=== PATIENT | male | born 1950 | race Caucasian/White ===

== ENCOUNTER 2019-04-13 09:15 | Outpatient (RCR) | payer MEDICARE, OTHER, SELFPAY | END 2019-04-25 00:01 | LOC: WOUND 09:15 | PROVIDERS: Family Provider Physician Assistant Medical; Visit Provider Nurse Practitioner Family | DX: T81.31XA Disruption of external operation (surgical) wound, not elsewhere classified, initial encounter (principal); Y83.8 Other surgical procedures as the cause of abnormal reaction of the patient, or of later complication, without mention of misadventure at the time of the procedure; E11.621 Type 2 diabetes mellitus with foot ulcer; L97.422 Non-pressure chronic ulcer of left heel and midfoot with fat layer exposed ==

== ENCOUNTER 2019-05-18 11:53 | Outpatient (RCR) | payer MEDICARE, OTHER, SELFPAY | END 2019-05-26 23:59 | disposition home or self-care (01) | LOC: WOUND 11:53 | PROVIDERS: Family Provider Physician Assistant Medical; PCP Physician Assistant Medical; Visit Provider Nurse Practitioner Family | DX: E11.621 Type 2 diabetes mellitus with foot ulcer (principal); L97.812 Non-pressure chronic ulcer of other part of right lower leg with fat layer exposed; L97.422 Non-pressure chronic ulcer of left heel and midfoot with fat layer exposed; L97.522 Non-pressure chronic ulcer of other part of left foot with fat layer exposed; Z89.422 Acquired absence of other left toe(s); Z89.511 Acquired absence of right leg below knee | CPT/HCPCS: 11042; 11043; 11045; 11046; 15271; 15272; Q4121 ==

== ENCOUNTER 2019-06-15 10:10 | Outpatient (RCR) | payer MEDICARE, OTHER, SELFPAY | END 2019-06-24 23:59 | disposition home or self-care (01) | LOC: WOUND 10:10 | PROVIDERS: Family Provider Physician Assistant Medical; PCP Physician Assistant Medical; Visit Provider Nurse Practitioner Family | DX: E11.621 Type 2 diabetes mellitus with foot ulcer (principal); L97.422 Non-pressure chronic ulcer of left heel and midfoot with fat layer exposed; L97.522 Non-pressure chronic ulcer of other part of left foot with fat layer exposed; E11.622 Type 2 diabetes mellitus with other skin ulcer; L97.812 Non-pressure chronic ulcer of other part of right lower leg with fat layer exposed; Z89.422 Acquired absence of other left toe(s); Z89.511 Acquired absence of right leg below knee | CPT/HCPCS: 11042; 11045; 15271; 15272; Q4121 ==

== ENCOUNTER 2019-07-20 11:03 | Outpatient (RCR) | payer MEDICARE, OTHER, SELFPAY | END 2019-07-25 23:59 | disposition home or self-care (01) | LOC: WOUND 11:03 | PROVIDERS: Family Provider Physician Assistant Medical; PCP Physician Assistant Medical; Visit Provider Nurse Practitioner Family | DX: E11.621 Type 2 diabetes mellitus with foot ulcer (principal); L97.422 Non-pressure chronic ulcer of left heel and midfoot with fat layer exposed; L97.522 Non-pressure chronic ulcer of other part of left foot with fat layer exposed; E11.622 Type 2 diabetes mellitus with other skin ulcer; L97.812 Non-pressure chronic ulcer of other part of right lower leg with fat layer exposed; Z89.511 Acquired absence of right leg below knee; Z89.422 Acquired absence of other left toe(s) | CPT/HCPCS: 11042; 15271; Q4121 ==

== ENCOUNTER 2019-08-17 09:42 | Outpatient (RCR) | payer MEDICARE, OTHER, SELFPAY | END 2019-08-24 23:59 | disposition home or self-care (01) | LOC: WOUND 09:42 | PROVIDERS: Family Provider Physician Assistant Medical; PCP Physician Assistant Medical; Visit Provider Nurse Practitioner Family | DX: E11.621 Type 2 diabetes mellitus with foot ulcer (principal); L97.422 Non-pressure chronic ulcer of left heel and midfoot with fat layer exposed; L97.522 Non-pressure chronic ulcer of other part of left foot with fat layer exposed; E11.622 Type 2 diabetes mellitus with other skin ulcer; L97.812 Non-pressure chronic ulcer of other part of right lower leg with fat layer exposed; Z89.422 Acquired absence of other left toe(s); Z89.511 Acquired absence of right leg below knee | CPT/HCPCS: 11042; 11045; L8440 ==

== ENCOUNTER 2019-08-31 11:03 | Outpatient (CLI) | payer MEDICARE, OTHER, SELFPAY | END 2019-08-31 11:04 | disposition home or self-care (01) | LOC: WOUND 11:04 | PROVIDERS: Family Provider Physician Assistant Medical; PCP Physician Assistant Medical; Visit Provider Nurse Practitioner Family | DX: E11.621 Type 2 diabetes mellitus with foot ulcer (principal); L97.422 Non-pressure chronic ulcer of left heel and midfoot with fat layer exposed; L97.522 Non-pressure chronic ulcer of other part of left foot with fat layer exposed; Z89.422 Acquired absence of other left toe(s) | CPT/HCPCS: 99214 ==

== ENCOUNTER 2019-09-05 13:24 | Outpatient (CLI) | payer MEDICARE, OTHER, SELFPAY | END 2019-09-05 13:25 | disposition home or self-care (01) | LOC: WOUND 13:25 | PROVIDERS: Family Provider Physician Assistant Medical; PCP Physician Assistant Medical; Visit Provider Thoracic Surgery (Cardiothoracic Vascular Surgery) | DX: E11.621 Type 2 diabetes mellitus with foot ulcer (principal); L97.422 Non-pressure chronic ulcer of left heel and midfoot with fat layer exposed; L97.513 Non-pressure chronic ulcer of other part of right foot with necrosis of muscle; Z89.422 Acquired absence of other left toe(s) | CPT/HCPCS: 99215 ==

== ENCOUNTER 2019-09-13 12:23 | Outpatient (RCR) | payer MEDICARE, OTHER, SELFPAY ==
--- NOTE | 2019-09-13 12:30 | USCV_ITS ---
David Monique Age: 69 Gender: M : 1950 Exam Date: 09/13/2019 12:50 Ordering Phys: Ryan Aldana MD (Andy) ([email or web address] [place]) Technologist: Zuleyma Rivera [place] [facility] [place] [facility] [place]: PVD Risk Factors: Previous Vascular Surgery: RIGHT LEFT BP: 148.0 / 73.00 BP: 124.0/ 58.00 0 0 Waveform Velocity (cm/s) Velocity (cm/s) Waveform Iliac Prox 156.9 Monophasic Iliac Mid 129.0 Monophasic Iliac Distal 101.0 Monophasic INSIDE CHANNEL ACCOUNT MANAGER 116.5 Monophasic SFA Prox 85.4 Monophasic SFA Mid 73.0 Monophasic SFA Dist 82.3 Monophasic POP 88.6 Monophasic FLEXOGRAPHIC PRINTING PRESS OPERATOR 32.5 Monophasic DPA 21.4 Monophasic JUSTINE 0.7 FINDINGS Diminished resting JUSTINE 0.67 Low velocity continuous waveforms in the posterior tibial and dorsalis pedis arteries on the left side CONCLUSIONS 1. Abnormal resting JUSTINE, consistent with a moderate peripheral artery disease on the left side. 2. Abnormal Doppler waveforms, suggestive of collateral filling of the posterior tibial and dorsalis pedis arteries on the left side Dr Maria M Gillette MD FAC (Electronically Signed) Final Date: 13 Sep 2019 19:13 S
== END 2019-09-24 23:59 | disposition home or self-care (01) ==
LOC: RAD 12:23
PROVIDERS: PCP Physician Assistant Medical; Visit Provider Nurse Practitioner Family
DX: I73.9 Peripheral vascular disease, unspecified (principal); M79.605 Pain in left leg
CPT/HCPCS: 93926

== ENCOUNTER 2019-09-20 10:48 | Outpatient (CLI) | payer MEDICARE, OTHER, SELFPAY | END 2019-09-20 10:49 | disposition home or self-care (01) | LOC: WOUND 10:50 | PROVIDERS: PCP Physician Assistant Medical; Visit Provider Thoracic Surgery (Cardiothoracic Vascular Surgery) | DX: E11.621 Type 2 diabetes mellitus with foot ulcer (principal); L97.422 Non-pressure chronic ulcer of left heel and midfoot with fat layer exposed; L97.524 Non-pressure chronic ulcer of other part of left foot with necrosis of bone; Z89.422 Acquired absence of other left toe(s) | CPT/HCPCS: 99214 ==

== ENCOUNTER 2019-09-25 06:08 | Inpatient (IN) | payer MEDICARE, OTHER, SELFPAY ==
[2019-09-22 14:31] VITALS: BMI 31.8
[2019-09-25] VITALS (21 sets, daily range): BP systolic 109–138; BP diastolic 64–78; PULSE 61–88; RESP 16–22; TEMP 36.8–37.2; O2SAT 92–97
--- NOTE | 2019-09-25 06:07 | ANES.PREANE2 ---
Pre-Anesthetic Assessment Pre-Anesthetic Assessment: Height/Weight: Height 1.83 m Weight 106.594 kg Proposed Procedure: Operation Date: 09/25/19 07:00 Proposed Procedures p BKA (Below Knee Amputation)(Left) - Ryan Aldana MD Social: Social History: Tobacco and No alcohol Exam: Pre-Anes Outpt Exam: alert, oriented x 3, clear to auscultation bilaterally (bilat course) and regular rate & rhythm Airway: Submandibular: WNL Cervical ROM: WNL MP: 2 Dentition: Other (very poor dentation) History/ROS: No significant history except as noted Pulmonary: Pulmonary: COPD, HOOKS and SOB CV/HEM: CV/HEM: CAD, HTN, IN and PVD : : None reported Hepatic: Hepatic: None reported GI: GI: GERD Metabolic: Metabolic: DM, Hyperlipidemia and Morbid obesity Musc/skel: Musc/skel: OA/DJD and Weakness Neuropsych: Neuropsych: Neuropathy Anesthetic Plan: ASA status: 4 Anesthesia: Anesthesia Evaluation, General and MAC Risk of > 500 ml blood loss (7ml/kg in children): Yes, adequate IV access and fluids planned PFSH Anesthesia PFSH: Medical History Amputated right leg COPD (chronic obstructive pulmonary disease) Diabetes Heart attack Hyperlipidemia Hypertension Social History Smoking and tobacco status: current every day smoker Data Anesthesia Cardiac Studies: No Data to Display
--- NOTE | 2019-09-25 06:31 | W.PM.OPSUD ---
Surgery/Procedure H&P Update DATE OF PROCEDURE: September 25, 2019 DATE H&P PERFORMED: 09/20/19 H&P UPDATE INFORMATION: I have reviewed H&P completed within last 30 days, I have examined patient prior to procedure and No changes to prior documentation PREOP DIAGNOSIS: severe PVD; planned left bka PLANNED PROCEDURE: Operation Date: 09/25/19 07:00 Proposed Procedures p BKA (Below Knee Amputation)(Left) - Ryan Aldana MD
[2019-09-25 06:45] LABS: Glucose Point of Care 113 mg/dL (70-110)
[2019-09-25] MEDS: sodium chloride 0.9% 1,000 ML 30 ML IV (06:50)
[2019-09-25] MEDS: fentaNYL 50 mcg/mL INJ 2mL 100 MCG IVP (07:06)
[2019-09-25 07:11] LABS: Basophils # 0.1 10^3/uL (0.0-0.1); Basophils % 0.5 %; Eosinophils # 0.4 10^3/uL (0.0-0.8); Eosinophils % 3.1 %; Hematocrit 37.1 % (42.0-52.0); Hemoglobin 11.4 g/dL (11.7-16.6); Lymphocytes # 1.2 10^3/uL (0.8-4.8); Lymphocytes % 8.5 %; Mean Corpuscular HGB Conc 30.7 g/dL (30.0-36.0); Mean Corpuscular Hemoglobin 26.5 pg (28.0-34.0); Mean Corpuscular Volume 86.3 fL (80-94); Mean Platelet Volume 9.5 fL (7.4-10.4); Monocytes # 1.2 10^3/uL (0.2-0.9); Monocytes % 8.4 %; Neutrophils % 78.9 %; Nucleated Red Blood Cells % 0 %; Platelet Count 456 10^3/cmm (130-400); Red Cell Distribution Width 16.3 % (12.1-15.1)
[2019-09-25 07:22] LABS: Alanine Aminotransferase 13 U/L (0-41); Albumin Level 3.4 g/dL (3.5-5.2); Alkaline Phosphatase 97 IU/L (40-130); Anion Gap 14.3 (5-19); Aspartate Amino Transferase 13 U/L (0-40); Blood Urea Nitrogen 49 mg/dL (8-23); Calcium 9.8 mg/dL (8.5-10.5); Carbon Dioxide 39 mmol/L (22-29); Chloride 81 mmol/L (98-107); Globulin 4.3 g/dL (1.3-4.6); Glucose 118 mg/dL (65-115); Osmolality Calculated 269 mOsm/kg (285-295); Potassium 4.3 mmol/L (3.5-5.1); Sodium 130 mmol/L (136-145); Total Bilirubin 0.3 mg/dL (0.15-1.2); Total Protein 7.7 g/dL (6.6-8.7)
[2019-09-25] MEDS: midazolam 1 mg/mL INJ 5 ML 5 MG IVP (07:35)
[2019-09-25] MEDS: vancomycin 1,000 MG SDV 1000 MG IRRIGATION (07:51)
[2019-09-25] MEDS: fentaNYL 50 mcg/mL INJ 2mL IVP (10:06)
--- NOTE | 2019-09-25 10:07 | PM.OP ---
Operative Report Date of procedure: September 25, 2019 Pre-op Diagnosis: severe PVD; planned left bka Post-op diagnosis: same Procedure Done: Left below-knee amputation Specimens removed/disposition: Left below-knee amputation Surgeon: Ryan Aldana Anesthesia: Nerve Block Estimated blood loss (mL): 200 Urine output (mL): 250 Condition: stable Disposition: PACU Brief History: 69-year-old gentleman with diabetes mellitus and severe peripheral vascular disease who is been followed in wound care clinic with progressive breakdown of his left foot now with exposed metatarsals on at least 3 areas. He has had a prior right below-knee amputation by myself last year due to severe peripheral vascular disease. No further options for vascular reconstruction are available and patient is requested for us to proceed with left below-knee amputation. Details of risk the procedure were carefully and frankly discussed. Proper consents have been reviewed and signed. Procedure: His entire left lower extremity was sterilely prepped and draped. Marking pen was utilized to determine our lines of transection to include a generous posterior flap. #10 scalpel blade was utilized to incise the skin circumferentially along the previously placed planned line of transection. Saphenous vein was controlled medially and secured prior to division. This was continued down to the tibia where periosteal elevator was utilized to strip periosteum proximally. This was done circumferentially. Next, transection of the tibia was performed utilizing powered saw. Anterior surface of the tibia was beveled utilizing saw and rasp Scalpel blade was utilized continue further transection of musculature and fascia down to the fibula, which was also isolated and periosteum elevated proximally. Again, powered saw was utilized to perform transection proximally. Amputation was then completed utilizing amputation knife. Areas of bleeding were controlled utilizing careful case of cautery or suture ligature. Remaining bulk of musculature on the posterior flap was beveled to allow for appropriate closure with elevation to the anterior transection line. Wound was then irrigated with antibiotic solution and hemostasis confirmed. A large Hemovac drain was placed and secured. Fascia was reapproximated with interrupted 2-0 Vicryl suture. Subcutaneous layer was reapproximated with running 3-0 Vicryl suture. Skin was then reapproximated utilizing [3-0 monofilament suture/skin joshua] in interrupted mattress fashion. Xeroform gauze was applied followed by appropriate padded dressings. Knee was placed in an immobilizer.
[2019-09-25 10:23] LABS: Glucose Point of Care 170 mg/dL (70-110)
[2019-09-25] MEDS: oxyCODONE-APAP 10-325 mg Tablet 1 TAB PO ×3 (10:55→23:58)
[2019-09-25] MEDS: sodium chloride 0.45% 1,000 ML 75 ML IV ×2 (10:55→21:46)
--- NOTE | 2019-09-25 11:03 | SUR.PHASEI ---
1028 PT AWAKE ALERT TAKING ICE CHIPS PT STATS PAIN IS BETTER NOW, LT STUMP DRESSING D/;I DRAIN COMPRESSED WITH ONLY SMALL AMT IN TUBING. PT TO FLOOR ALERT TALKATIVE TO KARIN GARY. BP 126/76. HR 70, RESP ON3LC 18, SATS 95%
[2019-09-25 11:23] LABS: Glucose Point of Care 195 mg/dL (70-110)
[2019-09-25 11:46] LABS: Add Urine Microscopic? YES; Bilirubin Urine Neg (NEGATIVE); Blood Urine 2+ (Negative); Glucose Urine UA Norm (Normal); Ketones Urine Negative (Negative); Leukocyte Esterase Urine Negative (Negative); Nitrate Urine Negative (Negative); Protein Urine Neg (Negative); Urine Appearance Clear (CLEAR); Urine Color Straw (Yellow); Urobilinogen Urine Norm (Negative); pH Urine 6 (5-7)
[2019-09-25 12:08] LABS: Squamous Epithelial Cell Urine 0-4 (0-5)
[2019-09-25 12:09] LABS: Add Urine Culture? Yes; Bacteria Urine 2+; Hyaline Casts Urine 0-4
[2019-09-25 17:14] LABS: Glucose Point of Care 307 mg/dL (70-110)
[2019-09-25] MEDS: metoprolol tartrate 50 mg Tablet PO (17:19)
[2019-09-25] MEDS: bumetanide 1 mg Tablet 2 MG PO (17:19)
--- NOTE | 2019-09-25 17:52 | PC.NURSE ---
pt has done well this shift, he has had 30mL serous output from his hemovac to L knee. pain has been well controlled, he stated that his pain hasn't been controlled this well in a while i reminded patient that he had a block to his L knee before surgery and that is helping to keep his pain under control. He has had two doses of oxycodone this shift. he has ate well and has no complaints at this time.
[2019-09-25 21:07] LABS: Glucose Point of Care 319 mg/dL (70-110)
[2019-09-25] MEDS: trazodone 50 mg Tablet PO (21:46)
[2019-09-26] VITALS (11 sets, daily range): BP systolic 94–129; BP diastolic 55–72; PULSE 57–73; RESP 17–20; TEMP 36.2–36.6; O2SAT 90–96
[2019-09-26] MEDS: oxyCODONE-APAP 10-325 mg Tablet 1 TAB PO ×5 (04:48→22:17)
[2019-09-26 06:22] LABS: Basophils % 0.1 %; Eosinophils % 0.1 %; Hematocrit 32.5 % (42.0-52.0); Hemoglobin 9.9 g/dL (11.7-16.6); Lymphocytes # 0.9 10^3/uL (0.8-4.8); Mean Corpuscular HGB Conc 30.5 g/dL (30.0-36.0); Mean Corpuscular Hemoglobin 26.5 pg (28.0-34.0); Mean Corpuscular Volume 87.1 fL (80-94); Mean Platelet Volume 9.7 fL (7.4-10.4); Monocytes # 0.7 10^3/uL (0.2-0.9); Monocytes % 4.7 %; Neutrophils # 13.3 10^3/uL (1.8-7.7); Neutrophils % 88.4 %; Nucleated Red Blood Cells % 0 %; Platelet Count 413 10^3/cmm (130-400); Red Blood Count 3.73 10^6/uL (4.1-5.3); Red Cell Distribution Width 15.9 % (12.1-15.1)
--- NOTE | 2019-09-26 06:30 | P.PN_ITS ---
Subjective Subjective: Interval history: Rested reasonably well last night. Does complain of surgical site pain as expected. Very low drain output. Vital signs are stable. White count 15,000. BMP is pending. Vitals/I&O/Wt Last Vital Signs Temp 97.8 F 09/26/19 04:00 Pulse 67 09/26/19 04:00 Resp 17 09/26/19 04:48 BP 119/61 09/26/19 04:00 Pulse Ox 90 09/26/19 04:00 09/25/19 09/25/19 09/26/19 14:59 22:59 06:59 Intake Total 100 / 100 1413.75 / 1513.75 740.00 / 2253.75 Output Total 1999 1030 / 3030 1103 / 4133 Balance -1900 / -1900 383.75 / -1516.25 -363.00 / -1879.25 Physical Exam Extremity: COMMON NORMALS: normal to inspection (Surgical dressing in place. Low FELIBERTO drain output.) Urinary Catheter Management^: Shaw: Cath Placed During This Visit: yes Reason for Continuing Indwelling Catheter: Perioperative Use in Selected Surgeries Urinary Catheter Date of Insertion: 09/25/19 Urinary Catheter Time of Insertion: 07:40 Data : 09/26/19 05:32 09/25/19 06:45 A&P Assessment and plan (1) Status post below-knee amputation of left lower extremity: Postop day #1 status post left BKA. I will plan to remove FELIBERTO drain this afternoon. I will add tramadol and Toradol to pain medication regimen Levaquin 500 milligrams daily prophylactically. Will confirm home health arrangements have been made with [facility] health services. Status: Acute Attestations Medical Necessity Statement*: Status post below-knee amputation on the left. Hospital stay is expected to cross 2 midnights. Time Spent in Patient Care: 16 - 35 minutes Coding Level of Care Code Acute Event Planning Manager for Allen Ladd Diagnoses Status post below-knee amputation of left lower extremity Z89.512
[2019-09-26] MEDS: ketorolac 30 mg/mL INJ IVP ×4 (06:34→23:30)
[2019-09-26 06:37] LABS: Anion Gap 13.5 (5-19); Blood Urea Nitrogen 47 mg/dL (8-23); Calcium 9.4 mg/dL (8.5-10.5); Carbon Dioxide 36 mmol/L (22-29); Chloride 83 mmol/L (98-107); Glucose 250 mg/dL (65-115); Osmolality Calculated 272 mOsm/kg (285-295); Potassium 4.5 mmol/L (3.5-5.1); Sodium 128 mmol/L (136-145)
[2019-09-26 06:40] LABS: Glucose Point of Care 279 mg/dL (70-110)
[2019-09-26] MEDS: TRAMadol 50 mg Tablet PO ×3 (07:11→20:50)
--- NOTE | 2019-09-26 07:21 | PC.NURSE ---
pt lung sounds coarse and diminished in bilateral lower bases, pt encouraged to use IS and used it while this nurse was at bedside
[2019-09-26] MEDS: amlodipine 5 mg Tablet 2.5 MG PO (08:41)
[2019-09-26] MEDS: metoprolol tartrate 50 mg Tablet PO ×2 (08:41→17:07)
[2019-09-26] MEDS: tamsulosin 0.4 mg Capsule PO (08:41)
[2019-09-26] MEDS: citalopram 20 mg Tablet 10 MG PO (08:41)
[2019-09-26] MEDS: bumetanide 1 mg Tablet 2 MG PO ×2 (08:41→17:06)
[2019-09-26] MEDS: pregabalin 50 mg Capsule PO (08:41)
[2019-09-26] MEDS: pantoprazole DR 40 mg Tablet PO (08:41)
[2019-09-26] MEDS: spironolactone 25 mg Tablet PO (08:42)
--- NOTE | 2019-09-26 10:53 | PC.RESP ---
SMOKING CESSATION AND PULMONARY REHAB INFORMATION SENT TO PATIENT.
[2019-09-26 10:56] LABS: Glucose Point of Care 265 mg/dL (70-110)
[2019-09-26] MEDS: sodium chloride 0.45% 1,000 ML 75 ML IV ×2 (11:39→22:54)
--- NOTE | 2019-09-26 11:45 | PC.CHAP ---
Pastoral Care Encounter/Spiritual Assessment Type of Contact [] Declined silver solderer visit [] Patient/Family/Request visit [] Outpatient visit [] Follow-up visit [] Physician referral [] Code/Alert [x] Routine visit [] Staff referral [] Actively dying [] Patient sleeping [] Family support [] [] Out of room [] Palliative care [] [x] Receiving care in room [] Pre-surgical visit [] Trauma [] Long length of stay [] ICU visit [x] Other: no prayer Relational/Emotional Strength [x] Patient feels connected with others/family/visitors/staff [] Distress [] Loneliness/isolation [] Abandonment Spirituality of Patient [] Person of Chloe [] Attends Mandaen of their Chloe [] Believes in Prayer [] Reads Bible or Buddhism materials [] There are Spiritual issues to be addressed Belt Glass Sander Interventions [] Prayer [] Active listening [] Non-anxious presence [] Spiritual/emotional support [] Crisis/trauma care [] Spiritual counseling [] Bereavement support [] Provided bereavement packet [] Provided Bible/devotional materials [] Provided toy/stuffed animal, coloring book to patient or family member [] Provided Communion [] Anointing/[place] [] Salvation [] Completed spiritual assessment [] Other: Impact on Illness or Injury [] Angry [] Fearful [x] Anxious [] Often cries [] Exhaustion [] Unable to work [] Unable to attend scientologist [] Unable to walk/stand [] Unable to read [] Unable to drive [] Unable to eat/drink [] Unable to sleep [] Unable to be with family [] Patient intubated [] Other: Summary Cut off R leg possitve to some degree, going home to family to help take of him, no prayer Time spent with patient 10 mins
--- NOTE | 2019-09-26 16:30 | PM.PN ---
Subjective Subjective: Interval history: Uneventful day. Low drain output. Vitals/I&O/Wt Last Vital Signs Temp 97.5 F L 09/26/19 11:21 Pulse 57 L 09/26/19 11:21 Resp 20 H 09/26/19 13:22 BP 112/57 09/26/19 11:21 Pulse Ox 91 09/26/19 11:21 09/26/19 09/26/19 09/26/19 06:59 14:59 22:59 Intake Total 761.25 / 2275.00 360 / 360 Output Total 1103 / 4133 800 / 800 Balance -341.75 / -1858.00 -440 / -440 Physical Exam Extremity: COMMON NORMALS: normal to inspection (Surgical dressing removed. Incision line intact. Minimal ecchymosis. Hemovac drain removed.) Urinary Catheter Management^: Shaw: Cath Placed During This Visit: yes Reason for Continuing Indwelling Catheter: Perioperative Use in Selected Surgeries Urinary Catheter Date of Insertion: 09/25/19 Urinary Catheter Time of Insertion: 07:40 Data : 09/26/19 05:32 09/26/19 05:32 Micro: Microbiology 09/25/19 11:31 Urine Culture - Preliminary Urine,Clean Catch A&P Assessment and plan (1) Status post below-knee amputation of left lower extremity: Hemovac drain removed. Incision line intact. Continue rehabilitation. DC Shaw catheter tomorrow. Discharge planning. Status: Acute Attestations Medical Necessity Statement*: Postop day #1 status post left BKA Time Spent in Patient Care: 16 - 35 minutes Coding Level of Care Code Acute Linseed Oil Refiner for Allen Ladd Diagnoses Status post below-knee amputation of left lower extremity Z89.512
[2019-09-26 16:55] LABS: Glucose Point of Care 176 mg/dL (70-110)
[2019-09-26] MEDS: levoFLOXacin 750 mg Tablet 500 MG PO (17:06)
--- NOTE | 2019-09-26 17:24 | PC.NURSE ---
Pt has had an increase in pain this shift from yesterday, all pain medications have been utilized throughout shift. Pt resting in bed at this time eating supper, he rates his pain at 4/10. Scheduled dose of toradol due at 1830. First dose of PO levaquin given per order. Dressing to L knee removed and hemovac removed by Dr. Aldana today, pt tolerated well.
--- NOTE | 2019-09-26 17:45 | PC.NURSE ---
Dr. Aldana states that patient's is allowed to visit, front attendant notified of Sarah coming to see pt so that they will allow her in
[2019-09-26 20:39] LABS: Glucose Point of Care 214 mg/dL (70-110)
[2019-09-27] MEDS: levoFLOXacin 500 mg Tablet PO (05:33)
[2019-09-27] MEDS: ketorolac 30 mg/mL INJ IVP (05:33)
--- NOTE | 2019-09-27 06:28 | PC.NURSE ---
NURSES NOTE DR. DENNIS AT BEDSIDE INSTRUCTING PATIENT ON PLAN OF CARE. STATES HE WILL PUT ORDERS IN THE CHART.
--- NOTE | 2019-09-27 06:42 | PM.DCS ---
Discharge Providers Date of Admission: 09/25/19 06:08 Date of Discharge: September 27, 2019 Attending Provider at Admission: Ryan Aldana MD Attending Provider at Discharge: Ryan Aldana MD Primary Care Provider: Laz Mclaughlin Diagnoses at Discharge Discharge Diagnosis (1) Status post below-knee amputation of left lower extremity: Status: Acute Hospital Course Discharge Summary: Mr. Monique is a very pleasant gentleman with severe peripheral vascular disease, oxygen dependent COPD, renal insufficiency, and diabetes mellitus who is status post right below-knee amputation last year due to severe PVD with progressive tissue loss. Unfortunately, this has now proceeded on the left side and after careful review by our interventional service, he is not felt to have any options for meaningful reconstruction. He has extensively exposed metatarsal phalangeal joints with increasing pain. Below-knee amputation is been recommended. He was electively admitted on September 24 underwent left below-knee amputation. Small Hemovac drain was placed. He convalesced on the surgical barrios where he remained stable. Pain under good control. Low Hemovac drain output. Drain was discontinued yesterday evening. Incision line remains intact, clean and dry. His postoperative pain is under reasonable control with oral narcotics and he is eager for discharge to return home. He has had previous home health services with [facility] and he wishes to continue these. This has been arranged. Nursing department for that service will be contacted to confirm appropriate discharge instructions. He will be scheduled to follow-up to see me in wound care services in 1 week. At the time of discharge she is in stable condition. Physical Exam Resp: COMMON NORMALS: normal respiratory effort and clear to auscultation bilaterally EFFORT & INSPECTION: Yes able to speak in complete sentences AUSCULTATION: clear to auscultation bilaterally Cardio: COMMON NORMALS: regular rate, regular rhythm and S1 normal heart sound present RATE: regular rate RHYTHM: regular rhythm HEART SOUNDS: S1 normal heart sound present Extremity: COMMON NORMALS: normal to inspection (Left BKA incision line is clean, dry, and intact. Minimal swelling and no evidence for substantial fluid collection.) Urinary Catheter Management^: Shaw: Cath Placed During This Visit: yes Reason for Continuing Indwelling Catheter: Perioperative Use in Selected Surgeries Urinary Catheter Date of Insertion: 09/25/19 Urinary Catheter Time of Insertion: 07:40 Discharge Data Data Completed and Pending: Pending at discharge Category Date Time Status Leukocyte Reduced RBC Routine Lab 09/25/19 06:57 Results Type and Screen R outine Lab 09/25/19 06:57 Results Urine Culture Rou hosea Lab 09/25/19 11:31 Results Pathology: Surgic al [PTH] Routine Pth 09/25/19 08:26 Received Labs from last 24 hours 09/26/19 09/26/19 09/26/19 20:32 16:48 10:51 POC Glucose 214 176 265 Vitals: Last Vital Signs Temp 97.2 F L 09/26/19 20:00 Pulse 65 09/26/19 20:00 Resp 18 09/26/19 22:17 BP 103/63 09/26/19 20:00 Pulse Ox 95 09/26/19 20:00 Discharge Plan Discharge Patient Disposition: Home Health Service Condition: Stable Prescriptions: New Percocet 10-325 mg tablet 1 tab PO Q6H PRN (Reason: pain) Qty: 30 RF: 0 levofloxacin [Levaquin] 500 mg tablet 250 mg PO DAILY 5 Days Qty: 3 RF: 0 Continued acetaminophen-codeine 300-60 mg Tablet 1 tab PO Q6H PRN (Reason: Pain) RF: 0 amlodipine 2.5 mg Tablet 2.5 mg PO DAILY RF: 0 bumetanide 2 mg tablet 2 mg PO BID RF: 0 trazodone 50 mg tablet 50 mg PO DAILY RF: 0 citalopram 10 mg tablet 10 mg PO DAILY RF: 0 clopidogrel 75 mg tablet 75 mg PO DAILY RF: 0 spironolactone 25 mg tablet 25 mg PO DAILY RF: 0 tamsulosin 0.4 mg capsule 0.4 mg PO DAILY RF: 0 metoprolol tartrate 50 mg tablet 50 mg PO BID RF: 0 omeprazole 20 mg capsule,delayed release(DR/EC) 20 mg PO PRN RF: 0 rosuvastatin 5 mg tablet 5 mg PO DAILY RF: 0 pregabalin 50 mg capsule 50 mg PO DAILY RF: 0 Lantus Solostar U-100 Insulin 100 unit/mL (3 mL) insulin pen 60 unit SUBCUT DAILY RF: 0 melatonin 3 mg Capsule 3 mg PO DAILY RF: 0 Discharge Orders: Discharge Order (Routine); Ordered 09/27/19 Ordered By: Ryan Aldana Referrals: WOUND CARE CL[facility], [Staff Physician] - 10/03/19 Discharge Diet: Usual diet Discharge Activity: Limit activity as instructed Activity Restrictions/Additional Instructions: Assistance with all transfers Abanda incision line daily with Betadine and cover as needed Discharge Attestations Time Spent in Discharge Care*: greater than 30 min Specific Discharge Activities: Specific discharge activities: educating patient, discussing with pcp/other providers, discussing with case resource manager/social workers/dc planners, documenting/other paperwork and evaluating patient/reviewing data Status at Discharge: Cognitive status at discharge: cognitively intact, Functional status at discharge: wheelchair bound Overall status at discharge: patient is progressing back to baseline Quality Metrics Clinical Quality Measures During this hospital stay, did patient experience: None Coding Level of Care Code Acute Power Screwdriver Operator for Barbieg Fwd Diagnoses Status post below-knee amputation of left lower extremity Z89.512
[2019-09-27 07:37] VITALS: BP 104/58; PULSE 93; RESP 18; TEMP 36.4; O2SAT 95
[2019-09-27] MEDS: bumetanide 1 mg Tablet 2 MG PO (08:15)
[2019-09-27 08:16] VITALS: RESP 18
[2019-09-27] MEDS: amlodipine 5 mg Tablet 2.5 MG PO (08:16)
[2019-09-27] MEDS: oxyCODONE-APAP 10-325 mg Tablet 1 TAB PO (08:16)
[2019-09-27] MEDS: pregabalin 50 mg Capsule PO (08:18)
[2019-09-27] MEDS: pantoprazole DR 40 mg Tablet PO (08:18)
[2019-09-27] MEDS: tamsulosin 0.4 mg Capsule PO (08:18)
[2019-09-27] MEDS: spironolactone 25 mg Tablet PO (08:18)
[2019-09-27] MEDS: metoprolol tartrate 50 mg Tablet PO (08:19)
[2019-09-27] MEDS: citalopram 20 mg Tablet 10 MG PO (08:19)
[2019-09-27 11:45] LABS: Glucose Point of Care 106 mg/dL (70-110)
[2019-09-27 13:27] VITALS: RESP 18
== END 2019-09-27 12:30 | disposition home health service (06) | DRG 240 ==
LOC: MEDSURG 09:45
PROVIDERS: Admitting Provider Thoracic Surgery (Cardiothoracic Vascular Surgery); PCP Physician Assistant Medical; Visit Provider Thoracic Surgery (Cardiothoracic Vascular Surgery)
PROC: 0Y6J0Z1 Detachment at Left Lower Leg, High, Open Approach (ICD-10-PCS; CPT 27880; principal; 2019-09-25 07:00)
DX: E11.51 Type 2 diabetes mellitus with diabetic peripheral angiopathy without gangrene (principal); I13.0 Hypertensive heart and chronic kidney disease with heart failure and stage 1 through stage 4 chronic kidney disease, or unspecified chronic kidney disease; E11.42 Type 2 diabetes mellitus with diabetic polyneuropathy; E11.22 Type 2 diabetes mellitus with diabetic chronic kidney disease; N18.3 Chronic kidney disease, stage 3 (moderate); I48.91 Unspecified atrial fibrillation; I25.2 Old myocardial infarction; E66.01 Morbid (severe) obesity due to excess calories; Z68.31 Body mass index [BMI] 31.0-31.9, adult; J44.9 Chronic obstructive pulmonary disease, unspecified; Z89.511 Acquired absence of right leg below knee; Z79.02 Long term (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 of antithrombotics/antiplatelets; Z79.4 Long term (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 of insulin
CPT/HCPCS: 12345; 36415; 36416; 51702; 80048; 80053; 81001; 82962; 85025; 86850; 86900; 86920; 87086; 88307; 94664; 96372; 96374; 96375; J0131; J0690; J1100; J1815; J1885; J2001; J2250; J2704; J2795; J3010; J3370; J7030

== ENCOUNTER 2019-10-03 13:31 | Outpatient (CLI) | payer MEDICARE, OTHER, SELFPAY | END 2019-10-03 13:32 | disposition home or self-care (01) | LOC: WOUND 13:32 | PROVIDERS: PCP Physician Assistant Medical; Visit Provider Thoracic Surgery (Cardiothoracic Vascular Surgery) | DX: E11.621 Type 2 diabetes mellitus with foot ulcer (principal); L97.524 Non-pressure chronic ulcer of other part of left foot with necrosis of bone; Z89.422 Acquired absence of other left toe(s) | CPT/HCPCS: 99212 ==

== ENCOUNTER 2019-10-18 09:52 | Outpatient (CLI) | payer MEDICARE, OTHER, SELFPAY | END 2019-10-18 09:53 | disposition home or self-care (01) | LOC: WOUND 09:56 | PROVIDERS: PCP Physician Assistant Medical; Visit Provider Thoracic Surgery (Cardiothoracic Vascular Surgery) | DX: Z89.512 Acquired absence of left leg below knee (principal) | CPT/HCPCS: 99212 ==

== ENCOUNTER 2019-10-24 13:10 | Outpatient (CLI) | payer MEDICARE, OTHER, SELFPAY | END 2019-10-24 13:11 | disposition home or self-care (01) | LOC: WOUND 13:10 | PROVIDERS: PCP Physician Assistant Medical; Visit Provider Thoracic Surgery (Cardiothoracic Vascular Surgery) | DX: Z89.512 Acquired absence of left leg below knee (principal) | CPT/HCPCS: 99212; L8440 ==

== ENCOUNTER 2019-11-01 15:34 | Outpatient (CLI) | payer MEDICARE, OTHER, SELFPAY | END 2019-11-01 15:35 | disposition home or self-care (01) | LOC: WOUND 15:35 | PROVIDERS: PCP Physician Assistant Medical; Visit Provider Thoracic Surgery (Cardiothoracic Vascular Surgery) | DX: E11.622 Type 2 diabetes mellitus with other skin ulcer (principal); L97.823 Non-pressure chronic ulcer of other part of left lower leg with necrosis of muscle; Z89.512 Acquired absence of left leg below knee | CPT/HCPCS: 11042 ==

== ENCOUNTER 2019-11-07 15:15 | Outpatient (CLI) | payer MEDICARE, OTHER, SELFPAY | END 2019-11-07 15:16 | disposition home or self-care (01) | LOC: WOUND 15:17 | PROVIDERS: PCP Physician Assistant Medical; Visit Provider Thoracic Surgery (Cardiothoracic Vascular Surgery) | DX: E11.622 Type 2 diabetes mellitus with other skin ulcer (principal); L97.822 Non-pressure chronic ulcer of other part of left lower leg with fat layer exposed; Z89.512 Acquired absence of left leg below knee | CPT/HCPCS: G0463 ==

== ENCOUNTER 2019-11-08 06:00 | Outpatient (RCR) | payer OTHER, SELFPAY | END 2019-11-08 23:00 | disposition home or self-care (01) | LOC: WOT 06:00 | PROVIDERS: PCP Physician Assistant Medical; Referring Provider Physician Assistant Medical; Visit Provider Physician Assistant Medical | DX: Z74.09 Other reduced mobility (principal) | CPT/HCPCS: 97167; 97530 ==

== ENCOUNTER 2019-11-14 10:38 | Outpatient (CLI) | payer MEDICARE, OTHER, SELFPAY | END 2019-11-14 10:39 | disposition home or self-care (01) | LOC: WOUND 10:40 | PROVIDERS: PCP Physician Assistant Medical; Visit Provider Thoracic Surgery (Cardiothoracic Vascular Surgery) | DX: E11.622 Type 2 diabetes mellitus with other skin ulcer (principal); L97.822 Non-pressure chronic ulcer of other part of left lower leg with fat layer exposed; Z89.512 Acquired absence of left leg below knee | CPT/HCPCS: 11042 ==

== ENCOUNTER 2019-11-21 10:26 | Outpatient (CLI) | payer MEDICARE, OTHER, SELFPAY | END 2019-11-21 10:27 | disposition home or self-care (01) | LOC: WOUND 10:37 | PROVIDERS: PCP Physician Assistant Medical; Visit Provider Thoracic Surgery (Cardiothoracic Vascular Surgery) | DX: E11.622 Type 2 diabetes mellitus with other skin ulcer (principal); L97.822 Non-pressure chronic ulcer of other part of left lower leg with fat layer exposed; Z89.512 Acquired absence of left leg below knee | CPT/HCPCS: 11042 ==

== ENCOUNTER 2019-11-28 11:00 | Outpatient (CLI) | payer MEDICARE, OTHER, SELFPAY | END 2019-11-28 11:01 | disposition home or self-care (01) | LOC: WOUND 11:06 | PROVIDERS: PCP Physician Assistant Medical; Visit Provider Thoracic Surgery (Cardiothoracic Vascular Surgery) | DX: E11.622 Type 2 diabetes mellitus with other skin ulcer (principal); L97.822 Non-pressure chronic ulcer of other part of left lower leg with fat layer exposed; Z89.512 Acquired absence of left leg below knee | CPT/HCPCS: 11042 ==

== ENCOUNTER 2019-12-05 11:05 | Outpatient (CLI) | payer MEDICARE, OTHER, SELFPAY | END 2019-12-05 11:06 | disposition home or self-care (01) | LOC: WOUND 11:06 | PROVIDERS: PCP Physician Assistant Medical; Visit Provider Emergency Medicine | DX: E11.622 Type 2 diabetes mellitus with other skin ulcer (principal); L97.822 Non-pressure chronic ulcer of other part of left lower leg with fat layer exposed; Z89.512 Acquired absence of left leg below knee | CPT/HCPCS: 11042; 87070; 87077; 87176; 87186; 87205 ==

== ENCOUNTER 2019-12-12 10:38 | Outpatient (CLI) | payer MEDICARE, OTHER, SELFPAY | END 2019-12-12 10:39 | disposition home or self-care (01) | LOC: WOUND 10:39 | PROVIDERS: PCP Physician Assistant Medical; Visit Provider Nurse Practitioner Family | DX: E11.622 Type 2 diabetes mellitus with other skin ulcer (principal); L97.822 Non-pressure chronic ulcer of other part of left lower leg with fat layer exposed; Z89.512 Acquired absence of left leg below knee | CPT/HCPCS: 11042 ==

== ENCOUNTER 2019-12-19 10:38 | Outpatient (CLI) | payer MEDICARE, OTHER, SELFPAY | END 2019-12-19 10:39 | disposition home or self-care (01) | LOC: WOUND 10:39 | PROVIDERS: PCP Physician Assistant Medical; Visit Provider Thoracic Surgery (Cardiothoracic Vascular Surgery) | DX: E11.622 Type 2 diabetes mellitus with other skin ulcer (principal); L97.822 Non-pressure chronic ulcer of other part of left lower leg with fat layer exposed; Z89.512 Acquired absence of left leg below knee | CPT/HCPCS: 11042 ==

== ENCOUNTER 2020-01-02 11:09 | Outpatient (CLI) | payer MEDICARE, OTHER, SELFPAY | END 2020-01-02 11:10 | disposition home or self-care (01) | LOC: WOUND 11:10 | PROVIDERS: PCP Physician Assistant Medical; Visit Provider Thoracic Surgery (Cardiothoracic Vascular Surgery) | DX: E11.622 Type 2 diabetes mellitus with other skin ulcer (principal); L97.822 Non-pressure chronic ulcer of other part of left lower leg with fat layer exposed; Z89.512 Acquired absence of left leg below knee | CPT/HCPCS: 11042 ==

== ENCOUNTER 2020-01-16 10:52 | Outpatient (CLI) | payer MEDICARE, OTHER, SELFPAY | END 2020-01-16 10:53 | disposition home or self-care (01) | LOC: WOUND 10:53 | PROVIDERS: PCP Physician Assistant Medical; Visit Provider Thoracic Surgery (Cardiothoracic Vascular Surgery) | DX: E11.622 Type 2 diabetes mellitus with other skin ulcer (principal); L97.822 Non-pressure chronic ulcer of other part of left lower leg with fat layer exposed; Z89.512 Acquired absence of left leg below knee | CPT/HCPCS: 11042 ==

== ENCOUNTER 2020-02-06 14:12 | Outpatient (RCR) | payer MEDICARE, OTHER, SELFPAY | END 2020-02-24 23:59 | disposition home or self-care (01) | LOC: WOUND 14:12 | PROVIDERS: PCP Physician Assistant Medical; Visit Provider Thoracic Surgery (Cardiothoracic Vascular Surgery) | DX: E11.622 Type 2 diabetes mellitus with other skin ulcer (principal); L97.522 Non-pressure chronic ulcer of other part of left foot with fat layer exposed; Z89.512 Acquired absence of left leg below knee | CPT/HCPCS: 11042 ==

== ENCOUNTER 2020-02-28 15:36 | Outpatient (CLI) | payer MEDICARE, OTHER, SELFPAY | END 2020-02-28 15:37 | disposition home or self-care (01) | LOC: WOUND 15:37 | PROVIDERS: PCP Physician Assistant Medical; Visit Provider Thoracic Surgery (Cardiothoracic Vascular Surgery) | DX: E11.622 Type 2 diabetes mellitus with other skin ulcer (principal); L97.822 Non-pressure chronic ulcer of other part of left lower leg with fat layer exposed; Z89.512 Acquired absence of left leg below knee | CPT/HCPCS: 11042 ==

== ENCOUNTER 2020-03-12 13:49 | Outpatient (CLI) | payer MEDICARE, OTHER, SELFPAY | END 2020-03-12 13:50 | disposition home or self-care (01) | LOC: WOUND 13:50 | PROVIDERS: PCP Physician Assistant Medical; Visit Provider Nurse Practitioner Family | DX: E11.622 Type 2 diabetes mellitus with other skin ulcer (principal); L97.822 Non-pressure chronic ulcer of other part of left lower leg with fat layer exposed; Z89.512 Acquired absence of left leg below knee | CPT/HCPCS: 11042 ==

== ENCOUNTER 2020-03-26 13:43 | Outpatient (CLI) | payer MEDICARE, OTHER, SELFPAY | END 2020-03-26 13:44 | disposition home or self-care (01) | LOC: WOUND 13:43 | PROVIDERS: PCP Physician Assistant Medical; Visit Provider Thoracic Surgery (Cardiothoracic Vascular Surgery) | DX: E11.622 Type 2 diabetes mellitus with other skin ulcer (principal); L97.822 Non-pressure chronic ulcer of other part of left lower leg with fat layer exposed; Z89.512 Acquired absence of left leg below knee | CPT/HCPCS: G0463 ==

== ENCOUNTER 2020-04-02 14:59 | Outpatient (CLI) | payer MEDICARE, OTHER, SELFPAY | END 2020-04-02 15:00 | disposition home or self-care (01) | LOC: WOUND 14:59 | PROVIDERS: PCP Physician Assistant Medical; Visit Provider Thoracic Surgery (Cardiothoracic Vascular Surgery) | DX: E11.622 Type 2 diabetes mellitus with other skin ulcer (principal); L97.822 Non-pressure chronic ulcer of other part of left lower leg with fat layer exposed; Z89.512 Acquired absence of left leg below knee | CPT/HCPCS: 11042 ==

== ENCOUNTER 2020-04-16 13:45 | Outpatient (CLI) | payer MEDICARE, OTHER, SELFPAY | END 2020-04-16 13:46 | disposition home or self-care (01) | LOC: WOUND 13:46 | PROVIDERS: PCP Physician Assistant Medical; Visit Provider Nurse Practitioner Family | DX: Z09 Encounter for follow-up examination after completed treatment for conditions other than malignant neoplasm (principal); Z89.512 Acquired absence of left leg below knee | CPT/HCPCS: 99212 ==

== ENCOUNTER 2020-05-10 06:00 | Outpatient (RCR) | payer MEDICARE, OTHER, SELFPAY | END 2020-05-10 23:00 | disposition home or self-care (01) | LOC: SOT 06:00 | PROVIDERS: PCP Physician Assistant Medical; Referring Provider Physician Assistant Medical; Visit Provider Physician Assistant Medical | DX: Z74.09 Other reduced mobility (principal); Z99.3 Dependence on wheelchair | CPT/HCPCS: 97167; 97530 ==

== ENCOUNTER → 2022-09-01 11:29 | Outpatient (BNVA) | payer MEDICARE, OTHER, SELFPAY | PROVIDERS: PCP Registered Nurse; Referring Provider Registered Nurse; Visit Provider Internal Medicine | DX: E11.9 Type 2 diabetes mellitus without complications (principal); E78.5 Hyperlipidemia, unspecified; Z79.4 Long term (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 of insulin | CPT/HCPCS: 99204 ==

== ENCOUNTER 2022-12-07 09:13 | Outpatient (CLI) | payer MEDICARE, OTHER, SELFPAY ==
[2022-12-07 09:49] LABS: Estmated Average Glucose 266; Hemoglobin A1C 10.9 % (4.0-6.0)
[2022-12-07 10:03] LABS: Creatinine Urine, Random 77 mg/dL (39-259)
[2022-12-07 10:07] LABS: Alanine Aminotransferase 9 U/L (0-41); Albumin Level 3.8 g/dL (3.5-5.2); Alkaline Phosphatase 72 U/L (40-130); Anion Gap 13.6 (5-19); Aspartate Amino Transferase 11 U/L (0-40); Blood Urea Nitrogen 33 mg/dL (8-23); Calcium 9.3 mg/dL (8.5-10.5); Carbon Dioxide 33 mmol/L (22-29); Chloride 96 mmol/L (98-107); Chol HDL Ratio 5.68 mg/dL (1.0-5.00); Cholesterol 193 mg/dL (0-200); Globulin 3.1 g/dL (1.3-4.6); Glucose 299 mg/dL (65-115); HDL Cholesterol 34 mg/dL (60-100); Osmolality Calculated 304 mOsm/kg (285-295); Potassium 4.6 mmol/L (3.5-5.1); Sodium 138 mmol/L (136-145); Total Bilirubin 0.3 mg/dL (0.15-1.2); Total Protein 6.9 g/dL (6.6-8.7); Triglycerides 434 mg/dL (0-150)
[2022-12-07 10:15] LABS: Microalbum Creatinine Ratio Ur 1766 mg/dL (0-20); Microalbumin Random Urine 136 ug/dL (0-20)
[2022-12-07 10:27] LABS: LDL Cholesterol Direct 96 mg/dL (0-100)
== END 2022-12-07 09:14 | disposition home or self-care (01) ==
LOC: LAB 09:17
PROVIDERS: PCP Registered Nurse; Visit Provider Internal Medicine
DX: E11.9 Type 2 diabetes mellitus without complications (principal); E78.2 Mixed hyperlipidemia; Z89.512 Acquired absence of left leg below knee; Z79.4 Long term (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 of insulin
CPT/HCPCS: 36415; 80053; 80061; 82044; 83036; 83721; 99214

== ENCOUNTER 2023-05-18 08:23 | Inpatient (IN) | payer MEDICARE, OTHER, SELFPAY ==
[2023-05-18] VITALS (15 sets, daily range): BP systolic 142–153; BP diastolic 81–102; PULSE 88–134; RESP 16–24; TEMP 36.7–37.1; O2SAT 90–99; BMI 31.1
--- NOTE | 2023-05-18 08:29 | XR_ITS ---
WS: [id number] XR chest 1V portable [id number] REASON FOR EXAM: dyspnea/cough FINDINGS: Previous examination of 03/12/2019 demonstrated minimal reticular interstitial lung opacities in both lung bases. The interstitial lung opacities in the right lower lung. More prominent than on the previous examinat ion and there is a vague increased density in the lower lateral right lung field. Equivocal increase in the reticular interstitial lung opacities in the left lung base. Mild tortuosity of the thoracic aorta. The heart is not significantly enlarged. Mild accentuation of the upper lobe pulmonary veins. There is blunting of the right costophrenic angle. IMPRESSION: Possible early congestive heart failure versus early pneumonitis right lower lung.
--- NOTE | 2023-05-18 08:35 | ECG_ITS ---
[facility] Test Date: 2023-05-18 Pat Name: David Monique Department: Room: Gender: Male Managing Cognitive Engineer: : 1950 Requested By: Vu Deleon Order Number: [id number] Hannah MD: Maria M Gillette M.D. Measurements Intervals Deaver Rate: 135 P: 0 SC: 0 QRS: 73 QRSD: 101 T: 261 QT: 293 QTc: 439 Interpretive Statements ATRIAL FLUTTER/TACHYCARDIA WITH RAPID VENTRICULAR RESPONSE WITH ABERRANT CONDUCTION OR VENTRICULAR PREMATURE COMPLEXES MARKED ST DEPRESSION, CONSIDER SUBENDOCARDIAL INJURY [0.2+ mV ST DEPRESSION] ACUTE [place] Compared to ECG 03/02/2019 13:44:46 Ventricular premature complex(es) now present ST (T wave) deviation now present Atrial fibrillation no longer present T-wave abnormality no longer present Electronically Signed On 05-18-2023 19:51:57 BOX PRINTING MACHINE OPERATOR by Maria M Gillette M.D. [id number]
--- NOTE | 2023-05-18 08:40 | ED_ITS ---
HPI - Arrhythmia/Palpitations 2 General: Chief Complaint: Arrhythmia/Palpitations Stated Complaint: elevated hr Time Seen by Provider: 05/18/23 08:29 Source: patient Mode of arrival: ambulatory History of Present Illness: 72-year-old male presents emergency room with palpitations rapid heart rate and mild chest discomfort. This been going on for approximately 1 week. he has history of atrial fibrillation but is off of his medications. He was previously on amiodarone and then changed to other medications but now is unfortunately not been taking any of his medicines. He also has a known history of coronary disease with previous angiography. He has had problems with GI blood loss and was taken off his anticoagulants. This morning he had chest pain and palpitations he states he took a sublingual nitro with partial relief of chest discomfort. He is requiring 5 to 6 L by nasal cannula to maintain his oxygen status. MD complaint: rapid heart beat, heart racing and atrial fibrillation Onset (ago): week(s) Duration: intermittent Severity: moderate Context: occurred during rest Arrhythmia history: atrial fibrillation Associated symptoms: Reports cough; Deny anxiety, diaphoresis, muscle cramps, nausea, paresthesias, pre-syncope, sense of impending doom, short of breath, syncope or vomiting Review of Systems 2 Const: Denies: fever(s), chills or diaphoresis Card: Reports: chest pain, palpitations, irregular heart rhythm, edema, dyspnea on exertion and orthopnea; Denies: syncope or pre-syncope Resp: Reports: non-productive cough GI: Denies: abdominal pain, nausea or vomiting : Denies: dysuria, urinary frequency or urinary urgency Musc: Denies: neck pain, back pain or muscle cramps Skin/Breast: Denies: rash Psych: Denies: anxiety PFSH ED 2 PFSH: Medical History History of nonmelanoma skin cancer Heart attack Hypertension Hyperlipidemia Diabetes COPD (chronic obstructive pulmonary disease) Amputated right leg Surgical History Status post below-knee amputation of left lower extremity Family History Other Cancer Diabetes Hypertension Social History Smoking and tobacco/nicotine status: current every day tobacco/nicotine user Physical Exam 2 Const: GENERAL APPEARANCE: cooperative and comfortable O RIENTATION/CONSCIOUSNESS: Yes awake, Yes oriented to person, Yes oriented to place and Yes oriented to time HENMT: COMMON NORMALS: normocephalic, atraumatic and hearing grossly normal bilaterally HEAD & SCALP: normocephalic and atraumatic Resp: COMMON NORMALS: normal respiratory effort, No retractions, No use of accessory muscles and clear to auscultation bilaterally AUSCULTATION: clear to auscultation bilaterally Cardio: COMMON NORMALS: No murmurs present (Cardio) RATE: tachycardic R HYTHM: abnormal rhythm irregularly irregular GI: COMMON NORMALS: Soft to palpation and No hepatosplenomegaly present A USCULTATION: Yes normoactive bowel sounds PALPATION: Yes Soft to palpation, No Tenderness to palpation present (GI), No Guarding due to palpation present (GI) and Yes No hepatosplenomegaly present Extremity: NARRATIVE EXTREMITY EXAM: Bilateral below the knee amputations Neuro: SENSORIUM/ORIENTATION: Yes oriented to person, Yes oriented to place and Yes oriented to time Skin: COMMON NORMALS: no rashes or lesions noted GENERAL SKIN EXAM: no rashes or lesions noted Course 2 Vital Signs: Vital signs: Vital Signs Temperature 98.0 F 05/22/23 11:33 Pulse Rate 85 05/22/23 15:55 Respiratory Rate 22 H 05/22/23 15:55 Blood Pressure 99/76 05/22/23 11:33 Pulse Oximetry 91 05/22/23 15:55 Oxygen Delivery Me thod Nasal Cannula 05/22/23 11:33 Oxygen Flow Rate 4 05/22/23 14:44 Fraction of Inspir ed Oxygen 40 05/22/23 03:26 MDM - Arrhythmia/Palpitations Medical Decision Making Initially started on Cardizem but this did not have significant effect and he was transitioned to amiodarone later in his stay. He was also started on heparin due to his elevated troponins. Significant component of congestive heart failure and acute kidney injuries as well. He will require hospital admission discussed with hospitalist orders written Medical Records I reviewed the patient's medical records. Lab Data I reviewed the patient's lab results. 05/22/23 03:10 05/22/23 03:10 Laboratory Results WBC 7.45 10^3/uL (3.29-11.43) 05/18/23 08:51 RBC 3.04 10^6/uL (3.85-5.65) L 05/18/23 08:51 Hgb 9.20 g/dL (11.27-16.99) L 05/18/23 08:51 Hct 28.8 % (37-53) L 05/18/23 08:51 MCV 94.7 fl (82-101) 05/18/23 08:51 MCH 30.3 pg (27-33) 05/18/23 08:51 MCHC 31.9 g/dL (30-55) 05/18/23 08:51 RDW 14.6 % (12.1-15.1) 05/18/23 08:51 Plt Count 273 10^3/cmm (157-399) 05/18/23 08:51 MPV 10.1 fL (7.4-10.4) 05/18/23 08:51 Neut % (Auto) 75.8 % 05/18/23 08:51 Lymph % (Auto) 14.9 % 05/18/23 08:51 [place] % (Auto) 7.1 % 05/18/23 08:51 Eos % (Auto) 0.9 % 05/18/23 08:51 Baso % (Auto) 0.5 % 05/18/23 08:51 Neut # (Auto) 5.64 10^3/uL (1.8-7.7) 05/18/23 08:51 Lymph # (Auto) 1.1 10^3/uL (0.8-4.8) 05/18/23 08:51 [place] # (Auto) 0.5 10^3/uL (0.2-0.9) 05/18/23 08:51 Eos # (Auto) 0.1 10^3/uL (0.0-0.8) 05/18/23 08:51 Baso # (Auto) 0.0 10^3/uL (0.0-0.1) 05/18/23 08:51 Nucleated RBC % (auto) 0 % 05/18/23 08:51 Nucleated RBCs # 0.0 /100WBC 05/18/23 08:51 Sodium 134 mmol/L (136-145) L 05/18/23 08:51 Potassium 4.1 mmol/L (3.5-5.1) 05/18/23 08:51 Chloride 90 mmol/L (98-107) L 05/18/23 08:51 Carbon Dioxide 34 mmol/L (22-29) H 05/18/23 08:51 Anion Gap 14.1 (5-19) 05/18/23 08:51 BUN 35 mg/dL (8-23) H 05/18/23 08:51 Creatinine 1.7 mg/dL (0.7-1.2) H 05/18/23 08:51 GFR Calculation Not Reportable 05/18/23 08:51 Glucose 422 mg/dL (65-115) H 05/18/23 08:51 Estimat Average Glucose 301 05/18/23 08:51 Hemoglobin A1c 12.1 % (4.0-6.0) H 05/18/23 08:51 Calculated Osmolality 304 mOsm/kg (285-295) H 05/18/23 08:51 Calcium 9.3 mg/dL (8.5-10.5) 05/18/23 08:51 Total Bilirubin 0.5 mg/dL (0.15-1.2) 05/18/23 08:51 AST 14 U/L (0-40) 05/18/23 08:51 ALT 17 U/L (0-41) 05/18/23 08:51 Alkaline Phosphatase 108 U/L (40-130) 05/18/23 08:51 Troponin T Baseline 310 ng/L (0-15) H* 05/18/23 08:51 Troponin T 120 Minute 309.5 ng/L (0-15) H 05/18/23 10:53 Delta Troponin T -0.5 ABS# (0-10) L 05/18/23 10:53 Total Protein 7.0 g/dL (6.6-8.7) 05/18/23 08:51 Albumin 3.6 g/dL (3.5-5.2) 05/18/23 08:51 Globulin 3.4 g/dL (1.3-4.6) 05/18/23 08:51 Triglycerides 213 mg/dL (0-150) H 05/18/23 08:51 Cholesterol 134 mg/dL (0-200) 05/18/23 08:51 LDL Cholesterol, Calc 61 mg/dL (50-129) 05/18/23 08:51 HDL Cholesterol 30 mg/dL (60-100) L 05/18/23 08:51 LDL/HDL Ratio 2.03 RATIO (0.00-3.22) 05/18/23 08:51 Cholesterol/HDL Ratio 4.47 mg/dL (1.0-5.00) 05/18/23 08:51 All radiology interpretation(s) finalized by discharge Critical Care Time 2 Critical Care Time: Critical Care Time: Yes Total Critical Care Time: 40 Attestation: The high probability of a clinically significant, sudden or life threatening deterioration of the patient's cardiovascular respiratory renal system(s) required my full and direct attention, intervention and personal management. The critical care time is as shown. This time is in addition to time spent performing any reported procedures but includes the following: [x] Data and vital sign review and interpretation [x] Patient assessment, examination and intervention [x] Documentation [x] Medication orders and management Discharge Plan Discharge Patient Disposition: Admitted As Inpatient Admit Provider: Michael Bautista Clinical Impression: Atrial fibrillation with rapid ventricular response, Elevated troponin, Acute on chronic diastolic (congestive) heart failure, Atherosclerotic heart disease of [place] coronary artery with other forms of angina pectoris, Ischemic cardiomyopathy, Diabetes, Status post below-knee amputation of left lower extremity, Acute kidney injury superimposed on CKD Condition: Stable Coding Level of Care Code ED Densitometrist for Allen Ladd
[2023-05-18 08:59] LABS: Basophils % 0.5 %; Eosinophils # 0.1 10^3/uL (0.0-0.8); Eosinophils % 0.9 %; Hematocrit 28.8 % (37-53); Lymphocytes # 1.1 10^3/uL (0.8-4.8); Lymphocytes % 14.9 %; Mean Corpuscular HGB Conc 31.9 g/dL (30-55); Mean Corpuscular Hemoglobin 30.3 pg (27-33); Mean Corpuscular Volume 94.7 fl (82-101); Mean Platelet Volume 10.1 fL (7.4-10.4); Monocytes # 0.5 10^3/uL (0.2-0.9); Monocytes % 7.1 %; Neutrophils # 5.64 10^3/uL (1.8-7.7); Neutrophils % 75.8 %; Nucleated Red Blood Cells % 0 %; Platelet Count 273 10^3/cmm (157-399); Red Blood Count 3.04 10^6/uL (3.85-5.65); Red Cell Distribution Width 14.6 % (12.1-15.1); White Blood Count 7.45 10^3/uL (3.29-11.43)
[2023-05-18] MEDS: dilTIAZem 5 mg/mL SDV 5 mL 20 MG IVP (09:06)
[2023-05-18 09:15] LABS: Alanine Aminotransferase 17 U/L (0-41); Albumin Level 3.6 g/dL (3.5-5.2); Alkaline Phosphatase 108 U/L (40-130); Anion Gap 14.1 (5-19); Aspartate Amino Transferase 14 U/L (0-40); Blood Urea Nitrogen 35 mg/dL (8-23); Calcium 9.3 mg/dL (8.5-10.5); Carbon Dioxide 34 mmol/L (22-29); Chloride 90 mmol/L (98-107); Creatinine Clr Calc Pharmacy 47.6076; Globulin 3.4 g/dL (1.3-4.6); Glucose 422 mg/dL (65-115); Osmolality Calculated 304 mOsm/kg (285-295); Potassium 4.1 mmol/L (3.5-5.1); Sodium 134 mmol/L (136-145); Total Bilirubin 0.5 mg/dL (0.15-1.2)
[2023-05-18 09:19] LABS: Troponin(5th) Baseline 310 ng/L (0-15)
[2023-05-18] MEDS: dilTIAZem 100 MG in sodium chloride 0.9% (add-van) 100 ML IV (09:32)
--- NOTE | 2023-05-18 09:47 | ECG_ITS ---
[facility] Test Date: 2023-05-18 Pat Name: David Monique Department: Room: Gender: Male Spr[employer] Pilot: : 1950 Requested By: Vu Deleon Order Number: [id number] Hannah MD: Maria M Gillette M.D. Measurements Intervals [place] Rate: 125 P: 80 [place]: 206 QRS: 72 QRSD: 97 T: 254 QT: 302 QTc: 435 Interpretive Statements Atrial fibrillation WITH FREQUENT VENTRICULAR PREMATURE COMPLEXES ST DEVIATION AND MODERATE T-WAVE ABNORMALITY, CONSIDER ANTEROLATERAL ISCHEMIA [-0.1+ mV T-WAVE IN V3-V6] ST DEVIATION AND MODERATE T-WAVE ABNORMALITY, CONSIDER INFERIOR ISCHEMIA [-0.1+ mV T-WAVE IN II/aVF] Compared to ECG 03/02/2019 13:44:46 Ventricular premature complex(es) now present Possible ischemia now present Atrial fibrillation no longer present T-wave abnormality still present Electronically Signed On 05-18-2023 20:14:44 CARBON DIOXIDE OPERATOR by Maria M Gillette M.D. [id number]
[2023-05-18] MEDS: amiodarone 150 MG/100 ML PREMIX 400 MG IV (10:30)
[2023-05-18] MEDS: heparin 5,000 unit/mL INJ 1 mL IV (10:42)
[2023-05-18] MEDS: heparin drip 25,000 UNIT/500 ML PREMIX 29.21 UNIT IV (10:44)
[2023-05-18 11:23] LABS: Troponin 5 2HR 309.5 ng/L (0-15); Troponin 5 2HR Delta -0.5 ABS# (0-10)
--- NOTE | 2023-05-18 13:22 | PM.CONSULT ---
Providers/Reason For Consult Consulting Physician/Specialty*: HANNAH Gillette MD/cardiology Reason for Consult*: Patient with atrial fibrillation and rapid ventricular rate not responding to IV Cardizem/elevated troponin T/history of CAD Attending Physician: Michael Bautista MD Primary Care Provider: Mag Watters History of Present Illness History of Present Illness David Monique is a 72 year old male with a history of chronic atrial fibrillation, atherosclerotic heart disease and multiple other medical problems is presenting with complaints of shortness of breath, chest pain and palpitation. Patient is an extremely poor historian. he does not remember any details. Information is obtained from the patient, his and from the medical records. Apparently this patient has some baseline shortness of breath for the last many years. For the last 6 days he has been having episodes of palpitations associated with chest pain and worsening shortness of breath. He been taking sublingual nitro more often over the last 1 week. Patient cannot recall exactly as to how many he took. His chest pain was moderate in intensity and mostly in the substernal region. He denies any fever or chills. May have occasional dry cough. No radiation of pain. No other associated symptoms. He has a history of atherosclerotic heart diseas and had PCI with 2 stents more than 10 years ago. History of peripheral artery disease and bilateral below-knee amputation, most recent one was in September 2019. He has history of chronic anemia and chronic kidney disease. He was on oral anticoagulation for a while and then was taken off because of the anemia and easy bruising. He has a history of atrial fibrillation for more than 10 years. He had a electrical cardioversion in the past. He also was on amiodarone for a while. He was taken off this medication for some unknown reasons He is known to have COPD with intermittent exacerbation. He is on home oxygen. Patient has not had any recent cardiac evaluation. He is known to have hypertension, type 2 diabetes, dyslipidemia and diabetic neuropathy. No history for any CVA. No history for any liver disease. Review of Systems Narrative: CONSTITUTIONAL: No fever or chills. EYES: No blurring of vision or other visual disturbances lately. ENT: No hoarseness of voice, auditory disturbances or sore throat. CARDIOVASCULAR: As mentioned above. RESPIRATORY: History of COPD with intermittent exacerbations GASTROINTESTINAL: No hematemesis or melena. GENITOURINARY: Chronic kidney disease INTEGUMENTARY: No skin rashes or history of skin cancer. NEURO: No transient ischemic attacks or amaurosis. PSYCHIATRIC: No history of psychosis or major depression. HEMATOLOGIC: Chronic anemia ENDOCRINE: No history of polyuria or polydipsia. MUSCULOSKELETAL: No recent joint pain or swelling. ALLERGY/IMMUNOLOGY: As mentioned above. Medications/Allergies Home Medications Medication Instructions Recorded Confirmed Last Taken Type amlodipine 2.5 mg tablet 2.5 mg PO DAILY 09/22/19 05/18/23 05/18/23 History bumetanide 2 mg tablet 2 mg PO BID 09/22/19 05/18/23 05/18/23 History citalopram 10 mg tablet 10 mg PO DAILY 09/22/19 05/18/23 05/18/23 History clopidogrel 75 mg tablet 75 mg PO DAILY 09/22/19 05/18/23 05/18/23 History insulin glargine 100 unit/mL (3 60 unit SUBCUT DAILY 09/22/19 05/18/23 05/18/23 History mL) subcutaneous pen (Lantus Solostar U-100 Insulin) metoprolol tartrate 50 mg tablet 50 mg PO BID 09/22/19 05/18/23 05/18/23 History pregabalin 50 mg capsule 50 mg PO DAILY 09/22/19 05/18/23 05/18/23 History rosuvastatin 5 mg tablet 5 mg PO DAILY 09/22/19 05/18/23 05/17/23 History spironolactone 25 mg tablet 25 mg PO DAILY 09/22/19 05/18/23 05/18/23 History trazodone 50 mg tablet 50 mg PO DAILY 09/22/19 05/18/23 05/17/23 History hyoscyamine sulfate 0.125 mg 0.125 mg sublingual Q4H PRN Spasms 05/18/23 05/18/23 Unknown History sublingual tablet insulin regular human 100 unit/mL See Rx Instructions .Route .COMPLEX 05/18/23 05/18/23 Unknown History injection solution (Humulin R Regular U-100 Insulin) levalbuterol tartrate 45 2 inh inhalation Q6H PRN Shortness 05/18/23 05/18/23 Unknown History mcg/actuation aerosol inhaler Of Breath tobramycin 0.3 %-dexamethasone 0.1 1 drp ophthalmic (eye) Q4H 05/18/23 05/18/23 Unknown History % eye drops,suspension Allergies Allergy/AdvReac Type Severity Reaction Status Date / Time albuterol Allergy Intermediate unknown Verified 12/23/22 08:43 atorvastatin [From Lipitor] Allergy Intermediate ALGY-Joint Verified 12/07/22 08:53 Pain gabapentin Allergy Intermediate unknown Verified 12/07/22 08:53 Current Medications Generic Name Dose Route Start Last Admin Trade Name Freq PRN Reason Stop Dose Admin Heparin Sodium (Porcine) 0 unit 05/18/23 09:24 05/18/23 10:42 Heparin 5,000 Unit/Ml Inj 1 Ml IV 5,000 unit PRN PRN Administration Heparin weight-base protocol Protocol Diltiazem HCl 100 mg/ Sodium 100 mls @ 0 mls/hr 05/18/23 08:45 05/18/23 12:42 Chloride IV 0 mg/hr .Q0M BON 0 mls/hr Titration Protocol Per Protocol Heparin Sodium/Sodium Chloride 25,000 unit in 500 mls @ 0 mls/hr 05/18/23 09:30 05/18/23 10:44 Heparin Drip IV 14 unit/kg/hr .Q0M BON 29.21 mls/hr Administration Protocol Per Protocol PFSH Acute PFSH: Medical History (Updated 05/18/23 @ 17:01 by Maria M Gillette MD) History of nonmelanoma skin cancer Heart attack Hypertension Hyperlipidemia Diabetes COPD (chronic obstructive pulmonary disease) Amputated right leg Surgical History Status post below-knee amputation of left lower extremity Family History Other Cancer Diabetes Hypertension Social History Smoking and tobacco/nicotine status: current every day tobacco/nicotine user Vitals/I&O/Wt Last Vital Signs Temp 98.7 F 05/18/23 08:38 Pulse 124 H 05/18/23 11:00 Resp 16 05/18/23 11:00 BP 148/91 05/18/23 11:00 Pulse Ox 98 05/18/23 11:00 O2 Del Method Nasal Cannula 05/18/23 08:38 O2 Flow Rate 2 01/23/24 08:38 05/17/23 05/18/23 05/18/23 22:59 06:59 14:59 Intake Total 15.833 / 15.833 Balance 15.833 / 15.833 Weight last 48 hrs Weight 230 lb Physical Exam Narrative: GENERAL: The patient is alert and oriented times three. Not in any acute distress. Slightly tachypneic HEENT: No significant pallor, icterus or lymphadenopathy.Oral cavity: There are no mucous membrane lesions. NECK: Trachea appears to be central. No masses noted. No JVD or thyromegaly appreciated. RESPIRATORY: Chest is symmetrical. No intercostals muscle retraction or any accessory muscle activation. There is no chest wall tenderness. Breath sounds are heard bilaterally. Scattered expiratory wheezing and occasional coarse crackles BREASTS: Deferred. HEART: The heart sounds are normal. No S3 or S4. No significant murmurs. No pericardial rub ABDOMEN: No vessel pulsations or distention. No tenderness. No organomegaly appreciated. Bowel sounds are normally heard. : Deferred. RECTAL: Deferred. LYMPHATIC: No lymphadenopathy noted in the neck. EXTREMITIES: No edema or cyanosis. No clubbing. Femoral pulses are palpable and fairly good volume MUSCULOSKELETAL: Below-knee amputation bilaterally SKIN: There are no significant rashes or ecchymosis NEUROPSYCHIATRIC: The patient is alert and oriented x3. Appears to be in a good mood. No tremors or rigidity noted. Data 05/18/23 08:51 05/18/23 08:51 Other Labs: Laboratory Last Values WBC 7.45 10^3/uL (3.29-11.43) 05/18/23 08:51 RBC 3.04 10^6/uL (3.85-5.65) L 05/18/23 08:51 Hgb 9.20 g/dL (11.27-16.99) L 05/18/23 08:51 Hct 28.8 % (37-53) L 05/18/23 08:51 MCV 94.7 fl (82-101) 05/18/23 08:51 MCH 30.3 pg (27-33) 05/18/23 08:51 MCHC 31.9 g/dL (30-55) 05/18/23 08:51 RDW 14.6 % (12.1-15.1) 05/18/23 08:51 Plt Count 273 10^3/cmm (157-399) 05/18/23 08:51 MPV 10.1 fL (7.4-10.4) 05/18/23 08:51 Neut % (Auto) 75.8 % 05/18/23 08:51 Lymph % (Auto) 14.9 % 05/18/23 08:51 [place] % (Auto) 7.1 % 05/18/23 08:51 Eos % (Auto) 0.9 % 05/18/23 08:51 Baso % (Auto) 0.5 % 05/18/23 08:51 Neut # (Auto) 5.64 10^3/uL (1.8-7.7) 05/18/23 08:51 Lymph # (Auto) 1.1 10^3/uL (0.8-4.8) 05/18/23 08:51 [place] # (Auto) 0.5 10^3/uL (0.2-0.9) 05/18/23 08:51 Eos # (Auto) 0.1 10^3/uL (0.0-0.8) 05/18/23 08:51 Baso # (Auto) 0.0 10^3/uL (0.0-0.1) 05/18/23 08:51 Nucleated RBC % (auto) 0 % 05/18/23 08:51 Nucleated RBCs # 0.0 /100WBC 05/18/23 08:51 Sodium 134 mmol/L (136-145) L 05/18/23 08:51 Potassium 4.1 mmol/L (3.5-5.1) 05/18/23 08:51 Chloride 90 mmol/L (98-107) L 05/18/23 08:51 Carbon Dioxide 34 mmol/L (22-29) H 05/18/23 08:51 Anion Gap 14.1 (5-19) 05/18/23 08:51 BUN 35 mg/dL (8-23) H 05/18/23 08:51 Creatinine 1.7 mg/dL (0.7-1.2) H 05/18/23 08:51 GFR Calculation Not Reportable 05/18/23 08:51 Glucose 422 mg/dL (65-115) H 05/18/23 08:51 Calculated Osmolality 304 mOsm/kg (285-295) H 05/18/23 08:51 Calcium 9.3 mg/dL (8.5-10.5) 05/18/23 08:51 Total Bilirubin 0.5 mg/dL (0.15-1.2) 05/18/23 08:51 AST 14 U/L (0-40) 05/18/23 08:51 ALT 17 U/L (0-41) 05/18/23 08:51 Alkaline Phosphatase 108 U/L (40-130) 05/18/23 08:51 Troponin T Baseline 310 ng/L (0-15) H* 05/18/23 08:51 Troponin T 120 Minute 309.5 ng/L (0-15) H 05/18/23 10:53 Delta Troponin T -0.5 ABS# (0-10) L 05/18/23 10:53 Total Protein 7.0 g/dL (6.6-8.7) 05/18/23 08:51 Albumin 3.6 g/dL (3.5-5.2) 05/18/23 08:51 Globulin 3.4 g/dL (1.3-4.6) 05/18/23 08:51 EKG 1: My Interpretation: EKG shows atrial fibrillation with rapid ventricular rate. Diffuse ST-T changes. Other data: Chest x-ray shows normal cardiac silhouette. Prominent pulmonary vascular markings. No acute infiltrate. No significant pleural effusion. A&P Assessment and plan (1) Atrial fibrillation with rapid ventricular response: Patient has a history of chronic atrial fibrillation. The exact reason for the current rapid ventricular rate is not clear. Anemia, acute myocardial infarction, heart failure, COPD exacerbation, etc. are contributing factors. Patient was started on IV Cardizem in the emergency room. Because of the drop in the blood pressure as well as the fact that the heart rate was getting controlled, this was discontinued. Patient was started on IV amiodarone. This may be continued for the time being. Currently the blood pressure seems to be slightly elevated. Patient may be restarted on metoprolol 50 mg p.o. twice daily. Based on the clinical response, further recommendations will be made (2) Elevated troponin: Possibility of [id number] myocardial infarction is a strong consideration. The EKG changes are nonspecific. It would be appropriate to go ahead and treat her with IV heparin, beta-king, aspirin, statin and Plavix. Echocardiogram would be helpful to evaluate LV function and rule out any other pathology. (3) Acute on chronic diastolic (congestive) heart failure: Patient may be carefully treated with IV diuretics. (4) Atherosclerotic heart disease of [place] coronary artery with other forms of angina pectoris: Patient may require a repeat cardiac catheterization to evaluate the coronary status and decide on further management. But I may hold off on this till the heart rates gets under control. (5) Diabetes: Diabetic management as per the primary Qualifiers: Diabetes mellitus type: type 2 Diabetes mellitus tank terminal gauger insulin use: with tank terminal gauger use Diabetes mellitus complication status: with circulatory complication Diabetes mellitus complication detail: with other circulatory complications Qualified Code(s): E11.59 - Type 2 diabetes mellitus with other circulatory complications; Z79.4 - rodent exterminator (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 of insulin (6) Hyperlipidemia: May be continued on the current medications. Qualifiers: Hyperlipidemia type: mixed hyperlipidemia Qualified Code(s): E78.2 - Mixed hyperlipidemia (7) Hypertension: Will try to optimize antihypertensive medications. Qualifiers: Hypertension type: primary hypertension Qualified Code(s): I10 - Essential (primary) hypertension Plan Based on the clinical progress on the results of the above, further recommendations will be made. Thank you for the opportunity to eval this patient and make these recommendations. Consult Attestations Medical Necessity Statement: Patient requires continued hospital stay for close monitoring and further management Coding Level of Care Code 69015 Diagnoses Atrial fibrillation with rapid ventricular response I48.91 Elevated troponin R79.89 Acute on chronic diastolic (congestive) heart failure I50.33 Atherosclerotic heart disease of [place] coronary artery with other forms of angina pectoris I25.118 Type 2 diabetes mellitus with other circulatory complication, with long-term current use of insulin E11.59; Z79.4 Diabetes mellitus type: type 2 Diabetes mellitus senior care insulin use: with tank terminal gauger use Diabetes mellitus complication status: with circulatory complication Diabetes mellitus complication detail: with other circulatory complications Mixed hyperlipidemia E78.2 Hyperlipidemia type: mixed hyperlipidemia Primary hypertension I10 Hypertension type: primary hypertension
--- NOTE | 2023-05-18 14:01 | PC.NURSE ---
Dr Gillette ordered metoprolol 50 mg now and then BID. Order entered.
[2023-05-18] MEDS: metoprolol tartrate 50 mg Tablet PO ×3 (14:09→20:56)
--- NOTE | 2023-05-18 14:30 | ECG_ITS ---
[facility] Test Date: 2023-05-18 Pat Name: David Monique Department: Room: 103 Gender: Male Campus Dean: : 1950 Requested By: Vu Deleon Order Number: [id number] Hannah MD: Maria M Gillette M.D. Measurements Intervals [place] Rate: 117 P: 0 ME: 0 QRS: 75 QRSD: 114 T: 240 QT: 316 QTc: 442 Interpretive Statements ATRIAL FLUTTER/TACHYCARDIA WITH RAPID VENTRICULAR RESPONSE WITH ABERRANT CONDUCTION OR VENTRICULAR PREMATURE COMPLEXES MODERATE INTRAVENTRICULAR CONDUCTION DELAY [110+ ms QRS DURATION] ST DEVIATION AND MODERATE T-WAVE ABNORMALITY, CONSIDER ANTEROLATERAL ISCHEMIA [-0.1+ mV T-WAVE IN V3-V6] ST DEVIATION AND MODERATE T-WAVE ABNORMALITY, CONSIDER INFERIOR ISCHEMIA [-0.1+ mV T-WAVE IN II/aVF] Compared to ECG 05/18/2023 09:47:14 Aberrant conduction of supraventricular beat(s) now present Intraventricular conduction delay now present Sinus tachycardia no longer present T-wave abnormality still present Possible ischemia still present Electronically Signed On 05-18-2023 20:17:38 REFRIGERATION HOUSEMAN by Maria M Gillette M.D. [id number]
--- NOTE | 2023-05-18 15:45 | P.HP_ITS ---
Providers/Chief Complaint 2 Admitting Physician: Michael Bautista MD Primary Care Provider: Mag Watters Chief Complaint: elevated hr History of Present Illness David Monique is a 72 year old male with a past medical history of atrial fibrillation, used to be on amiodarone in the past but appears to have discontinued, not on anticoagulation due to anemia, prior history of CAD, peripheral artery disease status post bilateral AKA. History is obtained mainly by reviewing chart and prior notes, ER report as patient unable to participate significantly in history taking. Patient had been experiencing episodes of palpitations and chest discomfort at home which started about 3 to 4 days ago. He was taking sublingual nitroglycerin at home with only partial relief in the symptoms. He has a history of stent placement approximately 10 years ago. He has baseline COPD which requires him to be on home oxygen at 3 L/min supplemental at all times. He is currently requiring 6 L/min supplemental O2. Chest x-ray shows bilateral congestion likely representing CHF. He also has evidence of PAPITO on CKD. He was found to be in A-fib with RVR upon ER presentation and also has elevated troponins. He has been started on Cardizem infusion without significant change and is being planned to transition to amiodarone gtt. He also remains on heparin infusion. Review of Systems 2 General: Reports: 10 or more systems reviewed and unremarkable except in HPI and below Const: Denies: fever(s), chills or body aches Eyes: Denies: change in vision, blurry vision or photophobia ENMT: Reports: hoarseness; Denies: throat pain, enlarged tonsils, odynophagia or nasal congestion Card: Denies: chest pain, palpitations, irregular heart rhythm, edema, swelling of feet/ankles, lightheadedness, pre-syncope, dyspnea on exertion or orthopnea Resp: Denies: dyspnea, productive cough, non-productive cough, wheezing, stridor, pain on inspiration, change in phlegm color, hemoptysis or chest congestion GI: Denies: abdominal pain, nausea, vomiting, hematemesis, coffee ground emesis, dysphagia, heartburn, diarrhea, constipation, GI cramping, change in stool character, hematochezia or melena : Denies: flank pain, dysuria, urinary frequency, urinary urgency, urinary hesitancy or hematuria Musc: Denies: neck pain, back pain, extremity pain, joint swelling, joint warmth or deformity Neuro: Denies: headache(s), numbness in extremities, weakness in extremities, sensory changes, difficulty walking, frequent falls, dizziness, vertigo, behavioral changes, Slurred speech present or seizure-like activity Psych: Denies: anxiety, depression, suicidal ideation or homicidal ideation Endo: Denies: polyuria, polydipsia, tired all the time, cold intolerance or hot flashes Humberto/Lymph: Denies: easy bruising or easy bleeding Medications/Allergies Home Medications Medication Instructions Recorded Confirmed Last Taken Type amlodipine 2.5 mg tablet 2.5 mg PO DAILY 09/22/19 05/18/23 05/18/23 History bumetanide 2 mg tablet 2 mg PO BID 09/22/19 05/18/23 05/18/23 History citalopram 10 mg tablet 10 mg PO DAILY 09/22/19 05/18/23 05/18/23 History clopidogrel 75 mg tablet 75 mg PO DAILY 09/22/19 05/18/23 05/18/23 History insulin glargine 100 unit/mL (3 60 unit SUBCUT DAILY 09/22/19 05/18/23 05/18/23 History mL) subcutaneous pen (Lantus Solostar U-100 Insulin) metoprolol tartrate 50 mg tablet 50 mg PO BID 09/22/19 05/18/23 05/18/23 History pregabalin 50 mg capsule 50 mg PO DAILY 09/22/19 05/18/23 05/18/23 History rosuvastatin 5 mg tablet 5 mg PO DAILY 09/22/19 05/18/23 05/17/23 History spironolactone 25 mg tablet 25 mg PO DAILY 09/22/19 05/18/23 05/18/23 History trazodone 50 mg tablet 50 mg PO DAILY 09/22/19 05/18/23 05/17/23 History hyoscyamine sulfate 0.125 mg 0.125 mg sublingual Q4H PRN Spasms 05/18/23 05/18/23 Unknown History sublingual tablet insulin regular human 100 unit/mL See Rx Instructions .Route .COMPLEX 05/18/23 05/18/23 Unknown History injection solution (Humulin R Regular U-100 Insulin) levalbuterol tartrate 45 2 inh inhalation Q6H PRN Shortness 05/18/23 05/18/23 Unknown History mcg/actuation aerosol inhaler Of Breath tobramycin 0.3 %-dexamethasone 0.1 1 drp ophthalmic (eye) Q4H 05/18/23 05/18/23 Unknown History % eye drops,suspension Allergies Allergy/AdvReac Type Severity Reaction Status Date / Time albuterol Allergy Intermediate unknown Verified 12/23/22 08:43 atorvastatin [From Lipitor] Allergy Intermediate ALGY-Joint Verified 12/07/22 08:53 Pain gabapentin Allergy Intermediate unknown Verified 12/07/22 08:53 PFSH Acute 2 PFSH: Medical History History of nonmelanoma skin cancer Heart attack Hypertension Hyperlipidemia Diabetes COPD (chronic obstructive pulmonary disease) Amputated right leg Surgical History Status post below-knee amputation of left lower extremity Family History Other Cancer Diabetes Hypertension Social History Smoking and tobacco/nicotine status: current every day tobacco/nicotine user Vitals/I&O/Wt Last Vital Signs Temp 98.7 F 05/18/23 08:38 Pulse 134 H 05/18/23 13:22 Resp 24 H 05/18/23 13:22 BP 142/81 05/18/23 13:22 Pulse Ox 90 05/18/23 13:22 O2 Del Method Nasal Cannula 05/18/23 13:20 O2 Flow Rate 2 05/18/23 08:38 05/18/23 05/18/23 05/18/23 06:59 14:59 22:59 Intake Total 15.833 / 15.833 Balance 15.833 / 15.833 Weight last 48 hrs Weight 99.422 kg Weight 104.326 kg Physical Exam 2 Narrative: General: No acute distress, dyspneic in conversation. Oriented x 2-3. Appears this is close to his baseline. HEENT: PERRLA, pupils bilaterally equal and reactive, pallors not present Chest: Normal vesicular breath sounds, no added sounds, equal good air entry bilaterally CVS: S1-S2 regular, no murmurs, no tachycardia, no gallops, no rubs Abdomen: Soft, nontender, no organomegaly, bowel sounds present Neuro: No focal deficits, no facial deformity, AO x3, power 5/5 in all limbs Extremities: Bilateral AKA Data 05/19/23 03:17 05/19/23 03:17 A&P Assessment and plan (1) Atrial fibrillation with rapid ventricular response: Started on Cardizem infusion in the emergency room without significant change He is being transitioned to amiodarone gtt. Continue the same Start overlap with p.o. metoprolol 50 mg twice daily at his home dosing. Patient is not on anticoagulation chronically due to history of anemia Currently heparin drip will suffice. (2) Acute on chronic diastolic (congestive) heart failure: Lasix 40 mg IV x 1 now Assess renal function and urine output in the a.m. and further doses based on that. (3) Elevated troponin: May be related to NSTEMI. Trend 2 and 6-hour levels. Started on heparin infusion. Echocardiogram Cardiology consulted. Plan Diabetes mellitus: Insulin high-dose sliding scale History of CAD: Continue aspirin and Plavix. DVT prophylaxis: On heparin drip Full code Attestations 2 Medical Necessity Statement*: Greater than 2 midnight admission is anticipated for management of A-fib with RVR, CHF exacerbation. Coding Level of Care Code Acute Code for Chg Fwd High MDM includes number and complexity of problems actively addressed during encounter, amount and/or complexity of data reviewed/ordered and described risk of complication, morbidity or mortality of management as documented Diagnoses Atrial fibrillation with rapid ventricular response I48.91 Acute on chronic diastolic (congestive) heart failure I50.33 Elevated troponin R79.89
[2023-05-18] MEDS: FUROsemide 10 mg/mL SDV 4mL 40 MG IVP (16:16)
[2023-05-18 16:18] LABS: Troponin 5 6HR Delta 7.1 ng/L (0-12)
[2023-05-18 16:20] LABS: Troponin 5 6HR 317.1 ng/L (0-15)
[2023-05-18 16:58] LABS: Glucose Point of Care > 600 mg/dL (70-110)
[2023-05-18 16:58] LABS: Glucose Point of Care > 600 mg/dL (70-110)
[2023-05-18] MEDS: levalbuterol 1.25 mg/3 mL Neb INHALATION ×2 (17:04→20:01)
[2023-05-18 17:10] LABS: Chol HDL Ratio 4.47 mg/dL (1.0-5.00); Cholesterol 134 mg/dL (0-200); HDL Cholesterol 30 mg/dL (60-100); LDL Cholesterol Calculated 61 mg/dL (50-129); LDL HDL Ratio 2.03 RATIO (0.00-3.22); Triglycerides 213 mg/dL (0-150)
[2023-05-18 17:20] LABS: Estmated Average Glucose 301; Hemoglobin A1C 12.1 % (4.0-6.0)
[2023-05-18] MEDS: morphine 4 mg/mL SDV 1 mL 2 MG IVP (17:27)
[2023-05-18 18:47] LABS: Influenza A by IFA negative (Negative); Influenza B by IFA negative (Negative)
[2023-05-18 20:27] LABS: Partial Thromboplastin Time 78.9 SECONDS (23.9-36.7)
[2023-05-18 20:29] LABS: Glucose 667 mg/dL (65-115)
[2023-05-18] MEDS: insulin lispro 100 unit/1 mL SUBCUT (20:55)
[2023-05-18] MEDS: trazodone 50 mg Tablet PO (20:56)
[2023-05-18 21:26] LABS: ABG PH Result 7.27 (7.35-7.45); Arterial Blood Gas Hematocrit 31.5 % (42-52); Base Excess ABG 2.5 mmol/L (-2.0-2.0); Blood Gas Allen Test Pos; Blood Gas Sample Site Radial, right; Blood Gas Sample Type Arterial; HCO3 ABG 30.6 mmol/L (22-26); Oxygen Device NC; PO2 ABG 59.1 mmHg (80.0-100.0)
[2023-05-18 21:27] LABS: ABG PCO2 66.5 mmHg (35-45)
[2023-05-18 21:42] LABS: SARS Covid-2 Antigen negative (Negative)
[2023-05-18 21:50] LABS: Ketone (Acetest) Serum Negative (Negative)
[2023-05-18 22:37] LABS: Blood Urea Nitrogen 41 mg/dL (8-23); Calcium 9.2 mg/dL (8.5-10.5); Magnesium 2.2 mg/dL (1.7-2.3)
[2023-05-18 22:43] LABS: Chloride 89 mmol/L (98-107); Osmolality Calculated 317 mOsm/kg (285-295); Phosphorus 6.1 mg/dL (2.5-4.5); Potassium 5.9 mmol/L (3.5-5.1); Sodium 133 mmol/L (136-145)
[2023-05-18 22:45] LABS: Glucose 650 mg/dL (65-115)
[2023-05-18 22:47] LABS: Glucose Point of Care 571 mg/dL (70-110)
[2023-05-18 22:53] LABS: Anion Gap 22.9 (5-19); Carbon Dioxide 27 mmol/L (22-29)
[2023-05-18 23:04] LABS: Glucose Point of Care > 600 mg/dL (70-110)
[2023-05-18] MEDS: insulin glargine 100 units/1 mL 40 UNIT SUBCUT (23:56)
[2023-05-19] VITALS (20 sets, daily range): BP systolic 106–135; BP diastolic 70–92; PULSE 63–100; RESP 19–26; TEMP 36.5–36.7; O2SAT 84–100; BMI 29.3
[2023-05-19 00:10] LABS: ABG PCO2 56.5 mmHg (35-45); ABG PH Result 7.38 (7.35-7.45); Alveolar-Arterial Oxygen Gradi 15.3 mmHg (5-10); Arterial Blood Gas Hematocrit 28.6 % (42-52); Base Excess ABG 6.8 mmol/L (-2.0-2.0); Blood Gas Allen Test Pos; Blood Gas Sample Site Radial, left; Blood Gas Sample Type Arterial; Carboxyhemoglobin 1.4 %THgb (0.4-20.1); HCO3 ABG 33.2 mmol/L (22-26); HGB O2 Sat 98.9 % (95-100); Ionized Calcium Level - ABG 1.2 mmol/L (1.1-1.4); Methemoglobin 0.1 % (0.4-1.5); Oxygen Device BIPAP; Oxygen Saturation ABG > 100.0; PO2 FiO2 Ratio Arterial Blood 0; Potassium Level - ABG 4.6 mmol/L (3.5-5.0); Total Hemoglobin 9.3 g/dL (14-18)
[2023-05-19 00:58] LABS: Glucose Point of Care 513 mg/dL (70-110)
[2023-05-19] MEDS: insulin lispro 100 unit/1 mL 10 UNIT SUBCUT (01:28)
[2023-05-19] MEDS: levalbuterol 1.25 mg/3 mL Neb INHALATION ×4 (02:00→19:35)
[2023-05-19 02:44] LABS: Glucose Point of Care 440 mg/dL (70-110)
[2023-05-19 03:27] LABS: Basophils % 0.4 %; Eosinophils % 0.1 %; Hematocrit 26.9 % (37-53); Lymphocytes # 1.4 10^3/uL (0.8-4.8); Lymphocytes % 14.3 %; Mean Corpuscular HGB Conc 32.7 g/dL (30-55); Mean Corpuscular Hemoglobin 30.7 pg (27-33); Mean Corpuscular Volume 93.7 fl (82-101); Mean Platelet Volume 10.2 fL (7.4-10.4); Monocytes # 0.7 10^3/uL (0.2-0.9); Neutrophils # 7.37 10^3/uL (1.8-7.7); Neutrophils % 77.2 %; Nucleated Red Blood Cells # 0.1 /100WBC; Nucleated Red Blood Cells % 0.7 %; Platelet Count 260 10^3/cmm (157-399); Red Blood Count 2.87 10^6/uL (3.85-5.65); White Blood Count 9.56 10^3/uL (3.29-11.43)
[2023-05-19 03:42] LABS: Alanine Aminotransferase 108 U/L (0-41); Albumin Level 3.3 g/dL (3.5-5.2); Alkaline Phosphatase 104 U/L (40-130); Anion Gap 16.5 (5-19); Aspartate Amino Transferase 139 U/L (0-40); Blood Urea Nitrogen 44 mg/dL (8-23); Calcium 9.1 mg/dL (8.5-10.5); Carbon Dioxide 31 mmol/L (22-29); Chloride 91 mmol/L (98-107); Creatinine Clr Calc Pharmacy 34.4064; Globulin 3.3 g/dL (1.3-4.6); Glucose 390 mg/dL (65-115); Osmolality Calculated 305 mOsm/kg (285-295); Potassium 4.5 mmol/L (3.5-5.1); Sodium 134 mmol/L (136-145); Total Bilirubin 0.4 mg/dL (0.15-1.2); Total Protein 6.6 g/dL (6.6-8.7)
[2023-05-19 03:44] LABS: Partial Thromboplastin Time 74.3 SECONDS (23.9-36.7)
[2023-05-19 04:07] LABS: Glucose Point of Care 364 mg/dL (70-110)
[2023-05-19] MEDS: heparin drip 25,000 UNIT/500 ML PREMIX 28 UNIT IV (05:23)
--- NOTE | 2023-05-19 06:12 | PC.NURSE ---
Patient BG was 667, Dr calvillo notified, He ordered 20 units sliding scale check in 1 hr, also ordered 40 units of lantus @ bedtime starting 05/18. Patient BG was 513, Lily ordered one time dose 10 unit humalog to be given stat, check BG in one hour. since then BG has gone down to 364 as of 04:00 05/19.
[2023-05-19 06:55] LABS: Glucose Point of Care 218 mg/dL (70-110)
[2023-05-19] MEDS: insulin lispro 100 unit/1 mL SUBCUT ×3 (09:43→22:09)
[2023-05-19] MEDS: amlodipine 5 mg Tablet 2.5 MG PO (09:44)
[2023-05-19] MEDS: spironolactone 25 mg Tablet PO (09:44)
[2023-05-19] MEDS: atorvastatin 40 mg Tablet 20 MG PO (09:45)
[2023-05-19] MEDS: aspirin 81 mg EC Tablet PO (09:45)
[2023-05-19] MEDS: pantoprazole DR 40 mg Tablet PO (09:45)
[2023-05-19] MEDS: clopidogrel 75 mg Tablet PO (09:45)
[2023-05-19] MEDS: citalopram 20 mg Tablet PO (09:45)
[2023-05-19] MEDS: pregabalin 50 mg Capsule PO (09:46)
[2023-05-19] MEDS: metoprolol tartrate 50 mg Tablet PO ×3 (09:46→22:08)
[2023-05-19 11:17] LABS: Partial Thromboplastin Time 42.6 SECONDS (23.9-36.7)
[2023-05-19 12:02] LABS: Glucose Point of Care 232 mg/dL (70-110)
[2023-05-19 12:30] LABS: NT Pro B Type Natriuretic Pept 33894 pg/mL (0-125)
--- NOTE | 2023-05-19 15:46 | USCV_ITS ---
David Monique Age: 72 Gender: M : 1950 Exam Date: 05/19/2023 06:02 Ordering Phys: Valerie Fraga MD Technologist: [place]am Location[place] [facility] [place]ication: A FIB, NSTEMI BP: 106 / 92 HR: 81 Rhythm: Atrial fibrillation Technical Quality: Adequate MEASUREMENTS (Male / Female) Normal Values 2D ECHO LVOT Diameter 2.0 cm LV Ejection Fraction MOD 2C 20.4 % LV Ejection Fraction 2C AL 26.5 % LA Diameter 4.4 cm LA Width 4.4 cm LA Height 5.1 cm RA Width 3.8 cm RA Height 4.5 cm Aorta at Sinotubular Diameter 2.6 cm IVC Diameter 2.9 cm M-MODE Aortic Annulus Diameter 2.5 cm LA Ao Ratio MM 1.7 MV E Point Septal Separation 1.4 cm DOPPLER AV Peak Velocity 237.3 cm/s LVOT Peak Velocity 56.0 cm/s AV Area Cont Eq vti 0.7 cm squared AV Area Cont Eq pk 0.8 cm squared MV Peak Velocity 108.0 cm/s MV Area PHT 3.9 cm squared MV E' Velocity 62.5 cm/s Mitral E to MV E' Ratio 19.5 Mitral E to LV E' Lateral Ratio 19.2 Mitral E to LV E' Septal Ratio 19.9 TR Peak Velocity 205.5 cm/s TR Peak Gradient 16.9 mmHg TR Mean Velocity 169.4 cm/s TR Mean Gradient 12.5 mmHg TR Velocity Time Integral 71.3 cm TV Peak E Velocity 44.0 cm/s Right Atrial Pressure 15.0 mmHg Pulmonary Artery Systolic Pressu 31.9 mmHg PV Peak Velocity 95.0 cm/s RV Acceleration Time 0.1 s RV Ejection Time 0.3 s RV AcT/ET 0.3 FINDINGS Left Ventricle The ventricle is mildly enlarged. There is what appears to be global hypokinesis however the examination is technically poor. The only worthwhile view is the apical view. The lateral wall appears to be mildly more hypokinetic than the remainder of the ventricle in this view. A very rough visual estimate of the ejection fraction would be 30 to 35%. Other wall motion disturbances cannot be determined due to the poor quality imaging. Diastolic function cannot be determined due to the atrial fibrillation. Right Ventricle Normal right ventricular size. Normal right ventricular systolic pressure. Right Atrium The right atrium is normal in size. Left Atrium Mildly increased left atrial size. Mitral Valve Structurally normal mitral valve. Mild-moderate mitral valve regurgitation. Aortic Valve Aortic valve is poorly seen. It is at least mildly calcified. There is probably low output, low gradient aortic stenosis. Visually the valve appears to be moderately stenosed. aortic valve stenosis, mean gradient 12.1 mmHg. The gradient may be lower than truly measured due to the low output.. There is mild aortic insufficiency. Tricuspid Valve Structurally normal tricuspid valve. Trace tricuspid valve regurgitation. Pulmonic Valve Pulmonic valve not well visualized. Pericardium No pericardial effusion. Aorta Normal ascending aorta dimension. IVC Moderately dilated IVC. CONCLUSIONS The ventricle is mildly enlarged. There is what appears to be global hypokinesis however the examination is technically poor. The only worthwhile view is the apical view. The lateral wall appears to be mildly more hypokinetic than the remainder of the ventricle in this view. A very rough visual estimate of the ejection fraction would be 30 to 35%. Other wall motion disturbances cannot be determined due to the poor quality imaging. Diastolic function cannot be determined due to the atrial fibrillation. Mildly increased left atrial size. Structurally normal mitral valve. Mild-moderate mitral valve regurgitation. Aortic valve is poorly seen. It is at least mildly calcified. There is probably low output, low gradient aortic stenosis. Visually the valve appears to be moderately stenosed. aortic valve stenosis, mean gradient 12.1 mmHg. The gradient may be lower than truly measured due to the low output.. There is mild aortic insufficiency. Moderately dilated IVC. The previous echo was done in 2019. There has been a decrease in the left ventricular function with slight worsening of the mitral valve regurgitation. Probable aortic stenosis is now present from the previously noted aortic sclerosis. Dr. Ottoniel Coley MD (Electronically Signed) Final Date: 19 May 2023 08:51 S
[2023-05-19 16:36] LABS: Partial Thromboplastin Time 59.2 SECONDS (23.9-36.7)
[2023-05-19 17:21] LABS: Glucose Point of Care 98 mg/dL (70-110)
[2023-05-19] MEDS: amiodarone 200 mg Tablet 400 MG PO (17:53)
--- NOTE | 2023-05-19 18:09 | P.PN_ITS ---
Subjective 2 Subjective: No acute interim events today. Heart rate is better controlled between 70-90. States breathing is slightly better compared to yesterday. Palpitations resolved. Hemoglobin stable at 8.8. Medications: Reviewed: Yes Vitals/I&O/Wt Last Vital Signs Temp 98.1 F 05/19/23 14:14 Pulse 63 05/19/23 17:27 Resp 21 H 05/19/23 14:14 BP 119/82 05/19/23 17:27 Pulse Ox 94 05/19/23 17:27 O2 Del Method Nasal Cannula 05/19/23 14:14 O2 Flow Rate 7 05/19/23 13:51 FiO2 35 05/19/23 16:49 05/19/23 05/19/23 05/19/23 06:59 14:59 22:59 Intake Total 398.65 / 715.833 658.267 / 658.267 200 / 858.267 Output Total 450 / 450 Balance 398.65 / 615.833 208.267 / 208.267 200 / 408.267 Weight last 48 hrs Weight 98.174 kg Weight 99.422 kg Weight 104.326 kg Physical Exam 2 Narrative: General: No acute distress, dyspneic in conversation. Oriented x 2-3. Appears this is close to his baseline. HEENT: PERRLA, pupils bilaterally equal and reactive, pallors not present Chest: Normal vesicular breath sounds, no added sounds, equal good air entry bilaterally CVS: S1-S2 regular, no murmurs, no tachycardia, no gallops, no rubs Abdomen: Soft, nontender, no organomegaly, bowel sounds present Neuro: No focal deficits, no facial deformity, AO x3, power 5/5 in all limbs Extremities: Bilateral AKA Data 05/19/23 03:17 05/19/23 03:17 A&P Assessment and plan (1) Atrial fibrillation with rapid ventricular response: Started on Cardizem infusion in the emergency room without significant change He is being transitioned to amiodarone gtt. Continue the same Start overlap with p.o. metoprolol 50 mg twice daily at his home dosing. Patient is not on anticoagulation chronically due to history of anemia Currently heparin drip will suffice. (2) Acute on chronic diastolic (congestive) heart failure: Lasix 40 mg IV x 1 now Assess renal function and urine output in the a.m. and further doses based on that. (3) Elevated troponin: May be related to NSTEMI. Trend 2 and 6-hour levels. Started on heparin infusion. Echocardiogram Cardiology consulted. Plan Diabetes mellitus: Insulin high-dose sliding scale History of CAD: Continue aspirin and Plavix. DVT prophylaxis: On heparin drip Full code Plan for today: Discontinue amiodarone infusion. Overlap with amiodarone 400 mg p.o. twice daily. Continue metoprolol 50 mg p.o. twice daily. Repeat Lasix 40 mg IV x 1 today. Add in scheduled nebulization as scattered wheezing on exam related to his COPD most likely. Negative COVID and influenza antigens. Continues to be on heparin drip. Hold aldacotne given cr up to 2.3. Uncontrolled blood sugar overnight, currently better at 218. Insulin glargine was added overnight. echo pending Attestations 2 Medical Necessity Statement*: Continued admission for management of above issues Coding Level of Care Code Acute Code for [facility] Diagnoses Atrial fibrillation with rapid ventricular response I48.91 Acute on chronic diastolic (congestive) heart failure I50.33 Elevated troponin R79.89
[2023-05-19] MEDS: FUROsemide 10 mg/mL SDV 4mL 40 MG IVP (18:39)
--- NOTE | 2023-05-19 20:09 | PM.PN ---
Subjective Subjective: The rhythm is converted to sinus. Denies any chest pain. The shortness of breath is improving. No new symptoms. Medications: Medication Review Details: Current Medications Acetaminophen (Acetaminophen 325 Mg Tablet) 650 mg PO Q6H PRN PRN Reason: Mild/Mod Pain Or Temp >/= 101 Amiodarone HCl (Amiodarone 200 Mg Tablet) 400 mg PO BID [facility] Last Admin: 05/19/23 17:53 Dose: 400 mg Aspirin (Aspirin 81 Mg Ec Tablet) 81 mg PO DAILY [facility] Last Admin: 05/19/23 09:45 Dose: 81 mg Atorvastatin Calcium (Atorvastatin 40 Mg Tablet) 20 mg PO DAILY [facility] Last Admin: 05/19/23 09:45 Dose: 20 mg Citalopram Hydrobromide (Citalopram 20 Mg Tablet) 20 mg PO DAILY [facility] Last Admin: 05/19/23 09:45 Dose: 20 mg Clopidogrel Bisulfate (Clopidogrel 75 Mg Tablet) 75 mg PO DAILY [facility] Last Admin: 05/19/23 09:45 Dose: 75 mg Dextrose (Dextrose 50% Syringe 50 Ml) 25 ml IVP ONCE PRN; Protocol PRN Reason: hypoglycemia protocol Dextrose (Dextrose 50% Syringe 50 Ml) 50 ml IVP PRN PRN; Protocol PRN Reason: hypoglycemia protocol Heparin Sodium (Porcine) (Heparin 5,000 Unit/Ml Inj 1 Ml) 0 unit IV PRN PRN; Protocol PRN Reason: Heparin weight-base protocol Last Admin: 05/18/23 10:42 Dose: 5,000 unit Hyoscyamine (Hyoscyamine Odt 0.125 Mg Tablet) 0.125 mg PO Q4H PRN PRN Reason: Spasms Heparin Sodium/Sodium Chloride (Heparin Drip) 25,000 unit in 500 mls @ 0 mls/hr IV .Q0M [facility]; Protocol Last Titration: 05/19/23 11:45 Dose: 13.9 unit/kg/hr, 29 mls/hr Dextrose (D5w) 500 mls @ 0 mls/hr IV ONCE PRN; Protocol PRN Reason: Adult Acute Hypoglycemia Prot Insulin Glargine (Insulin Glargine 100 Units/1 Ml) 40 unit SUBCUT BEDTIME [facility] Last Admin: 05/18/23 23:56 Dose: 40 unit Insulin Human Lispro (Insulin Lispro 100 Unit/1 Ml) 0 unit SUBCUT WM&BEDTIME [facility]; Protocol Last Admin: 05/19/23 17:40 Dose: Not Given Levalbuterol HCl (Levalbuterol 1.25 Mg/3 Ml Neb) 1.25 mg INHALATION Q6H PRN PRN Reason: Shortness Of Breath Last Admin: 05/18/23 17:04 Dose: 1.25 mg Levalbuterol HCl (Levalbuterol 1.25 Mg/3 Ml Neb) 1.25 mg INHALATION Q6H.RESP [facility] Last Admin: 05/19/23 19:35 Dose: 1.25 mg Metoprolol Tartrate (Metoprolol Tartrate 50 Mg Tablet) 50 mg PO BID@0900,2100 [facility] Last Admin: 05/19/23 09:46 Dose: 50 mg Morphine Sulfate (Morphine 4 Mg/Ml Sdv 1 Ml) 2 mg IVP Q4H PRN PRN Reason: SEVERE PAIN Last Admin: 05/18/23 17:27 Dose: 2 mg Naloxone HCl (Naloxone 0.4 Mg/Ml Sdv) 0.1 mg IVP Q2M PRN PRN Reason: OPIATERV Ondansetron HCl (Ondansetron 2 Mg/Ml Sdv 2 Ml) 4 mg IVP Q8H PRN PRN Reason: vomiting, or N/V if npo Pantoprazole Sodium (Pantoprazole Dr 40 Mg Tablet) 40 mg PO DAILY [facility] Last Admin: 05/19/23 09:45 Dose: 40 mg Pregabalin (Pregabalin 50 Mg Capsule) 50 mg PO DAILY [facility] Last Admin: 05/19/23 09:46 Dose: 50 mg Trazodone HCl (Trazodone 50 Mg Tablet) 50 mg PO BEDTIME [facility] Last Admin: 05/18/23 20:56 Dose: 50 mg Vitals/I&O/Wt Last Vital Signs Temp 98.1 F 05/19/23 14:14 Pulse 86 05/19/23 19:46 Resp 20 H 05/19/23 19:35 BP 119/82 05/19/23 17:27 Pulse Ox 97 05/19/23 19:46 O2 Del Method High Flow Nasal Cannula 05/19/23 19:41 O2 Flow Rate 8 05/19/23 19:41 FiO2 45 05/19/23 19:46 05/19/23 05/19/23 05/19/23 06:59 14:59 22:59 Intake Total 398.65 / 715.833 658.267 / 658.267 200 / 858.267 Output Total 450 / 450 Balance 398.65 / 615.833 208.267 / 208.267 200 / 408.267 Weight last 48 hrs Weight 216 lb 7 oz Weight 219 lb 3 oz Weight 230 lb Physical Exam Narrative: GENERAL: The patient is alert and oriented times three. Not in any acute distress. Slightly tachypneic HEENT: No significant pallor, icterus or lymphadenopathy.Oral cavity: There are no mucous membrane lesions. NECK: Trachea appears to be central. No masses noted. No JVD or thyromegaly appreciated. RESPIRATORY: Chest is symmetrical. No intercostals muscle retraction or any accessory muscle activation. There is no chest wall tenderness. Breath sounds are heard bilaterally. Scattered expiratory wheezing and occasional coarse crackles BREASTS: Deferred. HEART: The heart sounds are normal. No S3 or S4. No significant murmurs. No pericardial rub ABDOMEN: No vessel pulsations or distention. No tenderness. No organomegaly appreciated. Bowel sounds are normally heard. : Deferred. RECTAL: Deferred. LYMPHATIC: No lymphadenopathy noted in the neck. EXTREMITIES: No edema or cyanosis. No clubbing. Femoral pulses are palpable and fairly good volume MUSCULOSKELETAL: Below-knee amputation bilaterally SKIN: There are no significant rashes or ecchymosis NEUROPSYCHIATRIC: The patient is alert and oriented x3. Appears to be in a good mood. No tremors or rigidity noted. Data 05/19/23 03:17 05/19/23 03:17 Other Labs: Laboratory Last Values WBC 9.56 10^3/uL (3.29-11.43) 05/19/23 03:17 RBC 2.87 10^6/uL (3.85-5.65) L 05/19/23 03:17 Hgb 8.80 g/dL (11.27-16.99) L 05/19/23 03:17 Hct 26.9 % (37-53) L 05/19/23 03:17 MCV 93.7 fl (82-101) 05/19/23 03:17 MCH 30.7 pg (27-33) 05/19/23 03:17 MCHC 32.7 g/dL (30-55) 05/19/23 03:17 RDW 15.0 % (12.1-15.1) 05/19/23 03:17 Plt Count 260 10^3/cmm (157-399) 05/19/23 03:17 MPV 10.2 fL (7.4-10.4) 05/19/23 03:17 Neut % (Auto) 77.2 % 05/19/23 03:17 Lymph % (Auto) 14.3 % 05/19/23 03:17 [place] % (Auto) 7.0 % 05/19/23 03:17 Eos % (Auto) 0.1 % 05/19/23 03:17 Baso % (Auto) 0.4 % 05/19/23 03:17 Neut # (Auto) 7.37 10^3/uL (1.8-7.7) 05/19/23 03:17 Lymph # (Auto) 1.4 10^3/uL (0.8-4.8) 05/19/23 03:17 [place] # (Auto) 0.7 10^3/uL (0.2-0.9) 05/19/23 03:17 Eos # (Auto) 0.0 10^3/uL (0.0-0.8) 05/19/23 03:17 Baso # (Auto) 0.0 10^3/uL (0.0-0.1) 05/19/23 03:17 Nucleated RBC % (auto) 0.7 % 05/19/23 03:17 Nucleated RBCs # 0.1 /100WBC 05/19/23 03:17 APTT 59.2 SECONDS (23.9-36.7) H 05/19/23 16:02 Specimen Type Arterial 05/19/23 00:00 Sample Site Radial, left 05/19/23 00:00 ABG pH 7.38 (7.35-7.45) 05/19/23 00:00 ABG pCO2 56.5 mmHg (35-45) H 05/19/23 00:00 ABG pO2 168.0 mmHg (80.0-100.0) H 05/19/23 00:00 ABG PO2/FiO2 Ratio 0 05/19/23 00:00 ABG HCO3 33.2 mmol/L (22-26) H 05/19/23 00:00 ABG O2 Saturation > 100.0 05/19/23 00:00 ABG Base Excess 6.8 mmol/L (-2.0-2.0) H 05/19/23 00:00 Mil Test Pos 05/19/23 00:00 A-a O2 Gradient 15.3 mmHg (5-10) H 05/19/23 00:00 Hematocrit 28.6 % (42-52) L 05/19/23 00:00 Hgb O2 Saturation 98.9 % (95-100) 05/19/23 00:00 Carboxyhemoglobin 1.4 %THgb (0.4-20.1) 05/19/23 00:00 Methemoglobin 0.1 % (0.4-1.5) L 05/19/23 00:00 Total Hemoglobin 9.3 g/dL (14-18) L 05/19/23 00:00 Sodium 136.0 mmol/L (131-143) 05/19/23 00:00 Potassium 4.6 mmol/L (3.5-5.0) 05/19/23 00:00 Glucose 519.0 mg/dL (70-115) H 05/19/23 00:00 Ionized Calcium 1.2 mmol/L (1.1-1.4) 05/19/23 00:00 O2 Delivery Device Bipap 05/19/23 00:00 O2 Liters/Min 8.0 % 05/18/23 21:15 FiO2 50.0 % 05/19/23 00:00 Glass Bulb Machine Adjuster ID [email or web address] 05/19/23 00:00 Sodium 134 mmol/L (136-145) L 05/19/23 03:17 Potassium 4.5 mmol/L (3.5-5.1) 05/19/23 03:17 Chloride 91 mmol/L (98-107) L 05/19/23 03:17 Carbon Dioxide 31 mmol/L (22-29) H 05/19/23 03:17 Anion Gap 16.5 (5-19) 05/19/23 03:17 BUN 44 mg/dL (8-23) H 05/19/23 03:17 Creatinine 2.3 mg/dL (0.7-1.2) H 05/19/23 03:17 GFR Calculation Not Reportable 05/19/23 03:17 Glucose 390 mg/dL (65-115) H 05/19/23 03:17 POC Glucose 98 mg/dL (70-110) 05/19/23 17:05 Estimat Average Glucose 301 05/18/23 08:51 Hemoglobin A1c 12.1 % (4.0-6.0) H 05/18/23 08:51 Calculated Osmolality 305 mOsm/kg (285-295) H 05/19/23 03:17 Calcium 9.1 mg/dL (8.5-10.5) 05/19/23 03:17 Phosphorus 6.1 mg/dL (2.5-4.5) H 05/18/23 21:11 Magnesium 2.2 mg/dL (1.7-2.3) 05/18/23 21:11 Total Bilirubin 0.4 mg/dL (0.15-1.2) 05/19/23 03:17 AST 139 U/L (0-40) H 05/19/23 03:17 ALT 108 U/L (0-41) H 05/19/23 03:17 Alkaline Phosphatase 104 U/L (40-130) 05/19/23 03:17 Troponin T Baseline 310 ng/L (0-15) H* 05/18/23 08:51 Troponin T 120 Minute 309.5 ng/L (0-15) H 05/18/23 10:53 Delta Troponin T -0.5 ABS# (0-10) L 05/18/23 10:53 Troponin T Hi Sens 6Hr 317.1 ng/L (0-15) H 05/18/23 15:32 Troponin T Hi Sens 6Hr Delta 7.1 ng/L (0-12) 05/18/23 15:32 NT-Pro-B Natriuret Pep 37281 pg/mL (0-125) H 05/19/23 03:17 Total Protein 6.6 g/dL (6.6-8.7) 05/19/23 03:17 Albumin 3.3 g/dL (3.5-5.2) L 05/19/23 03:17 Globulin 3.3 g/dL (1.3-4.6) 05/19/23 03:17 Triglycerides 213 mg/dL (0-150) H 05/18/23 08:51 Cholesterol 134 mg/dL (0-200) 05/18/23 08:51 LDL Cholesterol, Calc 61 mg/dL (50-129) 05/18/23 08:51 HDL Cholesterol 30 mg/dL (60-100) L 05/18/23 08:51 LDL/HDL Ratio 2.03 RATIO (0.00-3.22) 05/18/23 08:51 Cholesterol/HDL Ratio 4.47 mg/dL (1.0-5.00) 05/18/23 08:51 Serum Ketones Negative (Negative) 05/18/23 21:11 Influenza Type A Ag negative (Negative) 05/18/23 Unknown Influenza Type B Ag negative (Negative) 05/18/23 Unknown SARS-CoV-2 Ag (Rapid) negative (Negative) 05/18/23 18:39 Other data: Echocardiogram from today the ventricle is mildly enlarged. There is what appears to be global hypokinesis however the examination is technically poor. The only worthwhile view is the apical view. The lateral wall appears to be mildly more hypokinetic than the remainder of the ventricle in this view. A very rough visual estimate of the ejection fraction would be 30 to 35%. Other wall motion disturbances cannot be determined due to the poor quality imaging. Diastolic function cannot be determined due to the atrial fibrillation. Mildly increased left atrial size. Structurally normal mitral valve. Mild-moderate mitral valve regurgitation. Aortic valve is poorly seen. It is at least mildly calcified. There is probably low output, low gradient aortic stenosis. Visually the valve appears to be moderately stenosed. aortic valve stenosis, mean gradient 12.1 mmHg. The gradient may be lower than truly measured due to the low output.. There is mild aortic insufficiency. Moderately dilated IVC. The previous echo was done in 2019. There has been a decrease in the left ventricular function with slight worsening of the mitral valve regurgitation. Probable aortic stenosis is now present from the previously noted aortic sclerosis. A&P Assessment and plan (1) Atrial fibrillation with rapid ventricular response: Patient is currently in sinus rhythm. The IV amiodarone may be switched to p.o. (2) Elevated troponin: Most likely from yzh-IS-enihxdroj myocardial infarction. Discussed with the patient about doing a stress test to evaluate for coronary ischemia. The patient is wanting to discuss with the family and will let me know. (3) Atherosclerotic heart disease of [place] coronary artery with other forms of angina pectoris: Patient may require a repeat cardiac catheterization to evaluate the coronary status and decide on further management. But I may hold off on this till the heart rates gets under control. (4) Ischemic cardiomyopathy: The LV ejection fraction patient been on 30 to 35% by echocardiogram. Possibility of him having underlying coronary ischemia is a strong consideration. (5) Diabetes: Diabetic management as per the primary Qualifiers: Diabetes mellitus type: type 2 Diabetes mellitus exterminator helper termite insulin use: with exterminator helper termite use Diabetes mellitus complication status: with circulatory complication Diabetes mellitus complication detail: with other circulatory complications Qualified Code(s): E11.59 - Type 2 diabetes mellitus with other circulatory complications; Z79.4 - intermediate (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 of insulin (6) Hyperlipidemia: May be continued on the current medications. Qualifiers: Hyperlipidemia type: mixed hyperlipidemia Qualified Code(s): E78.2 - Mixed hyperlipidemia (7) Hypertension: The blood pressure is under control at this point. Qualifiers: Hypertension type: primary hypertension Qualified Code(s): I10 - Essential (primary) hypertension (8) Chronic kidney disease (CKD): Patient seems to have some recent worsening of the kidney function. Possibility of him developing contrast-induced nephropathy is a concern. He may be carefully treated with diuretics at this time Qualifiers: Chronic kidney disease stage 3 subtype: stage 3b (GFR 30-44) Chronic kidney disease stage: stage 3 (moderate) Qualified Code(s): N18.32 - Chronic kidney disease, stage 3b Plan May continue on the aspirin, Plavix, heparin and other current medications. Based on the clinical progress, further management decisions will be made Attestations Medical Necessity Statement*: Patient requires continued hospital stay for close monitoring and further management Coding Level of Care Code 06476 Diagnoses Atrial fibrillation with rapid ventricular response I48.91 Elevated troponin R79.89 Atherosclerotic heart disease of [place] coronary artery with other forms of angina pectoris I25.118 Ischemic cardiomyopathy I25.5 Type 2 diabetes mellitus with other circulatory complication, with long-term current use of insulin E11.59; Z79.4 Diabetes mellitus type: type 2 Diabetes mellitus exterminator helper termite insulin use: with exterminator helper termite use Diabetes mellitus complication status: with circulatory complication Diabetes mellitus complication detail: with other circulatory complications Mixed hyperlipidemia E78.2 Hyperlipidemia type: mixed hyperlipidemia Primary hypertension I10 Hypertension type: primary hypertension Stage 3b chronic kidney disease N18.32 Chronic kidney disease stage 3 subtype: stage 3b (GFR 30-44) Chronic kidney disease stage: stage 3 (moderate)
--- NOTE | 2023-05-19 20:51 | PC.NURSE ---
Addendum entered by Diane Ash RN 05/20/23 01:28: Patient was educated on the importance of stress test. patient stated the last one about killed me Original Note: Patient stated that he does not want stress test. Dr Gillette notified.
[2023-05-19 21:20] LABS: Glucose Point of Care 164 mg/dL (70-110)
[2023-05-19] MEDS: trazodone 50 mg Tablet PO (22:08)
[2023-05-19 22:09] LABS: Partial Thromboplastin Time 66.5 SECONDS (23.9-36.7)
[2023-05-19] MEDS: insulin glargine 100 units/1 mL 40 UNIT SUBCUT (22:09)
[2023-05-19] MEDS: heparin drip 25,000 UNIT/500 ML PREMIX 29 UNIT IV (22:36)
[2023-05-20] VITALS (21 sets, daily range): BP systolic 99–138; BP diastolic 57–74; PULSE 64–116; RESP 14–24; TEMP 36.8–37.1; O2SAT 88–99; BMI 29.2
[2023-05-20] MEDS: levalbuterol 1.25 mg/3 mL Neb INHALATION ×4 (02:16→20:11)
[2023-05-20 04:59] LABS: Basophils % 0.3 %; Eosinophils # 0.1 10^3/uL (0.0-0.8); Eosinophils % 0.8 %; Hematocrit 26.3 % (37-53); Lymphocytes # 1.7 10^3/uL (0.8-4.8); Lymphocytes % 18.7 %; Mean Corpuscular HGB Conc 31.9 g/dL (30-55); Mean Corpuscular Hemoglobin 30.7 pg (27-33); Mean Platelet Volume 10.1 fL (7.4-10.4); Monocytes # 0.6 10^3/uL (0.2-0.9); Monocytes % 6.2 %; Neutrophils # 6.77 10^3/uL (1.8-7.7); Neutrophils % 73.3 %; Nucleated Red Blood Cells % 0.3 %; Platelet Count 254 10^3/cmm (157-399); Red Blood Count 2.74 10^6/uL (3.85-5.65); Red Cell Distribution Width 15.4 % (12.1-15.1); White Blood Count 9.22 10^3/uL (3.29-11.43)
[2023-05-20 05:06] LABS: Partial Thromboplastin Time 59.3 SECONDS (23.9-36.7)
[2023-05-20 05:18] LABS: Alanine Aminotransferase 137 U/L (0-41); Albumin Level 3.1 g/dL (3.5-5.2); Alkaline Phosphatase 93 U/L (40-130); Anion Gap 16.8 (5-19); Aspartate Amino Transferase 106 U/L (0-40); Blood Urea Nitrogen 50 mg/dL (8-23); Calcium 8.8 mg/dL (8.5-10.5); Carbon Dioxide 32 mmol/L (22-29); Chloride 94 mmol/L (98-107); Globulin 3.1 g/dL (1.3-4.6); Glucose 134 mg/dL (65-115); Osmolality Calculated 303 mOsm/kg (285-295); Potassium 3.8 mmol/L (3.5-5.1); Sodium 139 mmol/L (136-145); Total Bilirubin 0.4 mg/dL (0.15-1.2); Total Protein 6.2 g/dL (6.6-8.7)
[2023-05-20 07:05] LABS: Glucose Point of Care 113 mg/dL (70-110)
[2023-05-20] MEDS: pregabalin 50 mg Capsule PO (09:24)
[2023-05-20] MEDS: pantoprazole DR 40 mg Tablet PO (09:24)
[2023-05-20] MEDS: citalopram 20 mg Tablet PO (09:24)
[2023-05-20] MEDS: clopidogrel 75 mg Tablet PO (09:24)
[2023-05-20] MEDS: aspirin 81 mg EC Tablet PO (09:24)
[2023-05-20] MEDS: atorvastatin 40 mg Tablet 20 MG PO (09:24)
[2023-05-20] MEDS: metoprolol tartrate 50 mg Tablet PO ×2 (09:25→21:01)
[2023-05-20] MEDS: amiodarone 200 mg Tablet 400 MG PO ×2 (09:25→17:39)
--- NOTE | 2023-05-20 10:20 | PC.CHAP ---
Pastoral Care Encounter/Spiritual Assessment Type of Contact [] Declined chief concierge visit [] Patient/Family/Request visit [] Outpatient visit [] Follow-up visit [] Physician referral [] Code/Alert [x] Routine visit [] Staff referral [] Actively dying [] Patient sleeping [] Family support [] [] Out of room [] Palliative care [] [x] Receiving care in room [] Pre-surgical visit [] Trauma [] Long length of stay [] ICU visit [] Other: Relational/Emotional Strength [xx] Patient feels connected with others/family/visitors/staff [] Distress [] Loneliness/isolation [] Abandonment Spirituality of Patient [x] Person of Chloe [] Attends Catholic of their Chloe [] Believes in Prayer [x] Reads Bible or Rastafarian materials [] There are Spiritual issues to be addressed Outplacement Consultant Interventions [x] Prayer [x] Active listening [x] Non-anxious presence [x] Spiritual/emotional support [] Crisis/trauma care [x] Spiritual counseling [] Bereavement support [] Provided bereavement packet [] Provided Bible/devotional materials [] Provided toy/stuffed animal, coloring book to patient or family member [] Provided Communion [] Anointing/[place] [] Salvation [x] Completed spiritual assessment [] Other: Impact on Illness or Injury [] Angry [] Fearful [] Anxious [] Often cries [] Exhaustion [] Unable to work [] Unable to attend orthodox [] Unable to walk/stand [] Unable to read [] Unable to drive [] Unable to eat/drink [] Unable to sleep [] Unable to be with family [] Patient intubated [] Other: Summary Senior waiting doctor for what needs to be done negative feelings doesn't know when he will go home Time spent with patient 10 mins
[2023-05-20 11:43] LABS: Glucose Point of Care 136 mg/dL (70-110)
[2023-05-20] MEDS: morphine 4 mg/mL SDV 1 mL 2 MG IVP (11:44)
[2023-05-20 11:53] LABS: Partial Thromboplastin Time 61.4 SECONDS (23.9-36.7)
--- NOTE | 2023-05-20 14:36 | PM.PN ---
Subjective Subjective: Heart rate remains controlled. No new events. Stable transaminitis. Creatinine up to 2.8 today. Urine output charted at 250 cc. Patient exclusively using a urinal. Medications: Reviewed: Yes Medication Review Details: Current Medications Acetaminophen (Acetaminophen 325 Mg Tablet) 650 mg PO Q6H PRN PRN Reason: Mild/Mod Pain Or Temp >/= 101 Amiodarone HCl (Amiodarone 200 Mg Tablet) 400 mg PO BID [facility] Last Admin: 05/19/23 17:53 Dose: 400 mg Aspirin (Aspirin 81 Mg Ec Tablet) 81 mg PO DAILY [facility] Last Admin: 05/19/23 09:45 Dose: 81 mg Atorvastatin Calcium (Atorvastatin 40 Mg Tablet) 20 mg PO DAILY [facility] Last Admin: 05/19/23 09:45 Dose: 20 mg Citalopram Hydrobromide (Citalopram 20 Mg Tablet) 20 mg PO DAILY [facility] Last Admin: 05/19/23 09:45 Dose: 20 mg Clopidogrel Bisulfate (Clopidogrel 75 Mg Tablet) 75 mg PO DAILY [facility] Last Admin: 05/19/23 09:45 Dose: 75 mg Dextrose (Dextrose 50% Syringe 50 Ml) 25 ml IVP ONCE PRN; Protocol PRN Reason: hypoglycemia protocol Dextrose (Dextrose 50% Syringe 50 Ml) 50 ml IVP PRN PRN; Protocol PRN Reason: hypoglycemia protocol Heparin Sodium (Porcine) (Heparin 5,000 Unit/Ml Inj 1 Ml) 0 unit IV PRN PRN; Protocol PRN Reason: Heparin weight-base protocol Last Admin: 05/18/23 10:42 Dose: 5,000 unit Hyoscyamine (Hyoscyamine Odt 0.125 Mg Tablet) 0.125 mg PO Q4H PRN PRN Reason: Spasms Heparin Sodium/Sodium Chloride (Heparin Drip) 25,000 unit in 500 mls @ 0 mls/hr IV .Q0M [facility]; Protocol Last Titration: 05/19/23 11:45 Dose: 13.9 unit/kg/hr, 29 mls/hr Dextrose (D5w) 500 mls @ 0 mls/hr IV ONCE PRN; Protocol PRN Reason: Adult Acute Hypoglycemia Prot Insulin Glargine (Insulin Glargine 100 Units/1 Ml) 40 unit SUBCUT BEDTIME [facility] Last Admin: 05/18/23 23:56 Dose: 40 unit Insulin Human Lispro (Insulin Lispro 100 Unit/1 Ml) 0 unit SUBCUT WM&BEDTIME [facility]; Protocol Last Admin: 05/19/23 17:40 Dose: Not Given Levalbuterol HCl (Levalbuterol 1.25 Mg/3 Ml Neb) 1.25 mg INHALATION Q6H PRN PRN Reason: Shortness Of Breath Last Admin: 05/18/23 17:04 Dose: 1.25 mg Levalbuterol HCl (Levalbuterol 1.25 Mg/3 Ml Neb) 1.25 mg INHALATION Q6H.RESP [facility] Last Admin: 05/19/23 19:35 Dose: 1.25 mg Metoprolol Tartrate (Metoprolol Tartrate 50 Mg Tablet) 50 mg PO BID@0900,2100 [facility] Last Admin: 05/19/23 09:46 Dose: 50 mg Morphine Sulfate (Morphine 4 Mg/Ml Sdv 1 Ml) 2 mg IVP Q4H PRN PRN Reason: SEVERE PAIN Last Admin: 05/18/23 17:27 Dose: 2 mg Naloxone HCl (Naloxone 0.4 Mg/Ml Sdv) 0.1 mg IVP Q2M PRN PRN Reason: OPIATERV Ondansetron HCl (Ondansetron 2 Mg/Ml Sdv 2 Ml) 4 mg IVP Q8H PRN PRN Reason: vomiting, or N/V if npo Pantoprazole Sodium (Pantoprazole Dr 40 Mg Tablet) 40 mg PO DAILY [facility] Last Admin: 05/19/23 09:45 Dose: 40 mg Pregabalin (Pregabalin 50 Mg Capsule) 50 mg PO DAILY [facility] Last Admin: 05/19/23 09:46 Dose: 50 mg Trazodone HCl (Trazodone 50 Mg Tablet) 50 mg PO BEDTIME [facility] Last Admin: 05/18/23 20:56 Dose: 50 mg Vitals/I&O/Wt Last Vital Signs Temp 98.8 F 05/20/23 12:00 Pulse 75 05/20/23 14:18 Resp 20 H 05/20/23 13:58 BP 117/68 05/20/23 12:00 Pulse Ox 94 05/20/23 14:18 O2 Del Method High Flow Nasal Cannula 05/20/23 13:58 O2 Flow Rate 6 05/20/23 13:58 FiO2 40 05/20/23 14:18 05/19/23 05/20/23 05/20/23 22:59 06:59 14:59 Intake Total 514.65 / 1172.917 240 / 1412.917 Output Total 250 / 700 Balance 264.65 / 472.917 240 / 712.917 Weight last 48 hrs Weight 97.749 kg Weight 98.174 kg Physical Exam Narrative: General: No acute distress, Oriented x 3. HEENT: PERRLA, pupils bilaterally equal and reactive, pallors not present Chest: Normal vesicular breath sounds, no added sounds, equal good air entry bilaterally CVS: S1-S2 regular, no murmurs, no tachycardia, no gallops, no rubs Abdomen: Soft, nontender, no organomegaly, bowel sounds present Neuro: No focal deficits, no facial deformity, AO x3, power 5/5 in all limbs Extremities: Bilateral AKA Data 05/20/23 04:33 05/20/23 04:33 A&P Assessment and plan (1) Atrial fibrillation with rapid ventricular response: Started on Cardizem infusion in the emergency room without significant change He is being transitioned to amiodarone gtt. Continue the same Start overlap with p.o. metoprolol 50 mg twice daily at his home dosing. Patient is not on anticoagulation chronically due to history of anemia Currently heparin drip will suffice. (2) Acute on chronic diastolic (congestive) heart failure: Lasix 40 mg IV x 1 now Assess renal function and urine output in the a.m. and further doses based on that. (3) Elevated troponin: May be related to NSTEMI. Trend 2 and 6-hour levels. Started on heparin infusion. Echocardiogram Cardiology consulted. Plan Diabetes mellitus: Insulin high-dose sliding scale History of CAD: Continue aspirin and Plavix. DVT prophylaxis: On heparin drip Full code Plan for today: Discontinue amiodarone infusion. Overlap with amiodarone 400 mg p.o. twice daily. Continue metoprolol 50 mg p.o. twice daily. Repeat Lasix 40 mg IV x 1 today. Add in scheduled nebulization as scattered wheezing on exam related to his COPD most likely. Negative COVID and influenza antigens. Continues to be on heparin drip. Hold aldacotne given cr up to 2.3. Uncontrolled blood sugar overnight, currently better at 218. Insulin glargine was added overnight. echo pending plan for today: 05/20: Clinically euvolemic. Holding diuresis for today as kidney function is worsening and patient overall appearing to be euvolemic. Continue to trend creatinine with a.m. labs. Closely monitor urine output. Patient is exclusively urinating in a urinal therefore I do believe the urine output is accurate. Will obtain renal ultrasound to evaluate for any hydronephrosis. Echocardiogram shows a drop in ejection fraction to 30 to 35%. Patient may have had an underlying cardiac event, however he is not currently a candidate to undergo coronary intervention due to his poor kidney function and high risk of contrast-induced nephropathy. It was discussed with him to undergo a stress test, however patient wants to defer this for now since he cannot follow-up with an angiogram in any case should the stress test be abnormal. Will continue to medically manage patient for the NSTEMI. Discontinue heparin drip, he has received the same for about 48 hours now. He is not on chronic anticoagulation for his A-fib due to longstanding anemia. Continue Plavix 75 mg p.o. daily and aspirin 81 mg p.o. daily along with atorvastatin. He is currently chest pain-free. Baseline uses trilogy at home, encouraged to use it at daytime and nighttime. No new complaints today. Blood sugar better controlled. Attestations Medical Necessity Statement*: Needs continued admission for PAPITO, close monitoring of creatinine and urine output. Likely be able to discharge home once creatinine stabilizes. Ultrasound renal today. Coding Level of Care Code Acute Code for Chg Fwd Diagnoses Atrial fibrillation with rapid ventricular response I48.91 Acute on chronic diastolic (congestive) heart failure I50.33 Elevated troponin R79.89
--- NOTE | 2023-05-20 14:38 | US_ITS ---
WS: [id number] RENAL ULTRASOUND HISTORY: evaluate for hydronephrosis COMPARISON: None available. TECHNIQUE: 2-D and color Doppler imaging of the kidney submitted. Right kidney: 11.8 cm x 4.8 cm x 5.7 cm. Cortex: 1.3 cm Normal echogenicity with no hydronephrosis or mass. Left kidney: 12.0 cm x 4.8 cm x 4.8 cm. Cortex: 1.2 cm Normal echogenicity with no hydronephrosis or mass. Aorta: Normal. Urinary Bladder: Mild thickening of the bladder wall is probably due to under distention. IMPRESSION: Normal renal ultrasound.
[2023-05-20 16:19] LABS: Glucose Point of Care 200 mg/dL (70-110)
[2023-05-20 17:03] LABS: Partial Thromboplastin Time 51.1 SECONDS (23.9-36.7)
[2023-05-20] MEDS: insulin lispro 100 unit/1 mL SUBCUT ×2 (17:39→21:19)
--- NOTE | 2023-05-20 18:55 | PM.PN ---
Subjective Subjective: Patient continues remain in sinus rhythm with frequent PACs. No chest pain. Still has significant shortness of breath with activities. No fever or chills. No cough. Medications: Medication Review Details: Current Medications Acetaminophen (Acetaminophen 325 Mg Tablet) 650 mg PO Q6H PRN PRN Reason: Mild/Mod Pain Or Temp >/= 101 Amiodarone HCl (Amiodarone 200 Mg Tablet) 400 mg PO BID [facility] Last Admin: 05/20/23 17:39 Dose: 400 mg Aspirin (Aspirin 81 Mg Ec Tablet) 81 mg PO DAILY [facility] Last Admin: 05/20/23 09:24 Dose: 81 mg Atorvastatin Calcium (Atorvastatin 40 Mg Tablet) 20 mg PO DAILY [facility] Last Admin: 05/20/23 09:24 Dose: 20 mg Citalopram Hydrobromide (Citalopram 20 Mg Tablet) 20 mg PO DAILY [facility] Last Admin: 05/20/23 09:24 Dose: 20 mg Clopidogrel Bisulfate (Clopidogrel 75 Mg Tablet) 75 mg PO DAILY [facility] Last Admin: 05/20/23 09:24 Dose: 75 mg Dextrose (Dextrose 50% Syringe 50 Ml) 25 ml IVP ONCE PRN; Protocol PRN Reason: hypoglycemia protocol Dextrose (Dextrose 50% Syringe 50 Ml) 50 ml IVP PRN PRN; Protocol PRN Reason: hypoglycemia protocol Hyoscyamine (Hyoscyamine Odt 0.125 Mg Tablet) 0.125 mg PO Q4H PRN PRN Reason: Spasms Dextrose (D5w) 500 mls @ 0 mls/hr IV ONCE PRN; Protocol PRN Reason: Adult Acute Hypoglycemia Prot Insulin Glargine (Insulin Glargine 100 Units/1 Ml) 40 unit SUBCUT BEDTIME [facility] Last Admin: 05/19/23 22:09 Dose: 40 unit Insulin Human Lispro (Insulin Lispro 100 Unit/1 Ml) 0 unit SUBCUT WM&BEDTIME [facility]; Protocol Last Admin: 05/20/23 17:39 Dose: 8 unit Levalbuterol HCl (Levalbuterol 1.25 Mg/3 Ml Neb) 1.25 mg INHALATION Q6H PRN PRN Reason: Shortness Of Breath Last Admin: 05/18/23 17:04 Dose: 1.25 mg Levalbuterol HCl (Levalbuterol 1.25 Mg/3 Ml Neb) 1.25 mg INHALATION Q6H.RESP BON Last Admin: 05/20/23 13:58 Dose: 1.25 mg Metoprolol Tartrate (Metoprolol Tartrate 50 Mg Tablet) 50 mg PO BID@0900,2100 [facility] Last Admin: 05/20/23 09:25 Dose: 50 mg Morphine Sulfate (Morphine 4 Mg/Ml Sdv 1 Ml) 2 mg IVP Q4H PRN PRN Reason: SEVERE PAIN Last Admin: 05/20/23 11:44 Dose: 2 mg Naloxone HCl (Naloxone 0.4 Mg/Ml Sdv) 0.1 mg IVP Q2M PRN PRN Reason: OPIATERV Ondansetron HCl (Ondansetron 2 Mg/Ml Sdv 2 Ml) 4 mg IVP Q8H PRN PRN Reason: vomiting, or N/V if npo Pantoprazole Sodium (Pantoprazole Dr 40 Mg Tablet) 40 mg PO DAILY [facility] Last Admin: 05/20/23 09:24 Dose: 40 mg Pregabalin (Pregabalin 50 Mg Capsule) 50 mg PO DAILY [facility] Last Admin: 05/20/23 09:24 Dose: 50 mg Trazodone HCl (Trazodone 50 Mg Tablet) 50 mg PO BEDTIME [facility] Last Admin: 05/19/23 22:08 Dose: 50 mg Vitals/I&O/Wt Last Vital Signs Temp 98.6 F 05/20/23 16:00 Pulse 76 05/20/23 17:12 Resp 18 05/20/23 16:00 BP 130/73 05/20/23 16:00 Pulse Ox 95 05/20/23 17:12 O2 Del Method BiPAP 05/20/23 16:00 O2 Flow Rate 6 05/20/23 13:58 FiO2 40 05/20/23 17:12 05/20/23 05/20/23 05/20/23 06:59 14:59 22:59 Intake Total 240 / 1412.917 700 / 700 Balance 240 / 712.917 700 / 700 Weight last 48 hrs Weight 215 lb 8 oz Weight 216 lb 7 oz Physical Exam Narrative: GENERAL: The patient is alert and oriented times three. Not in any acute distress. Slightly tachypneic HEENT: No significant pallor, icterus or lymphadenopathy.Oral cavity: There are no mucous membrane lesions. NECK: Trachea appears to be central. No masses noted. No JVD or thyromegaly appreciated. RESPIRATORY: Chest is symmetrical. No intercostals muscle retraction or any accessory muscle activation. There is no chest wall tenderness. Breath sounds are heard bilaterally. Scattered expiratory wheezing and occasional coarse crackles BREASTS: Deferred. HEART: The heart sounds are normal. No S3 or S4. No significant murmurs. No pericardial rub ABDOMEN: No vessel pulsations or distention. No tenderness. No organomegaly appreciated. Bowel sounds are normally heard. : Deferred. RECTAL: Deferred. LYMPHATIC: No lymphadenopathy noted in the neck. EXTREMITIES: No edema or cyanosis. No clubbing. Femoral pulses are palpable and fairly of good volume MUSCULOSKELETAL: Below-knee amputation bilaterally SKIN: There are no significant rashes or ecchymosis NEUROPSYCHIATRIC: The patient is alert and oriented x3. Appears to be in a good mood. No tremors or rigidity noted. Data 05/20/23 04:33 05/20/23 04:33 Other Labs: Laboratory Last Values WBC 9.22 10^3/uL (3.29-11.43) 05/20/23 04:33 RBC 2.74 10^6/uL (3.85-5.65) L 05/20/23 04:33 Hgb 8.40 g/dL (11.27-16.99) L 05/20/23 04:33 Hct 26.3 % (37-53) L 05/20/23 04:33 MCV 96.0 fl (82-101) 05/20/23 04:33 MCH 30.7 pg (27-33) 05/20/23 04:33 MCHC 31.9 g/dL (30-55) 05/20/23 04:33 RDW 15.4 % (12.1-15.1) H 05/20/23 04:33 Plt Count 254 10^3/cmm (157-399) 05/20/23 04:33 MPV 10.1 fL (7.4-10.4) 05/20/23 04:33 Neut % (Auto) 73.3 % 05/20/23 04:33 Lymph % (Auto) 18.7 % 05/20/23 04:33 [place] % (Auto) 6.2 % 05/20/23 04:33 Eos % (Auto) 0.8 % 05/20/23 04:33 Baso % (Auto) 0.3 % 05/20/23 04:33 Neut # (Auto) 6.77 10^3/uL (1.8-7.7) 05/20/23 04:33 Lymph # (Auto) 1.7 10^3/uL (0.8-4.8) 05/20/23 04:33 [place] # (Auto) 0.6 10^3/uL (0.2-0.9) 05/20/23 04:33 Eos # (Auto) 0.1 10^3/uL (0.0-0.8) 05/20/23 04:33 Baso # (Auto) 0.0 10^3/uL (0.0-0.1) 05/20/23 04:33 Nucleated RBC % (auto) 0.3 % 05/20/23 04:33 Nucleated RBCs # 0.0 /100WBC 05/20/23 04:33 APTT 51.1 SECONDS (23.9-36.7) H 05/20/23 16:19 Specimen Type Arterial 05/19/23 00:00 Sample Site Radial, left 05/19/23 00:00 ABG pH 7.38 (7.35-7.45) 05/19/23 00:00 ABG pCO2 56.5 mmHg (35-45) H 05/19/23 00:00 ABG pO2 168.0 mmHg (80.0-100.0) H 05/19/23 00:00 ABG PO2/FiO2 Ratio 0 05/19/23 00:00 ABG HCO3 33.2 mmol/L (22-26) H 05/19/23 00:00 ABG O2 Saturation > 100.0 05/19/23 00:00 ABG Base Excess 6.8 mmol/L (-2.0-2.0) H 05/19/23 00:00 Mil Test Pos 05/19/23 00:00 A-a O2 Gradient 15.3 mmHg (5-10) H 05/19/23 00:00 Hematocrit 28.6 % (42-52) L 05/19/23 00:00 Hgb O2 Saturation 98.9 % (95-100) 05/19/23 00:00 Carboxyhemoglobin 1.4 %THgb (0.4-20.1) 05/19/23 00:00 Methemoglobin 0.1 % (0.4-1.5) L 05/19/23 00:00 Total Hemoglobin 9.3 g/dL (14-18) L 05/19/23 00:00 Sodium 136.0 mmol/L (131-143) 05/19/23 00:00 Potassium 4.6 mmol/L (3.5-5.0) 05/19/23 00:00 Glucose 519.0 mg/dL (70-115) H 05/19/23 00:00 Ionized Calcium 1.2 mmol/L (1.1-1.4) 05/19/23 00:00 O2 Delivery Device Bipap 05/19/23 00:00 O2 Liters/Min 8.0 % 05/18/23 21:15 FiO2 50.0 % 05/19/23 00:00 [employer] ID [email or web address] 05/19/23 00:00 Sodium 139 mmol/L (136-145) 05/20/23 04:33 Potassium 3.8 mmol/L (3.5-5.1) 05/20/23 04:33 Chloride 94 mmol/L (98-107) L 05/20/23 04:33 Carbon Dioxide 32 mmol/L (22-29) H 05/20/23 04:33 Anion Gap 16.8 (5-19) 05/20/23 04:33 BUN 50 mg/dL (8-23) H 05/20/23 04:33 Creatinine 2.8 mg/dL (0.7-1.2) H 05/20/23 04:33 GFR Calculation Not Reportable 05/20/23 04:33 Glucose 134 mg/dL (65-115) H 05/20/23 04:33 POC Glucose 200 mg/dL (70-110) H 05/20/23 16:11 Estimat Average Glucose 301 05/18/23 08:51 Hemoglobin A1c 12.1 % (4.0-6.0) H 05/18/23 08:51 Calculated Osmolality 303 mOsm/kg (285-295) H 05/20/23 04:33 Calcium 8.8 mg/dL (8.5-10.5) 05/20/23 04:33 Phosphorus 6.1 mg/dL (2.5-4.5) H 05/18/23 21:11 Magnesium 2.2 mg/dL (1.7-2.3) 05/18/23 21:11 Total Bilirubin 0.4 mg/dL (0.15-1.2) 05/20/23 04:33 AST 106 U/L (0-40) H 05/20/23 04:33 ALT 137 U/L (0-41) H 05/20/23 04:33 Alkaline Phosphatase 93 U/L (40-130) 05/20/23 04:33 Troponin T Baseline 310 ng/L (0-15) H* 05/18/23 08:51 Troponin T 120 Minute 309.5 ng/L (0-15) H 05/18/23 10:53 Delta Troponin T -0.5 ABS# (0-10) L 05/18/23 10:53 Troponin T Hi Sens 6Hr 317.1 ng/L (0-15) H 05/18/23 15:32 Troponin T Hi Sens 6Hr Delta 7.1 ng/L (0-12) 05/18/23 15:32 NT-Pro-B Natriuret Pep 14314 pg/mL (0-125) H 05/19/23 03:17 Total Protein 6.2 g/dL (6.6-8.7) L 05/20/23 04:33 Albumin 3.1 g/dL (3.5-5.2) L 05/20/23 04:33 Globulin 3.1 g/dL (1.3-4.6) 05/20/23 04:33 Triglycerides 213 mg/dL (0-150) H 05/18/23 08:51 Cholesterol 134 mg/dL (0-200) 05/18/23 08:51 LDL Cholesterol, Calc 61 mg/dL (50-129) 05/18/23 08:51 HDL Cholesterol 30 mg/dL (60-100) L 05/18/23 08:51 LDL/HDL Ratio 2.03 RATIO (0.00-3.22) 05/18/23 08:51 Cholesterol/HDL Ratio 4.47 mg/dL (1.0-5.00) 05/18/23 08:51 Serum Ketones Negative (Negative) 05/18/23 21:11 Influenza Type A Ag negative (Negative) 05/18/23 Unknown Influenza Type B Ag negative (Negative) 05/18/23 Unknown SARS-CoV-2 Ag (Rapid) negative (Negative) 05/18/23 18:39 Other data: Echocardiogram from 05/19/2023 The ventricle is mildly enlarged. There is what appears to be global hypokinesis however the examination is technically poor. The only worthwhile view is the apical view. The lateral wall appears to be mildly more hypokinetic than the remainder of the ventricle in this view. A very rough visual estimate of the ejection fraction would be 30 to 35%. Other wall motion disturbances cannot be determined due to the poor quality imaging. Diastolic function cannot be determined due to the atrial fibrillation. Mildly increased left atrial size. Structurally normal mitral valve. Mild-moderate mitral valve regurgitation. Aortic valve is poorly seen. It is at least mildly calcified. There is probably low output, low gradient aortic stenosis. Visually the valve appears to be moderately stenosed. aortic valve stenosis, mean gradient 12.1 mmHg. The gradient may be lower than truly measured due to the low output.. There is mild aortic insufficiency. Moderately dilated IVC. The previous echo was done in 2019. There has been a decrease in the left ventricular function with slight worsening of the mitral valve regurgitation. Probable aortic stenosis is now A&P Assessment and plan (1) Atrial fibrillation with rapid ventricular response: May continue on the p.o. amiodarone at this point. (2) Elevated troponin: The patient is decided not to undergo the stress test or angiogram. He seems understand implications. Will continue the medical treatment at this point. (3) Atherosclerotic heart disease of [place] coronary artery with other forms of angina pectoris: Doing a cardiac realization would be appropriate. However because of the kidney function, patient carries a high risk for contrast-induced nephropathy and possible hemodialysis. The patient has decided not to undergo the angiogram. (4) Ischemic cardiomyopathy: The LV ejection fraction patient been on 30 to 35% by echocardiogram. Possibility of him having underlying coronary ischemia is a strong consideration. Will continue to optimize medical treatment (5) Diabetes: Diabetic management as per the primary Qualifiers: Diabetes mellitus type: type 2 Diabetes mellitus mcc insulin use: with intermediate card tender use Diabetes mellitus complication status: with circulatory complication Diabetes mellitus complication detail: with other circulatory complications Qualified Code(s): E11.59 - Type 2 diabetes mellitus with other circulatory complications; Z79.4 - terminal manager (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 of insulin (6) Hyperlipidemia: May be continued on the current medications. Qualifiers: Hyperlipidemia type: mixed hyperlipidemia Qualified Code(s): E78.2 - Mixed hyperlipidemia (7) Hypertension: The blood pressure is under control at this point. Qualifiers: Hypertension type: primary hypertension Qualified Code(s): I10 - Essential (primary) hypertension (8) Chronic kidney disease (CKD): Patient seems to be not responding much to the IV Lasix infusion. Consider nephrology consult for further management. Qualifiers: Chronic kidney disease stage: stage 3 (moderate) Chronic kidney disease stage 3 subtype: stage 3b (GFR 30-44) Qualified Code(s): N18.32 - Chronic kidney disease, stage 3b Plan May continue on the aspirin, Plavix, heparin and other current medications. I may add isosorbide mononitrate 30 mg p.o. daily in addition to the other medications Attestations Medical Necessity Statement*: Patient requires continued hospital stay for close monitoring and further management Coding Level of Care Code 87490 Diagnoses Atrial fibrillation with rapid ventricular response I48.91 Elevated troponin R79.89 Atherosclerotic heart disease of [place] coronary artery with other forms of angina pectoris I25.118 Ischemic cardiomyopathy I25.5 Type 2 diabetes mellitus with other circulatory complication, with long-term current use of insulin E11.59; Z79.4 Diabetes mellitus type: type 2 Diabetes mellitus intermediate card tender insulin use: with intermediate card tender use Diabetes mellitus complication status: with circulatory complication Diabetes mellitus complication detail: with other circulatory complications Mixed hyperlipidemia E78.2 Hyperlipidemia type: mixed hyperlipidemia Primary hypertension I10 Hypertension type: primary hypertension Stage 3b chronic kidney disease N18.32 Chronic kidney disease stage: stage 3 (moderate) Chronic kidney disease stage 3 subtype: stage 3b (GFR 30-44)
[2023-05-20] MEDS: FUROsemide 10 mg/mL SDV 10mL 60 MG IVP (21:01)
[2023-05-20] MEDS: trazodone 50 mg Tablet PO (21:01)
[2023-05-20] MEDS: potassium chloride ER 20 mEq Tablet PO (21:01)
[2023-05-20 21:12] LABS: Glucose Point of Care 146 mg/dL (70-110)
[2023-05-20] MEDS: insulin glargine 100 units/1 mL 40 UNIT SUBCUT (21:19)
[2023-05-20 22:50] LABS: Amorphous Sediment Urine TRACE /hpf; Bacteria Urine 1+ /hpf; Bilirubin Urine Neg (Negative); Blood Urine Neg (Negative); Glucose Urine UA Norm (Normal); Hyaline Casts Urine RARE /lpf; Ketones Urine Negative (Negative); Leukocyte Esterase Urine Negative (Negative); Nitrate Urine Negative (Negative); Protein Urine 1+ (Negative); Urine Appearance Clear (CLEAR); Urine Color Yellow (Yellow); Urobilinogen Urine Norm (Negative); pH Urine 5 (5-7)
[2023-05-20 22:52] LABS: Add Urine Culture? No
[2023-05-21] VITALS (14 sets, daily range): BP systolic 95–135; BP diastolic 66–95; PULSE 69–100; RESP 14–23; TEMP 35.9–37.1; O2SAT 93–100
[2023-05-21] MEDS: levalbuterol 1.25 mg/3 mL Neb INHALATION ×4 (02:35→19:34)
[2023-05-21] MEDS: FUROsemide 10 mg/mL SDV 10mL 60 MG IVP ×3 (03:14→21:21)
[2023-05-21 05:20] LABS: Basophils % 0.4 %; Eosinophils # 0.1 10^3/uL (0.0-0.8); Eosinophils % 1.4 %; Hematocrit 29.9 % (37-53); Lymphocytes % 19.6 %; Mean Corpuscular HGB Conc 30.8 g/dL (30-55); Mean Corpuscular Volume 97.4 fl (82-101); Mean Platelet Volume 10.2 fL (7.4-10.4); Monocytes # 0.9 10^3/uL (0.2-0.9); Monocytes % 8.9 %; Neutrophils # 6.87 10^3/uL (1.8-7.7); Neutrophils % 69.1 %; Nucleated Red Blood Cells % 0 %; Platelet Count 283 10^3/cmm (157-399); Red Blood Count 3.07 10^6/uL (3.85-5.65); Red Cell Distribution Width 15.7 % (12.1-15.1); White Blood Count 9.95 10^3/uL (3.29-11.43)
[2023-05-21 05:49] LABS: Alanine Aminotransferase 148 U/L (0-41); Albumin Level 3.3 g/dL (3.5-5.2); Alkaline Phosphatase 101 U/L (40-130); Anion Gap 19.3 (5-19); Aspartate Amino Transferase 80 U/L (0-40); Blood Urea Nitrogen 52 mg/dL (8-23); Calcium 9.4 mg/dL (8.5-10.5); Carbon Dioxide 31 mmol/L (22-29); Chloride 96 mmol/L (98-107); Globulin 3.5 g/dL (1.3-4.6); Glucose 70 mg/dL (65-115); Osmolality Calculated 306 mOsm/kg (285-295); Potassium 4.3 mmol/L (3.5-5.1); Sodium 142 mmol/L (136-145); Total Bilirubin 0.5 mg/dL (0.15-1.2); Total Protein 6.8 g/dL (6.6-8.7)
[2023-05-21 06:33] LABS: Glucose Point of Care 115 mg/dL (70-110)
[2023-05-21 07:40] LABS: Glucose Point of Care 126 mg/dL (70-110)
[2023-05-21] MEDS: atorvastatin 40 mg Tablet 20 MG PO (08:36)
[2023-05-21] MEDS: pantoprazole DR 40 mg Tablet PO (08:36)
[2023-05-21] MEDS: pregabalin 50 mg Capsule PO (08:36)
[2023-05-21] MEDS: aspirin 81 mg EC Tablet PO (08:37)
[2023-05-21] MEDS: amiodarone 200 mg Tablet 400 MG PO ×2 (08:37→17:30)
[2023-05-21] MEDS: metoprolol tartrate 50 mg Tablet PO (08:37)
[2023-05-21] MEDS: clopidogrel 75 mg Tablet PO (08:38)
[2023-05-21] MEDS: citalopram 20 mg Tablet PO (08:38)
[2023-05-21] MEDS: isosorbide mononitrate ER 30 mg Tablet PO (08:47)
[2023-05-21 10:51] LABS: Glucose Point of Care 212 mg/dL (70-110)
[2023-05-21] MEDS: insulin lispro 100 unit/1 mL SUBCUT ×3 (11:52→21:22)
--- NOTE | 2023-05-21 13:16 | PC.SOCIAL ---
Pg 2 IMM Explained to pt Pg 2 IMM. No questions voiced. Provided pt a copy. Initialed, dated, & timed a copy & placed in chart.
--- NOTE | 2023-05-21 14:43 | P.PN_ITS ---
Subjective 2 Subjective: Patient has intermittent atrial fibrillation. Heart rate is mostly under control. Still has some amount of shortness of breath. Medications: Medication Review Details: Current Medications Acetaminophen (Acetaminophen 325 Mg Tablet) 650 mg PO Q6H PRN PRN Reason: Mild/Mod Pain Or Temp >/= 101 Amiodarone HCl (Amiodarone 200 Mg Tablet) 400 mg PO BID [facility] Last Admin: 05/21/23 08:37 Dose: 400 mg Aspirin (Aspirin 81 Mg Ec Tablet) 81 mg PO DAILY [facility] Last Admin: 05/21/23 08:37 Dose: 81 mg Atorvastatin Calcium (Atorvastatin 40 Mg Tablet) 20 mg PO DAILY [facility] Last Admin: 05/21/23 08:36 Dose: 20 mg Citalopram Hydrobromide (Citalopram 20 Mg Tablet) 20 mg PO DAILY [facility] Last Admin: 05/21/23 08:38 Dose: 20 mg Clopidogrel Bisulfate (Clopidogrel 75 Mg Tablet) 75 mg PO DAILY [facility] Last Admin: 05/21/23 08:38 Dose: 75 mg Dextrose (Dextrose 50% Syringe 50 Ml) 25 ml IVP ONCE PRN; Protocol PRN Reason: hypoglycemia protocol Dextrose (Dextrose 50% Syringe 50 Ml) 50 ml IVP PRN PRN; Protocol PRN Reason: hypoglycemia protocol Furosemide (Furosemide 10 Mg/Ml Sdv 10ml) 60 mg IVP Q8H [facility] Last Admin: 05/21/23 12:50 Dose: 60 mg Hyoscyamine (Hyoscyamine Odt 0.125 Mg Tablet) 0.125 mg PO Q4H PRN PRN Reason: Spasms Dextrose (D5w) 500 mls @ 0 mls/hr IV ONCE PRN; Protocol PRN Reason: Adult Acute Hypoglycemia Prot Insulin Glargine (Insulin Glargine 100 Units/1 Ml) 40 unit SUBCUT BEDTIME [facility] Last Admin: 05/20/23 21:19 Dose: 40 unit Insulin Human Lispro (Insulin Lispro 100 Unit/1 Ml) 0 unit SUBCUT WM&BEDTIME [facility]; Protocol Last Admin: 05/21/23 11:52 Dose: 1 unit Isosorbide Mononitrate (Isosorbide Mononitrate Er 30 Mg Tablet) 30 mg PO DAILY [facility] Last Admin: 05/21/23 08:47 Dose: 30 mg Levalbuterol HCl (Levalbuterol 1.25 Mg/3 Ml Neb) 1.25 mg INHALATION Q6H PRN PRN Reason: Shortness Of Breath Last Admin: 05/18/23 17:04 Dose: 1.25 mg Levalbuterol HCl (Levalbuterol 1.25 Mg/3 Ml Neb) 1.25 mg INHALATION Q6H.RESP [facility] Last Admin: 05/21/23 14:07 Dose: 1.25 mg Metoprolol Tartrate (Metoprolol Tartrate 50 Mg Tablet) 50 mg PO BID@0900,2100 [facility] Last Admin: 05/21/23 08:37 Dose: 50 mg Morphine Sulfate (Morphine 4 Mg/Ml Sdv 1 Ml) 2 mg IVP Q4H PRN PRN Reason: SEVERE PAIN Last Admin: 05/20/23 11:44 Dose: 2 mg Naloxone HCl (Naloxone 0.4 Mg/Ml Sdv) 0.1 mg IVP Q2M PRN PRN Reason: OPIATERV Ondansetron HCl (Ondansetron 2 Mg/Ml Sdv 2 Ml) 4 mg IVP Q8H PRN PRN Reason: vomiting, or N/V if npo Pantoprazole Sodium (Pantoprazole Dr 40 Mg Tablet) 40 mg PO DAILY [facility] Last Admin: 05/21/23 08:36 Dose: 40 mg Pregabalin (Pregabalin 50 Mg Capsule) 50 mg PO DAILY [facility] Last Admin: 05/21/23 08:36 Dose: 50 mg Trazodone HCl (Trazodone 50 Mg Tablet) 50 mg PO BEDTIME [facility] Last Admin: 05/20/23 21:01 Dose: 50 mg Vitals/I&O/Wt Last Vital Signs Temp 97.7 F 05/21/23 12:00 Pulse 76 05/21/23 14:20 Resp 18 05/21/23 14:00 BP 95/66 05/21/23 12:00 Pulse Ox 95 05/21/23 14:20 O2 Del Method Nasal Cannula 05/21/23 14:00 O2 Flow Rate 5 05/21/23 14:00 FiO2 40 05/21/23 14:20 05/20/23 05/21/23 05/21/23 22:59 06:59 14:59 Intake Total 1100 / 1100 0 / 1100 Output Total 400 / 400 425 / 825 700 / 700 Balance 700 / 700 -425 / 275 -700 / -700 Weight last 48 hrs Weight 218 lb 9.6 oz Weight 215 lb 8 oz Physical Exam 2 Narrative: GENERAL: The patient is alert and oriented times three. Not in any acute distress. Slightly tachypneic HEENT: No significant pallor, icterus or lymphadenopathy.Oral cavity: There are no mucous membrane lesions. NECK: Trachea appears to be central. No masses noted. No JVD or thyromegaly appreciated. RESPIRATORY: Chest is symmetrical. No intercostals muscle retraction or any accessory muscle activation. There is no chest wall tenderness. Breath sounds are heard bilaterally. Diminished intensity of breath sounds in the bases. No significant rales or rhonchi BREASTS: Deferred. HEART: The heart sounds are normal. No S3 or S4. No significant murmurs. No pericardial rub ABDOMEN: No vessel pulsations or distention. No tenderness. No organomegaly appreciated. Bowel sounds are normally heard. : Deferred. RECTAL: Deferred. LYMPHATIC: No lymphadenopathy noted in the neck. EXTREMITIES: No edema or cyanosis. No clubbing. Femoral pulses are palpable and fairly of good volume MUSCULOSKELETAL: Below-knee amputation bilaterally SKIN: There are no significant rashes or ecchymosis NEUROPSYCHIATRIC: The patient is alert and oriented x3. Appears to be in a good mood. No tremors or rigidity noted. Data 05/22/23 03:10 05/22/23 03:10 Other Labs: Laboratory Last Values WBC 9.95 10^3/uL (3.29-11.43) 05/21/23 05:05 RBC 3.07 10^6/uL (3.85-5.65) L 05/21/23 05:05 Hgb 9.20 g/dL (11.27-16.99) L 05/21/23 05:05 Hct 29.9 % (37-53) L 05/21/23 05:05 MCV 97.4 fl (82-101) 05/21/23 05:05 MCH 30.0 pg (27-33) 05/21/23 05:05 MCHC 30.8 g/dL (30-55) 05/21/23 05:05 RDW 15.7 % (12.1-15.1) H 05/21/23 05:05 Plt Count 283 10^3/cmm (157-399) 05/21/23 05:05 MPV 10.2 fL (7.4-10.4) 05/21/23 05:05 Neut % (Auto) 69.1 % 05/21/23 05:05 Lymph % (Auto) 19.6 % 05/21/23 05:05 [place] % (Auto) 8.9 % 05/21/23 05:05 Eos % (Auto) 1.4 % 05/21/23 05:05 Baso % (Auto) 0.4 % 05/21/23 05:05 Neut # (Auto) 6.87 10^3/uL (1.8-7.7) 05/21/23 05:05 Lymph # (Auto) 2.0 10^3/uL (0.8-4.8) 05/21/23 05:05 [place] # (Auto) 0.9 10^3/uL (0.2-0.9) 05/21/23 05:05 Eos # (Auto) 0.1 10^3/uL (0.0-0.8) 05/21/23 05:05 Baso # (Auto) 0.0 10^3/uL (0.0-0.1) 05/21/23 05:05 Nucleated RBC % (auto) 0 % 05/21/23 05:05 Nucleated RBCs # 0.0 /100WBC 05/21/23 05:05 APTT 51.1 SECONDS (23.9-36.7) H 05/20/23 16:19 Specimen Type Arterial 05/19/23 00:00 Sample Site Radial, left 05/19/23 00:00 ABG pH 7.38 (7.35-7.45) 05/19/23 00:00 ABG pCO2 56.5 mmHg (35-45) H 05/19/23 00:00 ABG pO2 168.0 mmHg (80.0-100.0) H 05/19/23 00:00 ABG PO2/FiO2 Ratio 0 05/19/23 00:00 ABG HCO3 33.2 mmol/L (22-26) H 05/19/23 00:00 ABG O2 Saturation > 100.0 05/19/23 00:00 ABG Base Excess 6.8 mmol/L (-2.0-2.0) H 05/19/23 00:00 Mil Test Pos 05/19/23 00:00 A-a O2 Gradient 15.3 mmHg (5-10) H 05/19/23 00:00 Hematocrit 28.6 % (42-52) L 05/19/23 00:00 Hgb O2 Saturation 98.9 % (95-100) 05/19/23 00:00 Carboxyhemoglobin 1.4 %THgb (0.4-20.1) 05/19/23 00:00 Methemoglobin 0.1 % (0.4-1.5) L 05/19/23 00:00 Total Hemoglobin 9.3 g/dL (14-18) L 05/19/23 00:00 Sodium 136.0 mmol/L (131-143) 05/19/23 00:00 Potassium 4.6 mmol/L (3.5-5.0) 05/19/23 00:00 Glucose 519.0 mg/dL (70-115) H 05/19/23 00:00 Ionized Calcium 1.2 mmol/L (1.1-1.4) 05/19/23 00:00 O2 Delivery Device Bipap 05/19/23 00:00 O2 Liters/Min 8.0 % 05/18/23 21:15 FiO2 50.0 % 05/19/23 00:00 Mail Clerk ID [email or web address] 05/19/23 00:00 Sodium 142 mmol/L (136-145) 05/21/23 05:05 Potassium 4.3 mmol/L (3.5-5.1) 05/21/23 05:05 Chloride 96 mmol/L (98-107) L 05/21/23 05:05 Carbon Dioxide 31 mmol/L (22-29) H 05/21/23 05:05 Anion Gap 19.3 (5-19) H 05/21/23 05:05 BUN 52 mg/dL (8-23) H 05/21/23 05:05 Creatinine 3.0 mg/dL (0.7-1.2) H 05/21/23 05:05 GFR Calculation Not Reportable 05/21/23 05:05 Glucose 70 mg/dL (65-115) 05/21/23 05:05 POC Glucose 212 mg/dL (70-110) H 05/21/23 10:40 Estimat Average Glucose 301 05/18/23 08:51 Hemoglobin A1c 12.1 % (4.0-6.0) H 05/18/23 08:51 Calculated Osmolality 306 mOsm/kg (285-295) H 05/21/23 05:05 Calcium 9.4 mg/dL (8.5-10.5) 05/21/23 05:05 Phosphorus 6.1 mg/dL (2.5-4.5) H 05/18/23 21:11 Magnesium 2.2 mg/dL (1.7-2.3) 05/18/23 21:11 Total Bilirubin 0.5 mg/dL (0.15-1.2) 05/21/23 05:05 AST 80 U/L (0-40) H 05/21/23 05:05 ALT 148 U/L (0-41) H 05/21/23 05:05 Alkaline Phosphatase 101 U/L (40-130) 05/21/23 05:05 Troponin T Baseline 310 ng/L (0-15) H* 05/18/23 08:51 Troponin T 120 Minute 309.5 ng/L (0-15) H 05/18/23 10:53 Delta Troponin T -0.5 ABS# (0-10) L 05/18/23 10:53 Troponin T Hi Sens 6Hr 317.1 ng/L (0-15) H 05/18/23 15:32 Troponin T Hi Sens 6Hr Delta 7.1 ng/L (0-12) 05/18/23 15:32 NT-Pro-B Natriuret Pep 87582 pg/mL (0-125) H 05/19/23 03:17 Total Protein 6.8 g/dL (6.6-8.7) 05/21/23 05:05 Albumin 3.3 g/dL (3.5-5.2) L 05/21/23 05:05 Globulin 3.5 g/dL (1.3-4.6) 05/21/23 05:05 Triglycerides 213 mg/dL (0-150) H 05/18/23 08:51 Cholesterol 134 mg/dL (0-200) 05/18/23 08:51 LDL Cholesterol, Calc 61 mg/dL (50-129) 05/18/23 08:51 HDL Cholesterol 30 mg/dL (60-100) L 05/18/23 08:51 LDL/HDL Ratio 2.03 RATIO (0.00-3.22) 05/18/23 08:51 Cholesterol/HDL Ratio 4.47 mg/dL (1.0-5.00) 05/18/23 08:51 Urine Color Yellow (Yellow) 05/20/23 22:35 Urine Appearance Clear (CLEAR) 05/20/23 22:35 Urine pH 5 (5-7) 05/20/23 22:35 Ur Specific [place] 1.020 (1.005-1.030) 05/20/23 22:35 Urine Protein 1+ (Negative) H 05/20/23 22:35 Urine Glucose (UA) Norm (Normal) 05/20/23 22:35 Urine Ketones Negative (Negative) 05/20/23 22:35 Urine Blood Neg (Negative) 05/20/23 22:35 Urine Nitrate Negative (Negative) 05/20/23 22:35 Urine Bilirubin Neg (Negative) 05/20/23 22:35 Urine Urobilinogen Norm mg/dL (Negative) 05/20/23 22:35 Ur Leukocyte Esterase Negative (Negative) 05/20/23 22:35 Urine RBC None /hpf (0-2) 05/20/23 22:35 Urine WBC None /hpf (0-5) 05/20/23 22:35 Ur Squamous Epith Cells None /hpf (0-5) 05/20/23 22:35 Amorphous Sediment Trace /hpf 05/20/23 22:35 Urine Bacteria 1+ /hpf (NONE) H 05/20/23 22:35 Hyaline Casts Rare /lpf 05/20/23 22:35 Serum Ketones Negative (Negative) 05/18/23 21:11 Influenza Type A Ag negative (Negative) 05/18/23 Unknown Influenza Type B Ag negative (Negative) 05/18/23 Unknown SARS-CoV-2 Ag (Rapid) negative (Negative) 05/18/23 18:39 A&P Assessment and plan (1) Atrial fibrillation with rapid ventricular response: Patient symptoms are intermittent atrial fibrillation. May continue on the p.o. amiodarone at this point. Also because the patient's history of chronic anemia and chronic kidney disease with a hematuria, he carries a higher risk for bleeding. Patient has a HAS BLED score of 5-high risk for bleeding (2) Elevated troponin: Most likely related to non-ST elevation myocardial infarction the patient is decided not to undergo the stress test or angiogram. He seems to understand implications. Will continue the medical treatment at this point. (3) Atherosclerotic heart disease of [place] coronary artery with other forms of angina pectoris: Will continue on the current medications. In view of his worsening kidney function, it might be appropriate to continue the medical management. (4) Ischemic cardiomyopathy: The LV ejection fraction patient been on 30 to 35% by echocardiogram. Possibility of him having underlying coronary ischemia is a strong consideration. Will continue to optimize medical treatment (5) Diabetes: Diabetic management as per the primary. May continue on the current medications. Qualifiers: Diabetes mellitus complication detail: with other circulatory complications Diabetes mellitus complication status: with circulatory complication Diabetes mellitus hardboard grinder insulin use: with skilled nursing use D iabetes mellitus type: type 2 Qualified Code(s): E11.59 - Type 2 diabetes mellitus with other circulatory complications; Z79.4 - spring setter (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 of insulin (6) Hyperlipidemia: May be continued on the current medications. Qualifiers: Hyperlipidemia type: mixed hyperlipidemia Qualified Code(s): E78.2 - Mixed hyperlipidemia (7) Hypertension: The blood pressure is under control at this point. Qualifiers: Hypertension type: primary hypertension Qualified Code(s): I10 - Essential (primary) hypertension (8) Chronic kidney disease (CKD): May continue on the current higher dose of Lasix. May switch to p.o. Lasix tomorrow Qualifiers: Chronic kidney disease stage: stage 3 (moderate) Chronic kidney disease stage 3 subtype: stage 3b (GFR 30-44) Qualified Code(s): N18.32 - Chronic kidney disease, stage 3b Plan Heparin will be discontinued after 48 hours. May continue on the aspirin and Plavix. Because of the high HAS BLED score, may not be a candidate for long- term oral anticoagulation. Attestations 2 Medical Necessity Statement*: Patient requires continued hospital stay for close monitoring and further management Coding Level of Care Code Acute Code for [facility] Fwd Diagnoses Atrial fibrillation with rapid ventricular response I48.91 Elevated troponin R79.89 Atherosclerotic heart disease of [place] coronary artery with other forms of angina pectoris I25.118 Ischemic cardiomyopathy I25.5 Type 2 diabetes mellitus with other circulatory complication, with long-term current use of insulin E11.59; Z79.4 Diabetes mellitus complication detail: with other circulatory complications Diabetes mellitus complication status: with circulatory complication Diabetes mellitus hardboard grinder insulin use: with hardboard grinder use Diabetes mellitus type: type 2 Mixed hyperlipidemia E78.2 Hyperlipidemia type: mixed hyperlipidemia Primary hypertension I10 Hypertension type: primary hypertension Stage 3b chronic kidney disease N18.32 Chronic kidney disease stage: stage 3 (moderate) Chronic kidney disease stage 3 subtype: stage 3b (GFR 30-44)
--- NOTE | 2023-05-21 15:45 | PM.PN ---
Subjective Subjective: Patient ofeers no new complaints however more tachypneic today. Cr. up to 3.0, urine output 1500 cc. Resumed lasix today Medications: Reviewed: Yes Medication Review Details: Current Medications Acetaminophen (Acetaminophen 325 Mg Tablet) 650 mg PO Q6H PRN PRN Reason: Mild/Mod Pain Or Temp >/= 101 Amiodarone HCl (Amiodarone 200 Mg Tablet) 400 mg PO BID [facility] Last Admin: 05/21/23 08:37 Dose: 400 mg Aspirin (Aspirin 81 Mg Ec Tablet) 81 mg PO DAILY [facility] Last Admin: 05/21/23 08:37 Dose: 81 mg Atorvastatin Calcium (Atorvastatin 40 Mg Tablet) 20 mg PO DAILY [facility] Last Admin: 05/21/23 08:36 Dose: 20 mg Citalopram Hydrobromide (Citalopram 20 Mg Tablet) 20 mg PO DAILY [facility] Last Admin: 05/21/23 08:38 Dose: 20 mg Clopidogrel Bisulfate (Clopidogrel 75 Mg Tablet) 75 mg PO DAILY [facility] Last Admin: 05/21/23 08:38 Dose: 75 mg Dextrose (Dextrose 50% Syringe 50 Ml) 25 ml IVP ONCE PRN; Protocol PRN Reason: hypoglycemia protocol Dextrose (Dextrose 50% Syringe 50 Ml) 50 ml IVP PRN PRN; Protocol PRN Reason: hypoglycemia protocol Furosemide (Furosemide 10 Mg/Ml Sdv 10ml) 60 mg IVP Q8H [facility] Last Admin: 05/21/23 12:50 Dose: 60 mg Hyoscyamine (Hyoscyamine Odt 0.125 Mg Tablet) 0.125 mg PO Q4H PRN PRN Reason: Spasms Dextrose (D5w) 500 mls @ 0 mls/hr IV ONCE PRN; Protocol PRN Reason: Adult Acute Hypoglycemia Prot Insulin Glargine (Insulin Glargine 100 Units/1 Ml) 40 unit SUBCUT BEDTIME [facility] Last Admin: 05/20/23 21:19 Dose: 40 unit Insulin Human Lispro (Insulin Lispro 100 Unit/1 Ml) 0 unit SUBCUT WM&BEDTIME [facility]; Protocol Last Admin: 05/21/23 11:52 Dose: 1 unit Isosorbide Mononitrate (Isosorbide Mononitrate Er 30 Mg Tablet) 30 mg PO DAILY [facility] Last Admin: 05/21/23 08:47 Dose: 30 mg Levalbuterol HCl (Levalbuterol 1.25 Mg/3 Ml Neb) 1.25 mg INHALATION Q6H PRN PRN Reason: Shortness Of Breath Last Admin: 05/18/23 17:04 Dose: 1.25 mg Levalbuterol HCl (Levalbuterol 1.25 Mg/3 Ml Neb) 1.25 mg INHALATION Q6H.RESP [facility] Last Admin: 05/21/23 14:07 Dose: 1.25 mg Metoprolol Tartrate (Metoprolol Tartrate 50 Mg Tablet) 50 mg PO BID@0900,2100 [facility] Last Admin: 05/21/23 08:37 Dose: 50 mg Morphine Sulfate (Morphine 4 Mg/Ml Sdv 1 Ml) 2 mg IVP Q4H PRN PRN Reason: SEVERE PAIN Last Admin: 05/20/23 11:44 Dose: 2 mg Naloxone HCl (Naloxone 0.4 Mg/Ml Sdv) 0.1 mg IVP Q2M PRN PRN Reason: OPIATERV Ondansetron HCl (Ondansetron 2 Mg/Ml Sdv 2 Ml) 4 mg IVP Q8H PRN PRN Reason: vomiting, or N/V if npo Pantoprazole Sodium (Pantoprazole Dr 40 Mg Tablet) 40 mg PO DAILY [facility] Last Admin: 05/21/23 08:36 Dose: 40 mg Pregabalin (Pregabalin 50 Mg Capsule) 50 mg PO DAILY [facility] Last Admin: 05/21/23 08:36 Dose: 50 mg Trazodone HCl (Trazodone 50 Mg Tablet) 50 mg PO BEDTIME [facility] Last Admin: 05/20/23 21:01 Dose: 50 mg Vitals/I&O/Wt Last Vital Signs Temp 97.7 F 05/21/23 12:00 Pulse 76 05/21/23 14:20 Resp 18 05/21/23 14:00 BP 95/66 05/21/23 12:00 Pulse Ox 95 05/21/23 14:20 O2 Del Method Nasal Cannula 05/21/23 14:00 O2 Flow Rate 5 05/21/23 14:00 FiO2 40 05/21/23 14:20 05/21/23 05/21/23 05/21/23 06:59 14:59 22:59 Intake Total 0 / 1100 Output Total 425 / 825 700 / 700 Balance -425 / 275 -700 / -700 Weight last 48 hrs Weight 99.155 kg Weight 97.749 kg Physical Exam Narrative: General: No acute distress, Oriented x 3. HEENT: PERRLA, pupils bilaterally equal and reactive, pallors not present Chest: Normal vesicular breath sounds, no added sounds, equal good air entry bilaterally CVS: S1-S2 regular, no murmurs, no tachycardia, no gallops, no rubs Abdomen: Soft, nontender, no organomegaly, bowel sounds present Neuro: No focal deficits, no facial deformity, AO x3, power 5/5 in all limbs Extremities: Bilateral AKA Data 05/21/23 05:05 05/21/23 05:05 A&P Assessment and plan (1) Atrial fibrillation with rapid ventricular response: Started on Cardizem infusion in the emergency room without significant change He is being transitioned to amiodarone gtt. Continue the same Start overlap with p.o. metoprolol 50 mg twice daily at his home dosing. Patient is not on anticoagulation chronically due to history of anemia Currently heparin drip will suffice. (2) Acute on chronic diastolic (congestive) heart failure: Lasix 40 mg IV x 1 now Assess renal function and urine output in the a.m. and further doses based on that. (3) Elevated troponin: May be related to NSTEMI. Trend 2 and 6-hour levels. Started on heparin infusion. Echocardiogram Cardiology consulted. Plan Diabetes mellitus: Insulin high-dose sliding scale History of CAD: Continue aspirin and Plavix. DVT prophylaxis: On heparin drip Full code Plan for today: Discontinue amiodarone infusion. Overlap with amiodarone 400 mg p.o. twice daily. Continue metoprolol 50 mg p.o. twice daily. Repeat Lasix 40 mg IV x 1 today. Add in scheduled nebulization as scattered wheezing on exam related to his COPD most likely. Negative COVID and influenza antigens. Continues to be on heparin drip. Hold aldacotne given cr up to 2.3. Uncontrolled blood sugar overnight, currently better at 218. Insulin glargine was added overnight. echo pending plan for today: 05/20: Clinically euvolemic. Holding diuresis for today as kidney function is worsening and patient overall appearing to be euvolemic. Continue to trend creatinine with a.m. labs. Closely monitor urine output. Patient is exclusively urinating in a urinal therefore I do believe the urine output is accurate. Will obtain renal ultrasound to evaluate for any hydronephrosis. Echocardiogram shows a drop in ejection fraction to 30 to 35%. Patient may have had an underlying cardiac event, however he is not currently a candidate to undergo coronary intervention due to his poor kidney function and high risk of contrast-induced nephropathy. It was discussed with him to undergo a stress test, however patient wants to defer this for now since he cannot follow-up with an angiogram in any case should the stress test be abnormal. Will continue to medically manage patient for the NSTEMI. Discontinue heparin drip, he has received the same for about 48 hours now. He is not on chronic anticoagulation for his A-fib due to longstanding anemia. Continue Plavix 75 mg p.o. daily and aspirin 81 mg p.o. daily along with atorvastatin. He is currently chest pain-free. Baseline uses trilogy at home, encouraged to use it at daytime and nighttime. No new complaints today. Blood sugar better controlled. Plan for today: 05/21/23: resumed lasix iv today, good urine output. Cr stable at 3.0. Additionally started imdur today. Monitor closely with these interventions Attestations Medical Necessity Statement*: resumed iv lasix today, monitor for improvement Coding Level of Care Code Acute Code for g Fwd Diagnoses Atrial fibrillation with rapid ventricular response I48.91 Acute on chronic diastolic (congestive) heart failure I50.33 Elevated troponin R79.89
[2023-05-21 16:58] LABS: Glucose Point of Care 166 mg/dL (70-110)
[2023-05-21 20:36] LABS: Glucose Point of Care 221 mg/dL (70-110)
[2023-05-21] MEDS: trazodone 50 mg Tablet PO (21:22)
[2023-05-21] MEDS: insulin glargine 100 units/1 mL 40 UNIT SUBCUT (21:23)
--- NOTE | 2023-05-21 21:38 | PC.NURSE ---
bp of 109/70 and hr of 88, message doc and was told to hold dose
[2023-05-22] VITALS (12 sets, daily range): BP systolic 99–151; BP diastolic 68–82; PULSE 75–95; RESP 15–22; TEMP 36.6–36.8; O2SAT 91–100
[2023-05-22] MEDS: levalbuterol 1.25 mg/3 mL Neb INHALATION ×3 (02:29→14:44)
[2023-05-22 04:08] LABS: Basophils % 0.5 %; Eosinophils # 0.1 10^3/uL (0.0-0.8); Eosinophils % 1.6 %; Hematocrit 27.9 % (37-53); Lymphocytes # 1.3 10^3/uL (0.8-4.8); Lymphocytes % 20.8 %; Mean Corpuscular HGB Conc 30.8 g/dL (30-55); Mean Corpuscular Hemoglobin 30.2 pg (27-33); Mean Corpuscular Volume 97.9 fl (82-101); Mean Platelet Volume 10.4 fL (7.4-10.4); Monocytes # 0.7 10^3/uL (0.2-0.9); Monocytes % 10.3 %; Neutrophils # 4.27 10^3/uL (1.8-7.7); Neutrophils % 66.3 %; Nucleated Red Blood Cells % 0 %; Platelet Count 216 10^3/cmm (157-399); Red Blood Count 2.85 10^6/uL (3.85-5.65); Red Cell Distribution Width 15.9 % (12.1-15.1); White Blood Count 6.43 10^3/uL (3.29-11.43)
[2023-05-22 04:34] LABS: Alanine Aminotransferase 138 U/L (0-41); Albumin Level 3.2 g/dL (3.5-5.2); Alkaline Phosphatase 89 U/L (40-130); Anion Gap 12.8 (5-19); Aspartate Amino Transferase 50 U/L (0-40); Blood Urea Nitrogen 52 mg/dL (8-23); Calcium 8.7 mg/dL (8.5-10.5); Carbon Dioxide 36 mmol/L (22-29); Chloride 97 mmol/L (98-107); Globulin 3.2 g/dL (1.3-4.6); Glucose 115 mg/dL (65-115); Osmolality Calculated 309 mOsm/kg (285-295); Potassium 3.8 mmol/L (3.5-5.1); Sodium 142 mmol/L (136-145); Total Bilirubin 0.5 mg/dL (0.15-1.2); Total Protein 6.4 g/dL (6.6-8.7)
[2023-05-22] MEDS: FUROsemide 10 mg/mL SDV 10mL 60 MG IVP (05:21)
[2023-05-22 06:32] LABS: Glucose Point of Care 115 mg/dL (70-110)
[2023-05-22] MEDS: atorvastatin 40 mg Tablet 20 MG PO (08:28)
[2023-05-22] MEDS: metoprolol tartrate 50 mg Tablet PO (08:29)
[2023-05-22] MEDS: citalopram 20 mg Tablet PO (08:29)
[2023-05-22] MEDS: amiodarone 200 mg Tablet 400 MG PO (08:29)
[2023-05-22] MEDS: isosorbide mononitrate ER 30 mg Tablet PO (08:29)
[2023-05-22] MEDS: aspirin 81 mg EC Tablet PO (08:29)
[2023-05-22] MEDS: pregabalin 50 mg Capsule PO (08:29)
[2023-05-22] MEDS: pantoprazole DR 40 mg Tablet PO (08:30)
[2023-05-22] MEDS: clopidogrel 75 mg Tablet PO (08:30)
--- NOTE | 2023-05-22 11:57 | P.PN_ITS ---
Subjective 2 Subjective: Patient is feeling better. No chest pain. No fever or chills. Has a baseline shortness of breath with activities. No orthopnea. Medications: Medication Review Details: Current Medications Acetaminophen (Acetaminophen 325 Mg Tablet) 650 mg PO Q6H PRN PRN Reason: Mild/Mod Pain Or Temp >/= 101 Amiodarone HCl (Amiodarone 200 Mg Tablet) 400 mg PO BID [facility] Last Admin: 05/22/23 08:29 Dose: 400 mg Aspirin (Aspirin 81 Mg Ec Tablet) 81 mg PO DAILY [facility] Last Admin: 05/22/23 08:29 Dose: 81 mg Atorvastatin Calcium (Atorvastatin 40 Mg Tablet) 20 mg PO DAILY [facility] Last Admin: 05/22/23 08:28 Dose: 20 mg Citalopram Hydrobromide (Citalopram 20 Mg Tablet) 20 mg PO DAILY [facility] Last Admin: 05/22/23 08:29 Dose: 20 mg Clopidogrel Bisulfate (Clopidogrel 75 Mg Tablet) 75 mg PO DAILY [facility] Last Admin: 05/22/23 08:30 Dose: 75 mg Dextrose (Dextrose 50% Syringe 50 Ml) 25 ml IVP ONCE PRN; Protocol PRN Reason: hypoglycemia protocol Dextrose (Dextrose 50% Syringe 50 Ml) 50 ml IVP PRN PRN; Protocol PRN Reason: hypoglycemia protocol Furosemide (Furosemide 10 Mg/Ml Sdv 10ml) 60 mg IVP Q8H [facility] Last Admin: 05/22/23 05:21 Dose: 60 mg Hyoscyamine (Hyoscyamine Odt 0.125 Mg Tablet) 0.125 mg PO Q4H PRN PRN Reason: Spasms Dextrose (D5w) 500 mls @ 0 mls/hr IV ONCE PRN; Protocol PRN Reason: Adult Acute Hypoglycemia Prot Insulin Glargine (Insulin Glargine 100 Units/1 Ml) 40 unit SUBCUT BEDTIME [facility] Last Admin: 05/21/23 21:23 Dose: 40 unit Insulin Human Lispro (Insulin Lispro 100 Unit/1 Ml) 0 unit SUBCUT WM&BEDTIME [facility]; Protocol Last Admin: 05/22/23 07:23 Dose: Not Given Isosorbide Mononitrate (Isosorbide Mononitrate Er 30 Mg Tablet) 30 mg PO DAILY [facility] Last Admin: 05/22/23 08:29 Dose: 30 mg Levalbuterol HCl (Levalbuterol 1.25 Mg/3 Ml Neb) 1.25 mg INHALATION Q6H PRN PRN Reason: Shortness Of Breath Last Admin: 05/18/23 17:04 Dose: 1.25 mg Levalbuterol HCl (Levalbuterol 1.25 Mg/3 Ml Neb) 1.25 mg INHALATION Q6H.RESP [facility] Last Admin: 05/22/23 07:53 Dose: 1.25 mg Metoprolol Tartrate (Metoprolol Tartrate 50 Mg Tablet) 50 mg PO BID@0900,2100 [facility] Last Admin: 05/22/23 08:29 Dose: 50 mg Morphine Sulfate (Morphine 4 Mg/Ml Sdv 1 Ml) 2 mg IVP Q4H PRN PRN Reason: SEVERE PAIN Last Admin: 05/20/23 11:44 Dose: 2 mg Naloxone HCl (Naloxone 0.4 Mg/Ml Sdv) 0.1 mg IVP Q2M PRN PRN Reason: OPIATERV Ondansetron HCl (Ondansetron 2 Mg/Ml Sdv 2 Ml) 4 mg IVP Q8H PRN PRN Reason: vomiting, or N/V if npo Pantoprazole Sodium (Pantoprazole Dr 40 Mg Tablet) 40 mg PO DAILY [facility] Last Admin: 05/22/23 08:30 Dose: 40 mg Pregabalin (Pregabalin 50 Mg Capsule) 50 mg PO DAILY [facility] Last Admin: 05/22/23 08:29 Dose: 50 mg Trazodone HCl (Trazodone 50 Mg Tablet) 50 mg PO BEDTIME [facility] Last Admin: 05/21/23 21:22 Dose: 50 mg Vitals/I&O/Wt Last Vital Signs Temp 98.0 F 05/22/23 11:33 Pulse 87 05/22/23 11:33 Resp 22 H 05/22/23 11:33 BP 99/76 05/22/23 11:33 Pulse Ox 98 05/22/23 11:33 O2 Del Method Nasal Cannula 05/22/23 11:33 O2 Flow Rate 4 05/22/23 07:53 FiO2 40 05/22/23 03:26 05/21/23 05/22/23 05/22/23 22:59 06:59 14:59 Intake Total 220 / 220 200 / 420 240 / 240 Output Total 200 / 900 400 / 400 Balance 20 / -680 200 / -480 -160 / -160 Weight last 48 hrs Weight 213 lb 6.4 oz Weight 218 lb 9.6 oz Physical Exam 2 Narrative: GENERAL: The patient is alert and oriented times three. Not in any acute distress. Slightly tachypneic HEENT: No significant pallor, icterus or lymphadenopathy.Oral cavity: There are no mucous membrane lesions. NECK: Trachea appears to be central. No masses noted. No JVD or thyromegaly appreciated. RESPIRATORY: Chest is symmetrical. No intercostals muscle retraction or any accessory muscle activation. There is no chest wall tenderness. Breath sounds are heard bilaterally. Diminished intensity of breath sounds in the bases. No significant rales or rhonchi BREASTS: Deferred. HEART: The heart sounds are normal. No S3 or S4. No significant murmurs. No pericardial rub ABDOMEN: No vessel pulsations or distention. No tenderness. No organomegaly appreciated. Bowel sounds are normally heard. : Deferred. RECTAL: Deferred. LYMPHATIC: No lymphadenopathy noted in the neck. EXTREMITIES: No edema or cyanosis. No clubbing. Femoral pulses are palpable and fairly of good volume MUSCULOSKELETAL: Below-knee amputation bilaterally SKIN: There are no significant rashes or ecchymosis NEUROPSYCHIATRIC: The patient is alert and oriented x3. Appears to be in a good mood. No tremors or rigidity noted. Data 05/22/23 03:10 05/22/23 03:10 A&P Assessment and plan (1) Atrial fibrillation with rapid ventricular response: Patient symptoms are intermittent atrial fibrillation. May continue on the p.o. amiodarone at this point. Also because the patient's history of chronic anemia and chronic kidney disease with a hematuria, he carries a higher risk for bleeding. Patient has a HAS BLED score of 5-high risk for bleeding. For this reason, it may be appropriate to continue the Plavix and not to put him on any oral anticoagulant (2) Elevated troponin: Most likely related to non-ST elevation myocardial infarction the patient is decided not to undergo the stress test or angiogram. He seems to understand implications. Will continue the medical treatment at this point. (3) Atherosclerotic heart disease of [place] coronary artery with other forms of angina pectoris: Will continue on the current medications. In view of his worsening kidney function, it might be appropriate to continue the medical management. (4) Ischemic cardiomyopathy: The LV ejection fraction patient been on 30 to 35% by echocardiogram. The need for LifeVest/prophylactic ICD will be discussing with the patient and family. Patient does not seems to be keen about having this done (5) Diabetes: Diabetic management as per the primary. May continue on the current medications. Qualifiers: Diabetes mellitus complication detail: with other circulatory complications Diabetes mellitus complication status: with circulatory complication Diabetes mellitus terminal operator insulin use: with chcf use D iabetes mellitus type: type 2 Qualified Code(s): E11.59 - Type 2 diabetes mellitus with other circulatory complications; Z79.4 - [facility] (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 of insulin (6) Hyperlipidemia: May be continued on the current medications. Qualifiers: Hyperlipidemia type: mixed hyperlipidemia Qualified Code(s): E78.2 - Mixed hyperlipidemia (7) Hypertension: The blood pressure is under control at this point. Qualifiers: Hypertension type: primary hypertension Qualified Code(s): I10 - Essential (primary) hypertension (8) Chronic kidney disease (CKD): May start him on Lasix 80 mg p.o. daily Qualifiers: Chronic kidney disease stage: stage 3 (moderate) Chronic kidney disease stage 3 subtype: stage 3b (GFR 30-44) Qualified Code(s): N18.32 - Chronic kidney disease, stage 3b Plan Patient may be continued without current medications. Attestations 2 Medical Necessity Statement*: Disposition as per the primary Coding Level of Care Code Acute Code for [facility] Fwd Diagnoses Atrial fibrillation with rapid ventricular response I48.91 Elevated troponin R79.89 Atherosclerotic heart disease of [place] coronary artery with other forms of angina pectoris I25.118 Ischemic cardiomyopathy I25.5 Type 2 diabetes mellitus with other circulatory complication, with long-term current use of insulin E11.59; Z79.4 Diabetes mellitus complication detail: with other circulatory complications Diabetes mellitus complication status: with circulatory complication Diabetes mellitus terminal operator insulin use: with chcf use Diabetes mellitus type: type 2 Mixed hyperlipidemia E78.2 Hyperlipidemia type: mixed hyperlipidemia Primary hypertension I10 Hypertension type: primary hypertension Stage 3b chronic kidney disease N18.32 Chronic kidney disease stage: stage 3 (moderate) Chronic kidney disease stage 3 subtype: stage 3b (GFR 30-44)
[2023-05-22 12:12] LABS: Glucose Point of Care 247 mg/dL (70-110)
[2023-05-22] MEDS: insulin lispro 100 unit/1 mL SUBCUT (12:31)
--- NOTE | 2023-05-22 15:44 | PM.DCS ---
Discharge Providers Date of Admission: 05/18/23 11:52 Date of Discharge: May 22, 2023 Attending Provider at Admission: Michael Bautista MD Attending Provider at Discharge: Valerie rFaga MD Primary Care Provider: Mag Watters Diagnoses at Discharge Discharge Diagnosis (1) Atrial fibrillation with rapid ventricular response: Status: Acute (2) Elevated troponin: Status: Acute (3) Atherosclerotic heart disease of [place] coronary artery with other forms of angina pectoris: Status: Acute (4) Ischemic cardiomyopathy: Status: Acute (5) Diabetes: Status: Acute Qualifiers: Diabetes mellitus type: type 2 Diabetes mellitus copping machine operator insulin use: with long-term use Diabetes mellitus complication status: with circulatory complication Diabetes mellitus complication detail: with other circulatory complications Qualified Code(s): E11.59 - Type 2 diabetes mellitus with other circulatory complications; Z79.4 - wastewater analyst (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 of insulin (6) Hyperlipidemia: Status: Acute Qualifiers: Hyperlipidemia type: mixed hyperlipidemia Qualified Code(s): E78.2 - Mixed hyperlipidemia (7) Hypertension: Status: Acute Qualifiers: Hypertension type: primary hypertension Qualified Code(s): I10 - Essential (primary) hypertension (8) Chronic kidney disease (CKD): Status: Chronic Qualifiers: Chronic kidney disease stage: stage 3 (moderate) Chronic kidney disease stage 3 subtype: stage 3b (GFR 30-44) Qualified Code(s): N18.32 - Chronic kidney disease, stage 3b Reason for Visit Reason for Visit: elevated hr Hospital Course Hospital Course David Monique is a 72 year old male with a past medical history of atrial fibrillation, used to be on amiodarone in the past but appears to have discontinued, not on anticoagulation due to anemia, prior history of CAD, peripheral artery disease status post bilateral AKA. He presented with chief complaints of palpitations and chest discomfort nitroglycerin did not provide any relief. He is usually on 3 L/min supplemental O2 for COPD but currently was on 6 L/min. Chest x-ray showed bilateral congestion likely representing CHF. He had evidence of PAPITO on CKD additionally. He was found to be in A-fib with RVR upon presentation and was started on an amiodarone infusion. This was later transitioned to p.o. amiodarone during the hospital course and he is being discharged with addition of amiodarone to his treatment regimen. He also had elevated troponins in the 300 range, serial had trended down. Echocardiogram was obtained which showed drop in ejection fraction from prior, now at 30 to 35%. Possibility of an NSTEMI given these findings. However patient was not a candidate to undergo further angiogram due to his PAPITO on CKD. Patient additionally declined stress test as we would not be able to follow it up with an angiogram currently. He was started on aspirin 81 mg daily and Plavix 75 mg daily was continued. Imdur has additionally been added for anginal chest pain. Patient has had no further chest pain while in the hospital. Additional Protonix was added for PUD prophylaxis. Patient was not started on any anticoagulation due to longstanding anemia. Upon arrival his creatinine was at 1.7 which is baseline for him, during the hospital course it had been trending up and today it is at 3.2. His urine output is currently between 700 to 1100 cc/day. Lasix was held briefly but resumed on May 21, 2023 when he developed worsening respiratory status and evidence of pulmonary edema. Patient is extremely insistent on going home today. It was recommended that he stay until his creatinine stabilizes, since it is still on the uptrend there is a possibility that it may continue to worsen. Discussed with him that we need to closely monitor his urine output and kidney function, however patient states that he feels much better when he came into the hospital and would like to leave. His is in agreement with the same. She states that she will continue to record his 24-hour urine output at home and they indicate they will return to the hospital for a repeat creatinine check on Wednesday. They both state that patient is in mental distress as a result of remaining in the hospital and would like to leave. Spironolactone has been discontinued at discharge due to worsening PAPITO. Additionally dose of Bumex has been reduced from 2 mg twice daily which she takes at home to 2 mg daily. Physical Exam Narrative: General: No acute distress, AO x3 HEENT: PERRLA, pupils bilaterally equal and reactive, pallors not present Chest: Normal vesicular breath sounds, no added sounds, equal good air entry bilaterally CVS: S1-S2 regular, no murmurs, no tachycardia, no gallops, no rubs Abdomen: Soft, nontender, no organomegaly, bowel sounds present Neuro: No focal deficits, no facial deformity, AO x3, power 5/5 in all limbs Discharge Data Studies Completed and Pending Completed Studies During Hospitalization Category Date Time Status XR chest 1V portable [id number] Stat Exams 05/18/23 08:29 Completed CV. echo complete* [id number] Routine Ultrasound 05/19/23 15:46 Completed US renal BI* [id number] Routine Ultrasound 05/20/23 14:38 Completed Laboratory Results WBC 6.43 10^3/uL (3.29-11.43) 05/22/23 03:10 RBC 2.85 10^6/uL (3.85-5.65) L 05/22/23 03:10 Hgb 8.60 g/dL (11.27-16.99) L 05/22/23 03:10 Hct 27.9 % (37-53) L 05/22/23 03:10 MCV 97.9 fl (82-101) 05/22/23 03:10 MCH 30.2 pg (27-33) 05/22/23 03:10 MCHC 30.8 g/dL (30-55) 05/22/23 03:10 RDW 15.9 % (12.1-15.1) H 05/22/23 03:10 Plt Count 216 10^3/cmm (157-399) 05/22/23 03:10 MPV 10.4 fL (7.4-10.4) 05/22/23 03:10 Neut % (Auto) 66.3 % 05/22/23 03:10 Lymph % (Auto) 20.8 % 05/22/23 03:10 Potter % (Auto) 10.3 % 05/22/23 03:10 Eos % (Auto) 1.6 % 05/22/23 03:10 Baso % (Auto) 0.5 % 05/22/23 03:10 Neut # (Auto) 4.27 10^3/uL (1.8-7.7) 05/22/23 03:10 Lymph # (Auto) 1.3 10^3/uL (0.8-4.8) 05/22/23 03:10 Potter # (Auto) 0.7 10^3/uL (0.2-0.9) 05/22/23 03:10 Eos # (Auto) 0.1 10^3/uL (0.0-0.8) 05/22/23 03:10 Baso # (Auto) 0.0 10^3/uL (0.0-0.1) 05/22/23 03:10 Nucleated RBC % (auto) 0 % 05/22/23 03:10 Nucleated RBCs # 0.0 /100WBC 05/22/23 03:10 APTT 51.1 SECONDS (23.9-36.7) H 05/20/23 16:19 Specimen Type Arterial 05/19/23 00:00 Sample Site Radial, left 05/19/23 00:00 ABG pH 7.38 (7.35-7.45) 05/19/23 00:00 ABG pCO2 56.5 mmHg (35-45) H 05/19/23 00:00 ABG pO2 168.0 mmHg (80.0-100.0) H 05/19/23 00:00 ABG PO2/FiO2 Ratio 0 05/19/23 00:00 ABG HCO3 33.2 mmol/L (22-26) H 05/19/23 00:00 ABG O2 Saturation > 100.0 05/19/23 00:00 ABG Base Excess 6.8 mmol/L (-2.0-2.0) H 05/19/23 00:00 Mil Test Pos 05/19/23 00:00 A-a O2 Gradient 15.3 mmHg (5-10) H 05/19/23 00:00 Hematocrit 28.6 % (42-52) L 05/19/23 00:00 Hgb O2 Saturation 98.9 % (95-100) 05/19/23 00:00 Carboxyhemoglobin 1.4 %THgb (0.4-20.1) 05/19/23 00:00 Methemoglobin 0.1 % (0.4-1.5) L 05/19/23 00:00 Total Hemoglobin 9.3 g/dL (14-18) L 05/19/23 00:00 Sodium 136.0 mmol/L (131-143) 05/19/23 00:00 Potassium 4.6 mmol/L (3.5-5.0) 05/19/23 00:00 Glucose 519.0 mg/dL (70-115) H 05/19/23 00:00 Ionized Calcium 1.2 mmol/L (1.1-1.4) 05/19/23 00:00 O2 Delivery Device Bipap 05/19/23 00:00 O2 Liters/Min 8.0 % 05/18/23 21:15 FiO2 50.0 % 05/19/23 00:00 Yarn Texturing Machine Operator ID [email or web address] 05/19/23 00:00 Sodium 142 mmol/L (136-145) 05/22/23 03:10 Potassium 3.8 mmol/L (3.5-5.1) 05/22/23 03:10 Chloride 97 mmol/L (98-107) L 05/22/23 03:10 Carbon Dioxide 36 mmol/L (22-29) H 05/22/23 03:10 Anion Gap 12.8 (5-19) 05/22/23 03:10 BUN 52 mg/dL (8-23) H 05/22/23 03:10 Creatinine 3.2 mg/dL (0.7-1.2) H 05/22/23 03:10 GFR Calculation Not Reportable 05/22/23 03:10 Glucose 115 mg/dL (65-115) 05/22/23 03:10 POC Glucose 247 mg/dL (70-110) H 05/22/23 11:37 Estimat Average Glucose 301 05/18/23 08:51 Hemoglobin A1c 12.1 % (4.0-6.0) H 05/18/23 08:51 Calculated Osmolality 309 mOsm/kg (285-295) H 05/22/23 03:10 Calcium 8.7 mg/dL (8.5-10.5) 05/22/23 03:10 Phosphorus 6.1 mg/dL (2.5-4.5) H 05/18/23 21:11 Magnesium 2.2 mg/dL (1.7-2.3) 05/18/23 21:11 Total Bilirubin 0.5 mg/dL (0.15-1.2) 05/22/23 03:10 AST 50 U/L (0-40) H 05/22/23 03:10 ALT 138 U/L (0-41) H 05/22/23 03:10 Alkaline Phosphatase 89 U/L (40-130) 05/22/23 03:10 Troponin T Baseline 310 ng/L (0-15) H* 05/18/23 08:51 Troponin T 120 Minute 309.5 ng/L (0-15) H 05/18/23 10:53 Delta Troponin T -0.5 ABS# (0-10) L 05/18/23 10:53 Troponin T Hi Sens 6Hr 317.1 ng/L (0-15) H 05/18/23 15:32 Troponin T Hi Sens 6Hr Delta 7.1 ng/L (0-12) 05/18/23 15:32 NT-Pro-B Natriuret Pep 77800 pg/mL (0-125) H 05/19/23 03:17 Total Protein 6.4 g/dL (6.6-8.7) L 05/22/23 03:10 Albumin 3.2 g/dL (3.5-5.2) L 05/22/23 03:10 Globulin 3.2 g/dL (1.3-4.6) 05/22/23 03:10 Triglycerides 213 mg/dL (0-150) H 05/18/23 08:51 Cholesterol 134 mg/dL (0-200) 05/18/23 08:51 LDL Cholesterol, Calc 61 mg/dL (50-129) 05/18/23 08:51 HDL Cholesterol 30 mg/dL (60-100) L 05/18/23 08:51 LDL/HDL Ratio 2.03 RATIO (0.00-3.22) 05/18/23 08:51 Cholesterol/HDL Ratio 4.47 mg/dL (1.0-5.00) 05/18/23 08:51 Urine Color Yellow (Yellow) 05/20/23 22:35 Urine Appearance Clear (CLEAR) 05/20/23 22:35 Urine pH 5 (5-7) 05/20/23 22:35 Ur Specific [place] 1.020 (1.005-1.030) 05/20/23 22:35 Urine Protein 1+ (Negative) H 05/20/23 22:35 Urine Glucose (UA) Norm (Normal) 05/20/23 22:35 Urine Ketones Negative (Negative) 05/20/23 22:35 Urine Blood Neg (Negative) 05/20/23 22:35 Urine Nitrate Negative (Negative) 05/20/23 22:35 Urine Bilirubin Neg (Negative) 05/20/23 22:35 Urine Urobilinogen Norm mg/dL (Negative) 05/20/23 22:35 Ur Leukocyte Esterase Negative (Negative) 05/20/23 22:35 Urine RBC None /hpf (0-2) 05/20/23 22:35 Urine WBC None /hpf (0-5) 05/20/23 22:35 Ur Squamous Epith Cells None /hpf (0-5) 05/20/23 22:35 Amorphous Sediment Trace /hpf 05/20/23 22:35 Urine Bacteria 1+ /hpf (NONE) H 05/20/23 22:35 Hyaline Casts Rare /lpf 05/20/23 22:35 Serum Ketones Negative (Negative) 05/18/23 21:11 Influenza Type A Ag negative (Negative) 05/18/23 Unknown Influenza Type B Ag negative (Negative) 05/18/23 Unknown SARS-CoV-2 Ag (Rapid) negative (Negative) 05/18/23 18:39 Vitals Last Vital Signs Temp 98.0 F 05/22/23 11:33 Pulse 85 05/22/23 14:44 Resp 22 H 05/22/23 14:44 BP 99/76 05/22/23 11:33 Pulse Ox 91 05/22/23 14:44 O2 Del Method Nasal Cannula 05/22/23 11:33 O2 Flow Rate 4 05/22/23 14:44 FiO2 40 05/22/23 03:26 Discharge Plan Discharge Patient Disposition: Home Condition: Stable Prescriptions: New Pacerone 200 mg Tablet 200 mg PO BID 30 Days Qty: 60 0RF aspirin 81 mg Tablet,Delayed Release (Dr/Ec) 81 mg PO DAILY 30 Days Qty: 30 0RF isosorbide mononitrate 30 mg Tablet Extended Release 24 Hr 30 mg PO DAILY 30 Days Qty: 30 0RF pantoprazole 40 mg Tablet,Delayed Release (Dr/Ec) 40 mg PO DAILY 30 Days Qty: 30 0RF Continued trazodone 50 mg tablet 50 mg PO DAILY citalopram 10 mg tablet 10 mg PO DAILY clopidogrel 75 mg tablet 75 mg PO DAILY metoprolol tartrate 50 mg tablet 50 mg PO BID rosuvastatin 5 mg tablet 5 mg PO DAILY pregabalin 50 mg capsule 50 mg PO DAILY insulin glargine [Lantus Solostar U-100 Insulin] 100 unit/mL (3 mL) insulin pen 60 unit SUBCUT DAILY Humulin R Regular U-100 Insuln 100 unit/mL solution See Rx Instructions .ROUTE .COMPLEX Rx Instructions: USE PER SLIDING SCALE: BS 150-200=4 UNITS, 201-250=6 UNITS, 251-300=10 UNITS, 301-350=12 UNITS, 351-400=15 UNITS. hyoscyamine sulfate 0.125 mg tablet, sublingual 0.125 mg sublingual Q4H PRN (Reason: Spasms) tobramycin-dexamethasone 0.3-0.1 % drops,suspension 1 drp ophthalmic (eye) Q4H levalbuterol tartrate 45 mcg/actuation HFA aerosol inhaler 2 inh INHALATION Q6H PRN (Reason: Shortness Of Breath) Changed bumetanide 2 mg tablet 2 mg PO DAILY 30 Days Qty: 30 0RF Discontinued amlodipine 2.5 mg Tablet 2.5 mg PO DAILY spironolactone 25 mg tablet 25 mg PO DAILY Discharge Orders: Discharge Order (Routine); Ordered 05/22/23 Ordered By: Valerie Fraga Referrals: Mag Watters [Primary Care Provider] - (please call on wednesday to [facility] a post-hospital followup appt:[phone]) Lisa Avila FNP [Nurse Practitioner] - 1 week (please call on wednesday to arrange a post-hospital followup [phone]) Discharge Diet: Cardiac Discharge Activity: Resume usual activity Patient Instructions: Aspirin (By mouth), Amiodarone (By mouth) (Cordarone, Pacerone), Isosorbide Mononitrate (By mouth) (Imdur, Imdur ER, Ismo), Pantoprazole (By mouth) (Protonix), Heart Attack (DC), Heart Failure (DC), A-fib (Atrial Fibrillation) (DC), CHF Stoplight, Opioid Safety, Post Heart Attack Stoplight Discharge Attestations Time Spent in Discharge Care*: greater than 30 min Status at Discharge: Cognitive status at discharge: cognitively intact, Quality Metrics Clinical Quality Measures [ Acute Myocardial Infaction { Clinical Trial Participant: No; Contraindication to aspirin: None; Aspirin prescribed; Contraindication to statin: None; Statin prescribed; Contraindication to PCI: Medical contraindication;}] Coding Level of Care Code Acute Code for [facility] Fwd Diagnoses Atrial fibrillation with rapid ventricular response I48.91 Elevated troponin R79.89 Atherosclerotic heart disease of [place] coronary artery with other forms of angina pectoris I25.118 Ischemic cardiomyopathy I25.5 Type 2 diabetes mellitus with other circulatory complication, with long-term current use of insulin E11.59; Z79.4 Diabetes mellitus type: type 2 Diabetes mellitus copping machine operator insulin use: with copping machine operator use Diabetes mellitus complication status: with circulatory complication Diabetes mellitus complication detail: with other circulatory complications Mixed hyperlipidemia E78.2 Hyperlipidemia type: mixed hyperlipidemia Primary hypertension I10 Hypertension type: primary hypertension Stage 3b chronic kidney disease N18.32 Chronic kidney disease stage: stage 3 (moderate) Chronic kidney disease stage 3 subtype: stage 3b (GFR 30-44)
--- NOTE | 2023-05-22 15:57 | PC.NURSE ---
discharge instructions given and explained.pt and spouse verb understanding of instructions.discharged via scooter to exit.spouse to drive pt home
== END 2023-05-22 15:59 | disposition home or self-care (01) | DRG 291 ==
LOC: ER 11:11 → CSU 11:53
PROVIDERS: Admitting Provider Family Medicine; Emergency Provider Family Medicine; PCP Registered Nurse; Visit Provider Student in an Organized Health Care Education/Training Program
DX: I13.0 Hypertensive heart and chronic kidney disease with heart failure and stage 1 through stage 4 chronic kidney disease, or unspecified chronic kidney disease (principal); I50.33 Acute on chronic diastolic (congestive) heart failure; I48.20 Chronic atrial fibrillation, unspecified; N17.9 Acute kidney failure, unspecified; N18.32 Chronic kidney disease, stage 3b; E11.22 Type 2 diabetes mellitus with diabetic chronic kidney disease; R79.89 Other specified abnormal findings of blood chemistry; I25.10 Atherosclerotic heart disease of native coronary artery without angina pectoris; E78.2 Mixed hyperlipidemia; E11.40 Type 2 diabetes mellitus with diabetic neuropathy, unspecified; E11.65 Type 2 diabetes mellitus with hyperglycemia; J44.9 Chronic obstructive pulmonary disease, unspecified; F17.200 Nicotine dependence, unspecified, uncomplicated; E11.51 Type 2 diabetes mellitus with diabetic peripheral angiopathy without gangrene; D63.1 Anemia in chronic kidney disease; I25.5 Ischemic cardiomyopathy; Z11.52 Encounter for screening for COVID-19; Z79.02 Long term (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 of antithrombotics/antiplatelets; Z79.4 Long term (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 of insulin; Z95.5 Presence of coronary angioplasty implant and graft; Z85.828 Personal history of other malignant neoplasm of skin; Z89.511 Acquired absence of right leg below knee; Z99.81 Dependence on supplemental oxygen
CPT/HCPCS: 36415; 36416; 36600; 71045; 76770; 80048; 80051; 80053; 80061; 81001; 82009; 82330; 82803; 82805; 82947; 82962; 83036; 83735; 83880; 84100; 84484; 85025; 85730; 87426; 87804; 93005; 93306; 94640; 94660; 96365; 96366; 96367; 96372; 96375; 96376; 99285; J0283; J1644; J1815; J1940; J2270; J3490; J7614

== ENCOUNTER 2023-06-13 16:12 | Inpatient (IN) | payer MEDICARE, OTHER, SELFPAY ==
[2023-06-13] VITALS (43 sets, daily range): BP systolic 122–184; BP diastolic 85–134; PULSE 86–115; RESP 13–31; TEMP 36.6–36.7; O2SAT 69–100; BMI 23.0; BMI 29.2
--- NOTE | 2023-06-13 16:34 | XRR_ITS ---
PROCEDURE INFORMATION: Exam: XR Chest Exam date and time: 06/13/2023 5:02 PM Age: 72 years old Clinical indication: Pain; Shortness of breath; Chest pressure; Prior surgery; Surgery date: 6+ months; Surgery type: Stents; Additional info: Chest pain TECHNIQUE: Imaging protocol: Radiologic exam of the chest. Views: 1 view. COMPARISON: CR XR chest 1V portable [id number] 05/18/2023 8:45 AM FINDINGS: Lungs: Bilateral lower lobe curvilinear opacities of the lung bases. Pleural spaces: Mild blunting of the costophrenic angles. Heart/Mediastinum: Mild cardiomegaly. Bones/joints: Unremarkable. XR/XR chest 1V portable [id number] IMPRESSION: Bilateral lower lobe curvilinear opacities at the lung bases.
--- NOTE | 2023-06-13 16:46 | ED_ITS ---
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 He reports a pleuritic type chest pain. Mostly in his left chest. He says he is more short of breath than usual. He does not report any new cough. No altered mental status. No abdominal pain. No nausea or vomiting. No focal motor deficits. Review of Systems 2 Narrative: Constitutional symptoms: Negative except as documented in HPI. Skin symptoms: Negative except as documented in HPI. Eye symptoms: Negative except as documented in HPI. ENMT symptoms: Negative except as documented in HPI. Respiratory symptoms: Negative except as documented in HPI. Cardiovascular symptoms: Negative except as documented in HPI. Gastrointestinal symptoms: Negative except as documented in HPI. Genitourinary symptoms: Negative except as documented in HPI. Musculoskeletal symptoms: Negative except as documented in HPI. Neurologic symptoms: Negative except as documented in HPI. Psychiatric symptoms: Negative except as documented in HPI. Endocrine symptoms: Negative except as documented in HPI. PFSH ED 2 PFSH: Medical History (Updated 06/14/23 @ 17:05 by Isidro Jc MD) Atrial fibrillation History of nonmelanoma skin cancer Heart attack Hypertension Hyperlipidemia Diabetes COPD (chronic obstructive pulmonary disease) Amputated right leg Surgical History Status post below-knee amputation of left lower extremity Family History Other Cancer Diabetes Hypertension Social History Smoking and tobacco/nicotine status: current every day tobacco/nicotine user Physical Exam 2 Narrative: EXAM NARRATIVE: General: Alert, patient appears slightly uncomfortable. He is sitting in a mobile chair. Skin: Warm, dry. Head: Normocephalic, atraumatic. Neck: Supple, trachea midline. Eye: Extraocular movements are intact. Ears, nose, mouth and throat: mucosa moist. Cardiovascular: Regular, slightly tachycardic, Normal peripheral perfusion. Respiratory: Lungs are tight with some scattered wheeze, patient is slightly tachypneic. Mild to moderate increased work of breathing., breath sounds are equal, Symmetrical chest wall expansion. Gastrointestinal: Soft, Nontender, Non distended, Normal bowel sounds. Musculoskeletal: Bilateral BKA Neurological: Alert and oriented, No focal neurological deficit observed. Psychiatric: Cooperative, appropriate mood & affect. Course 2 Vital Signs: Vital signs: Vital Signs Temperature 97.8 F 06/13/23 22:52 Pulse Rate 86 06/14/23 19:24 Respiratory Rate 18 06/14/23 19:24 Blood Pressure 140/86 06/14/23 18:00 Pulse Oximetry 97 06/14/23 19:24 Oxygen Delivery Me thod High Flow Nasal C annula 06/14/23 19:24 Oxygen Flow Rate 8 06/14/23 19:24 Fraction of Inspir ed Oxygen 35 06/14/23 12:00 MDM - SOB/Dyspnea Medical Decision Making Differential diagnosis for patient with shortness of breath. Pneumonia. Bronchitis. Asthma or COPD with acute exacerbation. Acute coronary syndrome / VT. Pulmonary embolism. Anxiety. Congestive heart failure. Viral infections including influenza and Covid-19. Atrial fibrillation. Anxiety. Pleural effusion. Pneumothorax. Workup: Lab work, chest X-ray and EKG ordered to evaluate, rule in and rule out above pathologies Lab Review: Laboratory results were reviewed and interpreted by myself the emergency room physician. ABG reveals respiratory acidosis with a pH 7.26 and a pCO2 of 73. Patient placed on a BiPAP. Given an updraft. IV Solu-Medrol. Patient says he has a drug allergy to albuterol. He says he is always tachycardic and it makes it much worse. He requests Xopenex. EKG: Time 1708 p.m. rate 100 A-fib with RVR. Nonspecific ST wave abnormalities., no ectopy, normal OR & QRS intervals, This was reviewed and interpreted by myself the ER physician. Reexamination: Patient is now on a BiPAP. He is tolerating. Still with some increased work of breathing. No altered mental status. No focal motor deficits. Lab Data 06/14/23 04:29 02/19/24 04:29 Labs/Radiology: Radiology Impressions Chest X-Ray 06/13/23 16:34 IMPRESSION: Bilateral lower lobe curvilinear opacities at the lung bases. Laboratory Results WBC 5.99 10^3/uL (3.29-11.43) 06/13/23 14:40 RBC 3.69 10^6/uL (3.85-5.65) L 06/13/23 14:40 Hgb 10.80 g/dL (11.27-16.99) L 06/13/23 14:40 Hct 36.2 % (37-53) L 06/13/23 14:40 MCV 98.1 fl (82-101) 06/13/23 14:40 MCH 29.3 pg (27-33) 06/13/23 14:40 MCHC 29.8 g/dL (30-55) L 06/13/23 14:40 RDW 14.7 % (12.1-15.1) 06/13/23 14:40 Plt Count 286 10^3/cmm (157-399) 06/13/23 14:40 MPV 10.1 fL (7.4-10.4) 06/13/23 14:40 Neut % (Auto) 61.3 % 06/13/23 14:40 Lymph % (Auto) 27.5 % 06/13/23 14:40 Blair % (Auto) 7.2 % 06/13/23 14:40 Eos % (Auto) 3.3 % 06/13/23 14:40 Baso % (Auto) 0.5 % 06/13/23 14:40 Neut # (Auto) 3.67 10^3/uL (1.8-7.7) 06/13/23 14:40 Lymph # (Auto) 1.7 10^3/uL (0.8-4.8) 06/13/23 14:40 Blair # (Auto) 0.4 10^3/uL (0.2-0.9) 06/13/23 14:40 Eos # (Auto) 0.2 10^3/uL (0.0-0.8) 06/13/23 14:40 Baso # (Auto) 0.0 10^3/uL (0.0-0.1) 06/13/23 14:40 Nucleated RBC % (auto) 0 % 06/13/23 14:40 Nucleated RBCs # 0.0 /100WBC 06/13/23 14:40 Specimen Type Arterial 06/13/23 16:36 Sample Site Radial, right 06/13/23 16:36 ABG pH 7.30 (7.35-7.45) L 06/13/23 16:36 ABG pCO2 73.1 mmHg (35-45) H* 06/13/23 16:36 ABG pO2 49.6 mmHg (80.0-100.0) L 06/13/23 16:36 ABG HCO3 35.6 mmol/L (22-26) H 06/13/23 16:36 ABG O2 Saturation 80.1 06/13/23 16:36 ABG Base Excess 7.2 mmol/L (-2.0-2.0) H 06/13/23 16:36 Mil Test Pos 06/13/23 16:36 A-a O2 Gradient 1.7 mmHg (5-10) L 06/13/23 16:36 Hematocrit 32.3 % (42-52) L 06/13/23 16:36 Hgb O2 Saturation 76.8 % (95-100) L 06/13/23 16:36 Carboxyhemoglobin 4.0 %THgb (0.4-20.1) 06/13/23 16:36 Methemoglobin 0.1 % (0.4-1.5) L 06/13/23 16:36 Total Hemoglobin 10.6 g/dL (14-18) L 06/13/23 16:36 Sodium 145.0 mmol/L (131-143) H 06/13/23 16:36 Potassium 4.4 mmol/L (3.5-5.0) 06/13/23 16:36 Glucose 201.0 mg/dL (70-115) H 06/13/23 16:36 Ionized Calcium 1.2 mmol/L (1.1-1.4) 06/13/23 16:36 O2 Delivery Device Nc 06/13/23 16:36 O2 Liters/Min 6.0 % 06/13/23 16:36 Digital Marketing Lead ID Walci 06/13/23 16:36 Sodium 142 mmol/L (136-145) 06/13/23 14:40 Potassium 4.3 mmol/L (3.5-5.1) 06/13/23 14:40 Chloride 97 mmol/L (98-107) L 06/13/23 14:40 Carbon Dioxide 35 mmol/L (22-29) H 06/13/23 14:40 Anion Gap 14.3 (5-19) 06/13/23 14:40 BUN 36 mg/dL (8-23) H 06/13/23 14:40 Creatinine 2.4 mg/dL (0.7-1.2) H 06/13/23 14:40 GFR Calculation Not Reportable 06/13/23 14:40 Glucose 191 mg/dL (65-115) H 06/13/23 14:40 Calculated Osmolality 307 mOsm/kg (285-295) H 06/13/23 14:40 Lactic Acid 1.0 mmol/L (0.5-2.2) 06/13/23 17:32 Calcium 8.7 mg/dL (8.5-10.5) 06/13/23 14:40 Total Bilirubin 0.5 mg/dL (0.15-1.2) 06/13/23 14:40 AST 9 U/L (0-40) 06/13/23 14:40 ALT 6 U/L (0-41) 06/13/23 14:40 Alkaline Phosphatase 94 U/L (40-130) 06/13/23 14:40 Troponin T Baseline 65 ng/L (0-15) H 06/13/23 14:40 NT-Pro-B Natriuret Pep 04891 pg/mL (0-125) H 06/13/23 14:40 NT-Pro-B Natriuret Pep 06217 pg/mL (0-125) H 06/13/23 14:40 Total Protein 7.8 g/dL (6.6-8.7) 06/13/23 14:40 Albumin 4.0 g/dL (3.5-5.2) 06/13/23 14:40 Globulin 3.8 g/dL (1.3-4.6) 06/13/23 14:40 Procalcitonin 0.23 ng/mL (0-0.5) 06/13/23 17:32 All radiology interpretation(s) finalized by discharge Other Data - Patient requiring more oxygen and has an elevated pCO2 with some acidosis. Placed on the BiPAP. -COPD with acute exacerbation. IV Solu-Medrol and a Xopenex updraft. BiPAP. -Chest x-ray appears to be fluid overloaded. Creatinine is actually lower than previous. I think he is fluid overloaded. 80 mg of IV Lasix. -I discussed the patient with the hospitalist on-call who is admitting the patient. -Placing patient in the ICU. - Discussed findings and plan with patient. Answered any questions. - All laboratory values were reviewed and interpreted personally by myself, the ER physician - All imaging was reviewed and interpreted personally by myself, the ER physician. - Evaluation and treatment of this problem were appropriate in the emergency setting -I spent a total of >35 minutes of critical care time managing the patient, independent of any other practitioner. The time involved in the performance of separately reportable procedures was not counted towards critical care time. Discharge Plan Discharge Patient Disposition: Admitted As Inpatient Admit Provider: Kelly Hoang Clinical Impression: COPD with acute exacerbation, Hypercapnic respiratory failure, Acute and chronic respiratory failure with hypoxia, Congestive heart failure Condition: Stable Coding Level of Care Code ED Furnace Combination Analyst for Chg Fwd Documented by User: Vahe Crews MD 06/14/23 20:01 HPI - SOB/Dyspnea 2 General: Chief Complaint: ER Hold Stated Complaint: sob Time Seen by Provider: 06/13/23 16:22 [facility] ED 2 [facility]: Medical History (Updated 06/14/23 @ 17:05 by Isidro Jc MD) Atrial fibrillation History of nonmelanoma skin cancer Heart attack Hypertension Hyperlipidemia Diabetes COPD (chronic obstructive pulmonary disease) Amputated right leg Surgical History Status post below-knee amputation of left lower extremity Family History Other Cancer Diabetes Hypertension Social History Smoking and tobacco/nicotine status: current every day tobacco/nicotine user Course 2 Vital Signs: Vital signs: Vital Signs Temperature 97.8 F 06/13/23 22:52 Pulse Rate 86 06/14/23 19:24 Respiratory Rate 18 06/14/23 19:24 Blood Pressure 140/86 06/14/23 18:00 Pulse Oximetry 97 06/14/23 19:24 Oxygen Delivery Me thod High Flow Nasal C annula 06/14/23 19:24 Oxygen Flow Rate 8 06/14/23 19:24 Fraction of Inspir ed Oxygen 35 06/14/23 12:00 MDM - SOB/Dyspnea Medical Records I reviewed the patient's medical records. Lab Data I reviewed the patient's lab results. 06/14/23 04:29 06/14/23 04:29 Labs/Radiology: Radiology Impressions Chest X-Ray 06/13/23 16:34 IMPRESSION: Bilateral lower lobe curvilinear opacities at the lung bases. Laboratory Results WBC 5.99 10^3/uL (3.29-11.43) 06/13/23 14:40 RBC 3.69 10^6/uL (3.85-5.65) L 06/13/23 14:40 Hgb 10.80 g/dL (11.27-16.99) L 06/13/23 14:40 Hct 36.2 % (37-53) L 06/13/23 14:40 MCV 98.1 fl (82-101) 06/13/23 14:40 MCH 29.3 pg (27-33) 06/13/23 14:40 MCHC 29.8 g/dL (30-55) L 06/13/23 14:40 RDW 14.7 % (12.1-15.1) 06/13/23 14:40 Plt Count 286 10^3/cmm (157-399) 06/13/23 14:40 MPV 10.1 fL (7.4-10.4) 06/13/23 14:40 Neut % (Auto) 61.3 % 06/13/23 14:40 Lymph % (Auto) 27.5 % 06/13/23 14:40 Blair % (Auto) 7.2 % 06/13/23 14:40 Eos % (Auto) 3.3 % 06/13/23 14:40 Baso % (Auto) 0.5 % 06/13/23 14:40 Neut # (Auto) 3.67 10^3/uL (1.8-7.7) 06/13/23 14:40 Lymph # (Auto) 1.7 10^3/uL (0.8-4.8) 06/13/23 14:40 Blair # (Auto) 0.4 10^3/uL (0.2-0.9) 06/13/23 14:40 Eos # (Auto) 0.2 10^3/uL (0.0-0.8) 06/13/23 14:40 Baso # (Auto) 0.0 10^3/uL (0.0-0.1) 06/13/23 14:40 Nucleated RBC % (auto) 0 % 06/13/23 14:40 Nucleated RBCs # 0.0 /100WBC 06/13/23 14:40 Specimen Type Arterial 06/13/23 16:36 Sample Site Radial, right 06/13/23 16:36 ABG pH 7.30 (7.35-7.45) L 06/13/23 16:36 ABG pCO2 73.1 mmHg (35-45) H* 06/13/23 16:36 ABG pO2 49.6 mmHg (80.0-100.0) L 06/13/23 16:36 ABG HCO3 35.6 mmol/L (22-26) H 06/13/23 16:36 ABG O2 Saturation 80.1 06/13/23 16:36 ABG Base Excess 7.2 mmol/L (-2.0-2.0) H 06/13/23 16:36 Mil Test Pos 06/13/23 16:36 A-a O2 Gradient 1.7 mmHg (5-10) L 06/13/23 16:36 Hematocrit 32.3 % (42-52) L 06/13/23 16:36 Hgb O2 Saturation 76.8 % (95-100) L 06/13/23 16:36 Carboxyhemoglobin 4.0 %THgb (0.4-20.1) 06/13/23 16:36 Methemoglobin 0.1 % (0.4-1.5) L 06/13/23 16:36 Total Hemoglobin 10.6 g/dL (14-18) L 06/13/23 16:36 Sodium 145.0 mmol/L (131-143) H 06/13/23 16:36 Potassium 4.4 mmol/L (3.5-5.0) 06/13/23 16:36 Glucose 201.0 mg/dL (70-115) H 06/13/23 16:36 Ionized Calcium 1.2 mmol/L (1.1-1.4) 06/13/23 16:36 O2 Delivery Device Nc 06/13/23 16:36 O2 Liters/Min 6.0 % 06/13/23 16:36 Digital Marketing Lead ID Walci 06/13/23 16:36 Sodium 142 mmol/L (136-145) 06/13/23 14:40 Potassium 4.3 mmol/L (3.5-5.1) 06/13/23 14:40 Chloride 97 mmol/L (98-107) L 06/13/23 14:40 Carbon Dioxide 35 mmol/L (22-29) H 06/13/23 14:40 Anion Gap 14.3 (5-19) 06/13/23 14:40 BUN 36 mg/dL (8-23) H 06/13/23 14:40 Creatinine 2.4 mg/dL (0.7-1.2) H 06/13/23 14:40 GFR Calculation Not Reportable 06/13/23 14:40 Glucose 191 mg/dL (65-115) H 06/13/23 14:40 Calculated Osmolality 307 mOsm/kg (285-295) H 06/13/23 14:40 Lactic Acid 1.0 mmol/L (0.5-2.2) 06/13/23 17:32 Calcium 8.7 mg/dL (8.5-10.5) 06/13/23 14:40 Total Bilirubin 0.5 mg/dL (0.15-1.2) 06/13/23 14:40 AST 9 U/L (0-40) 06/13/23 14:40 ALT 6 U/L (0-41) 06/13/23 14:40 Alkaline Phosphatase 94 U/L (40-130) 06/13/23 14:40 Troponin T Baseline 65 ng/L (0-15) H 06/13/23 14:40 NT-Pro-B Natriuret Pep 32236 pg/mL (0-125) H 06/13/23 14:40 NT-Pro-B Natriuret Pep 52024 pg/mL (0-125) H 06/13/23 14:40 Total Protein 7.8 g/dL (6.6-8.7) 06/13/23 14:40 Albumin 4.0 g/dL (3.5-5.2) 06/13/23 14:40 Globulin 3.8 g/dL (1.3-4.6) 06/13/23 14:40 Procalcitonin 0.23 ng/mL (0-0.5) 06/13/23 17:32 Discharge Plan Discharge Patient Disposition: Admitted As Inpatient Admit Provider: Kelly Hoang Clinical Impression: COPD with acute exacerbation, Hypercapnic respiratory failure, Acute and chronic respiratory failure with hypoxia, Congestive heart failure Condition: Stable Coding Level of Care Code ED Furnace Combination Analyst for Allen Ladd
[2023-06-13 16:47] LABS: Alveolar-Arterial Oxygen Gradi 1.7 mmHg (5-10); Arterial Blood Gas Hematocrit 32.3 % (42-52); Base Excess ABG 7.2 mmol/L (-2.0-2.0); Blood Gas Allen Test Pos; Blood Gas Operator Identificat WALCI; Blood Gas Sample Site Radial, right; Blood Gas Sample Type Arterial; HCO3 ABG 35.6 mmol/L (22-26); HGB O2 Sat 76.8 % (95-100); Ionized Calcium Level - ABG 1.2 mmol/L (1.1-1.4); Methemoglobin 0.1 % (0.4-1.5); Oxygen Device NC; Oxygen Saturation ABG 80.1; PO2 ABG 49.6 mmHg (80.0-100.0); Potassium Level - ABG 4.4 mmol/L (3.5-5.0); Total Hemoglobin 10.6 g/dL (14-18)
[2023-06-13 16:48] LABS: ABG PCO2 73.1 mmHg (35-45)
--- NOTE | 2023-06-13 16:49 | ECG_ITS ---
[facility] Test Date: 2023-06-13 Pat Name: David Monique Department: Room: Gender: Male Heart Nurse: : 1950 Requested By: Christy Deleon Order Number: [id number] Hannah MD: Ottoniel Coley M.D. Measurements Intervals [place] Rate: 100 P: 0 DE: 0 QRS: 73 QRSD: 104 T: -36 QT: 379 QTc: 490 Interpretive Statements ATRIAL FIBRILLATION WITH RAPID VENTRICULAR RESPONSE WITH ABERRANT CONDUCTION OR VENTRICULAR PREMATURE COMPLEXES NONSPECIFIC ST & T-WAVE ABNORMALITY Compared to ECG 05/18/2023 16:58:19 Aberrant conduction of supraventricular beat(s) now present Atrial flutter no longer present Intraventricular conduction delay no longer present Possible ischemia no longer present T-wave abnormality still present Electronically Signed On 06-13-2023 18:04:10 DIRECTOR ALUMNI RELATIONS by Ottoniel Coley M.D. [id number]
[2023-06-13 16:53] LABS: Basophils % 0.5 %; Eosinophils # 0.2 10^3/uL (0.0-0.8); Eosinophils % 3.3 %; Hematocrit 36.2 % (37-53); Lymphocytes # 1.7 10^3/uL (0.8-4.8); Lymphocytes % 27.5 %; Mean Corpuscular HGB Conc 29.8 g/dL (30-55); Mean Corpuscular Hemoglobin 29.3 pg (27-33); Mean Corpuscular Volume 98.1 fl (82-101); Mean Platelet Volume 10.1 fL (7.4-10.4); Monocytes # 0.4 10^3/uL (0.2-0.9); Monocytes % 7.2 %; Neutrophils # 3.67 10^3/uL (1.8-7.7); Neutrophils % 61.3 %; Nucleated Red Blood Cells % 0 %; Platelet Count 286 10^3/cmm (157-399); Red Blood Count 3.69 10^6/uL (3.85-5.65); Red Cell Distribution Width 14.7 % (12.1-15.1); White Blood Count 5.99 10^3/uL (3.29-11.43)
[2023-06-13] MEDS: levalbuterol 1.25 mg/3 mL Neb INHALATION (17:09)
[2023-06-13 17:12] LABS: Troponin(5th) Baseline 65 ng/L (0-15)
[2023-06-13 17:19] LABS: NT Pro B Type Natriuretic Pept 17849 pg/mL (0-125); Procalcitonin 0.21 ng/mL (0-0.5)
[2023-06-13 17:30] LABS: Alanine Aminotransferase 6 U/L (0-41); Alkaline Phosphatase 94 U/L (40-130); Anion Gap 14.3 (5-19); Aspartate Amino Transferase 9 U/L (0-40); Blood Urea Nitrogen 36 mg/dL (8-23); Calcium 8.7 mg/dL (8.5-10.5); Carbon Dioxide 35 mmol/L (22-29); Chloride 97 mmol/L (98-107); Globulin 3.8 g/dL (1.3-4.6); Glucose 191 mg/dL (65-115); Osmolality Calculated 307 mOsm/kg (285-295); Potassium 4.3 mmol/L (3.5-5.1); Sodium 142 mmol/L (136-145); Total Bilirubin 0.5 mg/dL (0.15-1.2); Total Protein 7.8 g/dL (6.6-8.7)
[2023-06-13] MEDS: FUROsemide 10 mg/mL SDV 10mL 80 MG IVP (18:01)
[2023-06-13] MEDS: methylPREDNISolone sod succ 125 mg/2 mL INJ IVP (18:01)
[2023-06-13 18:07] LABS: ABG PCO2 53.8 mmHg (35-45); Arterial Blood Gas Hematocrit 28.6 % (42-52); Base Excess ABG 7.6 mmol/L (-2.0-2.0); Blood Gas Allen Test Pos; Blood Gas Operator Identificat WALCI; Blood Gas Sample Site Radial, right; Blood Gas Sample Type Arterial; HCO3 ABG 33.5 mmol/L (22-26); Oxygen Device BIPAP; PO2 FiO2 Ratio Arterial Blood 0
[2023-06-13 18:30] LABS: Influenza A by IFA negative (Negative); Influenza B by IFA negative (Negative)
--- NOTE | 2023-06-13 18:32 | P.HP_ITS ---
Providers/Chief Complaint 2 Admitting Physician: Kelly Hoang MD Primary Care Provider: Mag Watters Chief Complaint: sob History of Present Illness David Monique is a 72 year old male with history of trilogy dependent respiratory failure, CHF, A-fib, presented to the hospital orthopnea PND shortness of breath. As per the patient has been experiencing the symptoms for last 1 to 2 weeks, he has been taking nitrates as well for his intermittent chest pain. He follows with Dr. Gillette outpatient. He does not eat a lot of sodium or increase his fluid intake recently. Currently he is on BiPAP for acute hypoxic hypercapnic respite failure with concern related to congestive heart failure and pneumonia. Review of Systems 2 Const: Denies: fever(s) Eyes: Denies: change in vision ENMT: Denies: throat pain Card: Reports: chest pain Resp: Reports: dyspnea GI: Denies: abdominal pain Medications/Allergies Home Medications Medication Instructions Recorded Confirmed Last Taken Type citalopram 10 mg tablet 10 mg PO DAILY 09/22/19 05/18/23 05/18/23 History clopidogrel 75 mg tablet 75 mg PO DAILY 09/22/19 05/18/23 05/18/23 History insulin glargine 100 unit/mL (3 60 unit SUBCUT DAILY 09/22/19 05/18/23 05/18/23 History mL) subcutaneous pen (Lantus Solostar U-100 Insulin) metoprolol tartrate 50 mg tablet 50 mg PO BID 09/22/19 05/18/23 05/18/23 History pregabalin 50 mg capsule 50 mg PO DAILY 09/22/19 05/18/23 05/18/23 History rosuvastatin 5 mg tablet 5 mg PO DAILY 09/22/19 05/18/23 05/17/23 History trazodone 50 mg tablet 50 mg PO DAILY 09/22/19 05/18/23 05/17/23 History hyoscyamine sulfate 0.125 mg 0.125 mg sublingual Q4H PRN Spasms 05/18/23 05/18/23 Unknown History sublingual tablet insulin regular human 100 unit/mL See Rx Instructions .Route .COMPLEX 05/18/23 05/18/23 Unknown History injection solution (Humulin R Regular U-100 Insulin) levalbuterol tartrate 45 2 inh inhalation Q6H PRN Shortness 05/18/23 05/18/23 Unknown History mcg/actuation aerosol inhaler Of Breath tobramycin 0.3 %-dexamethasone 0.1 1 drp ophthalmic (eye) Q4H 05/18/23 05/18/23 Unknown History % eye drops,suspension amiodarone 200 mg tablet (Pacerone) 200 mg PO BID 30 days #60 tabs 05/22/23 Unknown Rx aspirin 81 mg tablet,delayed 81 mg PO DAILY 30 days #30 tabs 05/22/23 Unknown Rx release bumetanide 2 mg tablet 2 mg PO DAILY 30 days #30 tabs 05/22/23 05/18/23 05/18/23 Rx isosorbide mononitrate 30 mg 30 mg PO DAILY 30 days #30 tabs 05/22/23 Unknown Rx tablet,extended release 24 hr pantoprazole 40 mg tablet,delayed 40 mg PO DAILY 30 days #30 tabs 05/22/23 Unknown Rx release Allergies Allergy/AdvReac Type Severity Reaction Status Date / Time albuterol Allergy Intermediate unknown Verified 06/13/23 16:16 atorvastatin [From Lipitor] Allergy Intermediate ALGY-Joint Verified 06/13/23 16:16 Pain gabapentin Allergy Intermediate unknown Verified 06/13/23 16:16 PFSH Acute 2 PFSH: Medical History History of nonmelanoma skin cancer Heart attack Hypertension Hyperlipidemia Diabetes COPD (chronic obstructive pulmonary disease) Amputated right leg Surgical History Status post below-knee amputation of left lower extremity Family History Other Cancer Diabetes Hypertension Social History Smoking and tobacco/nicotine status: current every day tobacco/nicotine user Vitals/I&O/Wt Last Vital Signs Temp 98.0 F 06/13/23 16:17 Pulse 89 06/13/23 17:15 Resp 25 H 06/13/23 17:04 BP 151/85 06/13/23 16:17 Pulse Ox 100 06/13/23 17:16 O2 Del Method BiPAP 06/13/23 17:04 O2 Flow Rate 4 06/13/23 16:17 FiO2 50 06/13/23 17:16 Weight last 48 hrs Weight 77.111 kg Physical Exam 2 Narrative: Awake and alert Currently on BiPAP GCS 15 Pleasant cooperative Nonfocal neuroexam at the bedside Bilateral lower extremity below-knee amputation at the bedside Abdomen distended nontender Patient is in Semi-Adkins position Afebrile A-fib without RVR Data 06/13/23 14:40 06/13/23 14:40 A&P Assessment and plan (1) Hypertension: Qualifiers: Hypertension type: primary hypertension Qualified Code(s): I10 - Essential (primary) hypertension (2) Ischemic cardiomyopathy: (3) Congestive heart failure: (4) Diabetes: Qualifiers: Diabetes mellitus type: type 2 Diabetes mellitus superintendent container terminal insulin use: with superintendent container terminal use Diabetes mellitus complication status: with circulatory complication Diabetes mellitus complication detail: with other circulatory complications Qualified Code(s): E11.59 - Type 2 diabetes mellitus with other circulatory complications; Z79.4 - superintendent container terminal (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 of insulin (5) Chronic kidney disease (CKD): Qualifiers: Chronic kidney disease stage: stage 3 (moderate) Chronic kidney disease stage 3 subtype: stage 3b (GFR 30-44) Qualified Code(s): N18.32 - Chronic kidney disease, stage 3b (6) COPD with acute exacerbation: (7) Hypercapnic respiratory failure: (8) Acute and chronic respiratory failure with hypoxia: Plan Acute hypoxic hypercapnic respite failure related to S-CHF exacerbation Patient has received 80 mg of IV Lasix [facility] [place] catheter monitor urine output Patient has reduced ejection fraction heart failure exacerbation EF 30 to 35% No need to repeat echo as it was done recently Continue BiPAP for now which is showing improvement Patient is full code will monitor in ICU Patient can get a break for an hour to get his dinner and then insulin then I recommended putting him back on BiPAP overnight Patient is trilogy dependent at home May treat empirically with ceftriaxone and p.o. azithromycin for now A-fib without RVR Patient is not on Eliquis because of longstanding anemia Currently patient is on aspirin and Plavix Continue amiodarone Hemoglobin has remained stable he might benefit from Eliquis and Plavix combination, [id number] Cardiac consistent carb diet I will reduce dose of Lantus in view of possible worsening of creatinine Acute on chronic kidney disease: Creatinine is 2.4 His baseline creatinine seems to be around 1.7-2.1 Anticipate improvement with diuresis Full code Cardiac consistent carb diet at the bedside Patient was monitored in ICU Attestations 2 Medical Necessity Statement*: Anticipating more than 2 midnights Diagnoses Primary hypertension I10 Hypertension type: primary hypertension Ischemic cardiomyopathy I25.5 Congestive heart failure I50.9 Type 2 diabetes mellitus with other circulatory complication, with long-term current use of insulin E11.59; Z79.4 Diabetes mellitus type: type 2 Diabetes mellitus superintendent container terminal insulin use: with care home use Diabetes mellitus complication status: with circulatory complication Diabetes mellitus complication detail: with other circulatory complications Stage 3b chronic kidney disease N18.32 Chronic kidney disease stage: stage 3 (moderate) Chronic kidney disease stage 3 subtype: stage 3b (GFR 30-44) COPD with acute exacerbation J44.1 Hypercapnic respiratory failure J96.92 Acute and chronic respiratory failure with hypoxia J96.21
[2023-06-13 19:58] LABS: Adenovirus Not Detected (NOT DETECT); Chlamydia Pneumoniae Not Detected (NOT DETECT); Coronavirus 229E,HKU1,NL63,OC4 Not Detected (NOT DETECT); Human Metapneumovirus Not Detected (NOT DETECT); Human Rhinovirus/Enterovirus Not Detected (NOT DETECT); Influenza A Not Detected (NOT DETECT); Influenza A H1 Not Detected (NOT DETECT); Influenza A H1-2009 Not Detected (NOT DETECT); Influenza A H3 Not Detected (NOT DETECT); Influenza B Not Detected (NOT DETECT); Mycoplasma Pneumoniae Not Detected (NOT DETECT); Parainfluenza Virus Type 1 Not Detected (NOT DETECT); Parainfluenza Virus Type 2 Not Detected (NOT DETECT); Parainfluenza Virus Type 3 Not Detected (NOT DETECT); Parainfluenza Virus Type 4 Not Detected (NOT DETECT); Respiratory Syncytial Virus A Not Detected (NOT DETECT); Respiratory Syncytial Virus B Not Detected (NOT DETECT); SARS-COV-2 Not Detected (NOT DETECT)
[2023-06-13 20:07] LABS: NT Pro B Type Natriuretic Pept 17655 pg/mL (0-125)
[2023-06-13] MEDS: ipratropium-albuterol 3 mL Neb INHALATION (20:13)
[2023-06-13 20:45] LABS: Procalcitonin 0.23 ng/mL (0-0.5)
[2023-06-13 21:09] LABS: Glucose Point of Care 195 mg/dL (70-110)
[2023-06-13] MEDS: cefTRIAXone 1,000 MG in sodium chloride 0.9% (plus) 50 ML 100 MG IV (21:40)
[2023-06-13] MEDS: heparin 5,000 unit/mL INJ 1 mL 5000 UNIT SUBCUT (21:41)
[2023-06-13] MEDS: insulin lispro 100 unit/1 mL SUBCUT (21:45)
[2023-06-14] VITALS (32 sets, daily range): BP systolic 113–159; BP diastolic 69–110; PULSE 63–104; RESP 15–29; O2SAT 86–100
[2023-06-14] MEDS: acetaminophen 325 mg Tablet 650 MG PO ×2 (00:54→14:32)
[2023-06-14] MEDS: morphine 4 mg/mL SDV 1 mL 2 MG IVP (01:59)
[2023-06-14 04:25] LABS: ABG PCO2 50.8 mmHg (35-45); ABG PH Result 7.44 (7.35-7.45); Arterial Blood Gas Hematocrit 30.3 % (42-52); Base Excess ABG 8.8 mmol/L (-2.0-2.0); Blood Gas Operator Identificat JB; Blood Gas Sample Site Brachial, right; Blood Gas Sample Type Arterial; HCO3 ABG 34.2 mmol/L (22-26); Oxygen Device BIPAP; PO2 FiO2 Ratio Arterial Blood 0
[2023-06-14 04:58] LABS: Basophils % 0.3 %; Hematocrit 30.1 % (37-53); Lymphocytes # 0.4 10^3/uL (0.8-4.8); Lymphocytes % 11.5 %; Mean Corpuscular HGB Conc 30.2 g/dL (30-55); Mean Corpuscular Volume 95.9 fl (82-101); Mean Platelet Volume 10.6 fL (7.4-10.4); Neutrophils # 3.33 10^3/uL (1.8-7.7); Neutrophils % 86.9 %; Nucleated Red Blood Cells % 0 %; Platelet Count 236 10^3/cmm (157-399); Red Blood Count 3.14 10^6/uL (3.85-5.65); Red Cell Distribution Width 14.7 % (12.1-15.1); White Blood Count 3.83 10^3/uL (3.29-11.43)
[2023-06-14 05:24] LABS: Anion Gap 15.3 (5-19); Blood Urea Nitrogen 38 mg/dL (8-23); Carbon Dioxide 34 mmol/L (22-29); Chloride 99 mmol/L (98-107); Glucose 222 mg/dL (65-115); Magnesium 1.6 mg/dL (1.7-2.3); Osmolality Calculated 314 mOsm/kg (285-295); Potassium 4.3 mmol/L (3.5-5.1); Sodium 144 mmol/L (136-145)
[2023-06-14] MEDS: FUROsemide 10 mg/mL SDV 10mL 60 MG IVP ×3 (05:25→19:55)
--- NOTE | 2023-06-14 05:54 | ECG_ITS ---
[facility] Test Date: 2023-06-14 Pat Name: David Monique Department: Room: [facility] Gender: Male Business Enterprise Officer: : 1950 Requested By: Jason Chandra Order Number: [id number] Hannah MD: Cisco Conrad M.D. Measurements Intervals [place] Rate: 100 P: 0 UT: 0 QRS: 72 QRSD: 110 T: 206 QT: 396 QTc: 512 Interpretive Statements ATRIAL FIBRILLATION WITH RAPID VENTRICULAR RESPONSE WITH ABERRANT CONDUCTION OR VENTRICULAR PREMATURE COMPLEXES ST DEVIATION AND MODERATE T-WAVE ABNORMALITY, CONSIDER LATERAL ISCHEMIA [-0.1+ mV T-WAVE IN I/aVL/V5/V6] Compared to ECG 06/13/2023 17:08:06 Possible ischemia now present T-wave abnormality still present Electronically Signed On 06-14-2023 9:50:14 SALES EFFECTIVENESS MANAGER by Cisco Conrad M.D. [email or web address] community hospitalSouthwest Sun Solarohio state [facility].[email or web address]/store/[id number]
[2023-06-14] MEDS: nitroglycerin 0.4 mg sublingual Tablet SUBLINGUAL ×3 (05:59→06:10)
--- NOTE | 2023-06-14 05:59 | PC.NURSE ---
Pt activated call light to c/o chest pain. This nurse told pt would be contacted. Pt stated I have been taking this for years. I know this pain! I don't need to ask the [facility] doctor. Carisa called and he placed orders for nitro and a bedside EKG. While waiting for pharmacy to verify nitro, pt continued to c/o of chest pain and state Just let me take my home meds Pt educated that was against policy. Nitro overridden from pyxis.
[2023-06-14 06:40] LABS: Glucose Point of Care 256 mg/dL (70-110)
[2023-06-14 06:42] LABS: Troponin T (5th) Once 50 ng/L (0-15)
[2023-06-14] MEDS: levalbuterol 0.63 mg/3 mL Neb INHALATION ×4 (08:09→19:29)
[2023-06-14] MEDS: ipratropium 0.5 mg/2.5 mL Neb INHALATION ×4 (08:09→19:29)
[2023-06-14] MEDS: clopidogrel 75 mg Tablet PO (08:32)
[2023-06-14] MEDS: metoprolol tartrate 50 mg Tablet PO ×2 (08:32→17:48)
[2023-06-14] MEDS: amiodarone 200 mg Tablet PO ×2 (08:32→17:48)
[2023-06-14] MEDS: aspirin 81 mg EC Tablet PO (08:32)
[2023-06-14] MEDS: azithromycin 250 mg Tablet 500 MG PO (08:33)
[2023-06-14] MEDS: sennosides-docusate Tablet 1 TAB PO (08:34)
[2023-06-14] MEDS: heparin 5,000 unit/mL INJ 1 mL 5000 UNIT SUBCUT ×2 (08:34→21:42)
[2023-06-14] MEDS: insulin lispro 100 unit/1 mL SUBCUT ×4 (08:34→21:42)
[2023-06-14] MEDS: insulin glargine 100 units/1 mL 40 UNIT SUBCUT (08:37)
[2023-06-14] MEDS: lidocaine 5% Patch 1 PATCH TOPICAL ×2 (08:48→23:02)
--- NOTE | 2023-06-14 10:22 | PC.NURSE ---
Pt adamant that he is going to get out of here today. I have attempted multiple times to explain to him all of his problems and care plan but to date it has been a frugal attempt at best. Pt does not seem to want to care or understand and just wants to go home.
[2023-06-14 11:15] LABS: Glucose Point of Care 219 mg/dL (70-110)
[2023-06-14 12:48] LABS: Iron 25 ug/dL (59-158); Percent Saturation 11.7 % (20-50); Total Iron Binding Capacity 212 mcg/dl; Unsaturated Iron Binding 187 ug/dL (112-347)
[2023-06-14 13:56] LABS: Procalcitonin 0.26 ng/mL (0-0.5); Thyroid Stimulating Hormone 0.75 uIU/mL (0.27-4.20)
[2023-06-14 14:30] LABS: D Dimer 0.59 ug/mLFEU (0-0.59)
--- NOTE | 2023-06-14 16:41 | P.PN_ITS ---
Subjective 2 Subjective: Hospital course, labs appreciated. Today morning patient seen on the BiPAP. Patient was taken off BiPAP earlier in the day and she he did have difficulty in breathing. Patient is complaining of retrosternal chest pain which is relieved after BiPAP. Document urine output of around 800 cc yesterday. Vitals/I&O/Wt Last Vital Signs Temp 97.8 F 06/13/23 22:52 Pulse 89 06/14/23 15:43 Resp 18 06/14/23 15:39 BP 156/95 06/14/23 11:56 Pulse Ox 94 06/14/23 15:39 O2 Del Method High Flow Nasal Cannula 06/14/23 15:39 O2 Flow Rate 8 06/14/23 15:39 FiO2 35 06/14/23 12:00 06/14/23 06/14/23 06/14/23 06:59 14:59 22:59 Intake Total 240 / 240 Output Total 200 / 200 600 / 600 Balance -200 / -150 -360 / -360 Weight last 48 hrs Weight 98 kg Weight 77.111 kg Physical Exam 2 Narrative: General: No acute distress, AO x3, on BiPAP, chronically sick appearing HEENT: PERRLA, pupils bilaterally equal and reactive Chest: Bilateral bronchial breath sounds all over lung martin, rhonchi and fine crackles bilaterally in lower zone CVS: S1-S2 regular, no murmurs, no tachycardia, no gallops, no rubs Abdomen: Soft, nontender, no organomegaly, bowel sounds present Neuro: No focal deficits, no facial deformity, AO x3, power 5/5 in all limbs Urinary Catheter Management: Shaw: Cath Placed During This Visit: yes Urinary Catheter Date of Insertion: 06/14/23 Urinary Catheter Time of Insertion: 12:45 Data 06/14/23 04:29 06/14/23 04:29 A&P Assessment and plan (1) Acute and chronic respiratory failure with hypoxia: Along with hypercapnia. Acute on chronic. In setting of congestive heart failure and COPD. Treatment of congestive heart failure as below. Currently BiPAP dependent. Pulmicort twice daily, ipratropium and Xopenex every 6 hourly. Oxygen supplementation keeping saturation of 88%. BiPAP nightly otherwise transition over to high flow nasal cannula. Hold off on IV steroids for now. (2) Hypercapnic respiratory failure: (3) Congestive heart failure: Last echocardiogram shows an EF of 30 to 35% due to poor images, dilated LV, lateral wall more hypokinetic than the rest of the LV, low gradient aortic stenosis with dilated IVC in April 2023. Strict input output charting, daily weights. Shaw catheterization. IV Lasix 60 mg every 8 hourly. Fluid restriction up to 1500 cc. Oxygen supplementation keeping saturation over 88%. (4) Hypertension: Goal blood pressure less than 140/90 mmHg. Continue with home dose of metoprolol 50 mg twice daily. Patient is complain of chest pain right now. Started on Nitropatch 0.1 every 24 hour. Blood pressures remained stable will discontinue Nitropatch and start on home dose of Imdur. Uptitrate medications as per goal blood pressures. Qualifiers: Hypertension type: primary hypertension Qualified Code(s): I10 - Essential (primary) hypertension (5) Ischemic cardiomyopathy: With on and off chest pain. Could be in setting of congestive heart failure. Troponin cycle. Continue with home dose of aspirin, Plavix, statin. Appreciate recent A1c and lipid panel. Patient recently had decided not to go undergo any cardiac stress test and angiogram. (6) Diabetes: Uncontrolled diabetes recently. A1c up to 12. Continue with Lantus 40 units daily, insulin sliding scale before meals and at bedtime. Uptitrate as per daily insulin requirements. Qualifiers: Diabetes mellitus type: type 2 Diabetes mellitus [facility] insulin use: with terminal system operator use Diabetes mellitus complication status: with circulatory complication Diabetes mellitus complication detail: with other circulatory complications Qualified Code(s): E11.59 - Type 2 diabetes mellitus with other circulatory complications; Z79.4 - jail (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 of insulin (7) Chronic kidney disease (CKD): Baseline creatinine 1.7-2.8. Currently 2.3. Creatinine at baseline. Medical reconciliation done for nephrotoxic drugs. Monitor BMP daily. Monitor electrolytes. Qualifiers: Chronic kidney disease stage: stage 3 (moderate) Chronic kidney disease stage 3 subtype: stage 3b (GFR 30-44) Qualified Code(s): N18.32 - Chronic kidney disease, stage 3b (8) COPD with acute exacerbation: (9) Atrial fibrillation: Rate controlled. Continue with home dose of amiodarone and metoprolol. Not on anticoagulation because of high risk of bleeding with has bled score of 5 Plan Full code Advance to cardiac carb consistent diet Heparin 5000 every 12 hourly for DVT prophylaxis Protonix for PUD prophylaxis Attestations 2 Medical Necessity Statement*: Requires further hospitalization for management of acute on chronic hypercapnic and hypoxic respiratory failure in setting of congestive heart failure patient with baseline CKD, ischemic cardiomyopathy Diagnoses Acute and chronic respiratory failure with hypoxia J96.21 Hypercapnic respiratory failure J96.92 Congestive heart failure I50.9 Primary hypertension I10 Hypertension type: primary hypertension Ischemic cardiomyopathy I25.5 Type 2 diabetes mellitus with other circulatory complication, with long-term current use of insulin E11.59; Z79.4 Diabetes mellitus type: type 2 Diabetes mellitus terminal system operator insulin use: with terminal system operator use Diabetes mellitus complication status: with circulatory complication Diabetes mellitus complication detail: with other circulatory complications Stage 3b chronic kidney disease N18.32 Chronic kidney disease stage: stage 3 (moderate) Chronic kidney disease stage 3 subtype: stage 3b (GFR 30-44) COPD with acute exacerbation J44.1 Atrial fibrillation I48.91
[2023-06-14 17:26] LABS: Vitamin B12 480 pg/mL (232-1245)
[2023-06-14 17:43] LABS: Glucose Point of Care 182 mg/dL (70-110)
[2023-06-14 19:08] LABS: Troponin T (5th) Once 56 ng/L (0-15)
[2023-06-14] MEDS: cefTRIAXone 1,000 MG in sodium chloride 0.9% (plus) 50 ML 100 MG IV (19:56)
[2023-06-14 21:38] LABS: Glucose Point of Care 158 mg/dL (70-110)
[2023-06-14] MEDS: trazodone 50 mg Tablet PO (21:42)
[2023-06-14 23:42] LABS: Adenovirus Not Detected (NOT DETECT); Chlamydia Pneumoniae Not Detected (NOT DETECT); Coronavirus 229E,HKU1,NL63,OC4 Not Detected (NOT DETECT); Human Metapneumovirus Not Detected (NOT DETECT); Human Rhinovirus/Enterovirus Not Detected (NOT DETECT); Influenza A Not Detected (NOT DETECT); Influenza A H1 Not Detected (NOT DETECT); Influenza A H1-2009 Not Detected (NOT DETECT); Influenza A H3 Not Detected (NOT DETECT); Influenza B Not Detected (NOT DETECT); Mycoplasma Pneumoniae Not Detected (NOT DETECT); Parainfluenza Virus Type 1 Not Detected (NOT DETECT); Parainfluenza Virus Type 2 Not Detected (NOT DETECT); Parainfluenza Virus Type 3 Not Detected (NOT DETECT); Parainfluenza Virus Type 4 Not Detected (NOT DETECT); Respiratory Syncytial Virus A Not Detected (NOT DETECT); Respiratory Syncytial Virus B Not Detected (NOT DETECT); SARS-COV-2 Not Detected (NOT DETECT)
[2023-06-15] VITALS (36 sets, daily range): BP systolic 100–184; BP diastolic 75–123; PULSE 80–118; RESP 14–23; TEMP 36.4–36.6; O2SAT 91–100
[2023-06-15] MEDS: FUROsemide 10 mg/mL SDV 10mL 60 MG IVP ×3 (03:57→18:14)
[2023-06-15 05:20] LABS: Basophils % 0.2 %; Eosinophils % 0.3 %; Hematocrit 34.6 % (37-53); Lymphocytes # 1.3 10^3/uL (0.8-4.8); Lymphocytes % 12.5 %; Mean Corpuscular HGB Conc 29.8 g/dL (30-55); Mean Corpuscular Hemoglobin 28.9 pg (27-33); Mean Corpuscular Volume 96.9 fl (82-101); Mean Platelet Volume 10.7 fL (7.4-10.4); Monocytes # 0.7 10^3/uL (0.2-0.9); Monocytes % 6.9 %; Neutrophils % 79.7 %; Nucleated Red Blood Cells % 0 %; Platelet Count 309 10^3/cmm (157-399); Red Blood Count 3.57 10^6/uL (3.85-5.65); Red Cell Distribution Width 14.5 % (12.1-15.1); White Blood Count 10.41 10^3/uL (3.29-11.43)
[2023-06-15 05:50] LABS: Magnesium 1.8 mg/dL (1.7-2.3)
[2023-06-15 05:51] LABS: Alanine Aminotransferase 7 U/L (0-41); Albumin Level 3.8 g/dL (3.5-5.2); Alkaline Phosphatase 81 U/L (40-130); Anion Gap 15.1 (5-19); Aspartate Amino Transferase 12 U/L (0-40); Blood Urea Nitrogen 51 mg/dL (8-23); Calcium 9.5 mg/dL (8.5-10.5); Carbon Dioxide 37 mmol/L (22-29); Chloride 96 mmol/L (98-107); Globulin 3.6 g/dL (1.3-4.6); Glucose 114 mg/dL (65-115); Osmolality Calculated 313 mOsm/kg (285-295); Potassium 4.1 mmol/L (3.5-5.1); Sodium 144 mmol/L (136-145); Total Bilirubin 0.4 mg/dL (0.15-1.2); Total Protein 7.4 g/dL (6.6-8.7)
[2023-06-15 06:08] LABS: Folate Level 7.8 ng/mL (4.5-32.2)
[2023-06-15 06:29] LABS: Glucose Point of Care 119 mg/dL (70-110)
[2023-06-15] MEDS: ipratropium 0.5 mg/2.5 mL Neb INHALATION ×3 (07:34→15:26)
[2023-06-15] MEDS: levalbuterol 0.63 mg/3 mL Neb INHALATION ×3 (07:34→15:26)
[2023-06-15] MEDS: pantoprazole 40 mg SDV IVP (09:01)
[2023-06-15] MEDS: insulin glargine 100 units/1 mL 40 UNIT SUBCUT (09:02)
[2023-06-15] MEDS: pregabalin 50 mg Capsule PO (09:02)
[2023-06-15] MEDS: sennosides-docusate Tablet 1 TAB PO (09:02)
[2023-06-15] MEDS: amiodarone 200 mg Tablet PO ×2 (09:02→18:07)
[2023-06-15] MEDS: clopidogrel 75 mg Tablet PO (09:02)
[2023-06-15] MEDS: metoprolol tartrate 50 mg Tablet PO (09:02)
[2023-06-15] MEDS: azithromycin 250 mg Tablet 500 MG PO (09:02)
[2023-06-15] MEDS: citalopram 20 mg Tablet 10 MG PO (09:02)
[2023-06-15] MEDS: aspirin 81 mg EC Tablet PO (09:02)
[2023-06-15] MEDS: heparin 5,000 unit/mL INJ 1 mL 5000 UNIT SUBCUT ×2 (09:04→21:30)
[2023-06-15] MEDS: metoprolol tartrate 25 mg Tablet PO (11:56)
[2023-06-15] MEDS: isosorbide mononitrate ER 30 mg Tablet PO (11:57)
[2023-06-15] MEDS: insulin lispro 100 unit/1 mL SUBCUT ×3 (12:09→21:29)
[2023-06-15 12:17] LABS: Glucose Point of Care 259 mg/dL (70-110)
--- NOTE | 2023-06-15 14:47 | P.PN_ITS ---
Subjective 2 Subjective: No acute events overnight. Today morning patient seen with multiple family members at bedside. States he is feeling a lot better. During examination he was on 5 L ox supplementation saturating more than 97% was turned down to baseline 4 L. Wondering if he can discharge today. We discussed that he will need monitored for 24 more hours before planning on discharge. Otherwise denies any nausea, vomiting, headache. No further chest pain. Vitals/I&O/Wt Last Vital Signs Temp 97.8 F 06/15/23 08:00 Pulse 96 06/15/23 13:00 Resp 20 H 06/15/23 13:00 BP 115/88 06/15/23 13:00 Pulse Ox 92 06/15/23 13:00 O2 Del Method High Flow Nasal Cannula 06/15/23 13:00 O2 Flow Rate 8 06/15/23 13:00 FiO2 35 06/15/23 12:00 06/14/23 06/15/23 06/15/23 22:59 06:59 14:59 Intake Total 770 / 1010 120 / 1130 350 / 350 Output Total 750 / 1350 1700 / 3050 1300 / 1300 Balance 20 / -340 -1580 / -1920 -950 / -950 Weight last 48 hrs Weight 94.801 kg Weight 98 kg Weight 77.111 kg Physical Exam 2 Narrative: General: No acute distress, AO x3, on nasal cannula, chronically sick appearing HEENT: PERRLA, pupils bilaterally equal and reactive Chest: Bilateral bronchial breath sounds all over lung martin, rhonchi and fine crackles bilaterally in lower zone CVS: S1-S2 regular, no murmurs, no tachycardia, no gallops, no rubs Abdomen: Soft, nontender, no organomegaly, bowel sounds present Neuro: No focal deficits, no facial deformity, AO x3, power 5/5 in all limbs Urinary Catheter Management: Shaw: Cath Placed During This Visit: yes Reason for Continuing Indwelling Catheter: Accurate Measurement of Urinary Output in Critically Ill Patients Urinary Catheter Date of Insertion: 06/14/23 Urinary Catheter Time of Insertion: 12:45 Data 06/15/23 04:20 06/15/23 04:20 A&P Assessment and plan (1) Acute and chronic respiratory failure with hypoxia: Along with hypercapnia. Acute on chronic. In setting of congestive heart failure and COPD. Treatment of congestive heart failure as below. Pulmicort twice daily, ipratropium and Xopenex every 6 hourly. Oxygen supplementation keeping saturation of 88%. BiPAP nightly otherwise transition over to high flow nasal cannula. Hold off on IV steroids for now. (2) Hypercapnic respiratory failure: (3) Congestive heart failure: Last echocardiogram shows an EF of 30 to 35% due to poor images, dilated LV, lateral wall more hypokinetic than the rest of the LV, low gradient aortic stenosis with dilated IVC in April 2023. Strict input output charting, daily weights. [facility] catheterization. Patient is on 4 L negative. Mild elevation in BUN today. Decrease frequency of IV Lasix 60 mg to every 12 hourly. Fluid restriction up to 1500 cc. Oxygen supplementation keeping saturation over 88%. (4) Hypertension: Goal blood pressure less than 140/90 mmHg. Increase metoprolol to 75 mg twice daily. Change Nitropatch to home dose of Imdur 30 mg daily. Qualifiers: Hypertension type: primary hypertension Qualified Code(s): I10 - Essential (primary) hypertension (5) Ischemic cardiomyopathy: With on and off chest pain. Could be in setting of congestive heart failure. Troponin cycle negative. Continue with home dose of aspirin, Plavix, statin. Appreciate recent A1c and lipid panel. Patient recently had decided not to go undergo any cardiac stress test and angiogram. Confirmed with patient again this time. He understands he is at a higher risk of needing dialysis if he undergoes cardiac angiogram secondary to DREW so he does not want to go ahead with angiogram for now. (6) Diabetes: Uncontrolled diabetes recently. A1c up to 12. Continue with Lantus 40 units daily, insulin sliding scale before meals and at bedtime. Uptitrate as per daily insulin requirements. 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 Currently 2.3. Creatinine at baseline. Medical reconciliation done for nephrotoxic drugs. Monitor BMP daily. Monitor electrolytes. Qualifiers: Chronic kidney disease stage: stage 3 (moderate) Chronic kidney disease stage 3 subtype: stage 3b (GFR 30-44) Qualified Code(s): N18.32 - Chronic kidney disease, stage 3b (8) COPD with acute exacerbation: (9) Atrial fibrillation: Rate controlled. Continue with home dose of amiodarone. Increase metoprolol to 75 mg twice daily. Not on anticoagulation because of high risk of bleeding with has bled score of 5 Plan Full code Advance to cardiac carb consistent diet Heparin 5000 every 12 hourly for DVT prophylaxis Protonix for PUD prophylaxis Transfer to [facility]. Attestations 2 Medical Necessity Statement*: Requires further hospitalization for management of acute on chronic hypoxic and hypercapnic respiratory failure in setting of congestive heart failure, COPD in a patient with baseline CKD and uncontrolled type 2 diabetes mellitus Diagnoses Acute and chronic respiratory failure with hypoxia J96.21 Hypercapnic respiratory failure J96.92 Congestive heart failure I50.9 Primary hypertension I10 Hypertension type: primary hypertension Ischemic cardiomyopathy I25.5 Type 2 diabetes mellitus with other circulatory complication, with long-term current use of insulin E11.59; Z79.4 Diabetes mellitus type: type 2 Diabetes mellitus terminal makeup operator insulin use: with nursing home use Diabetes mellitus complication status: with circulatory complication Diabetes mellitus complication detail: with other circulatory complications Stage 3b chronic kidney disease N18.32 Chronic kidney disease stage: stage 3 (moderate) Chronic kidney disease stage 3 subtype: stage 3b (GFR 30-44) COPD with acute exacerbation J44.1 Atrial fibrillation I48.91
[2023-06-15 17:49] LABS: Glucose Point of Care 200 mg/dL (70-110)
[2023-06-15] MEDS: metoprolol tartrate 50 mg Tablet 75 MG PO (18:06)
--- NOTE | 2023-06-15 18:15 | PC.NURSE ---
Small run,10 beats, noted. Self converted. Pt denied any palpitations or shortness of breath at the time. Lasix, amiodarone and metoprolol just administered.
--- NOTE | 2023-06-15 19:35 | PC.NURSE ---
Shift summary: Pt remained resting in bed throughout the shift. He switched between BiPap at 35% and/or HFNC at 4lpm. e preferred using the BiPap even though his O2 sats were greater than 93% throughout shift on HFNC. He did complain of chest pain this am, while demanding the BiPap back ( RT notified). While waiting for RT he put o his own SPO2 monitor from home and seen that his O2 sats were 97%. He stated he did not have chest pain anymore. We discussed panic attacks/ anxiety, he stated he has not had problems with that he knew of. His blood sugars did require correction with sliding scale today. He ate most of his meals. His heart medications were changed around today, metoprolol increased, Isosorbide restarted. He had 60mg IVP of Lasix tiwce this shift. No Bm noted. He [id number] of urine output this shift. Pt able to shift his weight, using his arms on bedrails to move around in the bed.
[2023-06-15] MEDS: cefTRIAXone 1,000 MG in sodium chloride 0.9% (plus) 50 ML 100 MG IV (21:29)
[2023-06-16] VITALS (10 sets, daily range): BP systolic 114–141; BP diastolic 76–85; PULSE 85–97; RESP 13–18; TEMP 36.5–37.2; O2SAT 92–100; BMI 28.6
[2023-06-16] MEDS: ondansetron 2 mg/ML SDV 2 mL 4 MG IVP (00:08)
[2023-06-16 04:15] LABS: Basophils % 0.6 %; Eosinophils # 0.2 10^3/uL (0.0-0.8); Eosinophils % 2.8 %; Hematocrit 31.9 % (37-53); Lymphocytes # 1.5 10^3/uL (0.8-4.8); Mean Corpuscular HGB Conc 30.1 g/dL (30-55); Mean Corpuscular Hemoglobin 29.2 pg (27-33); Mean Platelet Volume 9.5 fL (7.4-10.4); Monocytes # 0.7 10^3/uL (0.2-0.9); Monocytes % 9.6 %; Neutrophils # 4.54 10^3/uL (1.8-7.7); Neutrophils % 65.7 %; Nucleated Red Blood Cells % 0 %; Platelet Count 226 10^3/cmm (157-399); Red Blood Count 3.29 10^6/uL (3.85-5.65); Red Cell Distribution Width 14.8 % (12.1-15.1)
[2023-06-16 04:37] LABS: Alanine Aminotransferase 7 U/L (0-41); Albumin Level 3.4 g/dL (3.5-5.2); Alkaline Phosphatase 71 U/L (40-130); Anion Gap 12.9 (5-19); Aspartate Amino Transferase 10 U/L (0-40); Blood Urea Nitrogen 56 mg/dL (8-23); Calcium 9.1 mg/dL (8.5-10.5); Carbon Dioxide 38 mmol/L (22-29); Chloride 93 mmol/L (98-107); Globulin 3.1 g/dL (1.3-4.6); Glucose 92 mg/dL (65-115); Osmolality Calculated 305 mOsm/kg (285-295); Potassium 3.9 mmol/L (3.5-5.1); Sodium 140 mmol/L (136-145); Total Bilirubin 0.3 mg/dL (0.15-1.2); Total Protein 6.5 g/dL (6.6-8.7)
[2023-06-16 04:44] LABS: Magnesium 1.7 mg/dL (1.7-2.3)
[2023-06-16 06:54] LABS: Glucose Point of Care 201 mg/dL (70-110)
[2023-06-16 07:22] LABS: Glucose Point of Care 121 mg/dL (70-110)
[2023-06-16] MEDS: clopidogrel 75 mg Tablet PO (08:40)
[2023-06-16] MEDS: azithromycin 250 mg Tablet 500 MG PO (08:40)
[2023-06-16] MEDS: pregabalin 50 mg Capsule PO (08:40)
[2023-06-16] MEDS: aspirin 81 mg EC Tablet PO (08:40)
[2023-06-16] MEDS: isosorbide mononitrate ER 30 mg Tablet PO (08:40)
[2023-06-16] MEDS: sennosides-docusate Tablet 1 TAB PO (08:41)
[2023-06-16] MEDS: metoprolol tartrate 50 mg Tablet 75 MG PO (08:41)
[2023-06-16] MEDS: citalopram 20 mg Tablet 10 MG PO (08:41)
[2023-06-16] MEDS: FUROsemide 10 mg/mL SDV 10mL 60 MG IVP (08:41)
[2023-06-16] MEDS: pantoprazole 40 mg SDV IVP (08:41)
[2023-06-16] MEDS: amiodarone 200 mg Tablet PO (08:41)
[2023-06-16] MEDS: levalbuterol 0.63 mg/3 mL Neb INHALATION ×2 (09:10→13:01)
[2023-06-16] MEDS: ipratropium 0.5 mg/2.5 mL Neb INHALATION ×2 (09:11→13:01)
--- NOTE | 2023-06-16 09:13 | PC.SOCIAL ---
IMM Update pg 2 of IMM updated and reviewed w/ patient. Copy provided. Copy dated, initialed and placed in chart.
[2023-06-16] MEDS: insulin glargine 100 units/1 mL 40 UNIT SUBCUT (09:23)
[2023-06-16] MEDS: heparin 5,000 unit/mL INJ 1 mL 5000 UNIT SUBCUT (09:46)
--- NOTE | 2023-06-16 10:11 | PC.NURSE ---
notified hospitalist pt turned to his right side for comfort and pressure relief on his sacrum area. pt started desating on low 90s on 3 L HFNC, pt reported of short of breath. notified dr and received order for a chest xray. RT then in room and put pt back on BIPAP.
--- NOTE | 2023-06-16 11:51 | XR_ITS ---
WS: [id number] EXAM: Chest 1 view. INDICATION: Shortness of breath. Exam date: 06/16/2023. COMPARISON: 06/13/2023. FINDINGS: The heart is prominent in size. The mediastinum is not widened. The lung markings have diminished in the interval suggesting improved edema. No large effusions are seen. There is no dense consolidation. IMPRESSION: The heart is prominent size. The previously identified prominent interstitial markings are less promi nent. I suspect this represents improving edema.
--- NOTE | 2023-06-16 12:38 | P.DS_ITS ---
Discharge Providers Date of Admission: 06/13/23 17:51 Date of Discharge: June 16, 2023 Attending Provider at Admission: Kelly Hoang MD Attending Provider at Discharge: Isidro Jc MD Primary Care Provider: Mag Watters Diagnoses at Discharge Discharge Diagnosis (1) Acute and chronic respiratory failure with hypoxia: Status: Acute (2) Hypercapnic respiratory failure: Status: Acute (3) Congestive heart failure: Status: Acute (4) Hypertension: Status: Acute Qualifiers: Hypertension type: primary hypertension Qualified Code(s): I10 - Essential (primary) hypertension (5) Ischemic cardiomyopathy: Status: Acute (6) Diabetes: Status: Acute Qualifiers: Diabetes mellitus complication detail: with other circulatory complications Diabetes mellitus complication status: with circulatory complication Diabetes mellitus ferry terminal supervisor insulin use: with ferry terminal supervisor use Diabetes mellitus type: type 2 Qualified Code(s): E11.59 - Type 2 diabetes mellitus with other circulatory complications; Z79.4 - long-term (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 of insulin (7) Chronic kidney disease (CKD): Status: Chronic Qualifiers: Chronic kidney disease stage: stage 3 (moderate) Chronic kidney disease stage 3 subtype: stage 3b (GFR 30-44) Qualified Code(s): N18.32 - Chronic kidney disease, stage 3b (8) COPD with acute exacerbation: Status: Acute (9) Atrial fibrillation: Status: Acute Reason for Visit Reason for Visit: sob Brief History: History as per HPI: David Monique is a 72 year old male with history of trilogy dependent respiratory failure, CHF, A-fib, presented to the hospital orthopnea PND shortness of breath. As per the patient has been experiencing the symptoms for last 1 to 2 weeks, he has been taking nitrates as well for his intermittent chest pain. He follows with Dr. Nain de souza. He does not eat a lot of sodium or increase his fluid intake recently. Currently he is on BiPAP for acute hypoxic hypercapnic respite failure with concern related to congestive heart failure and pneumonia. Hospital Course Hospital Course Patient was admitted to the ICU for further evaluation and management of acute on chronic hypoxic and hypercapnic respiratory failure in setting of congestive heart failure and atrial fibrillation. He was started on aggressive IV diuresis and broad-spectrum antibiotics. At first patient was BiPAP dependent but responded well to the treatment and has been requiring BiPAP only at night while at rest. Overall patient was around 4 L negative by the time of discharge. He responded well to the treatment and has been at his baseline oxygen supplementation for last 48 hours. During hospitalization his antihypertensives and rate limiting medications were adjusted. He is been discharged hemodynamic stable condition advised to take Bumex twice daily, not take spironolactone and take metolazone 5 mg every other day along with increased dose of metoprolol at 50 mg twice daily. His dose of amiodarone has been decreased to 200 mg twice daily. He was counseled in detail about oxygen supplementation and fluid and diet modification as per congestive heart failure. Both patient and patient's verbalized understanding. Medication changes were also discussed in detail. Physical Exam Narrative: General: No acute distress, AO x3, on nasal cannula, chronically sick appearing HEENT: PERRLA, pupils bilaterally equal and reactive Chest: Bilateral bronchial breath sounds all over lung martin, rhonchi and fine crackles bilaterally in lower zone CVS: S1-S2 regular, no murmurs, no tachycardia, no gallops, no rubs Abdomen: Soft, nontender, no organomegaly, bowel sounds present Neuro: No focal deficits, no facial deformity, AO x3, power 5/5 in all limbs Urinary Catheter Management: Shaw: Cath Placed During This Visit: yes Reason for Continuing Indwelling Catheter: Accurate Measurement of Urinary Output in Critically Ill Patients Urinary Catheter Date of Insertion: 06/14/23 Urinary Catheter Time of Insertion: 12:45 Discharge Data Studies Completed and Pending Completed Studies During Hospitalization Category Date Time Status XR chest 1V portable [id number] Stat Exams 06/13/23 16:34 Completed Pending at discharge Category Date Time Status XR chest 1V portable [id number] Stat Exams 06/16/23 11:51 Taken MAG [Magnesium] AM LABS Lab 06/17/23 04:00 Ordered Sputum Culture and Gram Stain Stat Lab 06/13/23 18:23 Uncollected Laboratory Results WBC 6.90 10^3/uL (3.29-11.43) 06/16/23 04:06 RBC 3.29 10^6/uL (3.85-5.65) L 06/16/23 04:06 Hgb 9.60 g/dL (11.27-16.99) L 06/16/23 04:06 Hct 31.9 % (37-53) L 06/16/23 04:06 MCV 97.0 fl (82-101) 06/16/23 04:06 MCH 29.2 pg (27-33) 06/16/23 04:06 MCHC 30.1 g/dL (30-55) 06/16/23 04:06 RDW 14.8 % (12.1-15.1) 06/16/23 04:06 Plt Count 226 10^3/cmm (157-399) 06/16/23 04:06 MPV 9.5 fL (7.4-10.4) 06/16/23 04:06 Neut % (Auto) 65.7 % 06/16/23 04:06 Lymph % (Auto) 21.0 % 06/16/23 04:06 [place] % (Auto) 9.6 % 06/16/23 04:06 Eos % (Auto) 2.8 % 06/16/23 04:06 Baso % (Auto) 0.6 % 06/16/23 04:06 Neut # (Auto) 4.54 10^3/uL (1.8-7.7) 06/16/23 04:06 Lymph # (Auto) 1.5 10^3/uL (0.8-4.8) 06/16/23 04:06 [place] # (Auto) 0.7 10^3/uL (0.2-0.9) 06/16/23 04:06 Eos # (Auto) 0.2 10^3/uL (0.0-0.8) 06/16/23 04:06 Baso # (Auto) 0.0 10^3/uL (0.0-0.1) 06/16/23 04:06 Nucleated RBC % (auto) 0 % 06/16/23 04:06 Nucleated RBCs # 0.0 /100WBC 06/16/23 04:06 D-Dimer 0.59 ug/mLFEU (0-0.59) 06/14/23 13:36 Specimen Type Arterial 06/14/23 04:12 Sample Site Brachial, right 06/14/23 04:12 ABG pH 7.44 (7.35-7.45) 06/14/23 04:12 ABG pCO2 50.8 mmHg (35-45) H 06/14/23 04:12 ABG pO2 186.0 mmHg (80.0-100.0) H 06/14/23 04:12 ABG PO2/FiO2 Ratio 0 06/14/23 04:12 ABG HCO3 34.2 mmol/L (22-26) H 06/14/23 04:12 ABG O2 Saturation 80.1 06/13/23 16:36 ABG Base Excess 8.8 mmol/L (-2.0-2.0) H 06/14/23 04:12 Mil Test N/a 06/14/23 04:12 A-a O2 Gradient 1.7 mmHg (5-10) L 06/13/23 16:36 Hematocrit 30.3 % (42-52) L 06/14/23 04:12 Hgb O2 Saturation 76.8 % (95-100) L 06/13/23 16:36 Carboxyhemoglobin 4.0 %THgb (0.4-20.1) 06/13/23 16:36 Methemoglobin 0.1 % (0.4-1.5) L 06/13/23 16:36 Total Hemoglobin 10.6 g/dL (14-18) L 06/13/23 16:36 Sodium 145.0 mmol/L (131-143) H 06/13/23 16:36 Potassium 4.4 mmol/L (3.5-5.0) 06/13/23 16:36 Glucose 201.0 mg/dL (70-115) H 06/13/23 16:36 Ionized Calcium 1.2 mmol/L (1.1-1.4) 06/13/23 16:36 O2 Delivery Device Bipap 06/14/23 04:12 O2 Liters/Min 6.0 % 06/13/23 16:36 FiO2 50.0 % 06/14/23 04:12 Senior Painter ID Lobo 06/14/23 04:12 Sodium 140 mmol/L (136-145) 06/16/23 04:06 Potassium 3.9 mmol/L (3.5-5.1) 06/16/23 04:06 Chloride 93 mmol/L (98-107) L 06/16/23 04:06 Carbon Dioxide 38 mmol/L (22-29) H 06/16/23 04:06 Anion Gap 12.9 (5-19) 06/16/23 04:06 BUN 56 mg/dL (8-23) H 06/16/23 04:06 Creatinine 2.4 mg/dL (0.7-1.2) H 06/16/23 04:06 GFR Calculation Not Reportable 06/16/23 04:06 Glucose 92 mg/dL (65-115) 06/16/23 04:06 POC Glucose 121 mg/dL (70-110) H 06/16/23 07:15 Calculated Osmolality 305 mOsm/kg (285-295) H 06/16/23 04:06 Lactic Acid 1.0 mmol/L (0.5-2.2) 06/13/23 17:32 Calcium 9.1 mg/dL (8.5-10.5) 06/16/23 04:06 Magnesium 1.7 mg/dL (1.7-2.3) 06/16/23 04:06 Iron 25 ug/dL (59-158) L 06/14/23 04:29 TIBC 212 mcg/dl 06/14/23 04:29 % Saturation 11.7 % (20-50) L 06/14/23 04:29 Unsat Iron Binding 187 ug/dL (112-347) 06/14/23 04:29 Total Bilirubin 0.3 mg/dL (0.15-1.2) 06/16/23 04:06 AST 10 U/L (0-40) 06/16/23 04:06 ALT 7 U/L (0-41) 06/16/23 04:06 Alkaline Phosphatase 71 U/L (40-130) 06/16/23 04:06 Troponin T 5th Gen ng/L 56 ng/L (0-15) H 06/14/23 18:07 Troponin T Baseline 65 ng/L (0-15) H 06/13/23 14:40 NT-Pro-B Natriuret Pep 64134 pg/mL (0-125) H 06/13/23 14:40 NT-Pro-B Natriuret Pep 52094 pg/mL (0-125) H 06/13/23 14:40 Total Protein 6.5 g/dL (6.6-8.7) L 06/16/23 04:06 Albumin 3.4 g/dL (3.5-5.2) L 06/16/23 04:06 Globulin 3.1 g/dL (1.3-4.6) 06/16/23 04:06 Vitamin B12 480 pg/mL (232-1245) 06/14/23 04:29 Folate 7.8 ng/mL (4.5-32.2) 06/15/23 04:20 Procalcitonin 0.26 ng/mL (0-0.5) 06/14/23 04:29 TSH 0.75 uIU/mL (0.27-4.20) 06/14/23 04:29 Adenovirus (PCR) Not detected (NOT DETECT) 06/14/23 21:15 C. pneumoniae DNA (PCR) Not detected (NOT DETECT) 06/14/23 21:15 Coronavirus 229E (PCR) Not detected (NOT DETECT) 06/14/23 21:15 Human Metapneumovir PCR Not detected (NOT DETECT) 06/14/23 21:15 Influenza A (H1) PCR Not detected (NOT DETECT) 06/14/23 21:15 Influ A (H1/09) PCR Not detected (NOT DETECT) 06/14/23 21:15 Influenza A (H3) PCR Not detected (NOT DETECT) 06/14/23 21:15 Influenza Type A Ag negative (Negative) 06/13/23 18:06 Influenza Type A (PCR) Not detected (NOT DETECT) 06/14/23 21:15 Influenza Type B Ag negative (Negative) 06/13/23 18:06 Influenza Type B (PCR) Not detected (NOT DETECT) 06/14/23 21:15 M. pneumoniae (PCR) Not detected (NOT DETECT) 06/14/23 21:15 Parainfluenza 1 (PCR) Not detected (NOT DETECT) 06/14/23 21:15 Parainfluenza 2 (PCR) Not detected (NOT DETECT) 06/14/23 21:15 Parainfluenza 3 (PCR) Not detected (NOT DETECT) 06/14/23 21:15 Parainfluenza 4 (PCR) Not detected (NOT DETECT) 06/14/23 21:15 RSV Type A (PCR) Not detected (NOT DETECT) 06/14/23 21:15 RSV Type B (PCR) Not detected (NOT DETECT) 06/14/23 21:15 Entero/Rhino (PCR) Not detected (NOT DETECT) 06/14/23 21:15 SARS-CoV-2 (PCR) Not detected (NOT DETECT) 06/14/23 21:15 Vitals Last Vital Signs Temp 98.9 F 06/16/23 09:11 Pulse 93 06/16/23 09:15 Resp 18 06/16/23 09:15 BP 118/76 06/16/23 09:11 Pulse Ox 99 06/16/23 09:15 O2 Del Method BiPAP 06/16/23 09:15 O2 Flow Rate 3 06/16/23 09:11 FiO2 35 06/16/23 09:15 Discharge Plan Discharge Patient Disposition: Home Health Service Condition: Stable Prescriptions: New metolazone 5 mg tablet 5 mg PO EVERY OTHER DAY Qty: 20 0RF Breo Ellipta 100-25 mcg/dose blister with device 1 inh inhalation DAILY Qty: 60 0RF Continued trazodone 50 mg tablet 50 mg PO BEDTIME PRN (Reason: Sleep) citalopram 10 mg tablet 10 mg PO DAILY clopidogrel 75 mg tablet 75 mg PO DAILY pregabalin 50 mg capsule 50 mg PO DAILY Humulin R Regular U-100 Insuln 100 unit/mL solution See Rx Instructions .ROUTE .COMPLEX Rx Instructions: USE PER SLIDING SCALE: BS 150-200=4 UNITS, 201-250=6 UNITS, 251-300=10 UNITS, 301-350=12 UNITS, 351-400=15 UNITS. tobramycin-dexamethasone 0.3-0.1 % drops,suspension 1 drp ophthalmic (eye) Q4H PRN (Reason: UNKNOWN) levalbuterol tartrate 45 mcg/actuation HFA aerosol inhaler 2 inh INHALATION Q6H PRN (Reason: Shortness Of Breath) aspirin 81 mg Tablet,Delayed Release (Dr/Ec) 81 mg PO DAILY 30 Days Qty: 30 0RF isosorbide mononitrate 30 mg Tablet Extended Release 24 Hr 30 mg PO DAILY 30 Days Qty: 30 0RF pantoprazole 40 mg Tablet,Delayed Release (Dr/Ec) 40 mg PO DAILY 30 Days Qty: 30 0RF melatonin 3 mg Tablet 3 mg PO BEDTIME rosuvastatin 10 mg tablet 10 mg PO BEDTIME Changed bumetanide 2 mg tablet 2 mg PO BID 30 Days Qty: 60 0RF Pacerone 200 mg Tablet 200 mg PO DAILY 30 Days Qty: 60 0RF Lantus Solostar U-100 Insulin 100 unit/mL (3 mL) insulin pen 35 unit SUBCUT BIDWM Qty: 15 0RF metoprolol tartrate 50 mg tablet 75 mg PO BID 30 Days Qty: 75 0RF Discontinued spironolactone 25 mg tablet 25 mg PO DAILY Discharge Orders: Discharge Order (Routine); Ordered 06/16/23 Ordered By: Isidro Jc Referrals: [facility] [Other] Mag Watters [Primary Care Provider] - 06/21/23 10:00 am Discharge Diet: Cardiac Discharge Activity: Resume usual activity and Increase activity as tolerated Patient Instructions: Metolazone (By mouth) (Zaroxolyn), Fluticasone/Vilanterol (By breathing) (Breo Ellipta), Heart Failure (DC), A-fib (Atrial Fibrillation) (DC), Chronic Kidney Disease (DC), CHF Stoplight, COPD Stoplight, Opioid Safety Activity Restrictions/Additional Instructions: Going forward take Bumex 2 times a day. Do not take spironolactone. Take metolazone every other day. Please keep an eye on how much fluid and salt you intake every day. Restrict fluid intake to less than 1500 cc, salt intake to less than 2 g daily. Advised to check his weight daily at home. Is advised that weight today would be the dry weight and if body weight increases by around 5 pounds, patient is to take an extra dose of Bumex daily till body weight comes down to weight today. If not able to come down to dry body weight in 1 week, then is to call cardiology office for further recommendations. Patient was counseled in detail to take medications regularly as prescribed. Amiodarone dose has been changed to 200 mg 1 time a day. Metoprolol has been increased to 75 mg twice a day. Discharge Attestations Time Spent in Discharge Care*: greater than 30 min Status at Discharge: Cognitive status at discharge: cognitively intact , Quality Metrics Clinical Quality Measures [ No reported AMI, CVA or VTE this stay] Coding Level of Care Code 92102 Total time (in minutes) for Discharge: 60 Diagnoses Acute and chronic respiratory failure with hypoxia J96.21 Hypercapnic respiratory failure J96.92 Congestive heart failure I50.9 Primary hypertension I10 Hypertension type: primary hypertension Ischemic cardiomyopathy I25.5 Type 2 diabetes mellitus with other circulatory complication, with long-term current use of insulin E11.59; Z79.4 Diabetes mellitus complication detail: with other circulatory complications Diabetes mellitus complication status: with circulatory complication Diabetes mellitus ferry terminal supervisor insulin use: with ferry terminal supervisor use Diabetes mellitus type: type 2 Stage 3b chronic kidney disease N18.32 Chronic kidney disease stage: stage 3 (moderate) Chronic kidney disease stage 3 subtype: stage 3b (GFR 30-44) COPD with acute exacerbation J44.1 Atrial fibrillation I48.91
[2023-06-16 12:58] LABS: Glucose Point of Care 251 mg/dL (70-110)
[2023-06-16] MEDS: insulin lispro 100 unit/1 mL SUBCUT (13:06)
--- NOTE | 2023-06-16 15:32 | PC.NURSE ---
called and dtr via there contact phone# to inform them that we were able to get an appointment with [facility] cardiology on June 29 at 2 pm.
== END 2023-06-16 15:26 | disposition home health service (06) | DRG 291 ==
LOC: ER 17:49 → ER IP 18:01 → ICU 22:12 → CSU 06-15 19:48
PROVIDERS: Internal Medicine; Admitting Provider Internal Medicine; Emergency Provider Emergency Medicine; PCP Registered Nurse; Visit Provider Student in an Organized Health Care Education/Training Program
DX: I13.0 Hypertensive heart and chronic kidney disease with heart failure and stage 1 through stage 4 chronic kidney disease, or unspecified chronic kidney disease (principal); I50.33 Acute on chronic diastolic (congestive) heart failure; J96.22 Acute and chronic respiratory failure with hypercapnia; J96.21 Acute and chronic respiratory failure with hypoxia; J44.1 Chronic obstructive pulmonary disease with (acute) exacerbation; N17.9 Acute kidney failure, unspecified; N18.32 Chronic kidney disease, stage 3b; E11.22 Type 2 diabetes mellitus with diabetic chronic kidney disease; Z79.4 Long term (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 of insulin; Z99.81 Dependence on supplemental oxygen; I25.10 Atherosclerotic heart disease of native coronary artery without angina pectoris; Z95.5 Presence of coronary angioplasty implant and graft; I48.91 Unspecified atrial fibrillation; I25.2 Old myocardial infarction; E78.5 Hyperlipidemia, unspecified; I25.5 Ischemic cardiomyopathy; D63.1 Anemia in chronic kidney disease; Z89.512 Acquired absence of left leg below knee; Z89.511 Acquired absence of right leg below knee
CPT/HCPCS: 36415; 36416; 36600; 51702; 71045; 80048; 80051; 80053; 82330; 82607; 82746; 82803; 82805; 82962; 83540; 83550; 83605; 83735; 83880; 84145; 84443; 84484; 85025; 85378; 87486; 87581; 87633; 87635; 87804; 93005; 94640; 94660; 94664; 96365; 96367; 96372; 96375; 96376; 99285; C9113; J0696; J1644; J1815; J1940; J2270; J2405; J2930; J7614; J7644; Q0144

== ENCOUNTER → 2023-06-30 15:03 | Outpatient (BNVA) | payer MEDICARE, OTHER, SELFPAY | PROVIDERS: PCP Registered Nurse; Visit Provider Nurse Practitioner Family | DX: I48.91 Unspecified atrial fibrillation (principal); R00.1 Bradycardia, unspecified; I44.0 Atrioventricular block, first degree; Z09 Encounter for follow-up examination after completed treatment for conditions other than malignant neoplasm; I50.33 Acute on chronic diastolic (congestive) heart failure; F17.200 Nicotine dependence, unspecified, uncomplicated | CPT/HCPCS: 93005; 99214 ==

== ENCOUNTER → 2023-07-13 09:41 | Outpatient (BNVA) | payer MEDICARE, OTHER, SELFPAY | PROVIDERS: PCP Registered Nurse; Visit Provider Internal Medicine | DX: E11.9 Type 2 diabetes mellitus without complications (principal); E78.2 Mixed hyperlipidemia; Z89.512 Acquired absence of left leg below knee | CPT/HCPCS: 99214 ==

== ENCOUNTER 2024-06-26 18:03 | Inpatient (IN) | payer MEDICARE, OTHER, SELFPAY ==
[2024-06-26 18:06] VITALS: BP 103/54; PULSE 50; TEMP 36.6; O2SAT 98
--- NOTE | 2024-06-26 18:53 | ECG_ITS ---
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 Measurements Intervals [place] Rate: 49 P: 91 ME: 278 QRS: 47 QRSD: 148 T: 243 QT: 378 QTc: 344 Interpretive Statements SUPRAVENTRICULAR REGULAR RHYTHM WITH ARTIFACT INTRAVENTRICULAR CONDUCTION DELAY [130+ ms QRS DURATION] POSSIBLE INFERIOR MYOCARDIAL INFARCTION , OF INDETERMINATE AGE [30 ms Q WAVE IN II/aVF] Compared to ECG 06/30/2023 15:09:45 Intraventricular conduction delay now present Myocardial infarct finding now present T-wave abnormality no longer present Possible ischemia no longer present Electronically Signed On 07-01-2024 18:15:51 AUDIO PRODUCTION MANAGER by Cisco Conrad M.D. [id number]
--- NOTE | 2024-06-26 18:53 | XRR_ITS ---
PROCEDURE INFORMATION: Exam: XR Chest Exam date and time: 06/26/2024 7:17 PM Age: 74 years old Clinical indication: Shortness of breath; Additional info: SOB TECHNIQUE: Imaging protocol: Radiologic exam of the chest. Views: 1 view. COMPARISON: CR XR chest 1V portable [id number] 06/16/2023 12:04 PM FINDINGS: Lungs: There is mild ill-defined opacity in the lateral left lung base, partially obscuring the left heart border. There is asymmetric ill-defined density in the right lateral mid to lower lung. Pleural spaces: The right lateral costophrenic sulcus is blunted. No pneumothorax. Heart/Mediastinum: The cardiomediastinal silhouette is unremarkable given AP technique. Bones/joints: Bones are unremarkable. XR/XR chest 1V portable [id number] IMPRESSION: Persistent nonspecific bilateral pulmonary opacities, similar to findings on 06/16/2023 and 06/13/2023. Possible pulmonary edema or infection.
[2024-06-26 21:07] LABS: Basophils % 0.3 %; Eosinophils % 0.1 %; Lymphocytes # 0.4 10^3/uL (0.8-4.8); Lymphocytes % 2.2 %; Mean Corpuscular HGB Conc 30.6 g/dL (30-55); Mean Corpuscular Hemoglobin 29.6 pg (27-33); Mean Corpuscular Volume 96.9 fl (82-101); Mean Platelet Volume 11.2 fL (7.4-10.4); Monocytes # 0.9 10^3/uL (0.2-0.9); Monocytes % 5.9 %; Neutrophils # 14.22 10^3/uL (1.8-7.7); Neutrophils % 90.9 %; Nucleated Red Blood Cells % 0 %; Platelet Count 315 10^3/cmm (157-399); Red Blood Count 3.51 10^6/uL (3.85-5.65); Red Cell Distribution Width 16.2 % (12.1-15.1); White Blood Count 15.64 10^3/uL (3.29-11.43)
[2024-06-26 21:39] LABS: Alanine Aminotransferase 384 U/L (0-41); Albumin Level 3.8 g/dL (3.5-5.2); Alkaline Phosphatase 123 U/L (40-130); Anion Gap 22.8 (5-19); Aspartate Amino Transferase 401 U/L (0-40); Calcium 9.5 mg/dL (8.5-10.5); Carbon Dioxide 32 mmol/L (22-29); Chloride 84 mmol/L (98-107); Creatinine Clr Calc Pharmacy 18.4105; Globulin 3.6 g/dL (1.3-4.6); Glucose 239 mg/dL (65-115); NT Pro B Type Natriuretic Pept 32275 pg/mL (0-450); Osmolality Calculated 321 mOsm/kg (285-295); Potassium 3.8 mmol/L (3.5-5.1); Sodium 135 mmol/L (136-145); Total Bilirubin 2.7 mg/dL (0.15-1.2); Total Protein 7.4 g/dL (6.6-8.7)
[2024-06-26 21:47] LABS: Blood Urea Nitrogen 107 mg/dL (8-23)
--- NOTE | 2024-06-26 22:08 | CTR_ITS ---
PROCEDURE INFORMATION: Exam: CT Chest Without Contrast; Diagnostic Exam date and time: 06/26/2024 10:54 PM Age: 74 years old Clinical indication: Other: Leukocytosis; Shortness of breath; Additional info: Altered mental status, leukocytosis, elevated lfts, kidney F TECHNIQUE: Imaging protocol: Diagnostic computed tomography of the chest without contrast. Radiation optimization: All CT scans at this facility use at least one of these dose optimization techniques: automated exposure control; mA and/or kV adjustment per patient size (includes targeted exams where dose is matched to clinical indication); or iterative reconstruction. COMPARISON: CR (CHEST, ) 06/26/2024 7:17 PM RADIATION DOSE METRICS: Total DLP (mGy-cm): 2236.2 FINDINGS: Lungs: There are centrilobular emphysematous changes in the lung apices. Compressive atelectasis of the right lung base. Pleural spaces: Small right pleural effusion. Heart: Unremarkable. No cardiomegaly. No pericardial effusion. Coronary arteries: Coronary artery calcifications are present. Lymph nodes: Multiple calcified subcarinal and bilateral hilar lymph nodes are seen indicative of prior granulomatous disease. Vasculature: Aortic atherosclerotic disease is seen without evidence of aneurysm. Bones/joints: Unremarkable. No acute fracture. Soft tissues: Unremarkable. COMMENTS: The presence of pulmonary emphysema on CT is an independent risk factor for lung cancer. In the absence of a history or active diagnosis of lung cancer, it is recommended that this patient with emphysema be evaluated for enrollment in a low dose CT lung cancer screening program. PROCEDURE INFORMATION: Exam: CT Abdomen And Pelvis Without Contrast Exam date and time: 06/26/2024 10:54 PM Age: 74 years old Clinical indication: Other: Leukocytosis; Shortness of breath; Additional info: Altered mental status, leukocytosis, elevated lfts, kidney F TECHNIQUE: Imaging protocol: Computed tomography of the abdomen and pelvis without contrast. Radiation optimization: All CT scans at this facility use at least one of these dose optimization techniques: automated exposure control; mA and/or kV adjustment per patient size (includes targeted exams where dose is matched to clinical indication); or iterative reconstruction. COMPARISON: CR (CHEST, ) 06/26/2024 7:17 PM RADIATION DOSE METRICS: Total DLP (mGy-cm): 2236.2 FINDINGS: Liver: Normal. No mass. Gallbladder and biliary ducts: Multiple gallstones are present in an otherwise normal-appearing gallbladder. No evidence of biliary obstruction. Pancreas: Normal. No ductal dilation. Spleen: Multiple calcified splenic granulomas. Adrenal glands: Mild bilateral adrenal thickening, likely hyperplasia. Kidneys and ureters: Normal. No hydronephrosis. Stomach and bowel: Colonic diverticulosis is present without diverticulitis. Appendix: No evidence of appendicitis. Intraperitoneal space: Unremarkable. No free air. No significant fluid collection. Vasculature: Aortoiliac atherosclerotic disease is seen without evidence of aneurysm. Lymph nodes: Unremarkable. No enlarged lymph nodes. Urinary bladder: Unremarkable as visualized. Reproductive: Unremarkable as visualized. Bones/joints: No acute or suspicious osseous abnormality. Soft tissues: Unremarkable. CT/[place] [id number] IMPRESSION: 1. Emphysema. 2. Small right pleural effusion with compressive atelectasis. IMPRESSION: 1. Cholecystolithiasis without evidence of cholecystitis or biliary obstruction. 2. No evidence of acute abdominal or pelvic process.
[2024-06-26 22:19] VITALS: PULSE 56; RESP 22; O2SAT 89
[2024-06-26] MEDS: ipratropium-albuterol 3 mL Neb INHALATION (22:19)
[2024-06-26 22:30] VITALS: BP 108/59; PULSE 88; O2SAT 95
[2024-06-26 22:31] LABS: ABG PCO2 59.5 mmHg (35-45); ABG PH Result 7.34 (7.35-7.45); Alveolar-Arterial Oxygen Gradi 1.5 mmHg (5-10); Arterial Blood Gas Hematocrit 33.6 % (42-52); Base Excess ABG 5.3 mmol/L (-2.0-2.0); Blood Gas Sample Site Brachial, left; Blood Gas Sample Type Arterial; HCO3 ABG 32.4 mmol/L (22-26); HGB O2 Sat 87.1 % (95-100); Ionized Calcium Level - ABG 1.2 mmol/L (1.1-1.4); Methemoglobin 1.1 % (0.4-1.5); Oxygen Device NC; Oxygen Saturation ABG 90.8; PO2 ABG 64.8 mmHg (80.0-100.0); Potassium Level - ABG 3.3 mmol/L (3.5-5.0)
[2024-06-26 22:44] LABS: Magnesium 2.4 mg/dL (1.7-2.3); Phosphorus 6.1 mg/dL (2.5-4.5)
[2024-06-26 22:45] LABS: Lactic Sepsis W/Reflex 3.7 mmol/L (0.5-2.2)
--- NOTE | 2024-06-26 22:45 | W.ED.WEAKNES ---
HPI - Weakness General: Chief complaint: Weakness Stated complaint: SOB\Weak Time Seen by Provider: 06/26/24 22:01 History of Present Illness: Patient presents to the ER with complaints of shortness of breath and generally not feeling well. Patient cannot really elicit any more response than that. Patient's said that he has not been eating well for the last long time. Patient is a COPD patient with congestive heart failure, insulin-dependent diabetes, ischemic cardiomyopathy, patient is on 4 L of oxygen at all times with a trilogy at night. Upon arrival to the ER patient's O2 sat was 84% on 6 L. Review of Systems General: Reports: 10 or more systems reviewed and unremarkable except in HPI and below PFSH ED PFSH: Medical History Atrial fibrillation History of nonmelanoma skin cancer Heart attack Hypertension Hyperlipidemia Diabetes COPD (chronic obstructive pulmonary disease) Amputated right leg Surgical History Status post below-knee amputation of left lower extremity Family History Other Cancer Diabetes Hypertension Social History Smoking and tobacco/nicotine status: current every day tobacco/nicotine user Physical Exam Const: COMMON NORMALS: no acute distress, average body habitus, patient oriented x3, no limitations, healthy appearing, alert and well nourished HENMT: COMMON NORMALS: normocephalic, atraumatic, hearing grossly normal bilaterally, external ears normal, Normal external nose present, moist oral mucous membranes and oropharynx normal HEAD & SCALP: normocephalic and atraumatic NOSE: Normal external nose present EXTERNAL EAR: Yes external ears normal Eye: COMMON NORMALS: Equal, round and reactive pupils present, EOMs intact bilaterally, conjunctivae normal and no scleral icterus CONJUNCTIVA: Yes conjunctivae normal PUPIL: Yes Equal, round and reactive pupils present Neck/C-Spine: COMMON NORMALS: no JVD Chest: COMMONS NORMALS: normal inspection of the chest and normal palpation of entire chest wall Resp: COMMON NORMALS: normal respiratory effort, No retractions and No use of accessory muscles; negative for clear to auscultation bilaterally (Decreased breath sounds bilaterally) AUSCULTATION: not clear to auscultation bilaterally (Decreased breath sounds bilaterally) Cardio: COMMON NORMALS: no JVD, regular rate, regular rhythm, S1 normal heart sound present, S2 normal heart sound present, No gallops present (Cardio), No clicks present (Cardio), No murmurs present (Cardio) and No rub (Cardio) RATE: regular rate RHYTHM: regular rhythm HEART SOUNDS: S1 normal heart sound present and S2 normal heart sound present GI: COMMON NORMALS: Normal to inspection, nondistended, normoactive bowel sounds present, Soft to palpation, non-tender, No hepatosplenomegaly present and no masses PALPATION: Yes Soft to palpation and Yes No hepatosplenomegaly present Extremity: OTHER: Bilateral lower extremity amputee Neuro: COMMON NORMALS: patient oriented x3 SENSORIUM/ORIENTATION: Yes alert Course Vital Signs: Vital signs: Vital Signs Temperature 98.0 F 06/27/24 22:46 Pulse Rate 59 L 06/28/24 02:00 Respiratory Rate 11 L 06/28/24 02:00 Blood Pressure 130/61 06/28/24 02:00 Pulse Oximetry 95 06/28/24 02:00 Oxygen Delivery Me thod BiPAP 06/27/24 21:53 Oxygen Flow Rate 10 06/27/24 15:54 Fraction of Inspir ed Oxygen 45 06/28/24 01:46 MDM - Weakness Medical Decision Making Patient was not given a septic bolus due to his BNP being 32,000 and him being on Bumex for CHF. Chest x-ray showed persistent nonspecific bilateral opacities similar to previous findings, chest CT abdomen pelvis CT showed small right pleural effusion, cholelithiasis without cholecystitis or biliary obstruction. White blood cell count 15, sodium 135, potassium 3.8, anion gap 22.8, BUN/creatinine 107/4.0, lactic acid 3.7 after fluid bolus and Zosyn it dropped to 3.0, total bilirubin elevated 2.7, AST 401, ALT 384, BNP 32,275, this case was discussed with Dr. Krueger hospitalist at [facility] who accepted the patient in transfer however they do not have any beds at this time and we were put on the Waiting list. Lab Data 06/27/24 15:08 06/27/24 20:57 Radiology Impressions Chest/Abdomen/Pelvis CT 06/26/24 22:08 IMPRESSION: 1. Emphysema. 2. Small right pleural effusion with compressive atelectasis. IMPRESSION: 1. Cholecystolithiasis without evidence of cholecystitis or biliary obstruction. 2. No evidence of acute abdominal or pelvic process. Chest X-Ray 06/27/24 14:52 IMPRESSION: Continued presence increased interstitium and mild pulmonary vascular congestion. Interval increase in localized interstitial coarsening of the right upper lobe which may represent localized interstitial edema or pneumonitis. Clinical correlation recommended. Laboratory Results WBC 13.70 10^3/uL (3.29-11.43) H 06/27/24 15:08 RBC 3.51 10^6/uL (3.85-5.65) L 06/27/24 15:08 Hgb 10.60 g/dL (11.27-16.99) L 06/27/24 15:08 Hct 33.3 % (37-53) L 06/27/24 15:08 MCV 94.9 fl (82-101) 06/27/24 15:08 MCH 30.2 pg (27-33) 06/27/24 15:08 MCHC 31.8 g/dL (30-55) 06/27/24 15:08 RDW 16.2 % (12.1-15.1) H 06/27/24 15:08 Plt Count 263 10^3/cmm (157-399) 06/27/24 15:08 MPV 10.6 fL (7.4-10.4) H 06/27/24 15:08 Neut % (Auto) 89.2 % 06/27/24 15:08 Lymph % (Auto) 4.9 % 06/27/24 15:08 [place] % (Auto) 4.8 % 06/27/24 15:08 Eos % (Auto) 0.2 % 06/27/24 15:08 Baso % (Auto) 0.4 % 06/27/24 15:08 Neut # (Auto) 12.21 10^3/uL (1.8-7.7) H 06/27/24 15:08 Lymph # (Auto) 0.7 10^3/uL (0.8-4.8) L 06/27/24 15:08 [place] # (Auto) 0.7 10^3/uL (0.2-0.9) 06/27/24 15:08 Eos # (Auto) 0.0 10^3/uL (0.0-0.8) 06/27/24 15:08 Baso # (Auto) 0.1 10^3/uL (0.0-0.1) 06/27/24 15:08 Nucleated RBC % (auto) 0 % 06/27/24 15:08 Nucleated RBCs # 0.0 /100WBC 06/27/24 15:08 Specimen Type Arterial 06/27/24 14:55 Sample Site Brachial, right 06/27/24 14:55 ABG pH 7.43 (7.35-7.45) 06/27/24 14:55 ABG pCO2 59.2 mmHg (35-45) H 06/27/24 14:55 ABG pO2 63.4 mmHg (80.0-100.0) L 06/27/24 14:55 ABG PO2/FiO2 Ratio 140 06/27/24 14:55 ABG HCO3 39.3 mmol/L (22-26) H 06/27/24 14:55 ABG O2 Saturation 92.1 06/27/24 14:55 ABG Base Excess 12.9 mmol/L (-2.0-2.0) H 06/27/24 14:55 Mil Test Pos 06/27/24 14:55 A-a O2 Gradient 23.1 mmHg (5-10) H 06/27/24 14:55 Hematocrit 33.6 % (42-52) L 06/27/24 14:55 Hgb O2 Saturation 90.0 % (95-100) L 06/27/24 14:55 Carboxyhemoglobin 2.2 %THgb (0.4-20.1) 06/27/24 14:55 Methemoglobin 0.0 % (0.4-1.5) L 06/27/24 14:55 Total Hemoglobin 11.0 g/dL (14-18) L 06/27/24 14:55 Sodium 138.0 mmol/L (131-143) 06/27/24 14:55 Potassium 3.3 mmol/L (3.5-5.0) L 06/27/24 14:55 Glucose 208.0 mg/dL (70-115) H 06/27/24 14:55 Ionized Calcium 1.2 mmol/L (1.1-1.4) 06/27/24 14:55 O2 Delivery Device Bipap 06/27/24 14:55 O2 Liters/Min 6.0 % 06/26/24 22:21 FiO2 45.0 % 06/27/24 14:55 Negative Turner ID [place] 06/27/24 14:55 Sodium 137 mmol/L (136-145) 06/27/24 15:08 Potassium 3.4 mmol/L (3.5-5.1) L 06/27/24 15:08 Chloride 85 mmol/L (98-107) L 06/27/24 15:08 Carbon Dioxide 33 mmol/L (22-29) H 06/27/24 15:08 Anion Gap 22.4 (5-19) H 06/27/24 15:08 BUN 108 mg/dL (8-23) H* 06/27/24 15:08 Creatinine 3.9 mg/dL (0.7-1.2) H 06/27/24 15:08 GFR Calculation Not Reportable 06/27/24 15:08 Glucose 212 mg/dL (65-115) H 06/27/24 15:08 Estimat Average Glucose 143 06/27/24 15:08 Hemoglobin A1c 6.6 % (4.0-6.0) H 06/27/24 15:08 Calculated Osmolality 324 mOsm/kg (285-295) H 06/27/24 15:08 Lactic Acid 1.9 mmol/L (0.5-2.2) 06/27/24 15:08 Lactic Acid (Sepsis) 3.0 mmol/L (0.5-2.2) H 06/26/24 23:54 Calcium 9.7 mg/dL (8.5-10.5) 06/27/24 15:08 Phosphorus 6.1 mg/dL (2.5-4.5) H 06/26/24 20:41 Magnesium 2.4 mg/dL (1.7-2.3) H 06/26/24 20:41 Total Bilirubin 1.3 mg/dL (0.15-1.2) H 06/27/24 15:08 AST 257 U/L (0-40) H 06/27/24 15:08 ALT 423 U/L (0-41) H 06/27/24 15:08 Alkaline Phosphatase 109 U/L (40-130) 06/27/24 15:08 Troponin T Baseline 292 ng/L (0-15) H* 06/27/24 15:08 NT-Pro-B Natriuret Pep 88975 pg/mL (0-450) H 06/27/24 15:08 Total Protein 7.1 g/dL (6.6-8.7) 06/27/24 15:08 Albumin 3.7 g/dL (3.5-5.2) 06/27/24 15:08 Globulin 3.4 g/dL (1.3-4.6) 06/27/24 15:08 Procalcitonin 2.24 ng/mL (0-0.5) H 06/27/24 15:08 Influenza A (PCR) Negative (Negative) 06/27/24 00:00 Influenza Type B (PCR) Negative (Negative) 06/27/24 00:00 RSV (PCR) Negative (Negative) 06/27/24 00:00 SARS-CoV-2 (PCR) Negative (Negative) 06/27/24 00:00 All radiology interpretation(s) finalized by discharge Discharge Plan Discharge Patient Disposition: Xfer Short-Term Hosp Clinical Impression: Acute kidney injury superimposed on CKD, Acute and chronic respiratory failure with hypoxia, Elevated liver enzymes Condition: Stable Coding Level of Care Code 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 Home Medications ?Medication ?Instructions ?Recorded ?Confirmed citalopram 10 mg tablet 10 mg PO DAILY 09/22/19 06/27/24 clopidogrel 75 mg tablet 75 mg PO DAILY 09/22/19 06/27/24 pregabalin 50 mg capsule 50 mg PO DAILY 09/22/19 06/27/24 trazodone 50 mg tablet 50 mg PO BEDTIME PRN Sleep 09/22/19 06/27/24 insulin regular human 100 unit/mL See Rx Instructions .Route .COMPLEX 05/18/23 06/27/24 injection solution (Humulin R Regular U-100 Insulin) melatonin 3 mg tablet 3 mg PO BEDTIME 06/14/23 06/27/24 rosuvastatin 10 mg tablet 10 mg PO BEDTIME 06/14/23 06/27/24 aspirin 81 mg tablet,delayed 81 mg PO DAILY 06/27/24 06/27/24 release fluticasone propionate 50 2 spray intranasal DAILY 06/27/24 06/27/24 mcg/actuation nasal spray,suspension isosorbide mononitrate 30 mg 30 mg PO QAM 06/27/24 06/27/24 tablet,extended release 24 hr nitroglycerin 0.4 mg sublingual See Rx Instructions .Route .COMPLEX 06/27/24 06/27/24 tablet pantoprazole 20 mg tablet,delayed 20 mg PO DAILY 06/27/24 06/27/24 release Previous Rx's ?Medication ?Instructions ?Recorded fluticasone furoate 100 1 inh inhalation DAILY #60 ea 06/16/23 mcg-vilanterol 25 mcg/dose inhalation powder (Breo Ellipta) insulin glargine 100 unit/mL (3 35 unit (0.35 mL) SUBCUT BIDWM #15 06/16/23 mL) subcutaneous pen (Lantus mL Solostar U-100 Insulin) amiodarone 200 mg tablet ([place]) 200 mg PO DAILY #60 tabs 06/30/23 bumetanide 2 mg tablet 2 mg PO BID #60 tabs 06/30/23 metoprolol tartrate 50 mg tablet 75 mg (1.5 x 50 mg) PO BID #75 tabs 06/30/23 Allergies Allergy/AdvReac Type Severity Reaction Status Date / Time albuterol Allergy Intermediate unknown Verified 06/26/24 18:22 atorvastatin (From Lipitor) Allergy Intermediate ALGY-Joint Verified 06/26/24 18:22 Pain gabapentin Allergy Intermediate unknown Verified 06/26/24 18:22
[2024-06-26 23:00] VITALS: PULSE 91; O2SAT 91
[2024-06-26 23:47] LABS: Reflex Lactate Order REFLEX LACTIC ORDERD
[2024-06-27] VITALS (32 sets, daily range): BP systolic 115–167; BP diastolic 53–90; PULSE 49–90; RESP 13–20; TEMP 36.7; O2SAT 92–100
[2024-06-27] MEDS: piperacillin-tazobactam 3.375 GM in sodium chloride 0.9% (plus) 50 ML IV ×2 (01:00→15:58)
[2024-06-27 01:05] LABS: Influenza A NEGATIVE (Negative); Influenza B NEGATIVE (Negative); Respiratory Syncytial Virus Ce NEGATIVE (Negative); SARS-CoV-2 PCR NEGATIVE (Negative)
[2024-06-27] MEDS: morphine 4 mg/mL SDV 1 mL 2 MG IVP (03:02)
--- NOTE | 2024-06-27 07:26 | PC.NURSE ---
THIS NURSE ASSUMED CARE @ 0700.
--- NOTE | 2024-06-27 09:03 | PC.PHAR ---
Pt is on bipap and can't answer questions. Med Rec completed via [facility] with last fill dates and day supply.
--- NOTE | 2024-06-27 09:20 | PC.NURSE ---
PATIENT REMOVED FROM BIPAP PER RT DIMA. PATIENT PLACED ON 6 L NC SATTING 90-92%.
--- NOTE | 2024-06-27 14:52 | XRR_ITS ---
PROCEDURE INFORMATION: Exam: XR Chest Exam date and time: 06/27/2024 2:59 PM Age: 74 years old Clinical indication: Cough and dyspnea; Additional info: Dyspnea/cough TECHNIQUE: Imaging protocol: Radiologic exam of the chest. Views: 1 view. COMPARISON: [place] [id number] 06/26/2024 10:54 PM FINDINGS: Lungs: Mild pulmonary vascular congestion increased interstitium again noted. Slight interval increase in interstitial coarsening in the right upper lobe. Interval decreased interstitial coarsening at the right lung base. No consolidation. Pleural spaces: No pleural effusion or pneumothorax. Heart/Mediastinum: Cardiomediastinal contours accentuated by low lung volumes and AP technique. Bones/joints: No significant pathology. XR/XR chest 1V portable [id number] IMPRESSION: Continued presence increased interstitium and mild pulmonary vascular congestion. Interval increase in localized interstitial coarsening of the right upper lobe which may represent localized interstitial edema or pneumonitis. Clinical correlation recommended.
--- NOTE | 2024-06-27 14:52 | ECG_ITS ---
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 Measurements Intervals [place] Rate: 59 P: 0 AK: 0 QRS: 77 QRSD: 136 T: 0 QT: 249 QTc: 248 Interpretive Statements ATRIAL FIBRILLATION WITH SLOW VENTRICULAR RESPONSE INTRAVENTRICULAR CONDUCTION DELAY [130+ ms QRS DURATION] Compared to ECG 06/26/2024 18:15:35 Sinus bradycardia no longer present First degree AV block no longer present Myocardial infarct finding no longer present Electronically Signed On 07-01-2024 18:11:59 PRODUCTION PLANNER SCHEDULER by Cisco Conrad M.D. [email or web address]
[2024-06-27 15:09] LABS: ABG PCO2 59.2 mmHg (35-45); ABG PH Result 7.43 (7.35-7.45); Alveolar-Arterial Oxygen Gradi 23.1 mmHg (5-10); Arterial Blood Gas Hematocrit 33.6 % (42-52); Base Excess ABG 12.9 mmol/L (-2.0-2.0); Blood Gas Allen Test Pos; Blood Gas Operator Identificat MONRO; Blood Gas Sample Site Brachial, right; Blood Gas Sample Type Arterial; Carboxyhemoglobin 2.2 %THgb (0.4-20.1); HCO3 ABG 39.3 mmol/L (22-26); Ionized Calcium Level - ABG 1.2 mmol/L (1.1-1.4); Oxygen Device BIPAP; Oxygen Saturation ABG 92.1; PO2 ABG 63.4 mmHg (80.0-100.0); PO2 FiO2 Ratio Arterial Blood 140; Potassium Level - ABG 3.3 mmol/L (3.5-5.0)
[2024-06-27 15:20] LABS: Basophils # 0.1 10^3/uL (0.0-0.1); Basophils % 0.4 %; Eosinophils % 0.2 %; Hematocrit 33.3 % (37-53); Lymphocytes # 0.7 10^3/uL (0.8-4.8); Lymphocytes % 4.9 %; Mean Corpuscular HGB Conc 31.8 g/dL (30-55); Mean Corpuscular Hemoglobin 30.2 pg (27-33); Mean Corpuscular Volume 94.9 fl (82-101); Mean Platelet Volume 10.6 fL (7.4-10.4); Monocytes # 0.7 10^3/uL (0.2-0.9); Monocytes % 4.8 %; Neutrophils # 12.21 10^3/uL (1.8-7.7); Neutrophils % 89.2 %; Nucleated Red Blood Cells % 0 %; Platelet Count 263 10^3/cmm (157-399); Red Blood Count 3.51 10^6/uL (3.85-5.65); Red Cell Distribution Width 16.2 % (12.1-15.1)
[2024-06-27 15:43] LABS: Lactic Sepsis W/Reflex 1.9 mmol/L (0.5-2.2)
--- NOTE | 2024-06-27 15:45 | PHA.VACGOAL ---
Vancomycin Goal - Goal Vancomycin Goal:: 15-20 mg/L Vancomycin Indication:: Pneumonia - Therapy Day of therpy:: Day []of [] . Actual body weight (kg): 200 lb - Data Labs: WBC 13.70 10^3/uL (3.29-11.43) H 06/27/24 15:08 RBC 3.51 10^6/uL (3.85-5.65) L 06/27/24 15:08 Hgb 10.60 g/dL (11.27-16.99) L 06/27/24 15:08 Hct 33.3 % (37-53) L 06/27/24 15:08 MCV 94.9 fl (82-101) 06/27/24 15:08 MCH 30.2 pg (27-33) 06/27/24 15:08 MCHC 31.8 g/dL (30-55) 06/27/24 15:08 RDW 16.2 % (12.1-15.1) H 06/27/24 15:08 Sodium 135 mmol/L (136-145) L 06/26/24 20:41 Potassium 3.8 mmol/L (3.5-5.1) 06/26/24 20:41 Chloride 84 mmol/L (98-107) L 06/26/24 20:41 Carbon Dioxide 32 mmol/L (22-29) H 06/26/24 20:41 Anion Gap 22.8 (5-19) H 06/26/24 20:41 BUN 107 mg/dL (8-23) H* D 06/26/24 20:41 Creatinine 4.0 mg/dL (0.7-1.2) H 06/26/24 20:41 GFR Calculation Not Reportable 06/26/24 20:41 Treatment plan:: new consult Regimen:: 1500 MG NOW PULSE DOSE TROUGH 3/5 @ 1500 NEXT DOSE TBD
[2024-06-27] MEDS: budesonide 0.5 mg/2 mL Neb INHALATION ×2 (15:54→21:15)
[2024-06-27] MEDS: ipratropium-albuterol 3 mL Neb INHALATION ×2 (15:54→21:15)
[2024-06-27] MEDS: methylPREDNISolone sod succ 125 mg/2 mL INJ IVP (15:55)
[2024-06-27] MEDS: bumetanide 0.25 mg/mL SDV 4 mL 2 MG IVP (15:56)
[2024-06-27 15:58] LABS: Procalcitonin 2.24 ng/mL (0-0.5)
[2024-06-27] MEDS: metOLazone 5 MG Tablet PO (15:58)
[2024-06-27 16:01] LABS: Troponin(5th) Baseline 292 ng/L (0-15)
[2024-06-27] MEDS: sodium chloride 0.9% 1,000 ML 100 ML IV (16:09)
[2024-06-27 16:11] LABS: Alanine Aminotransferase 423 U/L (0-41); Albumin Level 3.7 g/dL (3.5-5.2); Alkaline Phosphatase 109 U/L (40-130); Anion Gap 22.4 (5-19); Aspartate Amino Transferase 257 U/L (0-40); Calcium 9.7 mg/dL (8.5-10.5); Carbon Dioxide 33 mmol/L (22-29); Chloride 85 mmol/L (98-107); Creatinine Clr Calc Pharmacy 18.8826; Globulin 3.4 g/dL (1.3-4.6); Glucose 212 mg/dL (65-115); Osmolality Calculated 324 mOsm/kg (285-295); Potassium 3.4 mmol/L (3.5-5.1); Sodium 137 mmol/L (136-145); Total Bilirubin 1.3 mg/dL (0.15-1.2); Total Protein 7.1 g/dL (6.6-8.7)
[2024-06-27 16:16] LABS: Blood Urea Nitrogen 108 mg/dL (8-23)
[2024-06-27 16:20] LABS: NT Pro B Type Natriuretic Pept 43097 pg/mL (0-450)
--- NOTE | 2024-06-27 16:34 | USCV_ITS ---
David Monique Age: 74 Gender: M : 1950 Exam Date: 06/27/2024 19:34 Ordering Phys: Isidro Jc MD Technologist: MERCEDEZ Exam Location: [facility] Indication: nstemi, chf, history of COPD, chronic hypoxia and resp failure, BIPAP dependent, Afib, CAD, bilate AKAs BP: 144 / 83 HR: 56 Rhythm: Atrial fibrillation Technical Quality: Adequate MEASUREMENTS (Male / Female) Normal Values 2D ECHO LV Diastolic Diameter PLAX 4.7 cm 4.2 - 5.9 / 3.9 - 5.3 cm IVS Diastolic Thickness 2.0 cm 0.6 - 1.0 / 0.6 - 0.9 cm IVS Systolic Thickness 2.0 cm LVPW Diastolic Thickness 1.4 cm 0.6 - 1.0 / 0.6 - 0.9 cm LVPW Systolic Thickness 1.5 cm LVOT Diameter 2.0 cm LV Ejection Fraction 2D Teich 29.4 % LV Ejection Fraction MOD 4C 41.7 % LV Ejection Fraction MOD 2C 43.6 % LV Ejection Fraction 2C AL 46.4 % LA Diameter 5.0 cm Aorta at Sinotubular Diameter 3.0 cm IVC Diameter 1.8 cm M-MODE LA Ao Ratio MM 1.1 AV Cusp Separation MM 0.8 cm DOPPLER AV Peak Velocity 332.0 cm/s LVOT Peak Velocity 53.0 cm/s AV Area Cont Eq vti 0.4 cm squared AV Area Cont Eq pk 0.5 cm squared MV Area PHT 6.3 cm squared Mitral E to A Ratio 809.0 TR Peak Velocity 356.0 cm/s TR Peak Gradient 50.7 mmHg TV Peak E Velocity 46.0 cm/s PV Peak Velocity 96.0 cm/s FINDINGS Left Ventricle Normal left ventricular size, systolic function and wall thickness, with no regional wall motion abnormalities. Left ventricular ejection fraction is estimated at 55 %. Grade III/IV diastolic dysfunction (restrictive filling pattern), severely elevated filling pressures. Right Ventricle The right ventricle is normal in size and function. Right Atrium The right atrium is normal in size. Left Atrium The left atrium is normal in size. Mitral Valve Moderately thickened mitral valve. Severe mitral annular calcification. Moderate to severe mitral valve regurgitation. Aortic Valve Severe aortic valve calcification. Severe aortic valve stenosis, mean gradient 19.9 mmHg, DARRON 0.42 cm squared.mild aortic valve regurgitation. Tricuspid Valve Moderate tricuspid valve regurgitation. Pulmonic Valve Structurally normal pulmonic valve without significant stenosis. There is no pulmonic regurgitation. Pericardium Normal pericardium without effusion. Aorta Normal ascending aorta dimension. IVC The inferior vena cava appears normal. CONCLUSIONS Normal left ventricular size, systolic function and wall thickness, with no regional wall motion abnormalities. Left ventricular ejection fraction is estimated at 55 %. Grade III/IV diastolic dysfunction (restrictive filling pattern), severely elevated filling pressures. Moderately thickened mitral valve. Severe mitral annular calcification. Moderate to severe mitral valve regurgitation. Severe aortic valve calcification. Severe aortic valve stenosis, mean gradient 19.9 mmHg, DARRON 0.42 cm squared.mild aortic valve regurgitation. Moderate tricuspid valve regurgitation. There is no pericardial effusion. Right atrial pressure is around 5 mm of mercury. Sabi Escamilla MD (Electronically Signed) Final Date: 28 June 2024 13:01 S
--- NOTE | 2024-06-27 16:35 | PM.HP ---
Providers/Chief Complaint Primary Care Provider: Mag Watters Chief Complaint: SOB\Weak History of Present Illness David Monique is a 74 year old male with past medical history of advanced COPD, chronic hypoxic and hypercapnic respiratory failure mostly on BiPAP during the day, systolic congestive heart failure, A-fib, CAD, bilateral AKA presents to the ER on 06/26 from home with spouse at bedside with concerns for difficulty in breathing getting worse over last 4 days. As per the spouse who is at bedside patient usually spends around 18 to 20 hours every day sleeping in his bed on BiPAP but lately for last 1 to 2 weeks he has been less responsive, has been having more difficulty in breathing for last 3 to 4 days with poor appetite. Patient presented to the ER on 06/26 and was being transferred to [facility] but has been awaiting bed. Meanwhile hospitalist service was consulted for further management. Appreciate blood work from 06/26 showing a white count 15,000, ABG showing a pH of 7.34 with pCO2 of 59.5, pO2 of 64.8 on 6 L, BUN of 107, creatinine of 4, bicarb 32, AST/ALT of 401/384, proBNP of 32,000 Review of Systems General: Reports: 10 or more systems reviewed and unremarkable except in HPI and below Const: Denies: fever(s), chills, body aches, change in appetite, change in weight, malaise, night sweats, diaphoresis, change in sleep pattern, daytime sleepiness or snoring Eyes: Denies: change in vision, blurry vision, photophobia, eye discomfort or eye discharge ENMT: Denies: throat pain, enlarged tonsils, hoarseness, mouth pain, oral sores, dry mouth, tinnitus, nasal congestion or post nasal drip Card: Denies: chest pain, palpitations, irregular heart rhythm, edema, swelling of feet/ankles, lightheadedness, syncope, pre-syncope, dyspnea on exertion, orthopnea, leg pain with exertion or acrocyanosis Resp: Denies: dyspnea, productive cough, non-productive cough, wheezing, stridor, pain on inspiration, change in phlegm color, hemoptysis or chest congestion GI: Denies: abdominal pain, nausea, vomiting, hematemesis, coffee ground emesis, dysphagia, heartburn, diarrhea, constipation, bloating, GI cramping, change in bowel habits, pain on defecation, hematochezia or melena : Denies: flank pain, difficulty urinating, dysuria, urinary frequency, urinary urgency, urinary hesitancy, urinary dribbling, difficulty starting urination, change in urine stream, nocturia or hematuria Musc: Denies: neck pain, back pain, extremity pain, joint pain, joint swelling, joint redness, joint stiffness or limited range of motion Neuro: Denies: headache(s), numbness in extremities, weakness in extremities, sensory changes, lack of coordination, difficulty walking, frequent falls, dizziness, vertigo, confusion, Slurred speech present, difficulty communicating thoughts or seizure-like activity Psych: Denies: anxiety, depression, mood swings, panic attacks, hopelessness or irritability Endo: Denies: polyuria, polydipsia, tired all the time, cold intolerance, excessive sweating, flushing or heat intolerance Humberto/Lymph: Denies: easy bruising or easy bleeding All/Imm: Denies: tongue swelling, facial swelling or acute wheezing Medications/Allergies Home Medications ?Medication ?Instructions ?Recorded ?Confirmed ?Last Taken ?Type citalopram 10 mg tablet 10 mg PO DAILY 09/22/19 06/27/24 06/26/24 History clopidogrel 75 mg tablet 75 mg PO DAILY 09/22/19 06/27/24 06/26/24 History pregabalin 50 mg capsule 50 mg PO DAILY 09/22/19 06/27/24 06/26/24 History trazodone 50 mg tablet 50 mg PO BEDTIME PRN Sleep 09/22/19 06/27/24 05/17/23 History insulin regular human 100 unit/mL See Rx Instructions .Route .COMPLEX 05/18/23 06/27/24 06/26/24 History injection solution (Humulin R Regular U-100 Insulin) melatonin 3 mg tablet 3 mg PO BEDTIME 06/14/23 06/27/24 06/26/24 History rosuvastatin 10 mg tablet 10 mg PO BEDTIME 06/14/23 06/27/24 06/26/24 History fluticasone furoate 100 1 inh inhalation DAILY #60 ea 06/16/23 06/27/24 06/26/24 Rx mcg-vilanterol 25 mcg/dose inhalation powder (Breo Ellipta) insulin glargine 100 unit/mL (3 35 unit (0.35 mL) SUBCUT BIDWM #15 06/16/23 06/27/24 06/26/24 Rx mL) subcutaneous pen (Lantus mL Solostar U-100 Insulin) amiodarone 200 mg tablet (Pacerone) 200 mg PO DAILY #60 tabs 06/30/23 06/27/24 06/26/24 Rx bumetanide 2 mg tablet 2 mg PO BID #60 tabs 06/30/23 06/27/24 06/26/24 Rx metoprolol tartrate 50 mg tablet 75 mg (1.5 x 50 mg) PO BID #75 tabs 06/30/23 06/27/24 06/26/24 Rx aspirin 81 mg tablet,delayed 81 mg PO DAILY 06/27/24 06/27/24 06/26/24 History release fluticasone propionate 50 2 spray intranasal DAILY 06/27/24 06/27/24 06/26/24 History mcg/actuation nasal spray,suspension isosorbide mononitrate 30 mg 30 mg PO QAM 06/27/24 06/27/24 06/26/24 History tablet,extended release 24 hr nitroglycerin 0.4 mg sublingual See Rx Instructions .Route .COMPLEX 06/27/24 06/27/24 Unknown History tablet pantoprazole 20 mg tablet,delayed 20 mg PO DAILY 06/27/24 06/27/24 06/26/24 History release Allergies Allergy/AdvReac Type Severity Reaction Status Date / Time albuterol Allergy Intermediate unknown Verified 06/26/24 18:22 atorvastatin (From Lipitor) Allergy Intermediate ALGY-Joint Verified 06/26/24 18:22 Pain gabapentin Allergy Intermediate unknown Verified 06/26/24 18:22 PFSH Acute PFSH: Medical History Atrial fibrillation History of nonmelanoma skin cancer Heart attack Hypertension Hyperlipidemia Diabetes COPD (chronic obstructive pulmonary disease) Amputated right leg Surgical History Status post below-knee amputation of left lower extremity Family History Other Cancer Diabetes Hypertension Social History Smoking and tobacco/nicotine status: current every day tobacco/nicotine user Vitals/I&O/Wt Last Vital Signs Temp 97.9 F 06/26/24 18:06 Pulse 57 L 06/27/24 16:08 Resp 16 06/27/24 16:08 BP 133/53 06/27/24 16:08 Pulse Ox 96 06/27/24 16:08 O2 Del Method Nasal Cannula 06/27/24 16:08 O2 Flow Rate 10 06/27/24 15:54 FiO2 45 06/27/24 15:09 06/27/24 06/27/24 06/27/24 06:59 14:59 22:59 Intake Total 50 / 50 Balance 50 / 50 Weight last 48 hrs Weight 90.718 kg Physical Exam Narrative: General: No acute distress, AO x3, dehydrated, chronically sick appearing, on full facemask BiPAP HEENT: PERRLA, pupils bilaterally equal and reactive Chest: Bilateral bronchial breath sounds all over lung martin with occasional rhonchi, coarse crackles present bilateral lower zone left more than right CVS: S1-S2 irregularly irregular, no murmurs, no tachycardia, no gallops, no rubs Abdomen: Soft, nontender, no organomegaly, bowel sounds present Neuro: No focal deficits, no facial deformity, AO x3, power 5/5 in all limbs Urinary Catheter Management: Shaw: Cath Placed During This Visit: yes Urinary Catheter Date of Insertion: 06/27/24 Urinary Catheter Time of Insertion: 15:25 Data 06/27/24 15:08 06/27/24 15:08 Micro: Microbiology 06/26/24 22:23 Blood Culture - Preliminary Blood SPECIMEN COLLECTED 06/26/24 22:22 Blood Culture - Preliminary Blood SPECIMEN COLLECTED A&P Assessment and plan (1) Sepsis: (2) Acute and chronic respiratory failure with hypoxia: (3) Hypercapnic respiratory failure: (4) COPD with acute exacerbation: (5) Pneumonia: (6) Ischemic cardiomyopathy: Last echocardiogram from 2023 showed an EF of 30 to 35%, regional wall motion abnormality with hypokinesia of the lateral wall, global LV hypokinesia, mild to moderate MR, moderate aortic valve stenosis with mean valve gradient of 12.1. Currently patient dehydrated. Was on IV diuretics. Watch for fluid overload. (7) Acute kidney injury superimposed on CKD: (8) Congestive heart failure: (9) Atherosclerotic heart disease of [place] coronary artery with other forms of angina pectoris: (10) Atrial fibrillation: Qualifiers: Atrial fibrillation type: unspecified Qualified Code(s): I48.91 - Unspecified atrial fibrillation (11) Status post below-knee amputation of left lower extremity: Plan No labs done on 06/27. Check CBC, ABG, CMP, lactic acid, troponin cycle, urinalysis, procalcitonin. Sepsis with acute on chronic hypoxic and hypercapnic respiratory failure: SIRS: Tachycardic, Febrile, Leukocytosis Source: Pneumonia End organ damage: Acute kidney injury Lactic acid elevated. Patient did not receive full 30 mL/kg BW given concerns for congestive heart failure. Monitor blood pressures. Keep mean artery pressure 65 mmHg. Check blood culture, urinalysis, urine culture if needed, MRSA swab, trend procalcitonin. Check sputum culture. COVID-19/RSV/influenza negative. Empirically start patient on IV vancomycin and Zosyn for now. If MRSA swab is negative will discontinue vancomycin. Patient does have history of MRSA infection in the wound in the past. Check daily Vanco random levels given severe kidney disease. Acute on chronic hypoxic and hypercapnic respiratory failure: Repeat ABG. As per the family member it seems patient is mostly BiPAP dependent at home currently and is usually sleeping for 18-20 out of 20 4 hours a day. BiPAP nightly or as needed. Will try to wean BiPAP and placed on nasal cannula keeping saturation over 88%. Start on Solu-Medrol 125 mg stat followed by 40 mg every 6 hour. Pulmicort twice daily, DuoNeb every 6 hour. History of CAD: Denies any active chest pain. Check echocardiogram. Cycle troponin. Depending on the troponin levels will plan for full dose anticoagulation with heparin drip. Ischemic cardiomyopathy with history of congestive heart failure: Currently patient seems dehydrated. Start on NS at 75 cc/h while monitoring for fluid overload. Shaw catheter. Strict input output charting, daily weights. PAPITO on CKD: Baseline creatinine 1 year ago of 2.4. Currently 4. Concerns for uremia with BUN over 100. Patient seems dehydrated. Start on IV fluid as above. Monitor BMP daily. Monitor electrolytes. CT abdomen pelvis negative for obstructive nephropathy. Hypertension: Goal blood pressure less than 140/90 mmHg mean over 65. Continue with home dose of Imdur. Type 2 diabetes mellitus: Check A1c. Continue with home dose of Lantus 35 units twice daily. Sliding scale. A-fib: Currently rate controlled. Continue with amiodarone 200 mg oral daily, metoprolol 75 mg twice daily. Not on anticoagulation. CODE STATUS: Discussed in detail with patient and patient's spouse at bedside. We discussed unfortunately patient seems to have advanced COPD as he is currently 18 to 20 hours BiPAP dependent at home as per their conversation. Discussed if patient ends up on mechanical ventilator there is a high chance he would not come off the ventilator. Patient verbalized understanding. Wants to remain full code. Renal diabetic dialysis diet Protonix OPD prophylaxis PDMP PDMP Reviewed: Not Reviewed Attestations Medical Necessity Statement*: Admission for more than 2 midnights for management of acute on chronic hypoxic and hypercapnic respiratory failure, sepsis with concerns for pneumonia, PAPITO on CKD Critical Care Time: The high probability of a clinically significant, sudden or life threatening deterioration of the patient's [cardiac, pulmonary, renal] system(s) required my full and direct attention, intervention and personal management. The critical care time is as shown. This time is in addition to time spent performing any reported procedures but includes the following: [x] Data and vital sign review and interpretation [x] Patient assessment, examination and intervention [x] Documentation [x] Medication orders and management Critical Care Time (min): 80 Coding Level of Care Code Critical Care >/= 30 minutes Critical care time (in minutes): 80 The high probability of a clinically significant, sudden or life threatening deterioration, as referenced in this documentation, required my full and direct attention, intervention and personal management. The critical care time shown is in addition to time spent performing any reported separately billable procedures and includes the following: [x] Data and vital sign review and interpretation [x] Patient assessment, examination and intervention [x] Medication orders and management [x] Patient/Family updates as able [x] Care Coordination and Documentation. Other Coding Information This patient has a high probability of clinically significant, sudden or life threatening deterioration of the patient's (neurological/pulmonary/cardiac/renal/ID/endocrine) systems required my full, direct attention, the highest level of physician preparedness for urgent intervention and personal management. I managed/supervised life or organ supporting interventions that required frequent physician assessment. I devoted my full attention in the ICU to the direct care of this patient for the period of time indicated above. Time I spent with family or surrogate(s) is included only if the patient was incapable of providing necessary information or participating in decision making. This time includes the following services provided: Telemetry review Non- mechanical Ventilation Hemodynamic interpretation, assessment and management Review and interpretation of CXR Review and interpretation of lab values Review and interpretation of microbiologic data and culture results Review of medications and administration Review and interpretation of Nutrition requirements and management Discussion of management with other consultants and services Clinical update to family members Diagnoses Sepsis A41.9 Acute and chronic respiratory failure with hypoxia J96.21 Hypercapnic respiratory failure J96.92 COPD with acute exacerbation J44.1 Pneumonia J18.9 Ischemic cardiomyopathy I25.5 Acute kidney injury superimposed on CKD N17.9; N18.9 Congestive heart failure I50.9 Atherosclerotic heart disease of [place] coronary artery with other forms of angina pectoris I25.118 Atrial fibrillation, unspecified type I48.91 Atrial fibrillation type: unspecified Status post below-knee amputation of left lower extremity Z89.512
[2024-06-27] MEDS: vancomycin 1,500 MG/300 ML PIGGYBACK 200 MG IV (16:48)
--- NOTE | 2024-06-27 16:58 | ECG_ITS ---
[facility] Date: 2024-06[facility]27 Pat Name: David Monique Department: Room: Gender: Male Corrections Officer: : 1950 Requested By: Vu Deleon Order Number: [id number] Hannah MD: Cisco Conrad M.D. Measurements Intervals [place] Rate: 74 P: 0 [place]: 0 QRS: 44 QRSD: 134 T: 211 QT: 409 QTc: 456 Interpretive Statements ATRIAL FIBRILLATION WITH ABERRANT CONDUCTION OR VENTRICULAR PREMATURE COMPLEXES INTRAVENTRICULAR CONDUCTION DELAY [130+ ms QRS DURATION] Compared to ECG 06/27/2024 14:56:09 Ventricular premature complex(es) now present Aberrant conduction of supraventricular beat(s) now present Electronically Signed On 07-01-2024 19:44:40 PROGRAM MANAGEMENT ANALYST by Cisco Conrad M.D. [email or web address]
[2024-06-27] MEDS: heparin drip 25,000 UNIT/500 ML PREMIX 26 UNIT IV (17:33)
[2024-06-27] MEDS: heparin 5,000 unit/mL INJ 1 mL IVP (17:34)
[2024-06-27] MEDS: pantoprazole 40 mg SDV IVP (17:34)
[2024-06-27 18:37] LABS: Troponin 5 2HR 277.9 ng/L (0-15); Troponin 5 2HR Delta -14.1 ABS# (0-10)
[2024-06-27] MEDS: insulin lispro 100 unit/1 mL SUBCUT ×2 (19:05→23:10)
[2024-06-27 19:11] LABS: Bilirubin Urine Negative (Negative); Blood Urine 1+ (Negative); Glucose Urine UA Negative (Normal); Ketones Urine Negative (Negative); Leukocyte Esterase Urine 1+ (Negative); Nitrate Urine Negative (Negative); Protein Urine 1+ (Negative); Specific Gravity, Urine 1.012 (1.005-1.030); Urine Appearance Cloudy (CLEAR); Urine Color Yellow (Yellow)
[2024-06-27 19:34] LABS: Add Urine Microscopic? YES; Bacteria Urine 1+ /hpf; RBC Urine RARE /hpf (0-2); UA Manual Slide Review YES
[2024-06-27 19:35] LABS: Add Urine Culture? No; Coarse Granular Casts Urine 0-4 /lpf
--- NOTE | 2024-06-27 20:59 | ECG_ITS ---
[facility] Date: 2024-06-29 Pat Name: David Monique Department: Room: 111 Gender: Male Relay Assembler: : 1950 Requested By: Isidro Jc Order Number: [id number] Hannah MD: Cisco Conrad M.D. Measurements Intervals [place] Rate: 39 P: -72 MS: 182 QRS: 48 QRSD: 129 T: 156 QT: 510 QTc: 415 Interpretive Statements SINUS BRADYCARDIA LEFT VENTRICULAR HYPERTROPHY AND ST-T CHANGE [VOLTAGE CRITERIA PLUS ST/T ABNORMALITY] Compared to ECG 06/27/2024 16:43:07 Left ventricular hypertrophy now present ST (T wave) deviation now present Atrial fibrillation no longer present Ventricular premature complex(es) no longer present Aberrant conduction of supraventricular beat(s) no longer present Intraventricular conduction delay no longer present Electronically Signed On 07-01-2024 19:39:26 WHISKEY FILTERER by Cisco Conrad M.D. [email or web address]
[2024-06-27 21:03] LABS: Estmated Average Glucose 143; Hemoglobin A1C 6.6 % (4.0-6.0)
[2024-06-27 21:27] LABS: Troponin 5 6HR Delta -25.7 ng/L (0-12)
[2024-06-27 21:29] LABS: Anion Gap 23.4 (5-19); Calcium 9.6 mg/dL (8.5-10.5); Carbon Dioxide 32 mmol/L (22-29); Chloride 88 mmol/L (98-107); Creatinine Clr Calc Pharmacy 18.8826; Glucose 254 mg/dL (65-115); Osmolality Calculated 334 mOsm/kg (285-295); Potassium 3.4 mmol/L (3.5-5.1); Sodium 140 mmol/L (136-145); Thyroid Stimulating Hormone 1.02 uIU/mL (0.27-4.20); Troponin 5 6HR 266.3 ng/L (0-15)
[2024-06-27 21:32] LABS: Blood Urea Nitrogen 111 mg/dL (8-23)
--- NOTE | 2024-06-27 22:42 | PC.NURSE ---
Patient states that the year is 2023, then a few seconds later, corrects hisself and says 2024, but otherwise is oriented. Patient states he does not know when/if he has had his vaccines. Unable to complete immunization assessment at this time.
--- NOTE | 2024-06-27 22:47 | PC.NURSE ---
Patient arrive to ICU from the ED at approximately 22:15. Medications are given late due to patient not being in room yet.
[2024-06-27] MEDS: atorvastatin 40 mg Tablet PO (22:58)
[2024-06-27] MEDS: metoprolol tartrate 50 mg Tablet 75 MG PO (22:58)
[2024-06-27] MEDS: docusate sodium 100 mg Capsule PO (22:58)
[2024-06-27] MEDS: insulin glargine 100 units/1 mL 35 UNIT SUBCUT (23:10)
[2024-06-28] VITALS (24 sets, daily range): BP systolic 118–156; BP diastolic 29–85; PULSE 44–68; RESP 11–24; TEMP 36.6; O2SAT 90–100
[2024-06-28 00:09] LABS: Partial Thromboplastin Time 89.3 SECONDS (23.9-36.7)
[2024-06-28] MEDS: sodium chloride 0.9% 1,000 ML 100 ML IV ×3 (02:13→22:22)
[2024-06-28] MEDS: piperacillin-tazobactam 3.375 GM in sodium chloride 0.9% (plus) 50 ML IV ×2 (02:48→16:29)
--- NOTE | 2024-06-28 04:32 | PC.NURSE ---
Since arriving in the ICU, Patient was on Bipap from 23:45 to 02:00 and 02:55 to 04:00. Otherwise patient, has been on 6 liters nasal cannula.
[2024-06-28 06:38] LABS: Basophils % 0.1 %; Hematocrit 32.5 % (37-53); Lymphocytes # 0.2 10^3/uL (0.8-4.8); Lymphocytes % 2.4 %; Mean Corpuscular Hemoglobin 30.3 pg (27-33); Mean Corpuscular Volume 94.8 fl (82-101); Monocytes # 0.1 10^3/uL (0.2-0.9); Monocytes % 1.1 %; Neutrophils # 7.53 10^3/uL (1.8-7.7); Nucleated Red Blood Cells % 0 %; Platelet Count 231 10^3/cmm (157-399); Red Blood Count 3.43 10^6/uL (3.85-5.65); White Blood Count 7.85 10^3/uL (3.29-11.43)
[2024-06-28 06:54] LABS: Vancomycin Random 17.4 ug/mL (20.0-40.0)
[2024-06-28 07:12] LABS: Alanine Aminotransferase 381 U/L (0-41); Albumin Level 3.2 g/dL (3.5-5.2); Alkaline Phosphatase 90 U/L (40-130); Aspartate Amino Transferase 151 U/L (0-40); Calcium 9.1 mg/dL (8.5-10.5); Carbon Dioxide 32 mmol/L (22-29); Chloride 91 mmol/L (98-107); Creatinine Clr Calc Pharmacy 20.3581; Globulin 3.1 g/dL (1.3-4.6); Glucose 247 mg/dL (65-115); Magnesium 2.2 mg/dL (1.7-2.3); Osmolality Calculated 333 mOsm/kg (285-295); Phosphorus 4.2 mg/dL (2.5-4.5); Sodium 140 mmol/L (136-145); Total Protein 6.3 g/dL (6.6-8.7)
[2024-06-28 07:13] LABS: Chol HDL Ratio 2.09 mg/dL (1.0-5.00); Cholesterol 71 mg/dL (0-200); HDL Cholesterol 34 mg/dL (60-100); LDL Cholesterol Calculated 23 mg/dL (50-129); LDL HDL Ratio 0.68 RATIO (0.00-3.22); Triglycerides 71 mg/dL (0-150)
[2024-06-28 07:23] LABS: Blood Urea Nitrogen 110 mg/dL (8-23)
[2024-06-28 07:35] LABS: Procalcitonin 1.97 ng/mL (0-0.5)
[2024-06-28] MEDS: amiodarone 200 mg Tablet PO (08:01)
[2024-06-28] MEDS: isosorbide mononitrate ER 30 mg Tablet PO (08:01)
[2024-06-28] MEDS: metoprolol tartrate 50 mg Tablet 75 MG PO (08:01)
[2024-06-28] MEDS: citalopram 20 mg Tablet 10 MG PO (08:02)
[2024-06-28] MEDS: clopidogrel 75 mg Tablet PO (08:02)
[2024-06-28] MEDS: docusate sodium 100 mg Capsule PO ×2 (08:02→17:50)
[2024-06-28] MEDS: pregabalin 50 mg Capsule PO (08:03)
[2024-06-28] MEDS: budesonide 0.5 mg/2 mL Neb INHALATION ×2 (08:03→20:17)
[2024-06-28] MEDS: aspirin 81 mg EC Tablet PO (08:03)
[2024-06-28] MEDS: insulin lispro 100 unit/1 mL SUBCUT ×3 (08:04→17:51)
[2024-06-28] MEDS: insulin glargine 100 units/1 mL 35 UNIT SUBCUT ×2 (08:05→17:51)
[2024-06-28] MEDS: fluticasone nasal spray 16gm Btl 2 SPRAY INTRANASAL (08:06)
[2024-06-28] MEDS: ondansetron 2 mg/ML SDV 2 mL 4 MG IVP (08:27)
[2024-06-28 09:13] LABS: Glucose Point of Care 262 mg/dL (70-110)
[2024-06-28] MEDS: potassium chloride ER 20 mEq Tablet 40 MEQ PO (09:44)
--- NOTE | 2024-06-28 10:06 | PC.NURSE ---
Dr. Jc in room with patient. Discussion about ventilator and dialysis. Patient is currently agreeable to both if needed.
[2024-06-28 12:58] LABS: Glucose Point of Care 244 mg/dL (70-110)
--- NOTE | 2024-06-28 13:28 | PM.CONSULT ---
Providers/Reason For Consult Consulting Physician/Specialty*: nephrology Reason for Consult*: daniel Requesting Physician: DR Jc Attending Physician: Isidro Jc MD Primary Care Provider: Mag Watters History of Present Illness History of Present Illness David Monique is a 74 year old male, with a history of COPD, chronic respiratory failure, systolic chf, A-fib, CAD, bilateral AKA, ckd 4, who presented to the ER on 06/26/24 with a 4 day history of progressively worsening shortness of breath. Per the medical record, patient usually spends 18-20 hours daily sleeping in his bed on BiPAP. However, over the last 1-2 weeks, he has been less responsive and has been having more sob for the last 3 to 4 days with poor appetite. His work-up revealed hgb 10.4, sodium 140, potassium 3.0, chloride 91, bicarb 32, bun 110, creatinine 3.5. Nephrology was consulted for further management of his daniel. Review of Systems General: Reports: 10 or more systems reviewed and unremarkable except in HPI and below Const: Reports: fatigue and change in sleep pattern Card: Reports: edema and dyspnea on exertion Resp: Reports: dyspnea Medications/Allergies Home Medications ?Medication ?Instructions ?Recorded ?Confirmed ?Last Taken ?Type citalopram 10 mg tablet 10 mg PO DAILY 09/22/19 06/27/24 06/26/24 History clopidogrel 75 mg tablet 75 mg PO DAILY 09/22/19 06/27/24 06/26/24 History pregabalin 50 mg capsule 50 mg PO DAILY 09/22/19 06/27/24 06/26/24 History trazodone 50 mg tablet 50 mg PO BEDTIME PRN Sleep 09/22/19 06/27/24 05/17/23 History insulin regular human 100 unit/mL See Rx Instructions .Route .COMPLEX 05/18/23 06/27/24 06/26/24 History injection solution (Humulin R Regular U-100 Insulin) melatonin 3 mg tablet 3 mg PO BEDTIME 06/14/23 06/27/24 06/26/24 History rosuvastatin 10 mg tablet 10 mg PO BEDTIME 06/14/23 06/27/24 06/26/24 History fluticasone furoate 100 1 inh inhalation DAILY #60 ea 06/16/23 06/27/24 06/26/24 Rx mcg-vilanterol 25 mcg/dose inhalation powder (Breo Ellipta) insulin glargine 100 unit/mL (3 35 unit (0.35 mL) SUBCUT BIDWM #15 06/16/23 06/27/24 06/26/24 Rx mL) subcutaneous pen (Lantus mL Solostar U-100 Insulin) amiodarone 200 mg tablet ([place]one) 200 mg PO DAILY #60 tabs 06/30/23 06/27/24 06/26/24 Rx bumetanide 2 mg tablet 2 mg PO BID #60 tabs 06/30/23 06/27/24 06/26/24 Rx metoprolol tartrate 50 mg tablet 75 mg (1.5 x 50 mg) PO BID #75 tabs 06/30/23 06/27/24 06/26/24 Rx aspirin 81 mg tablet,delayed 81 mg PO DAILY 06/27/24 06/27/24 06/26/24 History release fluticasone propionate 50 2 spray intranasal DAILY 06/27/24 06/27/24 06/26/24 History mcg/actuation nasal spray,suspension isosorbide mononitrate 30 mg 30 mg PO QAM 06/27/24 06/27/24 06/26/24 History tablet,extended release 24 hr nitroglycerin 0.4 mg sublingual See Rx Instructions .Route .COMPLEX 06/27/24 06/27/24 Unknown History tablet pantoprazole 20 mg tablet,delayed 20 mg PO DAILY 06/27/24 06/27/24 06/26/24 History release Allergies Allergy/AdvReac Type Severity Reaction Status Date / Time albuterol Allergy Intermediate unknown Verified 06/26/24 18:22 atorvastatin (From Lipitor) Allergy Intermediate ALGY-Joint Verified 06/26/24 18:22 Pain gabapentin Allergy Intermediate unknown Verified 06/26/24 18:22 Current Medications Generic Name Dose Route Start Last Admin Trade Name Freq PRN Reason Stop Dose Admin Amiodarone HCl 200 mg 06/28/24 09:00 06/28/24 08:01 Amiodarone 200 Mg Tablet PO 200 mg DAILY BON Administration Aspirin 81 mg 06/28/24 09:00 06/28/24 08:03 Aspirin 81 Mg Ec Tablet PO 81 mg DAILY BON Administration Atorvastatin Calcium 40 mg 06/27/24 21:00 06/27/24 22:58 Atorvastatin 40 Mg Tablet PO 40 mg BEDTIME BON Administration Budesonide 0.5 mg 06/27/24 20:00 06/28/24 08:03 Budesonide 0.5 Mg/2 Ml Neb INHALATION 0.5 mg BID.RESPIRATORY BON Administration Citalopram Hydrobromide 10 mg 06/28/24 09:00 06/28/24 08:02 Citalopram 20 Mg Tablet PO 10 mg DAILY BON Administration Clopidogrel Bisulfate 75 mg 06/28/24 09:00 06/28/24 08:02 Clopidogrel 75 Mg Tablet PO 75 mg DAILY BON Administration Docusate Sodium 100 mg 06/27/24 20:38 06/28/24 08:02 Docusate Sodium 100 Mg Capsule PO 100 mg BID BON Administration Fluticasone Propionate 2 spray 06/28/24 09:00 06/28/24 08:06 Fluticasone Nasal [place] 16gm Btl INTRANASAL 2 spray DAILY BON Administration Piperacillin Sod/Tazobactam 50 mls @ 12.5 mls/hr 06/27/24 15:30 06/28/24 05:53 Sod 3.375 gm/ Sodium Chloride IV Infused Q12H BON Infusion Protocol Sodium Chloride 1,000 mls @ 100 mls/hr 06/27/24 16:15 06/28/24 12:55 Sodium Chloride 0.9% IV 100 mls/hr .Q10H BON Administration Heparin Sodium/Sodium Chloride 25,000 unit in 500 mls @ 0 mls/hr 06/27/24 16:34 06/28/24 00:16 Heparin Drip IV 12.13 unit/kg/hr CONT BON 22 mls/hr Titration Protocol Per Protocol Insulin Glargine 35 unit 06/27/24 21:00 06/28/24 08:05 Insulin Glargine 100 Units/1 Ml SUBCUT 35 unit BIDWM BON Administration Insulin Human Lispro 0 unit 06/27/24 18:00 06/28/24 13:00 Insulin Lispro 100 Unit/1 Ml SUBCUT 6 unit WM&BEDTIME BON Administration Protocol Isosorbide Mononitrate 30 mg 06/28/24 09:00 06/28/24 08:01 Isosorbide Mononitrate Er 30 Mg Tablet PO 30 mg DAILY BON Administration Melatonin 3 mg 06/27/24 21:00 06/27/24 22:53 Melatonin 3 Mg Tablet PO Not Given BEDTIME BON Metoprolol Tartrate 75 mg 06/27/24 20:38 06/28/24 08:01 Metoprolol Tartrate 50 Mg Tablet PO 75 mg BID BON Administration Ondansetron HCl 4 mg 06/27/24 20:38 06/28/24 08:27 Ondansetron 2 Mg/Ml Sdv 2 Ml IVP 4 mg Q6H PRN Administration vomiting, or N/V if npo Pantoprazole Sodium 40 mg 06/27/24 16:34 06/27/24 17:34 Pantoprazole 40 Mg Sdv IVP 40 mg Q24H BON Administration Pregabalin 50 mg 06/28/24 09:00 06/28/24 08:03 Pregabalin 50 Mg Capsule PO 50 mg DAILY BON Administration PFSH Acute PFSH: Medical History Atrial fibrillation History of nonmelanoma skin cancer Heart attack Hypertension Hyperlipidemia Diabetes COPD (chronic obstructive pulmonary disease) Amputated right leg Surgical History Status post below-knee amputation of left lower extremity Family History Other Cancer Diabetes Hypertension Social History Smoking and tobacco/nicotine status: current every day tobacco/nicotine user Vitals/I&O/Wt Last Vital Signs Temp 98.0 F 06/27/24 22:46 Pulse 57 L 06/28/24 13:00 Resp 20 H 06/28/24 13:00 BP 131/64 06/28/24 13:00 Pulse Ox 96 06/28/24 13:00 O2 Del Method Nasal Cannula 06/28/24 13:00 O2 Flow Rate 4 06/28/24 13:00 FiO2 45 06/28/24 01:46 06/27/24 06/28/24 06/28/24 22:59 06:59 14:59 Intake Total 50 / 50 1224.633 / 9530.751 3409 / 1720 Output Total 900 / 900 425 / 1325 Balance -850 / -850 799.633 / -50.367 1720 / 1720 Weight last 48 hrs Weight 84 kg Weight 81.5 kg Weight 90.718 kg Physical Exam Const: COMMON NORMALS: no acute distress, average body habitus, patient oriented x3 and no limitations HENMT: COMMON NORMALS: normocephalic and atraumatic HEAD & SCALP: normocephalic and atraumatic Eye: COMMON NORMALS: EOMs intact bilaterally and no scleral icterus Neck/C-Spine: COMMON NORMALS: full ROM and no JVD Resp: EFFORT & INSPECTION: Yes decreased respiratory effort AUSCULTATION: diminished lung sounds Cardio: COMMON NORMALS: no JVD, regular rate, regular rhythm, S1 normal heart sound present and S2 normal heart sound present RATE: regular rate RHYTHM: regular rhythm HEART SOUNDS: S1 normal heart sound present and S2 normal heart sound present GI: COMMON NORMALS: Soft to palpation and non-tender PALPATION: Yes Soft to palpation Extremity: COMMON NORMALS: no pedal edema Neuro: COMMON NORMALS: patient oriented x3 Psych: COMMON NORMALS: mental status grossly normal Skin: COMMON NORMALS: no rashes or lesions noted GENERAL SKIN EXAM: no rashes or lesions noted Urinary Catheter Management: Shaw: Cath Placed During This Visit: yes Reason for Continuing Indwelling Catheter: Accurate Measurement of Urinary Output in Critically Ill Patients Urinary Catheter Date of Insertion: 06/27/24 Urinary Catheter Time of Insertion: 15:25 Data 06/28/24 06:25 06/28/24 06:25 Micro: Microbiology 06/26/24 22:23 Blood Culture - Preliminary Blood SPECIMEN COLLECTED 06/26/24 22:22 Blood Culture - Preliminary Blood SPECIMEN COLLECTED A&P Assessment and plan (1) Acute kidney injury superimposed on CKD: DANIEL superimposed on ckd stage 4- he has significant ckd at baseline likely due to dm and hypertensive kidnry disease +/- cardio-renal syndrome. The differential for his daniel includes ore-renal azotemia from poor po intake vs cardio-renal synrome. he is non-oliguric with stable lytes. he has significant azotemia, but he does not have uremic symptoms. There is no acute indication for renal replacement therapy at this time. - i will check urine lytes acute on chronic hypoxic and hypercapneic respiratory failure- due to copd exacerbation. further managment per the primary service chronic systoic chf ef 30%- his voluem status is stable. cont ivf afib- hr is controlled essential hypertension- bp is stable dm2 cad pvd s/p bilateral aka. PDMP PDMP Reviewed: Not Reviewed Consult Attestations Medical Necessity Statement: daniel Time Spent in Patient Care: 50 minutes Coding Level of Care Code Acute Code for Chg Fwd Diagnoses Acute kidney injury superimposed on CKD N17.9; N18.9
[2024-06-28 13:37] LABS: Partial Thromboplastin Time 60.2 SECONDS (23.9-36.7)
[2024-06-28] MEDS: heparin drip 25,000 UNIT/500 ML PREMIX 22 UNIT IV (15:02)
--- NOTE | 2024-06-28 15:12 | PM.PN ---
Subjective Subjective: No acute events overnight. Today morning on examination patient sitting comfortably in bed on nasal cannula 6 L. Saturating more than 95%. Was transition to 4 L and saturation were maintained over 90%. Otherwise patient has remained hemodynamically stable and afebrile. Appreciate urine output. Vitals/I&O/Wt Last Vital Signs Temp 98.0 F 06/27/24 22:46 Pulse 58 L 06/28/24 14:00 Resp 20 H 06/28/24 13:00 BP 131/64 06/28/24 13:00 Pulse Ox 96 06/28/24 13:00 O2 Del Method Nasal Cannula 06/28/24 13:00 O2 Flow Rate 4 06/28/24 13:00 FiO2 45 06/28/24 01:46 06/28/24 06/28/24 06/28/24 06:59 14:59 22:59 Intake Total 1224.633 / 6968.738 5095 / 1720 324.867 / 2044.867 Output Total 425 / 1325 450 / 450 Balance 799.633 / -50.367 1270 / 1270 324.867 / 1594.867 Weight last 48 hrs Weight 84 kg Weight 81.5 kg Weight 90.718 kg Physical Exam Narrative: General: No acute distress, AO x3, dehydrated, chronically sick appearing, on nasal cannula on 6 L turn down to 4 L. HEENT: PERRLA, pupils bilaterally equal and reactive Chest: Bilateral bronchial breath sounds all over lung martin with occasional rhonchi, coarse crackles present bilateral lower zone left more than right CVS: S1-S2 irregularly irregular, no murmurs, no tachycardia, no gallops, no rubs Abdomen: Soft, nontender, no organomegaly, bowel sounds present Neuro: No focal deficits, no facial deformity, AO x3, power 5/5 in all limbs Urinary Catheter Management: Shaw: Cath Placed During This Visit: yes Reason for Continuing Indwelling Catheter: Accurate Measurement of Urinary Output in Critically Ill Patients Urinary Catheter Date of Insertion: 06/27/24 Urinary Catheter Time of Insertion: 15:25 Data 06/28/24 06:25 06/28/24 06:25 Micro: Microbiology 06/26/24 22:23 Blood Culture - Preliminary Blood NEGATIVE TO DATE 06/26/24 22:22 Blood Culture - Preliminary Blood NEGATIVE TO DATE A&P Assessment and plan (1) Sepsis: (2) Acute and chronic respiratory failure with hypoxia: (3) Hypercapnic respiratory failure: (4) COPD with acute exacerbation: (5) Pneumonia: (6) Ischemic cardiomyopathy: (7) Acute kidney injury superimposed on CKD: (8) Atherosclerotic heart disease of [place] coronary artery with other forms of angina pectoris: (9) Atrial fibrillation: Qualifiers: Atrial fibrillation type: unspecified Qualified Code(s): I48.91 - Unspecified atrial fibrillation (10) Status post below-knee amputation of left lower extremity: (11) Acute on chronic diastolic (congestive) heart failure: (12) Elevated troponin: Plan Sepsis with acute on chronic hypoxic and hypercapnic respiratory failure: SIRS: Tachycardic, Febrile, Leukocytosis Source: Pneumonia End organ damage: Acute kidney injury Lactic acid elevated. Patient did not receive full 30 mL/kg BW given concerns for congestive heart failure. Monitor blood pressures. Keep mean artery pressure 65 mmHg. Follow-up blood culture, appreciate urinalysis, trend procalcitonin. Check sputum culture. COVID-19/RSV/influenza negative. Empirically start patient on IV vancomycin and Zosyn for now. Patient does have history of MRSA infection in the wound in the past. Check daily Vanco random levels given severe kidney disease. Acute on chronic hypoxic and hypercapnic respiratory failure: As per the family member it seems patient is mostly BiPAP dependent at home currently and is usually sleeping for 18-20 out of 20 4 hours a day. BiPAP nightly or as needed. Wean nasal cannula oxygen supplementation keeping saturation over 88%. Solu-Medrol 40 mg every 12 hour. Pulmicort twice daily, DuoNeb every 6 hour. History of CAD: Denies any active chest pain. Repeat echocardiogram shows an EF of 55% with grade 3 diastolic dysfunction, moderate to severe MR, severe aortic valve stenosis with mean gradient of 19.9 mmHg, aortic valve area of 0.42. Improvement in EF from before. Cycle troponin negative. Baseline troponin more than 200. Could be in setting of type II ND versus elevated troponin. For now we will continue with heparin drip for next 24 hours. Monitor hemoglobin. Patient remains chest pain-free. Continue with home dose of aspirin, Plavix, statin, metoprolol. Ischemic cardiomyopathy with history of congestive heart failure: Systolic congestive heart failure resolved. Continues to have severe diastolic dysfunction. Currently patient seems dehydrated. Continue with NS at 75 cc/h while monitoring for fluid overload. Shaw catheter. Strict input output charting, daily weights. PAPITO on CKD: Baseline creatinine 1 year ago of 2.4. Continues to have elevated BUN. Slight to movement and renal function down to 3.5. Consult nephrology for further recommendations. Medical reconciliation done for nephrotoxic drugs. Patient seems dehydrated. Continue with IV fluids. Monitor BMP daily. Monitor electrolytes. CT abdomen pelvis negative for obstructive nephropathy. Check urine lites. Repeat BMP in afternoon. Appropriate urine output. Hypokalemia: Replace with 40 mg of oral potassium. Monitor in afternoon. Hypertension: Goal blood pressure less than 140/90 mmHg mean over 65. Continue with home dose of Imdur. Decrease baseline dose of metoprolol to 50 mg twice daily given bradycardia. Type 2 diabetes mellitus: A1c of 6.6.. Continue with home dose of Lantus 35 units twice daily. Sliding scale. A-fib: Currently rate controlled. Continue with amiodarone 200 mg oral daily, having bradycardia. Decrease metoprolol to 50 mg twice daily. Not on anticoagulation. CODE STATUS: Discussed in detail with patient and patient's spouse at bedside. We discussed unfortunately patient seems to have advanced COPD as he is currently 18 to 20 hours BiPAP dependent at home as per their conversation. Discussed if patient ends up on mechanical ventilator there is a high chance he would not come off the ventilator. Confirmed CODE STATUS again with the patient today once he is off of BiPAP. He wants to remain full code. Renal diabetic dialysis diet [facility] PD[facility] PDMP Reviewed: Not Reviewed Attestations Medical Necessity Statement*: Requires further hospitalization for management of acute on chronic hypoxic respiratory failure in setting of COPD exacerbation, pneumonia, PAPITO and CKD, diastolic congestive heart failure Diagnoses Sepsis A41.9 Acute and chronic respiratory failure with hypoxia J96.21 Hypercapnic respiratory failure J96.92 COPD with acute exacerbation J44.1 Pneumonia J18.9 Ischemic cardiomyopathy I25.5 Acute kidney injury superimposed on CKD N17.9; N18.9 Atherosclerotic heart disease of [place] coronary artery with other forms of angina pectoris I25.118 Atrial fibrillation, unspecified type I48.91 Atrial fibrillation type: unspecified Status post below-knee amputation of left lower extremity Z89.512 Acute on chronic diastolic (congestive) heart failure I50.33 Elevated troponin R79.89
[2024-06-28 16:02] LABS: Carbon Dioxide 31 mmol/L (22-29); Chloride 92 mmol/L (98-107); Creatinine Clr Calc Pharmacy 20.9569; Glucose 189 mg/dL (65-115); Sodium 137 mmol/L (136-145)
[2024-06-28 16:15] LABS: Vancomycin Trough 12.3 ug/mL (10-15)
[2024-06-28 16:18] LABS: Anion Gap 17.5 (5-19); Osmolality Calculated 327 mOsm/kg (285-295); Potassium 3.5 mmol/L (3.5-5.1)
--- NOTE | 2024-06-28 16:22 | PC.NURSE ---
Report called to COOKIE Arreaga., CSU
[2024-06-28] MEDS: methylPREDNISolone sod succ 40 mg/mL INJ IVP (16:28)
[2024-06-28] MEDS: pantoprazole 40 mg SDV IVP (16:29)
[2024-06-28 16:32] LABS: Blood Urea Nitrogen 120 mg/dL (8-23)
[2024-06-28 16:41] LABS: Creatinine Urine, Random 87 mg/dL (39-259)
[2024-06-28 16:43] LABS: Urine Random Sodium 14 mmol/L
--- NOTE | 2024-06-28 17:03 | PC.NURSE ---
Patient and belongings moved to U 111-1 via bed. Patient's called and notified.
[2024-06-28 17:21] LABS: Glucose Point of Care 270 mg/dL (70-110)
[2024-06-28] MEDS: vancomycin 500 MG in sodium chloride 0.9% (plus) 100 ML 200 MG IV (17:41)
[2024-06-28] MEDS: metoprolol tartrate 50 mg Tablet PO (17:50)
[2024-06-28] MEDS: morphine 4 mg/mL SDV 1 mL 2 MG IVP (18:40)
--- NOTE | 2024-06-28 19:12 | PC.NURSE ---
received from icu,in to room 111-1 via bed at 1700.report received.pt is oriented x 3.denies pain at present.sb (50's) on monitor.metoprolol [address] paul contacted and he ordered to give metoprolol as dose had been decreased from a.m. dose.pt took meds w/o diff.oriented to room environment.instructed to notify staff for any pain,or for any needs/concerns.pt verb understanding of instructions
[2024-06-28] MEDS: magnesium hydroxide 30 mL UDC PO (19:54)
[2024-06-28] MEDS: MELATONIN 3 MG TABLET PO (19:54)
[2024-06-28] MEDS: atorvastatin 40 mg Tablet PO (19:54)
[2024-06-28 20:35] LABS: Partial Thromboplastin Time 64.5 SECONDS (23.9-36.7)
[2024-06-28 21:03] LABS: Glucose Point of Care 82 mg/dL (70-110)
[2024-06-29] VITALS (28 sets, daily range): BP systolic 101–138; BP diastolic 46–89; PULSE 38–74; RESP 12–26; TEMP 36.4–36.9; O2SAT 88–100
[2024-06-29] MEDS: methylPREDNISolone sod succ 40 mg/mL INJ IVP ×2 (02:19→13:01)
[2024-06-29] MEDS: piperacillin-tazobactam 3.375 GM in sodium chloride 0.9% (plus) 50 ML IV ×2 (02:20→15:37)
[2024-06-29 02:23] LABS: Basophils % 0.1 %; Hematocrit 29.2 % (37-53); Lymphocytes # 0.3 10^3/uL (0.8-4.8); Lymphocytes % 2.5 %; Mean Corpuscular HGB Conc 30.8 g/dL (30-55); Mean Corpuscular Hemoglobin 30.2 pg (27-33); Mean Platelet Volume 11.2 fL (7.4-10.4); Monocytes # 0.3 10^3/uL (0.2-0.9); Monocytes % 2.3 %; Neutrophils # 11.64 10^3/uL (1.8-7.7); Neutrophils % 94.7 %; Nucleated Red Blood Cells % 0 %; Platelet Count 229 10^3/cmm (157-399); Red Blood Count 2.98 10^6/uL (3.85-5.65); White Blood Count 12.29 10^3/uL (3.29-11.43)
[2024-06-29 03:05] LABS: Partial Thromboplastin Time 71.7 SECONDS (23.9-36.7); Vancomycin Random 18.3 ug/mL (20.0-40.0)
[2024-06-29 03:11] LABS: Alanine Aminotransferase 381 U/L (0-41); Albumin Level 3.3 g/dL (3.5-5.2); Alkaline Phosphatase 75 U/L (40-130); Aspartate Amino Transferase 161 U/L (0-40); Calcium 9.1 mg/dL (8.5-10.5); Carbon Dioxide 33 mmol/L (22-29); Chloride 95 mmol/L (98-107); Creatinine Clr Calc Pharmacy 17.8133; Globulin 2.4 g/dL (1.3-4.6); Glucose 79 mg/dL (65-115); Magnesium 2.3 mg/dL (1.7-2.3); Sodium 141 mmol/L (136-145); Total Bilirubin 0.8 mg/dL (0.15-1.2); Total Protein 5.7 g/dL (6.6-8.7)
[2024-06-29 03:17] LABS: Osmolality Calculated 329 mOsm/kg (285-295)
[2024-06-29 03:19] LABS: Blood Urea Nitrogen 120 mg/dL (8-23)
[2024-06-29 06:24] LABS: Glucose Point of Care 91 mg/dL (70-110)
[2024-06-29] MEDS: budesonide 0.5 mg/2 mL Neb INHALATION ×2 (07:30→19:48)
[2024-06-29] MEDS: sodium chloride 0.9% 1,000 ML 100 ML IV ×2 (08:46→18:06)
[2024-06-29] MEDS: citalopram 20 mg Tablet 10 MG PO (08:50)
[2024-06-29] MEDS: docusate sodium 100 mg Capsule PO ×2 (08:50→18:05)
[2024-06-29] MEDS: pregabalin 50 mg Capsule PO (08:50)
[2024-06-29] MEDS: aspirin 81 mg EC Tablet PO (08:50)
[2024-06-29] MEDS: isosorbide mononitrate ER 30 mg Tablet PO (08:50)
[2024-06-29] MEDS: insulin glargine 100 units/1 mL 35 UNIT SUBCUT (08:50)
[2024-06-29] MEDS: amiodarone 200 mg Tablet PO (08:50)
[2024-06-29] MEDS: clopidogrel 75 mg Tablet PO (08:50)
--- NOTE | 2024-06-29 10:06 | ECG_ITS ---
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 Measurements Intervals [place] Rate: 43 P: -52 WI: 180 QRS: 51 QRSD: 133 T: 164 QT: 489 QTc: 414 Interpretive Statements JUNCTIONAL BRADYCARDIA INTRAVENTRICULAR CONDUCTION DELAY [130+ ms QRS DURATION] Compared to ECG 06/29/2024 09:37:58 Intraventricular conduction delay now present Left ventricular hypertrophy no longer present ST (T wave) deviation no longer present Electronically Signed On 07-01-2024 18:05:32 ANALYTICS ANALYST by Cisco Conrad M.D. [email or web address]
[2024-06-29 12:03] LABS: Glucose Point of Care 90 mg/dL (70-110)
--- NOTE | 2024-06-29 12:04 | P.PN_ITS ---
Subjective 2 Subjective: No acute events overnight. Today morning patient seen laying comfortably in bed on nasal cannula. He saturating well over 90%. Patient sleeping on examination but wakes up to verbal stimulus. On waking up patient is awake and alert. Denies any nausea, vomiting, headache, dizziness, chest pain. States he is breathing like his usual. Vitals/I&O/Wt Last Vital Signs Temp 97.8 F 06/29/24 11:53 Pulse 44 L 06/29/24 11:53 Resp 18 06/29/24 11:53 BP 124/61 06/29/24 11:53 Pulse Ox 92 06/29/24 11:53 O2 Del Method Nasal Cannula 06/29/24 11:53 O2 Flow Rate 35 06/29/24 07:31 FiO2 35 06/29/24 07:31 06/28/24 06/29/24 06/29/24 22:59 06:59 14:59 Intake Total 2124.300 / 3844.300 138.6 / 3982.900 1290 / 1290 Output Total 200 / 650 100 / 750 Balance 1924.300 / 3194.300 38.6 / 3232.900 1290 / 1290 Weight last 48 hrs Weight 87.135 kg Weight 84 kg Weight 81.5 kg Physical Exam 2 Narrative: General: No acute distress, AO x3, dehydrated, chronically sick appearing, on nasal cannula 4 L. HEENT: PERRLA, pupils bilaterally equal and reactive Chest: Bilateral bronchial breath sounds all over lung martin with occasional rhonchi, coarse crackles present bilateral lower zone left more than right CVS: S1-S2 irregularly irregular, no murmurs, no tachycardia, no gallops, no rubs Abdomen: Soft, nontender, no organomegaly, bowel sounds present Neuro: No focal deficits, no facial deformity, AO x3, power 5/5 in all limbs Urinary Catheter Management: Shaw: Cath Placed During This Visit: yes Reason for Continuing Indwelling Catheter: Accurate Measurement of Urinary Output in Critically Ill Patients Urinary Catheter Date of Insertion: 06/27/24 Urinary Catheter Time of Insertion: 15:25 Data 06/29/24 02:08 06/29/24 02:08 Micro: Microbiology 06/26/24 22:23 Blood Culture - Preliminary Blood NEGATIVE TO DATE 06/26/24 22:22 Blood Culture - Preliminary Blood NEGATIVE TO DATE A&P Assessment and plan (1) Bradycardia: Heart rate down to low 40s to low 50s. Sometimes dropping down to high 30s as well. Patient asymptomatic. Check EKG. Hold off on rate limiting medications including metoprolol and amiodarone for now. 0.5 mg atropine IV one-time. If heart rate remains low we will plan on dopamine. Continue to monitor. (2) Sepsis: (3) Acute and chronic respiratory failure with hypoxia: (4) Hypercapnic respiratory failure: (5) COPD with acute exacerbation: (6) Acute on chronic diastolic (congestive) heart failure: (7) Acute kidney injury superimposed on CKD: (8) Uremia: (9) Atrial fibrillation: Qualifiers: Atrial fibrillation type: unspecified Qualified Code(s): I48.91 - Unspecified atrial fibrillation (10) Pneumonia: (11) Ischemic cardiomyopathy: (12) Atherosclerotic heart disease of [place] coronary artery with other forms of angina pectoris: (13) Status post below-knee amputation of left lower extremity: (14) Elevated troponin: Plan Acute on chronic hypoxic and hypercapnic respiratory failure: As per the family member it seems patient is mostly BiPAP dependent at home currently and is usually sleeping for 18-20 out of 24 hours a day. BiPAP nightly or as needed. Wean nasal cannula oxygen supplementation keeping saturation over 88%. Wean Solu-Medrol 40 mg IV daily. Pulmicort twice daily, DuoNeb every 6 hour. PAPITO on CKD: Baseline creatinine 1 year ago of 2.4. Continues to have uremia. Creatinine back to 4 today. No real uremic symptoms. Appreciate urine output. Will defer to nephrology regarding plans for hemodialysis. Continue with IV hydration. Monitor BMP daily. Monitor electrolytes. CT abdomen pelvis negative for obstructive nephropathy. Monitor electrolytes. Sepsis with acute on chronic hypoxic and hypercapnic respiratory failure: Resolving. SIRS: Tachycardic, Febrile, Leukocytosis Source: Pneumonia End organ damage: Acute kidney injury Lactic acid elevated. Patient did not receive full 30 mL/kg BW given concerns for congestive heart failure. Monitor blood pressures. Keep mean artery pressure 65 mmHg. Follow-up blood culture, appreciate urinalysis, trend procalcitonin. Check sputum culture. COVID-19/RSV/influenza negative. Empirically start patient on IV vancomycin and Zosyn for now. Patient does have history of MRSA infection in the wound in the past. Check daily Vanco random levels given severe kidney disease. Continue with IV antibiotics for overall 5- day course. History of CAD: Denies any active chest pain. Repeat echocardiogram shows an EF of 55% with grade 3 diastolic dysfunction, moderate to severe MR, severe aortic valve stenosis with mean gradient of 19.9 mmHg, aortic valve area of 0.42. Improvement in EF from before. Cycle troponin negative. Baseline troponin more than 200. Could be in setting of type II TX versus elevated troponin. DC heparin drip. Patient remains chest pain-free. Continue with home dose of aspirin, Plavix, statin. Hold off on metoprolol as above. Ischemic cardiomyopathy with history of congestive heart failure: Systolic congestive heart failure resolved. Continues to have severe diastolic dysfunction. Currently patient seems dehydrated. Continue with NS at 75 cc/h while monitoring for fluid overload. Shaw catheter. Strict input output charting, daily weights. Hypertension: Goal blood pressure less than 140/90 mmHg mean over 65. Continue with home dose of Imdur. Holding off on metoprolol as above. Type 2 diabetes mellitus: A1c of 6.6. Blood sugars early in the morning below 100. No hypoglycemia. Will change home dose of Lantus to 25 units twice daily. Continue with sliding scale at low-dose protocol. A-fib: Bradycardic. Holding off on amiodarone and metoprolol. Continue to monitor. Not on anticoagulation. CODE STATUS: Discussed in detail with patient and patient's spouse at bedside. We discussed unfortunately patient seems to have advanced COPD as he is currently 18 to 20 hours BiPAP dependent at home as per their conversation. Discussed if patient ends up on mechanical ventilator there is a high chance he would not come off the ventilator. Confirmed CODE STATUS again with the patient today once he is off of BiPAP. He wants to remain full code. Renal diabetic dialysis diet Protonix OPD prophylaxis Transfer to CSU. PDMP PDMP Reviewed: Not Reviewed Attestations 2 Medical Necessity Statement*: Requires further hospitalization for management of significant bradycardia, A- fib, PAPITO on CKD with uremia, acute on chronic hypoxic and hypercapnic respiratory failure in setting of COPD exacerbation Critical Care Time: The high probability of a clinically significant, sudden or life threatening deterioration of the patient's [cardiac, renal] system(s) required my full and direct attention, intervention and personal management. The critical care time is as shown. This time is in addition to time spent performing any reported procedures but includes the following: [x] Data and vital sign review and interpretation [x] Patient assessment, examination and intervention [x] Documentation [x] Medication orders and management Critical Care Time (min): 70 Coding Level of Care Code Critical Care >/= 30 minutes Critical care time (in minutes): 70 The high probability of a clinically significant, sudden or life threatening deterioration, as referenced in this documentation, required my full and direct attention, intervention and personal management. The critical care time shown is in addition to time spent performing any reported separately billable procedures and includes the following: [x] Data and vital sign review and interpretation [x ] Patient assessment, examination and intervention [x] Medication orders and management [x] Patient/Family updates as able [x] Care Coordination and Documentation. Diagnoses Bradycardia R00.1 Sepsis A41.9 Acute and chronic respiratory failure with hypoxia J96.21 Hypercapnic respiratory failure J96.92 COPD with acute exacerbation J44.1 Acute on chronic diastolic (congestive) heart failure I50.33 Acute kidney injury superimposed on CKD N17.9; N18.9 Uremia N19 Atrial fibrillation, unspecified type I48.91 Atrial fibrillation type: unspecified Pneumonia J18.9 Ischemic cardiomyopathy I25.5 Atherosclerotic heart disease of [place] coronary artery with other forms of angina pectoris I25.118 Status post below-knee amputation of left lower extremity Z89.512 Elevated troponin R79.89
[2024-06-29] MEDS: atropine 0.1 mg/mL Syr 10 mL 0.5 MG IVP (13:02)
[2024-06-29] MEDS: heparin 5,000 unit/mL INJ 1 mL 5000 UNIT SUBCUT ×2 (13:03→23:30)
--- NOTE | 2024-06-29 13:19 | PM.PN ---
Subjective Subjective: Patient has no complaints oin 6L. His appetite is poor Medications: Reviewed: Yes Vitals/I&O/Wt Last Vital Signs Temp 97.8 F 06/29/24 11:53 Pulse 44 L 06/29/24 11:53 Resp 18 06/29/24 11:53 BP 124/61 06/29/24 11:53 Pulse Ox 92 06/29/24 11:53 O2 Del Method Nasal Cannula 06/29/24 11:53 O2 Flow Rate 35 06/29/24 07:31 FiO2 35 06/29/24 07:31 06/28/24 06/29/24 06/29/24 22:59 06:59 14:59 Intake Total 2124.300 / 3844.300 138.6 / 3982.900 1290 / 1290 Output Total 200 / 650 100 / 750 Balance 1924.300 / 3194.300 38.6 / 3232.900 1290 / 1290 Weight last 48 hrs Weight 87.135 kg Weight 84 kg Weight 81.5 kg Physical Exam Const: COMMON NORMALS: no acute distress, average body habitus and no limitations GENERAL APPEARANCE: cooperative and comfortable HENMT: COMMON NORMALS: normocephalic and atraumatic HEAD & SCALP: normocephalic and atraumatic Eye: COMMON NORMALS: EOMs intact bilaterally and no scleral icterus Neck/C-Spine: COMMON NORMALS: full ROM and no JVD Resp: COMMON NORMALS: normal respiratory effort EFFORT & INSPECTION: Yes able to speak in complete sentences AUSCULTATION: diminished lung sounds Cardio: COMMON NORMALS: no JVD, regular rate, regular rhythm, S1 normal heart sound present and S2 normal heart sound present RATE: regular rate RHYTHM: regular rhythm HEART SOUNDS: S1 normal heart sound present and S2 normal heart sound present GI: COMMON NORMALS: Soft to palpation and non-tender PALPATION: Yes Soft to palpation Extremity: NARRATIVE EXTREMITY EXAM: bilateral AKA, no edema Neuro: COMMON NORMALS: no focal motor deficits Psych: COMMON NORMALS: mental status grossly normal and Normal thought process present THOUGHT PROCESS: Normal thought process present Skin: COMMON NORMALS: no rashes or lesions noted GENERAL SKIN EXAM: no rashes or lesions noted Urinary Catheter Management: Shaw: Cath Placed During This Visit: yes Reason for Continuing Indwelling Catheter: Accurate Measurement of Urinary Output in Critically Ill Patients Urinary Catheter Date of Insertion: 06/27/24 Urinary Catheter Time of Insertion: 15:25 Data 06/29/24 02:08 06/29/24 02:08 Micro: Microbiology 06/26/24 22:23 Blood Culture - Preliminary Blood NEGATIVE TO DATE 06/26/24 22:22 Blood Culture - Preliminary Blood NEGATIVE TO DATE A&P Assessment and plan (1) Acute kidney injury superimposed on CKD: (2) Acute and chronic respiratory failure with hypoxia: (3) Acute on chronic diastolic (congestive) heart failure: Plan PAPITO superimposed on ckd stage 4- he has significant ckd at baseline likely due to dm and hypertensive kidnry disease +/- cardio-renal syndrome. The differential for his papito includes pre-renal azotemia from poor po intake vs cardio-renal syndrome. HIs creatinine is rising and and he has a diminished UOP. However, his lytes are stable. he has significant azotemia, but he does not have uremic symptoms. There is no acute indication for renal replacement therapy at this time; however, if his renal function fails to improve, he will need start renal replacement therapy in the next 24-48 hours - cont ivf acute on chronic hypoxic and hypercapneic respiratory failure- due to copd exacerbation. further management per the primary service chronic systoic chf ef 30%- his volume status is stable. cont ivf afib- hr is controlled essential hypertension- bp is stable dm2 cad pvd s/p bilateral aka. PDMP PDMP Reviewed: Not Reviewed Attestations Medical Necessity Statement*: papito Time Spent in Patient Care: 25 minutes Coding Level of Care Code Acute Code for [facility] Diagnoses Acute kidney injury superimposed on CKD N17.9; N18.9 Acute and chronic respiratory failure with hypoxia J96.21 Acute on chronic diastolic (congestive) heart failure I50.33
[2024-06-29] MEDS: morphine 4 mg/mL SDV 1 mL 2 MG IVP ×2 (15:38→21:55)
[2024-06-29] MEDS: pantoprazole 40 mg SDV IVP (15:52)
[2024-06-29 16:40] LABS: Glucose Point of Care 68 mg/dL (70-110)
[2024-06-29] MEDS: DOPamine drip 400 MG/250 ML PREMIX 9.8 MG IV (17:58)
[2024-06-29 18:03] LABS: Vancomycin Trough 13.6 ug/mL (10-15)
[2024-06-29 18:26] LABS: Glucose Point of Care 68 mg/dL (70-110)
[2024-06-29] MEDS: dextrose 10% 250 ML 1000 ML IV (18:26)
--- NOTE | 2024-06-29 18:48 | PC.NURSE ---
Per Dr Jc, keep dopamin gtt at 2.5. Pulse currently 70, bp 124/69. D10 being given because patient is at 68 glucose and looks weak and says he feels weak. Patient is asking nurse to hold his hand and keeps saying help me. Nurse asked patient what she can do to make him more comfortable and he states nothing. COOKIE Mccall, notified of patient's requests.
--- NOTE | 2024-06-29 19:01 | ECG_ITS ---
[facility] Date: 2024-06-29 Pat Name: David Monique Department: Room: ICU10 Gender: Male Private Duty Aide: : 1950 Requested By: Isidro Jc Order Number: [id number] Young MD: Cisco Conrad M.D. Measurements Intervals [place] Rate: 81 P: 0 ID: 0 QRS: 85 QRSD: 146 T: 164 QT: 429 QTc: 499 Interpretive Statements ATRIAL FIBRILLATION WITH ABERRANT CONDUCTION OR VENTRICULAR PREMATURE COMPLEXES INTRAVENTRICULAR CONDUCTION DELAY [130+ ms QRS DURATION] Compared to ECG 06/29/2024 10:06:07 Ventricular premature complex(es) now present Aberrant conduction of supraventricular beat(s) now present Sinus bradycardia no longer present Electronically Signed On 07-01-2024 19:36:35 DICTAPHONE TYPIST by Cisco Conrad M.D. [email or web address] [id number]
--- NOTE | 2024-06-29 19:04 | PC.NURSE ---
patient appeared to go into vfib at 1901. Heart rate jumped into the 100s. Dr Jc notified. Ordered to stop dopamine. Heart rate back in SR with a rate at 79, bp is 117/58. Glucose post D10 is 127.
[2024-06-29 19:08] LABS: Glucose Point of Care 127 mg/dL (70-110)
--- NOTE | 2024-06-29 19:23 | PC.NURSE ---
patient is eating very little at meal time. For dinner this evening, he only drank 240ml of orange juice.
--- NOTE | 2024-06-29 19:33 | PM.MISC ---
Miscellaneous Note Note: Patient remained tired appearing for most part of the day. Heart rate mostly running in low 40s improving to low 50s after 0.5 of atropine but dipping down again to low 40s while being awake. Later in the day he was started on dopamine drip of fixed rate at 2.5. Heart rate improved to 64 bpm. About 1 hr after starting heart rate remained over 64 but he had a 5-second episode of V-fib which terminated by itself. Patient was awake and alert post the event. Dopamine has been discontinued. 1 hour after stopping dopamine his heart rate has remained stable at around 60 bpm. Blood pressure stable at around 126/80 mmHg. Blood sugar improved to 127 after receiving D10 100 cc one-time. Plan: Hold off on dopamine. Hold off on rate limiting drugs including metoprolol and amiodarone. 0.5 mg IV atropine as needed. Care discussed detail with patient's over the phone. Discussed that it is possible that he would end up needing dialysis given worsening renal functions and worsening uremia. verbalized understanding and is agreeable. Will await BMP in morning tomorrow. Other Coding Information Prolonged care (total time indicated above or notated here) (Managing bradycardia with dopamine drip, V-fib, significant hypoglycemia)
--- NOTE | 2024-06-29 20:59 | P.EN_ITS ---
Event Note Event Note: Nurse called me to update regarding patient's status, he was in nonsustained V. tach, dopamine was turned off I evaluated the patient at bedside Patient responds to verbal command, he was able to tell me that his bottom is hurting, then he was back to his somnolent state, his hands were dangling next to the bed railing, he is not able to hold his posture, Patient extremely somnolent and lethargic, He was able to tell me name of his , he would close his eyes go back to his somnolent state after answering a single question He is on BiPAP He is hypoxic 70% on 30% FiO2, I have increased FiO2 to 100% which improved his sats to 95% His blood pressure is 129/58 mmHg EKG and telemetry showing junctional rhythm heart rate fluctuated between 40 to 50s Requested ICU bed Dopamine drip was turned off secondary to nonsustained V. tach Patient has IV fluids at the bedside Notes were reviewed from the day Called his to update her regarding the status, I did update her regarding above-mentioned findings and my concern related to junctional rhythm needing a pacemaker, Sarah Monique told me that David has been using trelegy at home 20 out of 24 hours, has stopped eating, now his kidneys are shutting down and he may need dialysis by the morning, I conveyed my concerns that the way things are going he might not be able to go for dialysis without stabilization of cardiovascular status, my concern at this point is if with junctional rhythm he will go into cardiac arrest, patient is very somnolent he may need intubation, Considering underlying chronic diseases, comorbid conditions and active state, spouse is stating that she would not want any aggressive treatments including dialysis, intubation, chest compressions, defibrillation or pacemaker stating that in case he goes into cardiac or respiratory distress, she would opt for comfort measures and she is well aware of guarded prognosis This conversation was witnessed by the nurse, since we were discussing over the phone Nurse witness goals of care discussion with the as well and confirmed the status I have requested ICU bed in case patient would require any pressors overnight Goals of care changed DNR/DNI I have also notified primary attending Dr Jc. Event Notes Attestations Time Spent in Patient Care: 16 - 35 minutes (>than 50% of time sp ent in counselling and/or direct pt care on unit) .
[2024-06-29 21:29] LABS: Glucose Point of Care 128 mg/dL (70-110)
--- NOTE | 2024-06-29 21:30 | PC.NURSE ---
Addendum entered by Alexa Bazzi RN 06/29/24 22:05: PO lipitor and melatonin not given per Dr. Alvares. Original Note: Physician Communication: Spoke to Dr. Alvares on phone regarding transfer to ICU. Order to continue dopamine drip.
--- NOTE | 2024-06-29 21:39 | PC.NURSE ---
Addendum entered by Alexa Bazzi RN 06/29/24 22:00: Omayra (daughter) called unit @2200 for an update on pt. She reports that herself and family will be coming to the hospital. Original Note: Family Communication: called @1487 to notify of transfer to ICU and critical condition. states she will not be coming in tonight.
--- NOTE | 2024-06-29 22:34 | ECG_ITS ---
[facility] Test Date: 2024-06-29 Pat Name: David Monique Department: Room: ICU10 Gender: Male Box Blank Machine Operator: : 1950 Requested By: Iisdro Jc Order Number: [id number] Hannah MD: Cisco Conrad M.D. Measurements Intervals [place] Rate: 72 P: 0 AK: 0 QRS: 74 QRSD: 146 T: 120 QT: 456 QTc: 502 Interpretive Statements UNCERTAIN IRREGULAR RHYTHM INTRAVENTRICULAR CONDUCTION DELAY [130+ ms QRS DURATION] Compared to ECG 06/29/2024 19:01:37 Atrial fibrillation no longer present Ventricular premature complex(es) no longer present Aberrant conduction of supraventricular beat(s) no longer present Electronically Signed On 07-01-2024 19:35:49 CANOE INSPECTOR FINAL by Cisco Conrad M.D. [id number]
--- NOTE | 2024-06-29 22:50 | PC.NURSE ---
1930- While getting report patient went into nonsustained VT. Dr. Jc called by day nurse, recieved orders to get EKG and turn off dopamine gtt. Patient awake attempting to get help to get out of bed. Patient does scream out occassionally, when asked where is he hurting patient closes eyes. BP stable HR is high 40's to 50's. 2030- Called Dr. alvares regard patient appearance. Patient is abdominal breathing with sats at 86 on 6 L. Bipap was placed by RT with sats slowly coming up to 90%. Patient is lethargic and only stays awake for a few seconds, arms are dropped over railing. HR is 40s-50s BP is stable. Patient is ill appearing looking slightly arguello and has some mottling on legs. Requesting ABG to double check O2 sats. Dr. Alvares at bedside recieved orders to transfer to ICU. MD also wanted to speak with next of kin to discuss code status as patient at the time is full code. Sarah called by Dr. Alvares, the decision was made to switch from full code to DNR. RN to witness consent over phone and consent is in chart.
[2024-06-30] VITALS (72 sets, daily range): BP systolic 0–141; BP diastolic 0–95; PULSE 0–71; RESP 12–25; TEMP 36.7; O2SAT 0–99
[2024-06-30] MEDS: piperacillin-tazobactam 3.375 GM in sodium chloride 0.9% (plus) 50 ML IV (03:02)
[2024-06-30] MEDS: sodium chloride 0.9% 1,000 ML 100 ML IV (04:09)
[2024-06-30 05:43] LABS: Basophils % 0.2 %; Hematocrit 39.6 % (37-53); Lymphocytes # 0.3 10^3/uL (0.8-4.8); Lymphocytes % 1.3 %; Mean Corpuscular HGB Conc 29.5 g/dL (30-55); Mean Corpuscular Hemoglobin 30.5 pg (27-33); Mean Corpuscular Volume 103.4 fl (82-101); Mean Platelet Volume 11.3 fL (7.4-10.4); Monocytes # 1.7 10^3/uL (0.2-0.9); Monocytes % 8.3 %; Neutrophils # 18.77 10^3/uL (1.8-7.7); Nucleated Red Blood Cells # 0.1 /100WBC; Nucleated Red Blood Cells % 0.4 %; Platelet Count 293 10^3/cmm (157-399); Red Blood Count 3.83 10^6/uL (3.85-5.65); Red Cell Distribution Width 16.2 % (12.1-15.1); White Blood Count 21.08 10^3/uL (3.29-11.43)
[2024-06-30 06:11] LABS: Glucose Point of Care 70 mg/dL (70-110)
[2024-06-30] MEDS: dextrose 10% 125 ML 750 ML IV (06:13)
[2024-06-30 06:18] LABS: Alanine Aminotransferase 624 U/L (0-41); Albumin Level 3.6 g/dL (3.5-5.2); Alkaline Phosphatase 105 U/L (40-130); Aspartate Amino Transferase 284 U/L (0-40); Calcium 9.2 mg/dL (8.5-10.5); Carbon Dioxide 24 mmol/L (22-29); Chloride 96 mmol/L (98-107); Creatinine Clr Calc Pharmacy 14.6446; Globulin 3.5 g/dL (1.3-4.6); Glucose 76 mg/dL (65-115); Magnesium 3.1 mg/dL (1.7-2.3); Sodium 140 mmol/L (136-145); Total Protein 7.1 g/dL (6.6-8.7)
[2024-06-30 06:21] LABS: Vancomycin Random 13.5 ug/mL (20.0-40.0)
[2024-06-30 06:41] LABS: Glucose Point of Care 105 mg/dL (70-110)
[2024-06-30 06:44] LABS: Osmolality Calculated 332 mOsm/kg (285-295)
[2024-06-30 06:45] LABS: Anion Gap 24.4 (5-19); Potassium 4.4 mmol/L (3.5-5.1)
[2024-06-30 06:47] LABS: Blood Urea Nitrogen 133 mg/dL (8-23); Phosphorus 8.4 mg/dL (2.5-4.5)
--- NOTE | 2024-06-30 07:45 | ECG_ITS ---
[facility] Test Date: 2024-06-30 Pat Name: David Monique Department: Room: ICU10 Gender: Male Tenter Frame Back Tender: : 1950 Requested By: Isidro Jc Order Number: [id number] Hannah MD: Cisco Conrad M.D. Measurements Intervals [place] Rate: 59 P: -37 VT: 152 QRS: 53 QRSD: 138 T: 94 QT: 482 QTc: 480 Interpretive Statements JUNCTIONAL RHYTHM INTRAVENTRICULAR CONDUCTION DELAY [130+ ms QRS DURATION] Electronically Signed On 07-01-2024 18:03:15 TECHNICAL AID by Cisco Conrad M.D. [id number]
[2024-06-30] MEDS: budesonide 0.5 mg/2 mL Neb INHALATION (07:53)
--- NOTE | 2024-06-30 08:13 | XR_ITS ---
WS: [id number] XR chest 1V portable [id number] REASON FOR EXAM: hypoxia FINDINGS: Compared to the examination of 06/27/2024, the diffuse reticular and groundglass opacities in the right lung have become more confluent with some areas of atelectasis in the right lower lung and possibly a right pleural effusion. There is atelectasis and/or reticular interstitial lung opacities have developed in the left lower lobe since the previous examination. Left costophrenic angle is also now blunted. XR/XR chest 1V portable [id number] IMPRESSION: While there may be an acute subacute progressive pneumonitis, review of multipl e previous chest x-rays from 05/18/2023 to the current examination suggests ther e is pulmonary edema/congestive heart failure. The other consideration for the findings and progression of findings is ARDS.
[2024-06-30 08:24] LABS: Alveolar-Arterial Oxygen Gradi 42.6 mmHg (5-10); Arterial Blood Gas Hematocrit 34.5 % (42-52); Blood Gas Allen Test Pos; Blood Gas Operator Identificat CAK; Blood Gas Sample Site Radial, left; Blood Gas Sample Type Arterial; Carboxyhemoglobin 1.7 %THgb (0.4-20.1); HCO3 ABG 30.2 mmol/L (22-26); HGB O2 Sat 84.5 % (95-100); Ionized Calcium Level - ABG 1.2 mmol/L (1.1-1.4); Methemoglobin 0.2 % (0.4-1.5); Oxygen Device BIPAP; Oxygen Saturation ABG 86.1; PO2 ABG 61.1 mmHg (80.0-100.0); PO2 FiO2 Ratio Arterial Blood 87; Potassium Level - ABG 4.2 mmol/L (3.5-5.0); Total Hemoglobin 11.3 g/dL (14-18)
[2024-06-30 08:25] LABS: ABG PCO2 91.8 mmHg (35-45); ABG PH Result 7.13 (7.35-7.45)
[2024-06-30 08:39] LABS: Troponin(5th) Baseline 1247 ng/L (0-15)
--- NOTE | 2024-06-30 08:53 | PC.NURSE ---
patient unresponsive, bipap dependent, Dr. Jc spoke with family plan is no escalation of care
[2024-06-30] MEDS: vancomycin 500 MG in sodium chloride 0.9% (plus) 100 ML 200 MG IV (09:00)
[2024-06-30] MEDS: methylPREDNISolone sod succ 40 mg/mL INJ IVP (09:01)
--- NOTE | 2024-06-30 09:03 | PC.SOCIAL ---
IMM Update Pg. 2 of IMM updated. Initialed/dated copy in chart, additional copy provided at bedside.
--- NOTE | 2024-06-30 09:54 | ECG_ITS ---
[facility] Test Date: 2024-06-30 Pat Name: David Monique Department: Room: ICU10 Gender: Male Sales Planning Coordinator: : 1950 Requested By: Isidro Jc Order Number: [id number] Hannah MD: Cisco Conrad M.D. Measurements Intervals [place] Rate: 63 P: -69 CT: 212 QRS: 57 QRSD: 132 T: 102 QT: 387 QTc: 398 Interpretive Statements JUNCTIONAL RHYTHM INTRAVENTRICULAR CONDUCTION DELAY [130+ ms QRS DURATION] Compared to ECG 06/30/2024 07:45:05 First degree AV block now present Electronically Signed On 07-01-2024 19:34:33 CHIEF SCHOOL FINANCE OFFICER by Cisco Conrad M.D. [id number] [id number]
[2024-06-30 11:17] LABS: Glucose Point of Care 62 mg/dL (70-110)
--- NOTE | 2024-06-30 11:18 | PC.NURSE ---
glucose 62, vo recieved to switch fluids to D10 50 ml/hr from Dr. Jc
[2024-06-30] MEDS: dextrose 10% 250 ML 50 ML IV (11:23)
[2024-06-30] MEDS: dextrose 10% 1,000 ML 50 ML IV (12:31)
[2024-06-30 12:32] LABS: Glucose Point of Care 67 mg/dL (70-110)
--- NOTE | 2024-06-30 13:11 | ECG_ITS ---
[facility] Date: 2024-06-30 Pat Name: David Monique Department: Room: ICU10 Gender: Male Balloon Seller: : 1950 Requested By: Isidro Jc Order Number: [id number] Hannah MD: Cisco Conrad M.D. Measurements Intervals [place] Rate: 64 P: -32 VA: 182 QRS: 43 QRSD: 139 T: 218 QT: 477 QTc: 493 Interpretive Statements ACCELERATED JUNCTIONAL RHYTHM INTRAVENTRICULAR CONDUCTION DELAY [130+ ms QRS DURATION] Compared to ECG 06/30/2024 09:54:05 First degree AV block no longer present Electronically Signed On 07-01-2024 19:32:23 CHIP WASHER by Cisco Conrad M.D. [email or web address] (formerly [email or web address] [id number]
--- NOTE | 2024-06-30 13:19 | P.PN_ITS ---
Subjective 2 Subjective: Overnight patient was transferred to ICU given concerns of bradycardia and somnolence. He was started on dopamine drip. After conversation with patient's DPOA he was made DNR/DNI. Examination today seen with sister at bedside. Patient is on BiPAP fullface mask 09/12. Somnolent. Currently on dopamine of 3 with a heart rate of 62 bpm. Mean artery pressure maintained over 65. Vitals/I&O/Wt Last Vital Signs Temp 98.0 F 06/30/24 04:07 Pulse 68 06/30/24 12:15 Resp 20 H 06/30/24 12:15 BP 141/74 06/30/24 12:15 Pulse Ox 90 06/30/24 12:15 O2 Del Method BiPAP 06/30/24 07:54 O2 Flow Rate 10 06/29/24 20:02 FiO2 70 06/30/24 11:17 06/29/24 06/30/24 06/30/24 22:59 06:59 14:59 Intake Total 1947.216 / 3237.216 960.097 / 4197.313 Output Total 0 / 0 0 / 0 Balance 1947.216 / 3237.216 960.097 / 4197.313 Weight last 48 hrs Weight 89.539 kg Weight 87.135 kg Physical Exam 2 Narrative: General: Somnolent dehydrated, chronically sick appearing, facemask BiPAP. GCS: E1 M1 V2 HEENT: PERRLA, pupils bilaterally equal and reactive Chest: Bilateral bronchial breath sounds all over lung martin with occasional rhonchi, coarse crackles present bilateral lower zone left more than right CVS: S1-S2 irregularly irregular, no murmurs, no tachycardia, no gallops, no rubs Abdomen: Soft, nontender, no organomegaly, bowel sounds present Neuro: No focal deficits, no facial deformity, AO x3, power 5/5 in all limbs Urinary Catheter Management: Shaw: Cath Placed During This Visit: yes Reason for Continuing Indwelling Catheter: Accurate Measurement of Urinary Output in Critically Ill Patients Urinary Catheter Date of Insertion: 06/27/24 Urinary Catheter Time of Insertion: 15:25 Data 06/30/24 04:54 06/30/24 04:54 A&P Assessment and plan (1) Bradycardia: Continue with dopamine drip for now. Target heart rate more than 50. Watch for arrhythmias. Hold off on rate limiting medications including metoprolol and amiodarone for now. 0.5 mg atropine IV one-time. If heart rate remains low we will plan on dopamine. Continue to monitor. (2) Sepsis: (3) Acute and chronic respiratory failure with hypoxia: (4) Hypercapnic respiratory failure: (5) COPD with acute exacerbation: (6) Acute on chronic diastolic (congestive) heart failure: (7) Acute kidney injury superimposed on CKD: (8) Uremia: (9) Atrial fibrillation: Qualifiers: Atrial fibrillation type: unspecified Qualified Code(s): I48.91 - Unspecified atrial fibrillation (10) Pneumonia: (11) Ischemic cardiomyopathy: (12) Atherosclerotic heart disease of [place] coronary artery with other forms of angina pectoris: (13) Status post below-knee amputation of left lower extremity: (14) Elevated troponin: (15) Respiratory acidosis: (16) Somnolence: (17) Non-ST elevation DC (NSTEMI): (18) Goals of care, counseling/discussion: Plan Acute encephalopathy: High likelihood of hypercapnic respiratory failure. Check ABG. Acute on chronic hypoxic and hypercapnic respiratory failure: As per the family member it seems patient is mostly BiPAP dependent at home currently and is usually sleeping for 18-20 out of 24 hours a day. BiPAP nightly or as needed. Wean nasal cannula oxygen supplementation keeping saturation over 88%. Wean Solu-Medrol 40 mg IV daily. Pulmicort twice daily, DuoNeb every 6 hour. PAPITO on CKD: Baseline creatinine 1 year ago of 2.4. Continues to have uremia. Creatinine back to 4 today. No real uremic symptoms. Appreciate urine output. Will defer to nephrology regarding plans for hemodialysis. Continue with IV hydration. Monitor BMP daily. Monitor electrolytes. CT abdomen pelvis negative for obstructive nephropathy. Monitor electrolytes. Sepsis with acute on chronic hypoxic and hypercapnic respiratory failure: Resolving. SIRS: Tachycardic, Febrile, Leukocytosis Source: Pneumonia End organ damage: Acute kidney injury Lactic acid elevated. Patient did not receive full 30 mL/kg BW given concerns for congestive heart failure. Monitor blood pressures. Keep mean artery pressure 65 mmHg. Follow-up blood culture, appreciate urinalysis, trend procalcitonin. Check sputum culture. COVID-19/RSV/influenza negative. Empirically start patient on IV vancomycin and Zosyn for now. Patient does have history of MRSA infection in the wound in the past. Check daily Vanco random levels given severe kidney disease. Continue with IV antibiotics for overall 5- day course. History of CAD: Denies any active chest pain. Repeat echocardiogram shows an EF of 55% with grade 3 diastolic dysfunction, moderate to severe MR, severe aortic valve stenosis with mean gradient of 19.9 mmHg, aortic valve area of 0.42. Improvement in EF from before. Cycle troponin negative. Baseline troponin more than 200. Could be in setting of type II DC versus elevated troponin. DC heparin drip. Patient remains chest pain-free. Continue with home dose of aspirin, Plavix, statin. Hold off on metoprolol as above. Ischemic cardiomyopathy with history of congestive heart failure: Systolic congestive heart failure resolved. Continues to have severe diastolic dysfunction. Currently patient seems dehydrated. Continue with NS at 75 cc/h while monitoring for fluid overload. Shaw catheter. Strict input output charting, daily weights. Hypertension: Goal blood pressure less than 140/90 mmHg mean over 65. Continue with home dose of Imdur. Holding off on metoprolol as above. Type 2 diabetes mellitus: A1c of 6.6. Blood sugars early in the morning below 100. No hypoglycemia. Will change home dose of Lantus to 25 units twice daily. Continue with sliding scale at low-dose protocol. A-fib: Bradycardic. Holding off on amiodarone and metoprolol. Continue to monitor. Not on anticoagulation. CODE STATUS: DNR/DNI as per the DPOA overnight. Renal diabetic dialysis diet Protonix OPD prophylaxis Plan for the day: Continue with dopamine drip for now. Maintain heart rate over the 50 bpm. Watch for arrhythmias. Has had recurrent episodes of hypoglycemia. Hold off on any further Lantus. Switch to D10 at 50 cc/h. Monitor blood sugars every 4 hours. Hypoglycemia protocol. Patient's somnolent. Repeat ABG done shows a pH of 7.13 with pCO2 of 91. Switch to AVAPS mode. Patient is DNR/DNI. Continues to have worsening renal functions with creatinine going up to 5, BUN going up to 133. Given concerns for arrhythmia overnight checked troponin with a baseline of more than 1200. Had again detailed goals of care discussion with patient's /DPOA multiple times over the phone. We again discussed that unfortunately David is not doing too well. He is somnolent because he is again retaining carbon dioxide with pCO2 of more than 90, given his worsening renal functions and hypercapnia his blood is becoming acidotic with pH of 7.1. We discussed patient would need dialysis going forward. Discussed that currently he is on a medication to keep his heart rate normal and there is a high chance that he would need repeat cardiac angiogram or even a pacemaker for further management. Discussed unfortunately David's quality of life at baseline is extremely poor given he is mostly sleeping on trilogy machine for 20 out of 24 hours a day and it would be very difficult for him to transport as an outpatient 3 times a week with trilogy machine once he is on dialysis. verbalizes understanding and states that given all of the above with dialysis his quality of life is going to turn poor and she would not want him to have such poor quality of life and would rather continue with DNR/DNI. We discussed about possible option with hospice care. She verbalized understanding and wants to go ahead with comfort care and hospice but wants his other family members to visit with him before initiating. Discussed going forward we will not escalate care any further, will hold off on any further blood work, IV antibiotic, steroid, heparin but will continue with D10, dopamine drip at the current rate without any escalation while family members can visit with him. She is agreeable to the above. All the questions were answered. PDMP PDMP Reviewed: Not Reviewed Attestations 2 Medical Necessity Statement*: Requires further hospitalization for management of somnolence, metabolic and respiratory acidosis in setting of acute on chronic hypoxic and hypercapnic respiratory failure, non-ST elevation DC, bradycardia requiring dopamine drip in setting of atrial fibrillation, CKD with uremia, while goals of care discussions are done and possible hospice is set up Critical Care Time: The high probability of a clinically significant, sudden or life threatening deterioration of the patient's [cardiac, pulmonary, renal, social] system(s) required my full and direct attention, intervention and personal management. The critical care time is as shown. This time is in addition to time spent performing any reported procedures but includes the following: [x] Data and vital sign review and interpretation [x] Patient assessment, examination and intervention [x] Documentation [x] Medication orders and management Critical Care Time (min): 90 Coding Level of Care Code Critical Care >/= 30 minutes Critical care time (in minutes): 90 The high probability of a clinically significant, sudden or life threatening deterioration, as referenced in this documentation, required my full and direct attention, intervention and personal management. The critical care time shown is in addition to time spent performing any reported separately billable procedures and includes the following: [x] Data and vital sign review and interpretation [x ] Patient assessment, examination and intervention [x] Medication orders and management [x] Patient/Family updates as able [x] Care Coordination and Documentation. Other Coding Information This patient has a high probability of clinically significant, sudden or life threatening deterioration of the patient's (neurological/pulmonary/cardiac/renal/ID/endocrine) systems required my full, direct attention, the highest level of physician preparedness for urgent intervention and personal management. I managed/supervised life or organ supporting interventions that required frequent physician assessment. I devoted my full attention in the ICU to the direct care of this patient for the period of time indicated above. Time I spent with family or surrogate(s) is included only if the patient was incapable of providing necessary information or participating in decision making. This time includes the following services provided: Telemetry review Nonmechanical ventilation Hemodynamic interpretation, assessment and management Review and interpretation of CXR Review and interpretation of lab values Review and interpretation of microbiologic data and culture results Review of medications and administration Review and interpretation of Nutrition requirements and management Discussion of management with other consultants and services Clinical update to family members Diagnoses Bradycardia R00.1 Sepsis A41.9 Acute and chronic respiratory failure with hypoxia J96.21 Hypercapnic respiratory failure J96.92 COPD with acute exacerbation J44.1 Acute on chronic diastolic (congestive) heart failure I50.33 Acute kidney injury superimposed on CKD N17.9; N18.9 Uremia N19 Atrial fibrillation, unspecified type I48.91 Atrial fibrillation type: unspecified Pneumonia J18.9 Ischemic cardiomyopathy I25.5 Atherosclerotic heart disease of [place] coronary artery with other forms of angina pectoris I25.118 Status post below-knee amputation of left lower extremity Z89.512 Elevated troponin R79.89 Respiratory acidosis E87.29 Somnolence R40.0 Non-ST elevation DC (NSTEMI) I21.4 Goals of care, counseling/discussion Z71.89
--- NOTE | 2024-06-30 14:37 | PM.PN ---
Subjective Subjective: Patient is lethargic on bipap with 70% fio2 Medications: Reviewed: Yes Vitals/I&O/Wt Last Vital Signs Temp 98.0 F 06/30/24 04:07 Pulse 65 06/30/24 14:00 Resp 17 06/30/24 14:00 BP 131/63 06/30/24 14:00 Pulse Ox 91 06/30/24 14:00 O2 Del Method BiPAP 06/30/24 07:54 O2 Flow Rate 10 06/29/24 20:02 FiO2 70 06/30/24 11:17 06/29/24 06/30/24 06/30/24 22:59 06:59 14:59 Intake Total 1947.216 / 3237.216 960.097 / 4197.313 Output Total 0 / 0 0 / 0 Balance 1947.216 / 3237.216 960.097 / 4197.313 Weight last 48 hrs Weight 89.539 kg Weight 87.135 kg Physical Exam Const: COMMON NORMALS: no acute distress GENERAL APPEARANCE: lethargic ORIENTATION/CONSCIOUSNESS: Yes lethargic OTHER: bipap mask in place HENMT: COMMON NORMALS: normocephalic and atraumatic HEAD & SCALP: normocephalic and atraumatic Eye: COMMON NORMALS: EOMs intact bilaterally and no scleral icterus Neck/C-Spine: COMMON NORMALS: full ROM and no JVD Resp: EFFORT & INSPECTION: Yes decreased respiratory effort AUSCULTATION: diminished lung sounds Cardio: COMMON NORMALS: no JVD, regular rate, regular rhythm, S1 normal heart sound present and S2 normal heart sound present RATE: regular rate RHYTHM: regular rhythm HEART SOUNDS: S1 normal heart sound present and S2 normal heart sound present GI: COMMON NORMALS: Soft to palpation and non-tender PALPATION: Yes Soft to palpation Extremity: COMMON NORMALS: normal to inspection and no pedal edema Neuro: SENSORIUM/ORIENTATION: Yes lethargic Psych: OTHER: lethargic Skin: COMMON NORMALS: no rashes or lesions noted GENERAL SKIN EXAM: no rashes or lesions noted Urinary Catheter Management: Shaw: Cath Placed During This Visit: yes Reason for Continuing Indwelling Catheter: Accurate Measurement of Urinary Output in Critically Ill Patients Urinary Catheter Date of Insertion: 06/27/24 Urinary Catheter Time of Insertion: 15:25 Data 06/30/24 04:54 06/30/24 04:54 A&P Assessment and plan (1) Acute kidney injury superimposed on CKD: PAPITO superimposed on ckd stage 4- he has significant ckd at baseline likely due to dm and hypertensive kidnry disease +/- cardio-renal syndrome. The differential for his papito includes pre-renal azotemia from poor po intake vs cardio-renal syndrome. HIs creatinine continues to rise and he is oliguric with worsening azotemia. he will need start renal replacement therapy. - await family decison regarding goals of care. acute on chronic hypoxic and hypercapneic respiratory failure- due to copd exacerbation. further management per the primary service chronic systoic chf ef 30%- his volume status is stable. afib- hr is controlled essential hypertension- bp is stable dm2 cad pvd s/p bilateral aka. PDMP PDMP Reviewed: Not Reviewed Attestations Medical Necessity Statement*: papito Time Spent in Patient Care: 25 minutes Coding Level of Care Code Acute Code for [facility] Diagnoses Acute kidney injury superimposed on CKD N17.9; N18.9
[2024-06-30] MEDS: morphine 4 mg/mL SDV 1 mL IVP ×2 (14:42→15:43)
[2024-06-30] MEDS: LORazepam 2 mg/mL INJ 1 mL IVP (15:43)
--- NOTE | 2024-06-30 15:57 | PC.NURSE ---
Comfort care started, Bipap removed per RT, family at bedside
--- NOTE | 2024-06-30 16:28 | PC.NURSE ---
asystole noted on monitor, no apical pulse for 1 minute, LISSET 1623 family at bedside
--- NOTE | 2024-06-30 16:32 | P.DES_ITS ---
Discharge Providers DDS Date of Admission: 06/27/24 16:30 Date Summary Completed: 06/30/24 Attending Provider at Admission: Isidro Jc MD Time of : 16:23 Attending Provider at Discharge: Isidro Jc MD Primary Care Provider: Mag Watters Diagnoses Hospital Diagnoses (1) Acute kidney injury superimposed on CKD: Reason for Visit Reason for Visit SOB\Weak Summary Date and Time of Date of : 06/30/24 Time of : 16:23 Summary Summary: David Monique is a 74 year old male with past medical history of advanced COPD, chronic hypoxic and hypercapnic respiratory failure mostly on BiPAP during the day, systolic congestive heart failure, A-fib, CAD, bilateral AKA presents to the ER on 06/26 from home with spouse at bedside with concerns for difficulty in breathing getting worse over last 4 days. As per the spouse who is at bedside patient usually spends around 18 to 20 hours every day sleeping in his bed on BiPAP but lately for last 1 to 2 weeks he has been less responsive, has been having more difficulty in breathing for last 3 to 4 days with poor appetite. Patient presented to the ER on 06/26 and was being transferred to [facility] but has been awaiting bed. Meanwhile hospitalist service was consulted for further management. Appreciate blood work from 06/26 showing a white count 15,000, ABG showing a pH of 7.34 with pCO2 of 59.5, pO2 of 64.8 on 6 L, BUN of 107, creatinine of 4, bicarb 32, AST/ALT of 401/384, proBNP of 32,000 Patient was admitted to the hospital further evaluation and management of acute on chronic hypoxic and hypercapnic respiratory failure, uremia with concerns for PAPITO and CKD. On admission there was a concern for non-ST elevation PA so he was started on heparin drip. Echocardiogram was done which showed improvement on his baseline EF to 50%. He was found to be in respiratory failure because of COPD exacerbation, dehydrated hence was started on gentle IV hydration. Even after gentle IV hydration his renal functions and uremia continue to worsen. Patient was off the BiPAP for most part of the day and was down to 4 to 5 L of oxygen supplementation saturating well. He developed bradycardia with heart rates dropping down to low 40s which maintained even after stopping his rate limiting medication including metoprolol and amiodarone. Because of persistent bradycardia he was started on dopamine. After being on dopamine on 06/29 he developed 1 episode of nonsustained V. tach. Overnight on 06/29 he had he was found to have worsening mentation without improvement being on BiPAP. ABG showed respiratory and metabolic acidosis with hypercapnia CO2 of 90. Repeat troponin was checked to be more than 1000. Extensive goals of care discussions were done with patient's /DPOA. We again discussed that unfortunately David is not doing too well. He is somnolent because he is again retaining carbon dioxide with pCO2 of more than 90, given his worsening renal functions and hypercapnia his blood is becoming acidotic with pH of 7.1. We discussed patient would need dialysis going forward. Discussed that currently he is on a medication to keep his heart rate normal and there is a high chance that he would need repeat cardiac angiogram or even a pacemaker for further management. Discussed unfortunately David's quality of life at baseline is extremely poor given he is mostly sleeping on trilogy machine for 20 out of 24 hours a day and it would be very difficult for him to transport as an outpatient 3 times a week with trilogy machine once he is on dialysis. verbalizes understanding and states that given all of the above with dialysis his quality of life is going to turn poor and she would not want him to have such poor quality of life and would rather continue with DNR/DNI. We discussed about possible option with hospice care. She verbalized understanding and wants to go ahead with comfort care and hospice but wants his other family members to visit with him before initiating. Discussed going forward we will not escalate care any further, will hold off on any further blood work, IV antibiotic, steroid, heparin but will continue with D10, dopamine drip at the current rate without any escalation while family members can visit with him. She is agreeable to the above. Eventually he was started on comfort care. Eventually he with family at his bedside and comfortable status on 06/30 at 1623. Additional Data Confirmation of as documented by pronouncing clinician: no pulse and no respirations Family: at bedside Additional persons at bedside: nursing staff Attending/PCP notified?: I am attending Was code activated?: No Autopsy requested?: No Advance directives?: No Hospice patient?: Yes Discharge Plan Discharge Patient Disposition: Condition: Stable Prescriptions: No Action Pacerone 200 mg tablet 200 mg PO DAILY Qty: 60 0RF metoprolol tartrate 50 mg tablet 75 mg PO BID Qty: 75 0RF bumetanide 2 mg tablet 2 mg PO BID Qty: 60 0RF trazodone 50 mg tablet 50 mg PO BEDTIME PRN (Reason: Sleep) citalopram 10 mg tablet 10 mg PO DAILY clopidogrel 75 mg tablet 75 mg PO DAILY pregabalin 50 mg capsule 50 mg PO DAILY Humulin R Regular U-100 Insuln 100 unit/mL solution See Rx Instructions .ROUTE .COMPLEX Rx Instructions: USE PER SLIDING SCALE: BS 150-200=4 UNITS, 201-250=6 UNITS, 251-300=10 UNITS, 301-350=12 UNITS, 351-400=15 UNITS. melatonin 3 mg Tablet 3 mg PO BEDTIME rosuvastatin 10 mg tablet 10 mg PO BEDTIME insulin glargine [Lantus Solostar U-100 Insulin] 100 unit/mL (3 mL) insulin pen 35 unit SUBCUT BIDWM Qty: 15 0RF fluticasone furoate-vilanterol [Breo Ellipta] 100-25 mcg/dose blister with device 1 inh inhalation DAILY Qty: 60 0RF isosorbide mononitrate 30 mg tablet extended release 24 hr 30 mg PO QAM aspirin 81 mg tablet,delayed release (DR/EC) 81 mg PO DAILY pantoprazole 20 mg tablet,delayed release (DR/EC) 20 mg PO DAILY nitroglycerin 0.4 mg tablet, sublingual See Rx Instructions .ROUTE .COMPLEX Rx Instructions: DISSOLVE ONE TABLET UNDER THE TONGUE EVERY 5 MINUTES NEEDED FOR CHEST PAIN. DO NOT EXCEED A TOTAL OF 3 DOSES IN 15 MINUTES. NOTIFY PHYSICIAN IF CHEST PAIN NOT RELIEVED. fluticasone propionate 50 mcg/actuation spray,suspension 2 spray INTRANASAL DAILY Referrals: Mag Watters [Primary Care Provider] - Patient Instructions: Opioid Safety Probable Cause of Probable cause of : Renal failure DS Attestations Time Spent in /Discharge Care*: critical care time Critical Care Time (min): 90 Quality - AMI: AMI present?: No Quality - Stroke: CVA present?: No Quality - VTE: VTE present?: No Coding Level of Care Code Critical Care >/= 30 minutes Critical care time (in minutes): 90 The high probability of a clinically significant, sudden or life threatening deterioration, as referenced in this documentation, required my full and direct attention, intervention and personal management. The critical care time shown is in addition to time spent performing any reported separately billable procedures and includes the following: [x] Data and vital sign review and interpretation [x ] Patient assessment, examination and intervention [x] Medication orders and management [x] Patient/Family updates as able [x] Care Coordination and Documentation. Other Coding Information This patient has a high probability of clinically significant, sudden or life threatening deterioration of the patient's (neurological/pulmonary/cardiac/renal/ID/endocrine) systems required my full, direct attention, the highest level of physician preparedness for urgent intervention and personal management. I managed/supervised life or organ supporting interventions that required frequent physician assessment. I devoted my full attention in the ICU to the direct care of this patient for the period of time indicated above. Time I spent with family or surrogate(s) is included only if the patient was incapable of providing necessary information or participating in decision making. This time includes the following services provided: Telemetry review Nonmechanical ventilation Hemodynamic interpretation, assessment and management Review and interpretation of CXR Review and interpretation of lab values Review and interpretation of microbiologic data and culture results Review of medications and administration Review and interpretation of Nutrition requirements and management Discussion of management with other consultants and services Clinical update to family members Diagnoses Acute kidney injury superimposed on CKD N17.9; N18.9
--- NOTE | 2024-06-30 19:17 | PC.NURSE ---
Ottoniel from [facility] released body, reference number [id number]
--- NOTE | 2024-06-30 19:19 | PC.NURSE ---
saving site cleared from donation
== END 2024-06-30 21:43 | disposition expired | DRG 871 ==
LOC: ER 06-27 18:01 → ICU 06-27 20:38 → CSU 06-28 17:08 → ICU 06-29 21:17
PROVIDERS: Emergency Medicine; Internal Medicine Nephrology; Admitting Provider Student in an Organized Health Care Education/Training Program; Emergency Provider Family Medicine; PCP Registered Nurse; Visit Provider Student in an Organized Health Care Education/Training Program
DX: A41.9 Sepsis, unspecified organism (principal); I21.4 Non-ST elevation (NSTEMI) myocardial infarction; I50.33 Acute on chronic diastolic (congestive) heart failure; J18.9 Pneumonia, unspecified organism; J96.22 Acute and chronic respiratory failure with hypercapnia; J96.21 Acute and chronic respiratory failure with hypoxia; J44.1 Chronic obstructive pulmonary disease with (acute) exacerbation; N17.9 Acute kidney failure, unspecified; I13.0 Hypertensive heart and chronic kidney disease with heart failure and stage 1 through stage 4 chronic kidney disease, or unspecified chronic kidney disease; J44.0 Chronic obstructive pulmonary disease with (acute) lower respiratory infection; N18.4 Chronic kidney disease, stage 4 (severe); I47.20 Ventricular tachycardia, unspecified; E87.4 Mixed disorder of acid-base balance; I25.5 Ischemic cardiomyopathy; I48.91 Unspecified atrial fibrillation; I25.2 Old myocardial infarction; E78.5 Hyperlipidemia, unspecified; F17.200 Nicotine dependence, unspecified, uncomplicated; R65.20 Severe sepsis without septic shock; E86.0 Dehydration; E11.22 Type 2 diabetes mellitus with diabetic chronic kidney disease; E11.51 Type 2 diabetes mellitus with diabetic peripheral angiopathy without gangrene; I25.10 Atherosclerotic heart disease of native coronary artery without angina pectoris; Z99.81 Dependence on supplemental oxygen; R00.1 Bradycardia, unspecified; Z66 Do not resuscitate; Z11.52 Encounter for screening for COVID-19; Z85.828 Personal history of other malignant neoplasm of skin; Z79.02 Long term (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 of antithrombotics/antiplatelets; Z79.4 Long term (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 of insulin; Z79.82 Long term (current) use of aspirin; Z79.899 Other long term (current) drug therapy; Z88.8 Allergy status to other drugs, medicaments and biological substances; Z89.612 Acquired absence of left leg above knee; Z89.611 Acquired absence of right leg above knee
CPT/HCPCS: 36415; 36416; 36600; 51702; 71045; 71250; 74176; 80048; 80051; 80053; 80061; 80202; 81001; 82330; 82575; 82805; 82962; 83036; 83605; 83735; 83880; 84100; 84145; 84300; 84443; 84484; 85025; 85730; 87040; 87637; 93005; 93306; 94640; 94660; 96365; 96366; 96367; 96372; 96375; 96376; 99291; J0461; J1265; J1644; J1815; J2060; J2270; J2405; J2470; J2543; J2919; J3370; J3490; J7030; J7626; J7799; J9999; Q3014